=== PATIENT | male | born 1960 ===

== ENCOUNTER 2016-09-27 23:26 | Inpatient (IN) | payer MEDICAID ==
[2016-09-27 23:28] VITALS: BMI 19.4
--- NOTE | 2016-09-27 23:41 | ED PDOC ---
Arrival/HPI - General Chief Complaint: Shortness Of Breath Time Seen by Provider: 09/27/16 23:27 Historian: Patient - History of Present Illness Narrative History of Present Illness (Text): 09/27/16 23:38 Shane Manuel is a 56 year old male, with a history of COPD, presents to the emergency department via ambulance for worsening shortness of breath which began shortly prior to arrival. En route patient was given 1 albuterol, 1 duoneb and Solumedrol 125mg. Denies any chest pain. Denies fever, chills, nausea , vomiting, diarrhea, urinary symptoms, or any other complaints at this time. Time/Duration: Prior to Arrival Symptom Course: Worsening Past Medical History - Provider Review Nursing Documentation Reviewed: Yes - Pulmonary Hx Chronic Obstructive Pulmonary Disease (COPD): Yes - Neurological Other/Comment: compression fx - Psychiatric Hx Substance Use: No Family/Social History - Physician Review Nursing Documentation Reviewed: Yes Family/Social History: No Known Family HX Smoking Status: Former Smoker Hx Alcohol Use: No Hx Substance Use: No Allergies/Home Meds Allergies/Adverse Reactions: Allergies No Known Allergies Allergy (Verified 09/27/16 23:28) Home Medications: Home Meds Medication Instructions Recorded Confirmed Unobtainable 09/27/16 09/27/16 Review of Systems - Physician Review All systems were reviewed & negative as marked: Yes - Review of Systems Constitutional: Normal. absent: Fatigue, Fevers Respiratory: SOB. absent: Cough Cardiovascular: absent: Chest Pain Gastrointestinal: Normal, Nausea. absent: Abdominal Pain, Diarrhea, Vomiting Neurological: Normal. absent: Dizziness Psychiatric: Normal Physical Exam Vital Signs Reviewed: Yes Vital Signs Temp Pulse Resp BP Pulse Ox 09/27/16 23:30 24 09/27/16 23:28 99.8 F H 100 H 26 H 133/91 H 100 Temperature: Afebrile Blood Pressure: Normal Pulse: Tachycardic Respiratory Rate: Normal Appearance: Positive for: Non-Toxic Pain Distress: None Mental Status: Positive for: Alert and Oriented X 3 - Systems Exam Head: Present: Atraumatic, Normocephalic Pupils: Present: PERRL Conjunctiva: Present: Normal Mouth: Present: Moist Mucous Membranes Neck: Present: Normal Range of Motion Respiratory/Chest: Present: Wheezes. No: Respiratory Distress, Accessory Muscle Use Cardiovascular: Present: Regular Rate and Rhythm, Normal S1, S2. No: Murmurs Abdomen: Present: Normal Bowel Sounds. No: Tenderness, Distention, Peritoneal Signs Upper Extremity: Present: Normal Inspection. No: Cyanosis, Edema Lower Extremity: Present: Normal Inspection. No: Edema Neurological: Present: GCS=15, CN II-XII Intact, Speech Normal Skin: Present: Warm, Dry, Normal Color. No: Rashes Psychiatric: Present: Alert, Oriented x 3, Normal Insight, Normal Concentration Medical Decision Making ED Course and Treatment: 09/27/16 23:53 Impression: A 56 year old male who presents to the emergency department complaining of worsening shortness of breath. Plan: -- EKG -- Labs, cardiac enzymes -- Chest X-ray -- Duoneb -- Blood Culture -- Reassess and disposition Progress Notes: 09/28/16 01:23 EKG reviewed by me: NSR @ 100 bpm. Septal infarct, age undetermined. Case discussed with Dr. Sanz who is aware and agrees with plan to admit patient to telemetry for COPD. Accepts patient under hospitalist service. - Lab Interpretations Microbiology Results: Microbiology Results 09/28/16 00:10 Blood-Venous Blood Culture - Preliminary NO GROWTH AFTER 24 HOURS 09/27/16 23:30 Blood-Venous Blood Culture - Preliminary NO GROWTH AFTER 24 HOURS Lab Results: 09/27/16 23:30 09/27/16 23:30 Lab Results 09/27/16 23:30: Sodium 138, Chloride 102, Potassium 4.6, Carbon Dioxide 32, Anion Gap 9 L, BUN 32 H, Creatinine 0.6, Est GFR ( Amer) > 60, Est GFR ( Non-Af Amer) > 60, Random Glucose 102, Calcium 9.1, Total Bilirubin 0.5, AST 29 , ALT 49, Alkaline Phosphatase 70, Lactate Dehydrogenase 409, Total Creatine Kinase 27 L, Troponin I < 0.01, NT-Pro-B Natriuret Pep 193, Total Protein 6.0, Albumin 3.6, Globulin 2.4, Albumin/Globulin Ratio 1.5 09/27/16 23:30: pO2 132 H, VBG pH 7.32, VBG pCO2 65.0 H, VBG HCO3 33.5 H, VBG Total CO2 35.5 H, VBG O2 Sat (Calc) 99.8 H, VBG Base Excess 5.3 H, VBG Potassium 4.6, Sodium 139.0, Chloride 105.0, Glucose 108, Lactate 1.4, FiO2 21.0 , Venous Blood Potassium 4.6 09/27/16 23:30: WBC 23.6 H, RBC 4.32, Hgb 13.2 L, Hct 39.9 L, MCV 92.4, MCH 30.6 , MCHC 33.1, RDW 14.0, Plt Count 236, MPV 9.7, Neutrophils % (Manual) 77 H, Band Neutrophils % 2, Lymphocytes % (Manual) 12 L, Monocytes % (Manual) 9 H, Platelet Evaluation Normal I have reviewed the lab results: Yes - RAD Interpretation Radiology Orders: 09/27/16 23:30 CHEST PORTABLE [RAD] Stat 09/28/16 01:16 CHEST W/CONTRAST [CT] Stat - EKG Interpretation Interpreted by ED Physician: Yes Type: 12 lead EKG - Medication Orders Current Medication Orders: Acetaminophen (Tylenol 325mg Tab) 650 mg PO Q6H PRN PRN Reason: Fever >100.4 F Last Admin: 09/28/16 23:05 Dose: 650 mg Re-Assess: MAR Pain/Vitals Document 09/29/16 00:05 ST (Rec: 09/29/16 03:04 ST [id number]) Pain Reassessment Is This A Pain ReAssessment? Yes Sleep Is patient sleeping during reassessment? No Presence of Pain Presence of Pain Yes Albuterol/Ipratropium (Duoneb 3 Mg/0.5 Mg (3 Ml) Ud) 3 ml IH [id number] PRN PRN Reason: shortness of breath or wheezin Cyclobenzaprine HCl (Flexeril) 10 mg PO TID [facility] Last Admin: 09/29/16 17:04 Dose: 10 mg Enoxaparin Sodium (Lovenox) 30 mg SC DAILY ERIC PRN Reason: Protocol Last Admin: 09/29/16 10:08 Dose: 30 mg Famotidine (Pepcid) 20 mg PO BID [facility] Last Admin: 09/29/16 17:04 Dose: 20 mg Azithromycin (Zithromax 500mg In Ns) 500 mg in 250 mls @ 167 mls/hr IVPB DAILY [facility] PRN Reason: Protocol Last Admin: 09/29/16 10:09 Dose: 167 mls/hr Ceftriaxone Sodium (Rocephin 1 Gram Ivpb) 1 gm in 100 mls @ 100 mls/hr IVPB DAILY [facility] PRN Reason: Protocol Last Admin: 09/29/16 13:23 Dose: 100 mls/hr Ibuprofen (Motrin Tab) 600 mg PO Q6H PRN PRN Reason: Pain, Mild (1-3) Last Admin: 09/28/16 20:22 Dose: 600 mg Re-Assess: [facility] Pain/Vitals Document 09/28/16 21:22 ST (Rec: 09/28/16 21:34 ST [id number]) Pain Reassessment Is This A Pain ReAssessment? Yes Sleep Is patient sleeping during reassessment? No Presence of Pain Presence of Pain Yes Pain Scale Used Pain Scale Used Numeric Location Intensity 7 Levalbuterol HCl (Xopenex) 0.63 mg IH [id number] [facility] Last Admin: 09/29/16 19:17 Dose: 0.63 mg Levalbuterol HCl (Xopenex) 0.63 mg IH Q2H PRN PRN Reason: Shortness of Breath Methylprednisolone (Solu-Medrol) 40 mg IV BID [facility] Last Admin: 09/29/16 17:03 Dose: 40 mg Morphine Sulfate (Morphine) 2 mg IVP Q6H PRN PRN Reason: Pain, severe (8-10) Last Admin: 09/29/16 17:03 Dose: 2 mg Re-Assess: [facility] Pain Assessment Document 09/29/16 18:03 (Rec: 09/29/16 18:39 [id number]) Pain Reassessment Is this a pain reassessment? Yes Sleep Is patient sleeping during reassessment? Yes Pain Scale Used Pain Scale Used Numeric Description Intensity of Pain at present 0 Pantoprazole Sodium (Protonix Ec Tab) 40 mg PO 0630 [facility] Tiotropium [place] (Spiriva) 18 mcg IH DAILY [facility] Discontinued Medications Albuterol/Ipratropium (Duoneb 3 Mg/0.5 Mg (3 Ml) Ud) 3 ml IH Q15M [facility] Stop: 09/28/16 00:01 Last Admin: 09/28/16 00:03 Dose: 3 ml Albuterol/Ipratropium (Duoneb 3 Mg/0.5 Mg (3 Ml) Ud) 3 ml IH [id number] [facility] Last Admin: 09/28/16 23:01 Dose: 3 ml Arformoterol Tartrate (Brovana) 15 mcg IH [id number] Last Admin: 09/29/16 08:03 Dose: 15 mcg Budesonide (Pulmicort Respules) 1 mg IH [id number] [facility] Last Admin: 09/29/16 08:02 Dose: 1 mg Magnesium Sulfate 2 gm/ Sodium (Chloride) 104 mls @ 102 mls/hr IVPB ONCE ONE Stop: 09/28/16 02:05 Last Admin: 09/28/16 01:27 Dose: 102 mls/hr Sodium Chloride (Sodium Chloride 0.9%) 1,000 mls @ 100 mls/hr IV .Q10H [facility] Last Admin: 09/28/16 14:58 Dose: 100 mls/hr Iohexol (Omnipaque 350 100 Ml) Confirm Administered Dose 350 mg .ROUTE .STK-MED ONE Stop: 09/28/16 01:59 Ketorolac Tromethamine (Toradol) 30 mg IVP STAT STA Stop: 09/28/16 01:24 Ketorolac Tromethamine (Toradol) 30 mg IVP STAT STA Stop: 09/28/16 04:16 Last Admin: 09/28/16 04:34 Dose: 30 mg Re-Assess: [facility] Pain Assessment Document 09/28/16 05:34 ST (Rec: 09/28/16 05:59 ST [id number]) Pain Reassessment Is this a pain reassessment? Yes Sleep Is patient sleeping during reassessment? Yes Ketorolac Tromethamine (Toradol) 30 mg IVP STAT STA Stop: 09/28/16 10:06 Last Admin: 09/28/16 11:01 Dose: 30 mg Re-Assess: [facility] Pain Assessment Document 09/28/16 12:01 J (Rec: 09/28/16 12:55 [id number]) Pain Reassessment Is this a pain reassessment? Yes Sleep Is patient sleeping during reassessment? Yes Pain Scale Used Pain Scale Used Numeric Description Description Constant Intensity of Pain at present 3 Levalbuterol HCl (Xopenex) 0.63 mg IH Q2H PRN PRN Reason: Shortness of Breath Methylprednisolone (Solu-Medrol) 60 mg IV BID [facility] Last Admin: 09/28/16 10:02 Dose: 60 mg Morphine Sulfate (Morphine) 2 mg IVP ONCE STA Stop: 09/28/16 04:16 Last Admin: 09/28/16 05:59 Dose: Not Given Non-Admin Reason: Patient Asleep - Scribe Statement The provider has reviewed the documentation as recorded by the Scribe Montrell López Provider Attestation: Provider Scribe Attestation: All medical record entries made by the Melecioibe were at my direction and personally dictated by me. I have reviewed the chart and agree that the record accurately reflects my personal performance of the history, physical exam, medical decision making, and the department course for this patient. I have also personally directed, reviewed, and agree with the discharge instructions and disposition. Disposition/Present on Arrival - Present on Arrival Any Indicators Present on Arrival: No History of DVT/PE: No History of Uncontrolled Diabetes: No Urinary Catheter: No History of Decub. Ulcer: No History Surgical Site Infection Following: None - Disposition Have Diagnosis and Disposition been Completed?: Yes Diagnosis: Chronic obstructive lung disease Disposition: HOSPITALIZED Disposition Time: 01:30 Condition: FAIR
[2016-09-27] MEDS: Albuterol-Ipratrop 3 mg / 0.5 (3 ml) UD IH SCH (23:52)
[2016-09-28] MEDS: Albuterol-Ipratrop 3 mg / 0.5 (3 ml) UD IH SCH ×6 (00:03→23:01)
[2016-09-28 00:06] LABS: HEMATOCRIT 39.9 % (42.0-52.0); MEAN CELL VOLUME 92.4 fL (80.0-105.0); MEAN CORPUSCULAR HEMOGLOBIN 30.6 pg (25.0-35.0); MEAN CORPUSCULAR HGB CONC 33.1 g/dl (31.0-37.0); MEAN PLATELET VOLUME 9.7 fl (7.0-11.0); PLATELET COUNT 236 10^3/uL (120.0-450.0); VENOUS BLOOD GAS BASE EXCESS 5.3 mmol/L (0.0-2.0); VENOUS BLOOD PH 7.32 (7.32-7.43); WHITE BLOOD COUNT 23.6 10^3/ul (4.5-11.0)
[2016-09-28 00:11] LABS: ADD MANUAL DIFF? YES
[2016-09-28 00:17] LABS: ALB/GLOB RATIO 1.5 (1.1-1.8); ALKALINE PHOSPHATASE 70 U/L (38-133); ALT/SGPT 49 U/L (7-56); AST/SGOT 29 U/L (15-59); BILIRUBIN,TOTAL 0.5 mg/dL (0.2-1.3); BLOOD UREA NITROGEN 32 mg/dL (7-21); CALCIUM 9.1 mg/dL (8.4-10.5); CARBON DIOXIDE 32 mmol/L (21-33); CHLORIDE 102 mmol/L (98-107); GFR AFRICAN-AMERICAN > 60; GLUCOSE,RANDOM 102 mg/dL (70-110); POTASSIUM 4.6 mmol/L (3.6-5.0); SODIUM 138 mmol/L (132-148)
[2016-09-28 00:36] LABS: BAND 2 % (0-2); NEUTROPHIL 77 % (50.0-70.0)
[2016-09-28 00:37] LABS: PLATELET ESTIMATE NORMAL (NORMAL)
[2016-09-28] MEDS ORDERED: Albuterol-Ipratrop 3 mg / 0.5 (3 ml) UD IH PRN (01:01)
[2016-09-28] MEDS ORDERED: Magnesium Sulfate 2 GM in Sodium Chloride 0.9% 100 ML IVPB ONE (01:04)
--- NOTE | 2016-09-28 01:21 | CP.PCM.HP ---
Addendum entered and electronically signed by Sin Grey DO 09/28/16 04:18: patient is on azithromycin, not levaquin Original Note: <Sin Grey - Last Filed: 09/28/16 03:16> History of Present Illness - History of Present Illness History of Present Illness: This is a 56yo M, normally a patient of Dr. Polk at [facility] who is coming to the hospital for acute shortness of breath. Never been intubated. States he is on 3L NC at home, gets out of breath just walking to the bathroom. Admits to night sweats and 30lb weight loss, unintentional in the past 2 months, and lack of appetite. Extensive family history of cancer; mom with thyroid and lung cancer, dad EtOH abuse from cirrhosis, brother/sisters with lung and brain cancer as well. Denies fevers/chills, CAI, CP, abdominal pain, Nausea/V/D, dysuria/freq/ urg, or lower extremity pain swelling. Past medical history: COPD Allergies: denies Meds: Advair 500, Proventil, Prednisone unknown dosage, 3L NC Surgeries: Denies FamHx: extensive cancer history as listed above; has not had any preventative cancer screenings or regular medical follow ups Social: former smoker, former IVDA, has been "clean" for 35 years Present on Admission - Present on Admission Any Indicators Present on Admission: No History of DVT/PE: No History of Uncontrolled Diabetes: No Urinary Catheter: No Decubitus Ulcer Present: No Past Patient History - Past Social History Smoking Status: Former Smoker - PULMONARY Hx Chronic Obstructive Pulmonary Disease (COPD): Yes - NEUROLOGICAL Other/Comment: compression fx - PSYCHIATRIC Hx Substance Use: No Meds Allergies/Adverse Reactions: Allergies Allergy/AdvReac Type Severity Reaction Status Date / Time No Known Allergies Allergy Verified 09/27/16 23:28 Physical Exam - Constitutional Additional comments: patient is sitting up in bed, gasping for air, speaking in full sentences, cachetic - Head Exam Head Exam: ATRAUMATIC - Eye Exam Eye Exam: EOMI - ENT Exam ENT Exam: Mucous Membranes Dry - Neck Exam Neck exam: Positive for: Full Rom. Negative for: Lymphadenopathy - Respiratory Exam Respiratory Exam: Accessory Muscle Use, Decreased Breath Sounds, Wheezes. absent: Chest Wall Tenderness, Clear to Auscultation Bilateral, Respiratory Distress, Stridor - Cardiovascular Exam Cardiovascular Exam: REGULAR RHYTHM, +S1, +S2 - GI/Abdominal Exam GI & Abdominal Exam: Normal Bowel Sounds, Soft. absent: Tenderness - Extremities Exam Extremities exam: Positive for: full ROM, normal capillary refill, pedal edema, pedal pulses present. Negative for: calf tenderness, joint swelling, tenderness - Back Exam Back exam: NORMAL INSPECTION. absent: CVA tenderness (L), CVA tenderness (R) Additional comments: spinal tenderness in T10 - Neurological Exam Neurological exam: Alert, CN II-XII Intact, Oriented x3, Reflexes Normal Additional comments: walks with cane; short of breath after 10 steps - Psychiatric Exam Psychiatric exam: Normal Affect - Skin Skin Exam: Warm Results - Vital Signs Recent Vital Signs: Last Vital Signs Temp 99.8 F H 09/27/16 23:28 Pulse 100 H 09/27/16 23:28 Resp 24 09/27/16 23:30 BP 133/91 H 09/27/16 23:28 Pulse Ox 100 09/27/16 23:28 - Labs Result Diagrams: 09/27/16 23:30 09/27/16 23:30 Labs: Laboratory Results - last 24 hr 09/27/16 09/27/16 09/27/16 23:30 23:30 23:30 WBC 23.6 H RBC 4.32 Hgb 13.2 L Hct 39.9 L MCV 92.4 MCH 30.6 MCHC 33.1 RDW 14.0 Plt Count 236 MPV 9.7 Neutrophils % (Manual) 77 H Band Neutrophils % 2 Lymphocytes % (Manual) 12 L Monocytes % (Manual) 9 H Platelet Evaluation Normal pO2 132 H VBG pH 7.32 VBG pCO2 65.0 H VBG HCO3 33.5 H VBG Total CO2 35.5 H VBG O2 Sat (Calc) 99.8 H VBG Base Excess 5.3 H VBG Potassium 4.6 Sodium 139.0 138 Chloride 105.0 102 Glucose 108 Lactate 1.4 FiO2 21.0 Potassium 4.6 Carbon Dioxide 32 Anion Gap 9 L BUN 32 H Creatinine 0.6 Est GFR ( Amer) > 60 Est GFR (Non-Af Amer) > 60 Random Glucose 102 Calcium 9.1 Total Bilirubin 0.5 AST 29 ALT 49 Alkaline Phosphatase 70 Lactate Dehydrogenase 409 Total Creatine Kinase 27 L Total Protein 6.0 Albumin 3.6 Globulin 2.4 Albumin/Globulin Ratio 1.5 Venous Blood Potassium 4.6 Assessment & Plan - Assessment and Plan (Free Text) Assessment: 56yo M admitted for COPD Exacerbation COPD Exacerbation; acute on chronic -given 125 Solumedrol in emergency depart; will start 60BID of IV Solumedrol -IV Mag 2g given in emergency depart -Levaquin - follow up ABG, keep on 3L NC for time being -advair 500, breathing treatments ERIC Q3H, PRN Q2H -follow up chest CT w/ contrast; patient has been losing weight -pending troponin Proph: Pepcid SCD Heart Healthy Diet Case discussed with Dr. Umu Grey PGY1 Night Float Decision To Admit - Pt Status Changed To: Hospital Disposition Of: Inpatient Admission - Admit Certification Admit to Inpatient:: After my assessment, the patient will require hospitalization for at least two midnights. This is because of the severity of symptoms shown, intensity of services needed, and/or the medical risk in this patient being treated as an outpatient. - . Bed Request Type: Telemetry Admitting Physician: Farhad Sanz MD <Farhad Sanz MD - Last Filed: 09/28/16 08:20> Results - Vital Signs Recent Vital Signs: Last Vital Signs Temp 97.8 F 09/28/16 06:00 Pulse 94 H 09/28/16 06:00 Resp 24 09/28/16 06:00 BP 113/74 09/28/16 06:00 Pulse Ox 96 09/28/16 06:00 - Labs Result Diagrams: 09/28/16 05:15 09/27/16 23:30 Labs: Laboratory Results - last 24 hr 09/28/16 05:15 WBC 17.2 H D RBC 3.93 Hgb 12.1 L Hct 36.3 L MCV 92.4 MCH 30.8 MCHC 33.3 RDW 14.2 Plt Count 199 MPV 9.7 Gran % 95.8 H Lymph % (Auto) 1.2 L [place] % (Auto) 3.0 Eos % (Auto) 0.0 L Baso % (Auto) 0.0 Gran # 16.53 H Lymph # 0.2 L [place] # 0.5 Eos # 0.0 Baso # 0.00 Attending/Attestation - Attestation I have personally seen and examined this patient.: Yes I have fully participated in the care of the patient.: Yes I have reviewed all pertinent clinical information: Yes Notes (Text): 09/28/16 08:10 -I agree with the above H&P completed by the resident physician with the following additions and/or changes: The patient is a 56 year old man with a history of very severe COPD (on 3L O2 NC at home) and chronic low back pain, who presents with acute COPD exacerbation. He will be treated with nebulizer breathing treatments ATC and PRN , prophylactic Azithromycin and IV Methylprednisone. In addition, he has leukocytosis which is presumably due to chronic Prednisone use (versus acute bronchitis). Lastly, because the patient appears cachectic and also reports a significant unintentional weight loss over the past 6 months, a CT-chest has been ordered (result pending) to evaluate for possible mass. Will defer to the primary team to follow-up on the results of the CT-chest later this morning. 09/28/16 08:15
[2016-09-28] MEDS ORDERED: Iohexol 350 MG/100 ML VIAL ONE (01:58)
[2016-09-28 02:36] LABS: TROPONIN I < 0.01 ng/mL
[2016-09-28] MEDS ORDERED: Morphine 2 mg/ml ISec IVP STA (04:15)
[2016-09-28] MEDS: Sodium Chloride 0.9% 1,000 ML IV SCH ×2 (04:34→14:58)
[2016-09-28 06:08] LABS: GRAN # 16.53 (1.4-6.5); GRAN % 95.8 % (50.0-68.0); HEMATOCRIT 36.3 % (42.0-52.0); LYMPH # 0.2 (1.2-3.4); LYMPH % 1.2 % (22.0-35.0); MEAN CELL VOLUME 92.4 fL (80.0-105.0); MEAN CORPUSCULAR HEMOGLOBIN 30.8 pg (25.0-35.0); MEAN CORPUSCULAR HGB CONC 33.3 g/dl (31.0-37.0); MEAN PLATELET VOLUME 9.7 fl (7.0-11.0); MONO # 0.5 (0.1-0.6); PLATELET COUNT 199 10^3/uL (120.0-450.0); RED CELL DISTRIBUTION WIDTH 14.2 % (11.5-14.5); WHITE BLOOD COUNT 17.2 10^3/ul (4.5-11.0)
[2016-09-28 06:49] LABS: ADD MANUAL DIFF? NO
[2016-09-28] MEDS: Arformoterol 15 mcg/2 ml Inh Sol IH SCH ×2 (07:40→19:34)
[2016-09-28] MEDS: Budesonide 0.5 mg/2 ml Inhal Susp UD IH SCH ×2 (07:40→19:34)
--- NOTE | 2016-09-28 08:50 | RAD ---
HISTORY: sob COMPARISON: No prior. FINDINGS: LUNGS: No active pulmonary disease. PLEURA: No significant pleural effusion identified, no pneumothorax apparent. CARDIOVASCULAR: Normal. OSSEOUS STRUCTURES: No significant abnormalities. VISUALIZED UPPER ABDOMEN: Normal. OTHER FINDINGS: None. IMPRESSION: No active disease.
--- NOTE | 2016-09-28 09:21 | CT ---
PROCEDURE: CT Chest with contrast HISTORY: SOB weight loss COMPARISON: None. TECHNIQUE: Contiguous axial images were obtained through the chest with intravenous contrast enhancement. Sagittal and coronal reconstructions were performed. IV contrast: 100 cc of Omni 350 Radiation dose (DLP): 172 mGy-cm. This CT exam was performed using one or more of the following dose reduction techniques: Automated exposure control, adjustment of the mA and/or kV according to patient size, and/or use of iterative reconstruction technique. FINDINGS: LUNGS: Severe emphysema MEDIASTINUM: Unremarkable thoracic aorta. No aneurysm or dissection. Normal sized heart. Main pulmonary artery unremarkable. No vascular congestion. No lymphadenopathy. No evidence of pulmonary embolus PLEURA: No pleural fluid. No pneumothorax. BONES: Multiple compression fractures are seen most severe at L1 UPPER ABDOMEN: Grossly unremarkable. OTHER FINDINGS: None. IMPRESSION: Severe emphysema. No evidence of pulmonary embolus. Multiple thoracic compression fractures with severe compression fracture of L1
[2016-09-28 09:35] LABS: ALB/GLOB RATIO 1.3 (1.1-1.8); ALKALINE PHOSPHATASE 62 U/L (38-133); ALT/SGPT 45 U/L (7-56); AST/SGOT 20 U/L (15-59); BILIRUBIN,TOTAL 0.4 mg/dL (0.2-1.3); BLOOD UREA NITROGEN 27 mg/dL (7-21); CALCIUM 8.5 mg/dL (8.4-10.5); CARBON DIOXIDE 28 mmol/L (21-33); CHLORIDE 101 mmol/L (98-107); CHOLESTEROL 162 mg/dL (130-200); GFR AFRICAN-AMERICAN > 60; GLUCOSE,RANDOM 107 mg/dL (70-110); POTASSIUM 4.3 mmol/L (3.6-5.0); SODIUM 138 mmol/L (132-148); TOTAL PROTEIN 5.1 g/dL (5.8-8.3)
[2016-09-28 09:38] LABS: IRON 62 ug/dL (45-180)
[2016-09-28 09:46] LABS: TROPONIN I < 0.01 ng/mL
[2016-09-28] MEDS ORDERED: Fluticasone-Salmeterol 500-50mcg Diskus INH SCH (10:00)
[2016-09-28] MEDS: Azithromycin 500MG/NS 250ml 500 MG/250 ML BAG IVPB SCH (10:01)
[2016-09-28] MEDS: Enoxaparin 30 mg Syringe SC SCH (10:03)
[2016-09-28 10:08] LABS: THYROID STIMULATING HORMONE < 0.02 mIU/mL (0.46-4.68)
[2016-09-28] MEDS: MethylPREDNISolone 40 mg Vial IV SCH (17:29)
[2016-09-28 22:31] LABS: PH,URINE 6.5 (4.7-8.0); URINE BILIRUBIN NEGATIVE (NEGATIVE); URINE BLOOD NEGATIVE (NEGATIVE); URINE GLUCOSE (UA) NEGATIVE (NEGATIVE); URINE KETONE NEGATIVE (NEGATIVE); URINE LEUKOCYTE ESTERASE NEGATIVE Leu/uL (NEGATIVE); URINE PROTEIN NEGATIVE mg/dL (<30 mg/dL); URINE UROBILINOGEN 0.2 E.U./dL (<1 E.U./dL)
[2016-09-28 22:37] LABS: URINE APPEARANCE CLEAR (CLEAR); URINE COLOR YELLOW (YELLOW)
--- NOTE | 2016-09-28 22:38 | CARD ---
APPROVED REPORT EKG Measurement Heart [id number] <Conclusion> Normal sinus rhythm Septal infarct, age undetermined Abnormal ECG
[2016-09-28] MEDS ORDERED: Levalbuterol 0.63 MG/3 ML Inhal Soln UD IH PRN (23:35)
[2016-09-29] MEDS ORDERED: Levalbuterol 0.63 MG/3 ML Inhal Soln UD IH PRN (00:14)
[2016-09-29] MEDS: Morphine 2 mg/ml ISec IVP PRN ×3 (04:51→17:03)
[2016-09-29] MEDS: Sodium Chloride 0.9% 1,000 ML IV SCH (04:51)
[2016-09-29 05:04] VITALS: RESP 20
[2016-09-29] MEDS: Levalbuterol 0.63 MG/3 ML Inhal Soln UD IH SCH ×6 (05:09→23:14)
[2016-09-29 06:52] LABS: ADD MANUAL DIFF? NO
[2016-09-29 07:07] LABS: GRAN % 86.5 % (50.0-68.0); HEMATOCRIT 33.6 % (42.0-52.0); LYMPH % 5.9 % (22.0-35.0); MEAN CELL VOLUME 91.6 fL (80.0-105.0); MEAN CORPUSCULAR HGB CONC 32.7 g/dl (31.0-37.0); MEAN PLATELET VOLUME 9.5 fl (7.0-11.0); MONO # 1.3 (0.1-0.6); MONO % 7.6 % (1.0-6.0); PLATELET COUNT 188 10^3/uL (120.0-450.0); RED CELL DISTRIBUTION WIDTH 14.2 % (11.5-14.5); WHITE BLOOD COUNT 17.1 10^3/ul (4.5-11.0)
[2016-09-29] MEDS: Budesonide 0.5 mg/2 ml Inhal Susp UD IH SCH (08:02)
[2016-09-29] MEDS: Arformoterol 15 mcg/2 ml Inh Sol IH SCH (08:03)
[2016-09-29 08:21] LABS: ALB/GLOB RATIO 1.3 (1.1-1.8); ALKALINE PHOSPHATASE 57 U/L (38-133); ALT/SGPT 49 U/L (7-56); AST/SGOT 21 U/L (15-59); BILIRUBIN,TOTAL 0.4 mg/dL (0.2-1.3); BLOOD UREA NITROGEN 20 mg/dL (7-21); CALCIUM 8.2 mg/dL (8.4-10.5); CARBON DIOXIDE 29 mmol/L (21-33); CHLORIDE 106 mmol/L (95-110); GFR AFRICAN-AMERICAN > 60; GLUCOSE,RANDOM 80 mg/dL (70-110); POTASSIUM 4.1 mmol/L (3.6-5.0); SODIUM 138 mmol/L (132-148); TOTAL PROTEIN 4.6 g/dL (5.8-8.3)
[2016-09-29] MEDS: Enoxaparin 30 mg Syringe SC SCH (10:08)
[2016-09-29] MEDS: MethylPREDNISolone 40 mg Vial IV SCH ×2 (10:08→17:03)
[2016-09-29] MEDS: Azithromycin 500MG/NS 250ml 500 MG/250 ML BAG IVPB SCH (10:09)
--- NOTE | 2016-09-29 10:37 | CP.PCM.PN ---
<Sha Montesinos - Last Filed: 09/29/16 10:32> Subjective - Date & Time of Evaluation Date of Evaluation: 09/29/16 Time of Evaluation: 09:00 - Subjective Subjective: Internal Medicine Progress Note for Dr. Caba Patient seen and evaluated at bedside. Today is hospital day 2. Overnight, patient still experiencing some pain, requiring a dose of morphine; he also continued to experience intermittent episodes of rapid tachycardia concerning for junctional rhythm on tele monitor, but otherwise remained hemodynamically stable and without complaint, so his breathing treatments were transitioned to Xopenex to reduce any medication induced tachycardia. Today, patient reports baseline breathing (short of breath, better than when presenting to [facility]) and back pain that limits his ambulation, but denies chest pain, productive cough, weakness, near-syncope/syncope. Objective - Vital Signs/Intake and Output Vital Signs (last 24 hours): Temp Pulse Resp BP Pulse Ox 97.5 F L 87 20 119/78 98 09/29/16 05:02 09/29/16 06:00 09/29/16 05:02 09/29/16 05:02 09/29/16 05:02 Intake and Output: 09/29/16 09/29/16 06:59 18:59 Intake Total 2940 Output Total 1000 Balance 1940 - Medications Medications: Current Medications Acetaminophen (Tylenol 325mg Tab) 650 mg PO Q6H PRN PRN Reason: Fever >100.4 F Last Admin: 09/28/16 23:05 Dose: 650 mg Arformoterol Tartrate (Brovana) 15 mcg IH [id number] [facility] Last Admin: 09/29/16 08:03 Dose: 15 mcg Budesonide (Pulmicort Respules) 1 mg IH [id number] [facility] Last Admin: 09/29/16 08:02 Dose: 1 mg Cyclobenzaprine HCl (Flexeril) 10 mg PO TID [facility] Last Admin: 09/29/16 10:08 Dose: 10 mg Enoxaparin Sodium (Lovenox) 30 mg SC DAILY [facility] PRN Reason: Protocol Last Admin: 09/29/16 10:08 Dose: 30 mg Famotidine (Pepcid) 20 mg PO BID [facility] Last Admin: 09/29/16 10:08 Dose: 20 mg Azithromycin (Zithromax 500mg In Ns) 500 mg in 250 mls @ 167 mls/hr IVPB DAILY SARAH PRN Reason: Protocol Last Admin: 09/29/16 10:09 Dose: 167 mls/hr Ibuprofen (Motrin Tab) 600 mg PO Q6H PRN PRN Reason: Pain, Mild (1-3) Last Admin: 09/28/16 20:22 Dose: 600 mg Levalbuterol HCl (Xopenex) 0.63 mg IH [id number] [facility] Last Admin: 09/29/16 08:02 Dose: 0.63 mg Levalbuterol HCl (Xopenex) 0.63 mg IH Q2H PRN PRN Reason: Shortness of Breath Methylprednisolone (Solu-Medrol) 40 mg IV BID [facility] Last Admin: 09/29/16 10:08 Dose: 40 mg Morphine Sulfate (Morphine) 2 mg IVP Q6H PRN PRN Reason: Pain, severe (8-10) Last Admin: 09/29/16 10:22 Dose: 2 mg - Labs Labs: 09/29/16 06:30 09/29/16 08:08 - Constitutional Appears: Non-toxic, No Acute Distress, Chronically Ill, Other (Tachypnic with exertion, able to speak full sentences without gasping for air when at rest and wearing NC O2) - Head Exam Head Exam: ATRAUMATIC, NORMAL INSPECTION, NORMOCEPHALIC - Eye Exam Eye Exam: EOMI, Normal appearance. absent: Conjunctival injection, Scleral icterus Pupil Exam: absent: Irregular, Unequal - ENT Exam ENT Exam: Mucous Membranes Moist - Neck Exam Neck Exam: Full ROM - Respiratory Exam Respiratory Exam: Accessory Muscle Use, Decreased Breath Sounds (diffusely decreased breath sounds), Prolonged Expiratory Phase, Wheezes (difuse faint end- expiratory wheezes). absent: Chest Wall Tenderness, Rales, Rhonchi, Respiratory Distress, Stridor Additional comments: normal breathing and speaking pattern at rest tachypnic with exertion - Cardiovascular Exam Cardiovascular Exam: Tachycardia, REGULAR RHYTHM, +S1, +S2. absent: Bradycardia , Clicks, Irregular Rhythm, RRR, +S4 - GI/Abdominal Exam GI & Abdominal Exam: Soft, Normal Bowel Sounds. absent: Distended, Firm, Guarding, Rigid, Tenderness - Extremities Exam Extremities Exam: Normal Inspection. absent: Calf Tenderness, Pedal Edema, Tenderness - Back Exam Back Exam: tenderness (complains of lower back pain along spine (lumbar region) , not acutely worsened with palpation). absent: rash noted - Neurological Exam Neurological Exam: Alert, Awake, Oriented x3. absent: Normal Gait (hunched gait with short halting steps, requires a cane when ambulating) - Psychiatric Exam Psychiatric exam: Normal Affect, Normal Mood - Skin Skin Exam: Dry, Intact, Normal Color, Warm Assessment and Plan - Assessment and Plan (Free Text) Assessment: This is a 56 yo M with PMH of tobacco abuse (quit 5 months ago) and O2 /Steroid dependent COPD who presents with shortness of breath suspicious for acute exacerbation of COPD. Plan: 1) COPD Exacerbation -Likely acute exacerbation overlying chronic COPD -High dose Soludemrol and 1x IV Mag in ED; now on Solumedrol 40mg IV BID, Xopenex q4 sarah and q2 prn, Budesonide and Brovana q12, continue -IV Zithromax -Chest CT w/ contrast notable for severe emphysema, no pulmonary embolus, multiple thoracic compression fractures & severe compression fracture of L1 -trops negative x2 -Pulm (Dr. Holbrook) consulted, appreciate all recs; recs Pulm Rehab, f/u at [facility] or [facility] for further workup and management given severity of disease , may require bleb surgeries or lung transplant in future -PT consulted 2) Cachexia, Weight loss of > 30 lbs -likely COPD cachexia, but given smoking history clear risk for malignancy -CT chest negative for masses, so less likely malignancy -Tolerating heart healthy diet, continue to monitor 3) Tachycardia -likely 2/2 to severe COPD, chronic steroid use, deconditioning -Remains hemodynamically stable -Trops negative x2, no hx of cardiac disease per pt -Echo ordered, if normal, can d/c telemetry 4) Back pain -compression fractures noted on chest CT, likely exacerbated by chronic steroid use -No relief with Toradol, now on PRN Morphine -PT consulted Dispo: Telemetry, pending transfer to Med/Surg if Echo normal FEN: Heart-healthy Access: Peripheral IV Consults: Pulm, PT Ppx: Protonix for GI, Lovenox for DVT Code Status: Full Patient seen and reviewed with attending, Dr. Caba <Howard Caba - Last Filed: 09/29/16 14:48> Objective - Vital Signs/Intake and Output Vital Signs (last 24 hours): Temp Pulse Resp BP Pulse Ox 98.1 F 132 H 20 119/88 98 09/29/16 12:00 09/29/16 12:00 09/29/16 12:00 09/29/16 12:00 09/29/16 05:02 Intake and Output: 09/29/16 09/29/16 06:59 18:59 Intake Total 2940 Output Total 1000 Balance 1940 - Medications Medications: Current Medications Acetaminophen (Tylenol 325mg Tab) 650 mg PO Q6H PRN PRN Reason: Fever >100.4 F Last Admin: 09/28/16 23:05 Dose: 650 mg Albuterol/Ipratropium (Duoneb 3 Mg/0.5 Mg (3 Ml) Ud) 3 ml IH [id number] PRN PRN Reason: shortness of breath or wheezin Cyclobenzaprine HCl (Flexeril) 10 mg PO TID [facility] Last Admin: 09/29/16 13:23 Dose: 10 mg Enoxaparin Sodium (Lovenox) 30 mg SC DAILY [facility] PRN Reason: Protocol Last Admin: 09/29/16 10:08 Dose: 30 mg Famotidine (Pepcid) 20 mg PO BID [facility] Last Admin: 09/29/16 10:08 Dose: 20 mg Azithromycin (Zithromax 500mg In Ns) 500 mg in 250 mls @ 167 mls/hr IVPB DAILY [facility] PRN Reason: Protocol Last Admin: 09/29/16 10:09 Dose: 167 mls/hr Ceftriaxone Sodium (Rocephin 1 Gram Ivpb) 1 gm in 100 mls @ 100 mls/hr IVPB DAILY [facility] PRN Reason: Protocol Last Admin: 09/29/16 13:23 Dose: 100 mls/hr Ibuprofen (Motrin Tab) 600 mg PO Q6H PRN PRN Reason: Pain, Mild (1-3) Last Admin: 09/28/16 20:22 Dose: 600 mg Levalbuterol HCl (Xopenex) 0.63 mg IH [id number] [facility] Last Admin: 09/29/16 14:33 Dose: 0.63 mg Levalbuterol HCl (Xopenex) 0.63 mg IH Q2H PRN PRN Reason: Shortness of Breath Methylprednisolone (Solu-Medrol) 40 mg IV BID [facility] Last Admin: 09/29/16 10:08 Dose: 40 mg Morphine Sulfate (Morphine) 2 mg IVP Q6H PRN PRN Reason: Pain, severe (8-10) Last Admin: 09/29/16 10:22 Dose: 2 mg Pantoprazole Sodium (Protonix Ec Tab) 40 mg PO 0630 [facility] Tiotropium [place] (Spiriva) 18 mcg IH DAILY SARAH - Labs Labs: 09/29/16 06:30 09/29/16 08:08 Attending/Attestation - Attestation I have personally seen and examined this patient.: Yes I have fully participated in the care of the patient.: Yes I have reviewed all pertinent clinical information, including history, physical exam and plan: Yes Notes (Text): 09/29/16 14:42 Attending note ; Patient seen and examined with resident . This is a 56 year old male with PMH of tobacco abuse (quit 5 months ago) and O2/ Steroid dependent COPD who presents with shortness of breath and acute exacerbation of COPD. Continue oxygen. CO2 retention; started on BiPAP. Continue IV Steroids/xopenex. Patient gets shortness of breath/tachycardia with ambulation. EKG showed sinus tachycardia related to increased respiratory effort. CT consistent with severe emphysema. Patient was evaluated by pulmonary Yusef Hernandez. Referred to [facility] pulmonary rehab/cardiothoracic surgery. Multiple old compression fractures/chronic pain syndrome; currently on IV morphine. Physical therapy evaluation requested. Side effect of steroids explained in detail. Possible hypothyroidism; follow-up repeat thyroid function test. Endocrinology evaluation requested. Cachexia; secondary to advanced COPD. Patient is full code. Upon discharge the patient will follow-up with PMD of choice. Patient needs close pulmonary follow-up as outpatient.
[2016-09-29] MEDS ORDERED: Albuterol-Ipratrop 3 mg / 0.5 (3 ml) UD IH PRN (13:08)
[2016-09-29] MEDS: cefTRIAXone 1 gm 1 GM/100 ML BAG IVPB SCH (13:23)
--- NOTE | 2016-09-29 18:08 | CON ---
DATE: 09/29/2016 HISTORY OF PRESENT ILLNESS: The patient is seen and examined at bedside. He is a 56-year-old gentleman with very severe COPD and emphysema, who presented 2 days ago to [facility] with increased shortness of breath, cough and increased sputum production. The patient is an ex-smoker. She quit about 5 months ago and has been smoking for a long period of time. He admits to night sweats and about 30 pounds weight loss, unintentional, in the past 2 months. She also has lack of appetite. The patient has never been intubated; however, had very frequent admission to the hospital due to COPD exacerbation over the last year. No nausea, no vomiting. No diarrhea, no constipation. 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 PAST MEDICAL HISTORY: Very severe COPD. ALLERGIES: NKDA. MEDICATIONS: (The patient is not compliant with Advair 500/50, Proventil, prednisone and home oxygen). PAST SURGICAL HISTORY: None. FAMILY HISTORY: Noncontributory. REVIEW OF SYSTEMS: Revealed 12 organ system other than mentioned in history of present illness is negative. PHYSICAL EXAMINATION: VITAL SIGNS: Temperature 98.1. Heart rate 80; however, on minimal exertion goes up to 130. Blood pressure 119/88, respiratory rate 20, oxygen saturation 98% on 2 liters nasal cannula. HEAD AND NECK: Atraumatic. LUNGS: Severely decreased breath sounds bilaterally. HEART: Regular rate and rhythm. S1, S2 normal. ABDOMEN: Soft, nontender, nondistended. MUSCULOSKELETAL: Significant muscle wasting No C/C/E. NEUROLOGICAL: The patient moves all extremities spontaneously. SKIN: Moist. PSYCHIATRIC: The patient is alert and oriented x 3. LABORATORY DATA: WBC 17.1, down from 17.2; hemoglobin 11, platelet count 188. Sodium 138, potassium 4.1, chloride 106, carbon dioxide 29, BUN 20, creatinine 0.5, glucose 80, albumin 2.6, AST 21, ALT 49. TSH less than 0.02. MEDICATIONS: Tylenol p.r.n., Brovana, Pulmicort, cyclobenzaprine, Lovenox 30 mg subQ daily, Pepcid, Motrin, Toradol, Xopenex p.r.n. and every 4 hours, Solu- Medrol 40 mg IV b.i.d., morphine p.r.n., Protonix, azithromycin. CAT scan showed upper lobe predominance, severe emphysema, some mosaicism suggestive of air trapping, multiple thoracic compression fractures with severe compression fracture of L1. ASSESSMENT AND PLAN: This is a 56-year-old gentleman who presented with chronic obstructive pulmonary disease exacerbation in the setting of severe and advanced chronic obstructive pulmonary disease. At present time, patient is on steroid taper, bronchodilators, antibiotics and inhaled corticosteroids. He would benefit from bilevel positive airway pressure at night. At the same time , his underlying disease is very advanced. What I would recommend when he is back to baseline (once COPD flare resolved), I would obtain PFTs+DLCO, continue tabacco abstinence, LABA/LAMA inhalers, rather then high dose ICS as patient may have likely osteoporosis associated compression fractures, may need Ca and vitD supplementation as well. Would consider adding LTRA to the regimen. I would strongly recommend enrollement into pulmonary rehab program. Echocardiogram, 6-min walk test. alfa1-AT level measurement. Optimization of nutritional status would be beneficial. Caddy Packer consult is recommended. Patient is on home 02, which needs to be continued. Once above workup completed , whether or not option of LVRS is viable for the patient can be decided. Early referral to lung transplant center for eval may also be reasonable in light of severe and advanced disease appearance on CT chest. Endocrine service may help address osteoporosis issues as well as rule out hyperthyroidism (TSH <0.02). Palliative care consult may also be reasonable. Infection prophylaxis with vaccination. Reji Holbrook MD cc: [id number] TT: 09/29/2016 18:07:25 Confirmation # [id number] Dictation # [id number] ARCE
--- NOTE | 2016-09-29 18:40 | CON ---
DATE: 09/29/2016 ROOM: 260. HISTORY OF PRESENT ILLNESS: This is a 56-year-old male with known history of chronic obstructive abby g disease and is oxygen dependent with home oxygen therapy and has now been admitted with acute exace rbation of COPD and started on steroid therapy and is now being referred for endocrine evaluation bec ause of abnormal thyroid function studies. PAST MEDICAL HISTORY: As mentioned above, history of chronic obstructive lung disease from nicotine dependence and has had multiple admissions for exacerbations of the same. FAMILY HISTORY: Strongly positive for cancer with brothers and sisters having had lung and brain can cer and his mother had thyroid and lung cancer. His father had chronic alcoholism with subsequent ci rrhosis. SOCIAL HISTORY: The patient has supportive family. Admits to nicotine dependence and previous IV dr ug use. REVIEW OF SYSTEMS: Admits to generalized body weakness with easy fatigability and tiredness and subo ptimal energy level with episodic dizziness and lightheadedness, worse on the day of admission. No c hest pains or palpitations, but admits to progressive shortness of breath initially on exertion and t hen at rest with paroxysmal nocturnal dyspnea. His oral intake is variable and suboptimal with nause a, dyspepsia, and vague upper abdominal pain. PHYSICAL EXAMINATION: GENERAL: This is an average built male in no apparent distress. VITAL SIGNS: Blood pressure of 140/80, pulse of 100 beats per minute, regular, temperature 98, respi rations 20. Height is 5 feet 4, weight is 96 pounds. HEENT: Head normocephalic. Eyes anicteric with pink conjunctivae. Fundoscopy not possible at this time. Ears, nose and throat otherwise normal. NECK: Supple. Thyroid gland is normal size. No carotid bruits. No cervical adenopathy. CARDIOPULMONARY: Some adynamic precordium. S1, S2 is rapid and regular. LUNGS: Show scattered rhonchi with bibasal rales. ABDOMEN: Flat, soft with positive bowel sounds. EXTREMITIES: No peripheral edema. Pulses are +2 bilaterally. LABORATORY DATA: His chemistries showed a BUN of 20, sodium 138, potassium 4.1, chloride 106, CO2 29 , glucose 80 and creatinine 0.5. His TSH level is less than 0.02 with a free T4 of 1.3. ASSESSMENT: This is a 56-year-old male with acute exacerbation of chronic obstructive pulmonary dise ase, currently on IV steroid therapy and is now being referred for endocrine evaluation because of ab normal thyroid function studies. He remains clinically euthyroid and biochemically has evidence of T SH suppression most likely related to the intercurrent IV steroid therapy, which would cause transien t TSH suppression as expected thereof. Will have to exclude, however, the possibility of underlying subclinical hyperthyroidism, especially in the light of recent progressive weight loss and marked ano rexia. PLAN OF MANAGEMENT: As discussed with the patient and the staff, will obtain a comprehensive thyroid hormonal profile to include a thyroid peroxidase antibody, which will confirm and/or negate the pres ence of underlying thyroid autoimmunity. Will continue the serial chemistries and supplement accordi ngly as needed. We will hold off any kind of thyroid pharmacotherapy pending the availability and co mpletion of the thyroid workup accordingly. Jayde Henley MD cc: [id number] TT: 09/29/2016 18:39:09 Confirmation # [id number] Dictation # [id number]
[2016-09-30] MEDS: Levalbuterol 0.63 MG/3 ML Inhal Soln UD IH SCH ×3 (05:14→11:20)
[2016-09-30 05:38] VITALS: O2SAT 100
[2016-09-30 06:02] LABS: ADD MANUAL DIFF? NO
[2016-09-30 06:08] LABS: GRAN # 13.13 (1.4-6.5); GRAN % 84.6 % (50.0-68.0); HEMATOCRIT 40.6 % (42.0-52.0); LYMPH # 0.9 (1.2-3.4); LYMPH % 5.5 % (22.0-35.0); MEAN CELL VOLUME 93.3 fL (80.0-105.0); MEAN CORPUSCULAR HEMOGLOBIN 30.6 pg (25.0-35.0); MEAN CORPUSCULAR HGB CONC 32.8 g/dl (31.0-37.0); MEAN PLATELET VOLUME 9.9 fl (7.0-11.0); MONO # 1.5 (0.1-0.6); MONO % 9.9 % (1.0-6.0); PLATELET COUNT 223 10^3/uL (120.0-450.0); RED CELL DISTRIBUTION WIDTH 14.4 % (11.5-14.5); WHITE BLOOD COUNT 15.5 10^3/ul (4.5-11.0)
[2016-09-30] MEDS ORDERED: Pantoprazole 40 mg EC Tab PO SCH (06:30)
[2016-09-30 06:35] LABS: T4 7.5 ug/dL (5.5-11.0)
[2016-09-30 06:49] LABS: THYROID STIMULATING HORMONE 0.07 mIU/mL (0.46-4.68)
[2016-09-30] MEDS: Sodium Chloride 0.9% 1,000 ML IV SCH (07:51)
[2016-09-30 08:33] LABS: ALB/GLOB RATIO 1.3 (1.1-1.8); ALKALINE PHOSPHATASE 71 U/L (38-133); ALT/SGPT 49 U/L (7-56); AST/SGOT 66 U/L (15-59); BILIRUBIN,TOTAL 0.5 mg/dL (0.2-1.3); BLOOD UREA NITROGEN 22 mg/dL (7-21); CALCIUM 8.9 mg/dL (8.4-10.5); CARBON DIOXIDE 34 mmol/L (21-33); CHLORIDE 101 mmol/L (98-107); GFR AFRICAN-AMERICAN > 60; GLUCOSE,RANDOM 73 mg/dL (70-110); POTASSIUM 4.4 mmol/L (3.6-5.0); SODIUM 140 mmol/L (132-148); TOTAL PROTEIN 5.6 g/dL (5.8-8.3)
[2016-09-30] MEDS ORDERED: Tiotropium 18 mcg Cap For Inhalation IH SCH (10:00)
[2016-09-30] MEDS: cefTRIAXone 1 gm 1 GM/100 ML BAG IVPB SCH (10:10)
[2016-09-30] MEDS: Azithromycin 500MG/NS 250ml 500 MG/250 ML BAG IVPB SCH (10:10)
[2016-09-30] MEDS: Enoxaparin 30 mg Syringe SC SCH (10:10)
[2016-09-30] MEDS: MethylPREDNISolone 40 mg Vial IV SCH ×2 (10:11→17:27)
[2016-09-30 12:57] VITALS: BP 105/76; PULSE 100; TEMP 98.7
--- NOTE | 2016-09-30 13:32 | CARD ---
APPROVED REPORT EXAM: Two-dimensional and M-mode echocardiogram with Doppler and color Doppler. INDICATION LV Function:SystolicDiastolic COPD 2D DIMENSIONS Left Atrium (2D)3.4 (1.6-4.0cm)IVSd1.0 (0.7-1.1cm) LVDd3.5 (3.9-5.9cm)PWd1.1 (0.7-1.1cm) LVDs2.4 (2.5-4.0cm)FS (%) 31.2 % LVEF (%)60.2 (>50%) Aortic Valve AoV Peak [id number]/Robyn Peak GR.14mmHg Mitral Valve E/A ratio0.0 TDI E/Lateral E'0.0E/Medial E'0.0 Tricuspid Valve TR Peak [id number] [id number] Peak Gr.20mmHg [id number] LEFT VENTRICLE The left ventricle is normal size. There is normal left ventricular wall thickness. The left ventricular function is normal. The left ventricular ejection fraction is within the normal range. There is normal LV segmental wall motion. The left ventricular diastolic function is normal. RIGHT VENTRICLE The right ventricle is normal size. There is normal right ventricular wall thickness. The right ventricular systolic function is normal. ATRIA The left atrium size is normal. The right atrium size is normal. AORTIC VALVE The aortic valve is not well visualized. MITRAL VALVE The mitral valve is mildly thickened. TRICUSPID VALVE There is trace tricuspid regurgitation. GREAT VESSELS The aortic root is normal in size. <Conclusion> The left ventricle is normal size. There is normal left ventricular wall thickness. The left ventricular function is normal. The left ventricular ejection fraction is within the normal range. There is normal LV segmental wall motion. The left ventricular diastolic function is normal. The mitral valve is mildly thickened.
--- NOTE | 2016-09-30 16:13 | PN ---
DATE: 09/30/2016 ROOM: 260 This is a 56-year-old male with recent acute exacerbation of COPD, currently on IV steroid therapy an d is now also being followed closely for metabolic management because of recent abnormal thyroid func tion studies. He remains clinically euthyroid at this time as noted. His latest chemistry showed a BUN of 22, sodium 140, potassium 4.4, chloride 101, CO2 34, glucose 73 and creatinine 0.5. His latest thyroid study showed a T4 of 7.5 with a TSH of 0.07 and a free T4 of 1.30. These aforementioned thyroid indices are indicative of the so-called acute sick euthyroid syndrome wi th superimposed TSH suppression from the intercurrent IV steroid therapy as given. There is no indic ation at this time for any kind of thyroid pharmacotherapy and should expect improvement of his thyro id indices as his clinical condition improves. Will obtain serial chemistries and supplement accordi ngly as needed, and will also obtain serial thyroid studies and observe his metabolic response marco a orona Jayde Henley MD cc: [id number] TT: 09/30/2016 16:12:10 Confirmation # [id number] Dictation # [id number] chu
--- NOTE | 2016-09-30 17:12 | CP.PCM.DIS ---
<Sha Montesinos - Last Filed: 09/30/16 17:04> Provider - Provider Date of Admission: 09/28/16 01:29 Attending physician: Howard Caba MD Primary care physician: Kenzie Polk MD Consults: Lg: Yusef Time Spent in preparation of Discharge (in minutes): 35 Diagnosis - Discharge Diagnosis (1) Chronic obstructive lung disease Status: Chronic Priority: High (2) Back pain Status: Chronic Priority: Low Hospital Course - Lab Results Lab Results: Most Recent Lab Values WBC 15.5 10^3/ul (4.5-11.0) H 09/30/16 05:15 RBC 4.35 10^6/uL (3.5-6.1) 09/30/16 05:15 Hgb 13.3 gm/dL (14.0-18.0) L 09/30/16 05:15 Hct 40.6 % (42.0-52.0) L 09/30/16 05:15 MCV 93.3 fL (80.0-105.0) 09/30/16 05:15 MCH 30.6 pg (25.0-35.0) 09/30/16 05:15 MCHC 32.8 g/dl (31.0-37.0) 09/30/16 05:15 RDW 14.4 % (11.5-14.5) 09/30/16 05:15 Plt Count 223 10^3/uL (120.0-450.0) 09/30/16 05:15 MPV 9.9 fl (7.0-11.0) 09/30/16 05:15 Gran % 84.6 % (50.0-68.0) H 09/30/16 05:15 Lymph % (Auto) 5.5 % (22.0-35.0) L 09/30/16 05:15 [place] % (Auto) 9.9 % (1.0-6.0) H 09/30/16 05:15 Eos % (Auto) 0.0 % (1.5-5.0) L 09/30/16 05:15 Baso % (Auto) 0.0 % (0.0-3.0) 09/30/16 05:15 Gran # 13.13 (1.4-6.5) H 09/30/16 05:15 Lymph # 0.9 (1.2-3.4) L 09/30/16 05:15 [place] # 1.5 (0.1-0.6) H 09/30/16 05:15 Eos # 0.0 (0.0-0.7) 09/30/16 05:15 Baso # 0.00 K/mm3 (0.0-2.0) 09/30/16 05:15 Neutrophils % (Manual) 77 % (50.0-70.0) H 09/27/16 23:30 Band Neutrophils % 2 % (0-2) 09/27/16 23:30 Lymphocytes % (Manual) 12 % (22.0-35.0) L 09/27/16 23:30 Monocytes % (Manual) 9 % (1.0-6.0) H 09/27/16 23:30 Platelet Evaluation Normal (NORMAL) 09/27/16 23:30 pO2 132 mm/Hg (30-55) H 09/27/16 23:30 VBG pH 7.32 (7.32-7.43) 09/27/16 23:30 VBG pCO2 65.0 (40-60) H 09/27/16 23:30 VBG HCO3 33.5 mmol/l (21-28) H 09/27/16 23:30 VBG Total CO2 35.5 mmol.L (22-28) H 09/27/16 23:30 VBG O2 Sat (Calc) 99.8 % (40-65) H 09/27/16 23:30 VBG Base Excess 5.3 mmol/L (0.0-2.0) H 09/27/16 23:30 VBG Potassium 4.6 mmol/L (3.6-5.2) 09/27/16 23:30 Sodium 139.0 mmol/L (132-148) 09/27/16 23:30 Chloride 105.0 mmol/L (98-107) 09/27/16 23:30 Glucose 108 mg/dl (75-110) 09/27/16 23:30 Lactate 1.4 mmol/L (0.7-2.1) 09/27/16 23:30 FiO2 21.0 % 09/27/16 23:30 Sodium 140 mmol/L (132-148) 09/30/16 05:15 Potassium 4.4 mmol/L (3.6-5.0) 09/30/16 05:15 Chloride 101 mmol/L (98-107) 09/30/16 05:15 Carbon Dioxide 34 mmol/L (21-33) H 09/30/16 05:15 Anion Gap 9 (10-20) L 09/30/16 05:15 BUN 22 mg/dL (7-21) H 09/30/16 05:15 Creatinine 0.5 mg/dL (0.5-1.4) 09/30/16 05:15 Est GFR ( Amer) > 60 09/30/16 05:15 Est GFR (Non-Af Amer) > 60 09/30/16 05:15 Random Glucose 73 mg/dL (70-110) 09/30/16 05:15 Calcium 8.9 mg/dL (8.4-10.5) 09/30/16 05:15 Iron 62 ug/dL (45-180) 09/28/16 09:00 TIBC 254 ug/dL (261-462) L 09/28/16 09:00 % Saturation 24 % (20-55) 09/28/16 09:00 Ferritin 181.0 ng/mL 09/28/16 07:00 Total Bilirubin 0.5 mg/dL (0.2-1.3) 09/30/16 05:15 AST 66 U/L (15-59) H 09/30/16 05:15 ALT 49 U/L (7-56) 09/30/16 05:15 Alkaline Phosphatase 71 U/L (38-133) 09/30/16 05:15 Lactate Dehydrogenase 409 U/L (333-699) 09/27/16 23:30 Total Creatine Kinase 27 U/L (35-230) L 09/27/16 23:30 Troponin I < 0.01 ng/mL 09/28/16 07:00 NT-Pro-B Natriuret Pep 193 pg/mL (0-450) 09/27/16 23:30 Total Protein 5.6 g/dL (5.8-8.3) L 09/30/16 05:15 Albumin 3.2 g/dL (3.0-4.8) 09/30/16 05:15 Globulin 2.4 gm/dL 09/30/16 05:15 Albumin/Globulin Ratio 1.3 (1.1-1.8) 09/30/16 05:15 Qfqbi-2-Tlcehsjxpwl 107 mg/dL (83-199) 09/29/16 06:30 Triglycerides 37 mg/dL (35-160) 09/28/16 07:00 Cholesterol 162 mg/dL (130-200) 09/28/16 07:00 LDL Cholesterol Direct 112 mg/dL (0-129) 09/28/16 07:00 HDL Cholesterol 53 mg/dL (29-60) 09/28/16 07:00 Free T4 1.30 ng/dL (0.78-2.19) 09/28/16 09:00 Thyroxine (T4) 7.5 ug/dL (5.5-11.0) 09/30/16 05:15 TSH 3rd Generation 0.07 mIU/mL (0.46-4.68) L 09/30/16 05:15 Venous Blood Potassium 4.6 mmol/L (3.6-5.2) 09/27/16 23:30 Urine Color Yellow (YELLOW) 09/28/16 21:30 Urine Appearance Clear (CLEAR) 09/28/16 21:30 Urine pH 6.5 (4.7-8.0) 09/28/16 21:30 Ur Specific [place] <= 1.005 (1.005-1.035) 09/28/16 21:30 Urine Protein Negative mg/dL (<30 mg/dL) 09/28/16 21:30 Urine Glucose (UA) Negative mg/dL (NEGATIVE) 09/28/16 21:30 Urine Ketones Negative mg/dL (NEGATIVE) 09/28/16 21:30 Urine Blood Negative (NEGATIVE) 09/28/16 21:30 Urine Nitrate Negative (NEGATIVE) 09/28/16 21:30 Urine Bilirubin Negative (NEGATIVE) 09/28/16 21:30 Urine Urobilinogen 0.2 E.U./dL (<1 E.U./dL) 09/28/16 21:30 Ur Leukocyte Esterase Negative Diya/uL (NEGATIVE) 09/28/16 21:30 Stool Occult Blood Positive (NEGATIVE) H 09/29/16 01:10 Urine Opiates Screen Negative (NEGATIVE) 09/28/16 20:40 Urine Methadone Screen Negative (NEGATIVE) 09/28/16 20:40 Ur Barbiturates Screen Negative (NEGATIVE) 09/28/16 20:40 Ur Phencyclidine Scrn Negative (NEGATIVE) 09/28/16 20:40 Ur Amphetamines Screen Negative (NEGATIVE) 09/28/16 20:40 U Benzodiazepines Scrn Negative (NEGATIVE) 09/28/16 20:40 U Oth Cocaine Metabols Negative (NEGATIVE) 09/28/16 20:40 U Cannabinoids Screen Negative (NEGATIVE) 09/28/16 20:40 RPR Nonreactive (NONREACTIVE) 09/28/16 05:00 Hepatitis A IgM Ab Negative (NEGATIVE) 09/28/16 09:00 Hep Bs Antigen Negative (NEGATIVE) 09/28/16 09:00 Hep B Core IgM Ab Negative (NEGATIVE) 09/28/16 09:00 Hepatitis C Antibody Negative (NEGATIVE) 09/28/16 09:00 HIV 1&2 Ag/Ab, 4th Gen Nonreactive (Nonreactive) 09/28/16 09:00 - Hospital Course Hospital Course: This is a 56 yo M with PMH of tobacco abuse (quit 5 months ago) and COPD who [place] [facility] [place] acute shortness of breath suspicious for acute exacerbation of his COPD. Patient is steroid and O2 dependent. While here, patient was seen by Pulm. As per their recommendations, he was started on LABA/ LAMA and Leukotriene-receptor antagonist, and will wean down from Steroids due to his multiple compression fractures and back pain. He was also started on Calcium and Vit D as per their recommendations. He was instructed to follow up with a icu specialist at either [facility] or [facility] to see about possible Pulmonary Rehab, Lung Volume Reduction Surgery, and possible consultation for Lung Transplant, given the severity of his disease. He was also seen by PT, who recommended continuing O2 at all times and starting patient on a walker. He was given a script to obtain a walker, his medication scripts were electronically transmitted to the in-house pharmacy to be ready at time of discharge, and he was instructed to take as prescribed. He was also instructed to establish himself with a new PMD and follow up within 72 hours of discharge. Patient expressed understanding and agreement with these instructions. All questions were answered to his satisfaction, and he was discharged to home. Patient seen, reviewed, and discussed with attending, Dr. Caba. Discharge Exam - Additional Findings Additional findings: - Constitutional Appears: Non-toxic, No Acute Distress, Chronically Ill, Cachetic, Other ( Tachypnic with exertion, able to speak full sentences without gasping for air when at rest and wearing NC O2) - Head Exam Head Exam: ATRAUMATIC, NORMAL INSPECTION, NORMOCEPHALIC - Eye Exam Eye Exam: EOMI, Normal appearance. absent: Conjunctival injection, Scleral icterus Pupil Exam: absent: Irregular, Unequal - ENT Exam ENT Exam: Mucous Membranes Moist - Neck Exam Neck Exam: Full ROM - Respiratory Exam Respiratory Exam: Accessory Muscle Use, Decreased Breath Sounds (diffusely decreased breath sounds), Prolonged Expiratory Phase, Wheezes (difuse faint end- expiratory wheezes), normal breathing and speaking pattern at rest but tachypnic with exertion. absent: Chest Wall Tenderness, Rales, Rhonchi, Respiratory Distress, Stridor - Cardiovascular Exam Cardiovascular Exam: Tachycardia, REGULAR RHYTHM, +S1, +S2. absent: Bradycardia , Clicks, Irregular Rhythm, RRR, +S4 - GI/Abdominal Exam GI & Abdominal Exam: Soft, Normal Bowel Sounds. absent: Distended, Firm, Guarding, Rigid, Tenderness - Extremities Exam Extremities Exam: Normal Inspection. absent: Calf Tenderness, Pedal Edema, Tenderness - Back Exam Back Exam: Tenderness (complains of pain in lumbosacral region, not acutely worsened with palpation). absent: rash noted - Neurological Exam Neurological Exam: Alert, Awake, Oriented x3. absent: Normal Gait (hunched gait with short halting steps, requires a cane when ambulating) - Psychiatric Exam Psychiatric exam: Normal Affect, Normal Mood - Skin Skin Exam: Dry, Intact, Normal Color, Warm Discharge Plan - Discharge Medications Prescriptions: Albuterol 0.083% [Albuterol 0.083% Inhal Imelda (2.5 mg/3 ml) UD] 2.5 mg IH Q6 #40 neb Calcium Carbonate [Calcium] 500 mg PO BID #20 tablet Cholecalciferol (Vitamin D3) [Vitamin D3] 2,000 unit PO DAILY #10 tablet Fluticasone/Salmeterol [Advair 250-50 Diskus] 1 each IH Q12 #1 blst.w.dev Montelukast Sodium [Singulair] 10 mg PO DAILY #10 tablet predniSONE [Prednisone] 40 mg PO DAILY #10 tab Walker [Rolling Walker] 1 dev XX PRN PRN #1 dev PRN Reason: Gait instability - Follow Up Plan Condition: FAIR Disposition: HOME/ ROUTINE Instructions: COPD (Chronic Obstructive Pulmonary Disease) (DC), Pulmonary Rehabilitation (DC) Additional Instructions: -Please find and establish yourself with a Help Desk Support Specialist at either [facility] ([email or web address], select specialty "Pulmonary Medicine") or at [facility] ([facility], Main Number ) as soon as possible. -Please speak with whatever education administrative assistant you establish yourself with regarding pulmonary rehab, Lung Volume Reduction Surgery, and/or Lung Transplant -Please establish yourself with and follow up with a Primary Medical Doctor within 72 hours after discharge. Please take all paperwork from this hospitalization with you, please also bring all medicines with you to the doctors office. -Please take all medications as prescribed. Referrals: Kenzie Polk MD [Primary Care Provider] - <Howard Caba - Last Filed: 10/01/16 13:37> Provider - Provider Date of Admission: 09/28/16 01:29 Attending physician: Howard Caba MD Primary care physician: Kenzie Polk MD Hospital Course - Lab Results Lab Results: Most Recent Lab Values WBC 15.5 10^3/ul (4.5-11.0) H 09/30/16 05:15 RBC 4.35 10^6/uL (3.5-6.1) 09/30/16 05:15 Hgb 13.3 gm/dL (14.0-18.0) L 09/30/16 05:15 Hct 40.6 % (42.0-52.0) L 09/30/16 05:15 MCV 93.3 fL (80.0-105.0) 09/30/16 05:15 MCH 30.6 pg (25.0-35.0) 09/30/16 05:15 MCHC 32.8 g/dl (31.0-37.0) 09/30/16 05:15 RDW 14.4 % (11.5-14.5) 09/30/16 05:15 Plt Count 223 10^3/uL (120.0-450.0) 09/30/16 05:15 MPV 9.9 fl (7.0-11.0) 09/30/16 05:15 Gran % 84.6 % (50.0-68.0) H 09/30/16 05:15 Lymph % (Auto) 5.5 % (22.0-35.0) L 09/30/16 05:15 [place] % (Auto) 9.9 % (1.0-6.0) H 09/30/16 05:15 Eos % (Auto) 0.0 % (1.5-5.0) L 09/30/16 05:15 Baso % (Auto) 0.0 % (0.0-3.0) 09/30/16 05:15 Gran # 13.13 (1.4-6.5) H 09/30/16 05:15 Lymph # 0.9 (1.2-3.4) L 09/30/16 05:15 [place] # 1.5 (0.1-0.6) H 09/30/16 05:15 Eos # 0.0 (0.0-0.7) 09/30/16 05:15 Baso # 0.00 K/mm3 (0.0-2.0) 09/30/16 05:15 Neutrophils % (Manual) 77 % (50.0-70.0) H 09/27/16 23:30 Band Neutrophils % 2 % (0-2) 09/27/16 23:30 Lymphocytes % (Manual) 12 % (22.0-35.0) L 09/27/16 23:30 Monocytes % (Manual) 9 % (1.0-6.0) H 09/27/16 23:30 Platelet Evaluation Normal (NORMAL) 09/27/16 23:30 pO2 132 mm/Hg (30-55) H 09/27/16 23:30 VBG pH 7.32 (7.32-7.43) 09/27/16 23:30 VBG pCO2 65.0 (40-60) H 09/27/16 23:30 VBG HCO3 33.5 mmol/l (21-28) H 09/27/16 23:30 VBG Total CO2 35.5 mmol.L (22-28) H 09/27/16 23:30 VBG O2 Sat (Calc) 99.8 % (40-65) H 09/27/16 23:30 VBG Base Excess 5.3 mmol/L (0.0-2.0) H 09/27/16 23:30 VBG Potassium 4.6 mmol/L (3.6-5.2) 09/27/16 23:30 Sodium 139.0 mmol/L (132-148) 09/27/16 23:30 Chloride 105.0 mmol/L (98-107) 09/27/16 23:30 Glucose 108 mg/dl (75-110) 09/27/16 23:30 Lactate 1.4 mmol/L (0.7-2.1) 09/27/16 23:30 FiO2 21.0 % 09/27/16 23:30 Sodium 140 mmol/L (132-148) 09/30/16 05:15 Potassium 4.4 mmol/L (3.6-5.0) 09/30/16 05:15 Chloride 101 mmol/L (98-107) 09/30/16 05:15 Carbon Dioxide 34 mmol/L (21-33) H 09/30/16 05:15 Anion Gap 9 (10-20) L 09/30/16 05:15 BUN 22 mg/dL (7-21) H 09/30/16 05:15 Creatinine 0.5 mg/dL (0.5-1.4) 09/30/16 05:15 Est GFR ( Amer) > 60 09/30/16 05:15 Est GFR (Non-Af Amer) > 60 09/30/16 05:15 Random Glucose 73 mg/dL (70-110) 09/30/16 05:15 Calcium 8.9 mg/dL (8.4-10.5) 09/30/16 05:15 Iron 62 ug/dL (45-180) 09/28/16 09:00 TIBC 254 ug/dL (261-462) L 09/28/16 09:00 % Saturation 24 % (20-55) 09/28/16 09:00 Ferritin 181.0 ng/mL 09/28/16 07:00 Total Bilirubin 0.5 mg/dL (0.2-1.3) 09/30/16 05:15 AST 66 U/L (15-59) H 09/30/16 05:15 ALT 49 U/L (7-56) 09/30/16 05:15 Alkaline Phosphatase 71 U/L (38-133) 09/30/16 05:15 Lactate Dehydrogenase 409 U/L (333-699) 09/27/16 23:30 Total Creatine Kinase 27 U/L (35-230) L 09/27/16 23:30 Troponin I < 0.01 ng/mL 09/28/16 07:00 NT-Pro-B Natriuret Pep 193 pg/mL (0-450) 09/27/16 23:30 Total Protein 5.6 g/dL (5.8-8.3) L 09/30/16 05:15 Albumin 3.2 g/dL (3.0-4.8) 09/30/16 05:15 Globulin 2.4 gm/dL 09/30/16 05:15 Albumin/Globulin Ratio 1.3 (1.1-1.8) 09/30/16 05:15 [id number]-3-[id number] 107 mg/dL (83-199) 09/29/16 06:30 Triglycerides 37 mg/dL (35-160) 09/28/16 07:00 Cholesterol 162 mg/dL (130-200) 09/28/16 07:00 LDL Cholesterol Direct 112 mg/dL (0-129) 09/28/16 07:00 HDL Cholesterol 53 mg/dL (29-60) 09/28/16 07:00 Free T4 1.30 ng/dL (0.78-2.19) 09/28/16 09:00 Thyroxine (T4) 7.5 ug/dL (5.5-11.0) 09/30/16 05:15 TSH 3rd Generation 0.07 mIU/mL (0.46-4.68) L 09/30/16 05:15 Venous Blood Potassium 4.6 mmol/L (3.6-5.2) 09/27/16 23:30 Urine Color Yellow (YELLOW) 09/28/16 21:30 Urine Appearance Clear (CLEAR) 09/28/16 21:30 Urine pH 6.5 (4.7-8.0) 09/28/16 21:30 Ur Specific [place] <= 1.005 (1.005-1.035) 09/28/16 21:30 Urine Protein Negative mg/dL (<30 mg/dL) 09/28/16 21:30 Urine Glucose (UA) Negative mg/dL (NEGATIVE) 09/28/16 21:30 Urine Ketones Negative mg/dL (NEGATIVE) 09/28/16 21:30 Urine Blood Negative (NEGATIVE) 09/28/16 21:30 Urine Nitrate Negative (NEGATIVE) 09/28/16 21:30 Urine Bilirubin Negative (NEGATIVE) 09/28/16 21:30 Urine Urobilinogen 0.2 E.U./dL (<1 E.U./dL) 09/28/16 21:30 Ur Leukocyte Esterase Negative Diya/uL (NEGATIVE) 09/28/16 21:30 Stool Occult Blood Positive (NEGATIVE) H 09/29/16 01:10 Urine Opiates Screen Negative (NEGATIVE) 09/28/16 20:40 Urine Methadone Screen Negative (NEGATIVE) 09/28/16 20:40 Ur Barbiturates Screen Negative (NEGATIVE) 09/28/16 20:40 Ur Phencyclidine Scrn Negative (NEGATIVE) 09/28/16 20:40 Ur Amphetamines Screen Negative (NEGATIVE) 09/28/16 20:40 U Benzodiazepines Scrn Negative (NEGATIVE) 09/28/16 20:40 U Oth Cocaine Metabols Negative (NEGATIVE) 09/28/16 20:40 U Cannabinoids Screen Negative (NEGATIVE) 09/28/16 20:40 RPR Nonreactive (NONREACTIVE) 09/28/16 05:00 Hepatitis A IgM Ab Negative (NEGATIVE) 09/28/16 09:00 Hep Bs Antigen Negative (NEGATIVE) 09/28/16 09:00 Hep B Core IgM Ab Negative (NEGATIVE) 09/28/16 09:00 Hepatitis C Antibody Negative (NEGATIVE) 09/28/16 09:00 HIV 1&2 Ag/Ab, 4th Gen Nonreactive (Nonreactive) 09/28/16 09:00 Attending/Attestation - Attestation I have personally seen and examined this patient.: Yes I have fully participated in the care of the patient.: Yes I have reviewed all pertinent clinical information, including history, physical exam and plan: Yes Notes (Text): 10/01/16 13:35 Attending note ; Patient seen and examined with resident . This is a 56 year old male with PMH of tobacco abuse (quit 5 months ago) and O2/ Steroid dependent COPD who presents with shortness of breath and acute exacerbation of COPD. Continue oxygen. patient has home oxygen. CO2 retention; started on BiPAP. Treated with IV Steroids/xopenex. Patient gets shortness of breath/tachycardia with ambulation. EKG showed sinus tachycardia related to increased respiratory effort. CT consistent with severe emphysema. Patient was evaluated by pulmonary DruYsef. Referred to [facility] pulmonary rehab/cardiothoracic surgery. Multiple old compression fractures/chronic pain syndrome; Physical therapy evaluation appreciated. Side effect of steroids explained in detail. 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 no need for treatment. Cachexia; secondary to advanced COPD. Patient is full code. Upon discharge the patient will follow-up with PMD of choice. Patient needs close pulmonary follow-up as outpatient. diagnosis: advanced copd oxygen dependent steroid dependent cachexia 10/01/16 13:36
== END 2016-09-30 18:59 | disposition home or self-care (01) | DRG 88 ==
LOC: ED 23:26 → ERH 09-28 01:29 → 2RNO 09-28 04:00 → 5RSO 09-30 15:52
PROVIDERS: ADMIT Internal Medicine; ATTEND Internal Medicine
PROC: 5A09357 Assistance with Respiratory Ventilation, Less than 24 Consecutive Hours, Continuous Positive Airway Pressure (ICD-10-PCS; principal; 2016-09-28)
DX: J44.1 Chronic obstructive pulmonary disease with (acute) exacerbation (principal); R64 Cachexia; M80.88XA Other osteoporosis with current pathological fracture, vertebra(e), initial encounter for fracture; M54.5 Low back pain; G89.4 Chronic pain syndrome; E07.81 Sick-euthyroid syndrome; Z68.1 Body mass index [BMI] 19.9 or less, adult; Z79.51 Long term (current) use of inhaled steroids; Z99.81 Dependence on supplemental oxygen; Z87.891 Personal history of nicotine dependence

== ENCOUNTER 2016-11-10 11:34 | Inpatient (IN) | payer MEDICAID ==
[2016-11-10] MEDS: Albuterol-Ipratrop 3 mg / 0.5 (3 ml) UD IH SCH ×4 (12:30→19:37)
[2016-11-10 12:33] LABS: GRAN # 8.11 (1.4-6.5); GRAN % 81.5 % (50.0-68.0); HEMOGLOBIN 11.7 gm/dL (14.0-18.0); LYMPH % 9.9 % (22.0-35.0); MEAN CELL VOLUME 91.9 fL (80.0-105.0); MEAN CORPUSCULAR HEMOGLOBIN 30.5 pg (25.0-35.0); MEAN CORPUSCULAR HGB CONC 33.1 g/dl (31.0-37.0); MEAN PLATELET VOLUME 9.1 fl (7.0-11.0); MONO # 0.9 (0.1-0.6); MONO % 8.6 % (1.0-6.0); PLATELET COUNT 317 10^3/uL (120.0-450.0); RBC 3.84 10^6/uL (3.5-6.1); RED CELL DISTRIBUTION WIDTH 14.4 % (11.5-14.5)
[2016-11-10 12:37] LABS: VENOUS BLOOD GAS BASE EXCESS 2.8 mmol/L (0.0-2.0); VENOUS BLOOD GAS PO2 44 mm/Hg (30-55); VENOUS BLOOD PH 7.31 (7.32-7.43)
[2016-11-10 12:41] LABS: ALB/GLOB RATIO 1.3 (1.1-1.8); ALBUMIN 3.2 g/dL (3.0-4.8); ALT/SGPT 39 U/L (7-56); AST/SGOT 23 U/L (15-59); BLOOD UREA NITROGEN 16 mg/dL (7-21); CALCIUM 8.4 mg/dL (8.4-10.5); GFR AFRICAN-AMERICAN > 60; GFR NON-AFRICAN AMERICAN > 60
[2016-11-10 12:43] LABS: INR 1.06 (0.93-1.08); PARTIAL THROMBOPLASTIN TIME 23.6 Seconds (23.7-30.8); PROTHROMBIN TIME 11.5 Seconds (9.9-11.8)
[2016-11-10 12:45] LABS: D DIMER 3.26 mg/L FEU (0-0.50)
[2016-11-10 12:53] LABS: B-TYPE NATRIURETIC PEPTIDE 131 pg/mL (0-450)
[2016-11-10 12:54] LABS: TROPONIN I < 0.01 ng/mL
[2016-11-10] MEDS ORDERED: Iodixanol 320 MG/ML 100 ML BOTTLE IV ONE (13:05)
--- NOTE | 2016-11-10 13:09 | ED PDOC ---
Arrival/HPI - General Chief Complaint: Respiratory Distress Time Seen by Provider: 11/10/16 11:54 Historian: Patient - History of Present Illness Narrative History of Present Illness (Text): 11/10/16 12:05 Shane Manuel is a 56 year old male, with a history of COPD and lower compressive spine fracture, presents to the emergency department via ambulance for worsening shortness of breath and chest tightness. Patient reports he uses 3 liters of oxygen machine at home and his pump does not improve his symptoms. Patient also states that he has a hard time swallowing food and coughs up phlegm. Patient fever, chills, nausea, vomiting, diarrhea, urinary symptoms, or any other complaints at this time. PMD: None Time/Duration: Prior to Arrival Symptom Onset: Sudden Symptom Course: Unchanged Quality: Tightness (chest), Other (gasping for air) Modifying Factors (Text): None Context: Home Associated Symptoms (Text): shortness of breath Past Medical History - Provider Review Nursing Documentation Reviewed: Yes - Infectious Disease Hx of Infectious Diseases: None - Cardiac Hx Cardiac Disorders: No - Pulmonary Hx Chronic Obstructive Pulmonary Disease (COPD): Yes - Neurological Other/Comment: compression fx - HEENT Hx HEENT Disorder: No (glasses) - Renal Hx Renal Disorder: No - Endocrine/Metabolic Hx Endocrine Disorders: No - Hematological/Oncological Hx Blood Disorders: No - Integumentary Hx Dermatological Disorder: No - Musculoskeletal/Rheumatological Hx Musculoskeletal Disorders: Yes Hx Back Pain: Yes Hx Falls: No - Gastrointestinal Hx Gastrointestinal Disorders: No - Genitourinary/Gynecological Hx Genitourinary Disorders: No - Psychiatric Hx 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) Hx Substance Use: No - Surgical History Hx Tonsillectomy: Yes Family/Social History - Physician Review Nursing Documentation Reviewed: Yes Family/Social History: Unknown Family HX Smoking Status: Former Smoker Hx Alcohol Use: No Hx Substance Use: No Allergies/Home Meds Allergies/Adverse Reactions: Allergies No Known Allergies Allergy (Verified 11/10/16 12:40) Review of Systems - Physician Review All systems were reviewed & negative as marked: Yes - Review of Systems Constitutional: absent: Fevers Respiratory: SOB, Cough Cardiovascular: Chest Pain (tightness) Gastrointestinal: absent: Diarrhea Neurological: absent: Headache Physical Exam Vital Signs Temp Pulse Resp BP Pulse Ox 11/10/16 16:05 96 H 18 123/75 98 11/10/16 15:31 89 18 115/65 100 11/10/16 13:00 18 98 11/10/16 11:53 98.6 F 91 H 20 117/60 100 Temperature: Afebrile Blood Pressure: Normal Pulse: Tachycardic Respiratory Rate: Normal Appearance: Positive for: Well-Appearing, Non-Toxic, Comfortable Pain Distress: None Mental Status: Positive for: Alert and Oriented X 3 - Systems Exam Head: Present: Atraumatic, Normocephalic Pupils: Present: PERRL Extroacular Muscles: Present: EOMI Conjunctiva: Present: Normal Mouth: Present: Moist Mucous Membranes Neck: Present: Normal Range of Motion Respiratory/Chest: Present: Wheezes. No: Accessory Muscle Use, Tachypneic Cardiovascular: Present: Regular Rate and Rhythm, Normal S1, S2. No: Murmurs Abdomen: Present: Normal Bowel Sounds. No: Tenderness, Distention, Peritoneal Signs Back: Present: Normal Inspection Upper Extremity: Present: Normal Inspection. No: Cyanosis, Edema Lower Extremity: Present: Normal Inspection. No: Edema Neurological: Present: GCS=15, CN II-XII Intact, Speech Normal Skin: Present: Warm, Dry, Normal Color. No: Rashes Psychiatric: Present: Alert, Oriented x 3, Normal Insight, Normal Concentration Medical Decision Making ED Course and Treatment: 11/10/16 12:05 Impression: 56 year old male with shortness of breath and chest tightness. Differential Diagnosis included but are not limited to: COPD exacerbation vs PNA vs PE Plan: -- EKG -- Chest X-ray -- CT Chest -- Labs -- Duoneb and Solumedrol -- Reassess and disposition Progress Notes: EKG: Ordered, reviewed, and independently interpreted the EKG. Rate : 92 BPM Rhythm : NSR Interpretation : No ST-segment elevations or depressions, no T-wave inversions, normal intervals. Comparison : No previous EKG for comparison. 11/10/16 13:15 Chest X-ray: Creator : Mark Aguero MD COMPARISON: 09/27/2016 FINDINGS: LUNGS: No active pulmonary disease. PLEURA: No significant pleural effusion identified, no pneumothorax apparent. CARDIOVASCULAR: Normal. OSSEOUS STRUCTURES: Old rib fractures on the left side. VISUALIZED UPPER ABDOMEN: Normal. OTHER FINDINGS: None. IMPRESSION: No active disease. 11/10/16 14:30 CT Chest: Creator : Mark Aguero MD FINDINGS: PULMONARY ARTERIES:A small pulmonary embolus is seen on the right side image 116 -120 of series 3. AORTA:No acute findings. No thoracic aortic aneurysm. LUNGS:There is severe emphysema with multiple large bulla in both lung apices. PLEURAL SPACES:Unremarkable. No effusion or pneuomothorax. HEART:Unremarkable. No cardiomegaly. No significant pericardial effusion. LYMPH NODES:No lymphadenopathy. BONES, CHEST WALL:Unremarkable. No fracture or destructive lesion OTHER FINDINGS:Unremarkable. IMPRESSION:Small pulmonary embolus seen on the right side in the lower lobe. Severe emphysema 11/10/16 15:44 Patient noted to have PE on CT. Actual weights were obtained. Heparin IV bolus and drip started. Discussed case with Dr. Carvajal who will place on his service. - Lab Interpretations Lab Results: 11/10/16 12:15 11/10/16 12:15 Lab Results 11/10/16 12:15: Sodium 137, Chloride 102, Potassium 4.0, Carbon Dioxide 29, Anion Gap 10, BUN 16, Creatinine 0.5, Est GFR ( Amer) > 60, Est GFR (Non- Af Amer) > 60, Random Glucose 89, Calcium 8.4, Total Bilirubin 0.4, AST 23, ALT 39, Alkaline Phosphatase 86, Lactate Dehydrogenase 323 L, Total Creatine Kinase < 20 L, Troponin I < 0.01, NT-Pro-B Natriuret Pep 131, Total Protein 5.6 L, Albumin 3.2, Globulin 2.4, Albumin/Globulin Ratio 1.3 11/10/16 12:15: pO2 44, VBG pH 7.31 L, VBG pCO2 61.0 H, VBG HCO3 30.7 H, VBG Total CO2 32.6 H, VBG O2 Sat (Calc) 83.1 H, VBG Base Excess 2.8 H, VBG Potassium 4.0, Sodium 136.0, Chloride 103.0, Glucose 94, Lactate 1.7, FiO2 21.0 , Venous Blood Potassium 4.0 11/10/16 12:15: PT 11.5, INR 1.06, APTT 23.6 L, D-Dimer, Quantitative 3.26 H 11/10/16 12:15: WBC 10.0 D, RBC 3.84, Hgb 11.7 L, Hct 35.3 L, MCV 91.9, MCH 30.5, MCHC 33.1, RDW 14.4, Plt Count 317, MPV 9.1, Gran % 81.5 H, Lymph % (Auto ) 9.9 L, [place] % (Auto) 8.6 H, Eos % (Auto) 0.0 L, Baso % (Auto) 0.0, Gran # 8.11 H, Lymph # 1.0 L, [place] # 0.9 H, Eos # 0.0, Baso # 0.00 I have reviewed the lab results: Yes - RAD Interpretation Radiology Orders: 11/10/16 12:09 CHEST PORTABLE [RAD] Stat 11/10/16 12:59 ANGIO CHEST PE PROTOCOL [CT] Stat - EKG Interpretation Interpreted by ED Physician: Yes Type: 12 lead EKG - Medication Orders Current Medication Orders: Albuterol/Ipratropium (Duoneb 3 Mg/0.5 Mg (3 Ml) Ud) 3 ml IH [id number] ERIC Heparin Sodium/Dextrose (Heparin 25,000 Units/250ml In D5w) 25,000 units in 250 mls @ 7.675 mls/hr IV .Q24H PRN; Protocol; 18 UNITS/KG/HR PRN Reason: ADJUST RATE PER PROTOCOL Last Admin: 11/10/16 15:57 Dose: 7.675 mls/hr Pantoprazole Sodium (Protonix Inj) 40 mg IVP DAILY ERCI Prednisone (Prednisone Tab) 40 mg PO DAILY ERIC Discontinued Medications Albuterol/Ipratropium (Duoneb 3 Mg/0.5 Mg (3 Ml) Ud) 3 ml IH Q15M ERIC Stop: 11/10/16 12:46 Last Admin: 11/10/16 12:40 Dose: 3 ml Heparin Sodium (Porcine) (Heparin) 3,400 units 80 units/kg (3400 units) IV ONCE ONE PRN Reason: Protocol Stop: 11/10/16 15:13 Last Admin: 11/10/16 15:54 Dose: 3,400 units Iodixanol (Visipaque 320 Mg/Ml 100 Ml) Confirm Administered Dose 100 ml IV .STK- MED ONE Stop: 11/10/16 13:06 Methylprednisolone (Solu-Medrol) 125 mg IVP STAT STA Stop: 11/10/16 12:10 Last Admin: 11/10/16 12:30 Dose: 125 mg Disposition/Present on Arrival - Present on Arrival Any Indicators Present on Arrival: No History of DVT/PE: No History of Uncontrolled Diabetes: No Urinary Catheter: No History of Decub. Ulcer: No History Surgical Site Infection Following: None - Disposition Have Diagnosis and Disposition been Completed?: Yes Diagnosis: Pulmonary embolism Disposition: HOSPITALIZED Disposition Time: 15:44 Patient Plan: Admission Condition: FAIR
--- NOTE | 2016-11-10 13:13 | RAD ---
HISTORY: sob r/o pna COMPARISON: 09/27/2016 FINDINGS: LUNGS: No active pulmonary disease. PLEURA: No significant pleural effusion identified, no pneumothorax apparent. CARDIOVASCULAR: Normal. OSSEOUS STRUCTURES: Old rib fractures on the left side. VISUALIZED UPPER ABDOMEN: Normal. OTHER FINDINGS: None. IMPRESSION: No active disease.
--- NOTE | 2016-11-10 14:22 | CT ---
PROCEDURE: CT Chest with contrast (Pulmonary Angiogram) HISTORY: sob r/o PE COMPARISON: None available. TECHNIQUE: Axial computed tomography images were obtained of the chest in the pulmonary arterial phase of enhancement. Coronal and sagittal reformatted images were created and reviewed. Intravenous contrast dose: 100 cc of Visipaque Radiation dose: Total exam DLP = 188 mGy-cm. This CT exam was performed using one or more of the following dose reduction techniques: Automated exposure control, adjustment of the mA and/or kV according to patient size, and/or use of iterative reconstruction technique. FINDINGS: PULMONARY ARTERIES: A small pulmonary embolus is seen on the right side image 116-120 of series 3. AORTA: No acute findings. No thoracic aortic aneurysm. LUNGS: There is severe emphysema with multiple large bulla in both lung apices. PLEURAL SPACES: Unremarkable. No effusion or pneuomothorax. HEART: Unremarkable. No cardiomegaly. No significant pericardial effusion. LYMPH NODES: No lymphadenopathy. BONES, CHEST WALL: Unremarkable. No fracture or destructive lesion OTHER FINDINGS: Unremarkable. IMPRESSION: Small pulmonary embolus seen on the right side in the lower lobe. Severe emphysema
[2016-11-10 15:05] VITALS: BMI 15.6
[2016-11-10] MEDS ORDERED: Heparin 25,000units in D5W 25,000 UNITS/250 ML BAG IV PRN (15:12)
[2016-11-10] MEDS ORDERED: Albuterol-Ipratrop 3 mg / 0.5 (3 ml) UD IH PRN (15:53)
[2016-11-10 16:11] VITALS: O2SAT 98
--- NOTE | 2016-11-10 17:25 | CARD ---
APPROVED REPORT EKG Measurement Heart [id number] <Conclusion> Normal sinus rhythm Normal ECG
--- NOTE | 2016-11-10 17:57 | US ---
HISTORY: Leg pain and swelling. Evaluate for DVT PHYSICIAN(S): Karlo Morales MD. TECHNIQUE: Duplex sonography and color-flow Doppler with graded compression were used to evaluate the deep venous systems of both lower extremities. FINDINGS: The visualized deep venous systems of both lower extremities are sonographically normal and compressible. Normal wave forms and augmentation are seen. There is no sonographic evidence for deep venous thrombosis in the visualized segments of both lower extremities. IMPRESSION: No sonographic evidence for deep venous thrombosis in the visualized segments of both lower extremities.
--- NOTE | 2016-11-10 22:36 | CP.PCM.HP ---
<ERNIE RAYA - Last Filed: 11/10/16 22:39> History of Present Illness - History of Present Illness History of Present Illness: Mr. Manuel is a 56 year old male, with a history of COPD and lower compressive spine fracture, who presented with worsening shortness of breath and chest tightness that have waxed and waned over the course of the past 6 days. Patient reports he uses 3 liters of oxygen machine at home and neither his pump nor his home medications improve his symptoms. Patient also states that he has a hard time swallowing food, specifically rice, and coughs up phlegm. He reports that his phlegm has not changed in frequency or color. He also reports that he has lost 27 pounds unintentionally over an unknown period of time since his last weight measurement. Patient fever, chills, hemoptysis, chest pain, abdominal pain, nausea, vomiting, diarrhea, urinary symptoms, numbness/tingling/weakness of any extremities or any other complaints at this time. Past medical history: COPD, lower compressive spinal fracture Past surgical history: Denies Family history: extensive cancer history; has not had any preventative cancer screenings or regular medical follow ups Social history: former smoker, former IVDA (35 years ago), no alcohol Allergies: denies Meds: Singulair, Advair, Proventil, Prednisone, 3L NC Present on Admission - Present on Admission Any Indicators Present on Admission: No History of DVT/PE: No Review of Systems - Review of Systems Review of Systems: refer to hpi Past Patient History - Infectious Disease Hx of Infectious Diseases: None - Past Social History Smoking Status: Former Smoker - CARDIAC Hx Cardiac Disorders: No - PULMONARY Hx Chronic Obstructive Pulmonary Disease (COPD): Yes - NEUROLOGICAL Other/Comment: compression fx - HEENT Hx HEENT Problems: No (glasses) - RENAL Hx Chronic Kidney Disease: No - ENDOCRINE/METABOLIC Hx Endocrine Disorders: No - HEMATOLOGICAL/ONCOLOGICAL Hx Blood Disorders: No - INTEGUMENTARY Hx Dermatological Problems: No - MUSCULOSKELETAL/RHEUMATOLOGICAL Hx Musculoskeletal Disorders: Yes Hx Back Pain: Yes Hx Falls: No - GASTROINTESTINAL Hx Gastrointestinal Disorders: No - GENITOURINARY/GYNECOLOGICAL Hx Genitourinary Disorders: No - PSYCHIATRIC Hx 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 Negative for: Lymphadenopathy - Respiratory Exam Respiratory Exam: Decreased Breath Sounds. absent: Chest Wall Tenderness, Rales , Rhonchi, Wheezes, Respiratory Distress - Cardiovascular Exam Cardiovascular Exam: REGULAR RHYTHM, RRR, +S1, +S2 - GI/Abdominal Exam GI & Abdominal Exam: Normal Bowel Sounds. absent: Distended, Firm, Tenderness - Extremities Exam Extremities exam: Positive for: normal capillary refill, normal inspection, pedal pulses present. Negative for: calf tenderness, pedal edema - Neurological Exam Neurological exam: Alert, Oriented x3 - Psychiatric Exam Psychiatric exam: Normal Affect, Normal Mood - Skin Skin Exam: Dry, Intact, Normal Color, Warm Results - Vital Signs Recent Vital Signs: Last Vital Signs Temp 98.6 F 11/10/16 11:53 Pulse 103 H 11/10/16 18:32 Resp 18 11/10/16 18:32 BP 115/74 11/10/16 18:32 Pulse Ox 98 11/10/16 18:32 - Labs Result Diagrams: 11/10/16 12:15 11/10/16 12:15 Assessment & Plan - Assessment and Plan (Free Text) Assessment: Mr. Manuel is a 56 year old male, with a history of COPD and lower compressive spine fracture, who presented with worsening shortness of breath and chest tightness. Plan: 1. Pulmonary Embolism in Right Lower Lobe -CT Chest showed small pulmonary embolism in RLL -LE Doppler showed no DVT -EKG normal -started on heparin -plans to discharge patient on eloquis 2. COPD -CT chest showed severe emphysema -CXR showed no active disease -duonebs Q4 scheduled -predisone 40mg; will start daily taper -3L O2 via NC; will maintain oxygen saturation above 90% -cont home singulair 3. GI/DVT Prophylaxis -Protonix/scd's Patient seen and case discussed in detail with attending, Dr. Carvajal. - Date & Time Date: 11/10/16 Time: 10:38 Decision To Admit - Pt Status Changed To: Hospital Disposition Of: Inpatient Admission - Admit Certification Admit to Inpatient:: After my assessment, the patient will require hospitalization for at least two midnights. This is because of the severity of symptoms shown, intensity of services needed, and/or the medical risk in this patient being treated as an outpatient. - . Bed Request Type: Telemetry <Winston Carvajal MD - Last Filed: 11/11/16 14:57> Results - Vital Signs Recent Vital Signs: Last Vital Signs Temp 97.9 F 11/11/16 12:00 Pulse 99 H 11/11/16 12:00 Resp 20 11/11/16 12:00 BP 102/71 11/11/16 12:00 Pulse Ox 98 11/11/16 06:00 - Labs Result Diagrams: 11/11/16 03:40 11/11/16 03:40 Labs: Laboratory Results - last 24 hr 11/10/16 11/11/16 11/11/16 22:05 03:40 03:40 WBC 7.5 D RBC 3.83 Hgb 12.0 L Hct 34.6 L MCV 90.3 MCH 31.3 MCHC 34.7 RDW 14.3 Plt Count 334 MPV 9.3 Gran % 81.1 H Lymph % (Auto) 11.6 L [place] % (Auto) 7.3 H Eos % (Auto) 0.0 L Baso % (Auto) 0.0 Gran # 6.08 Lymph # 0.9 L [place] # 0.6 Eos # 0.0 Baso # 0.00 APTT 30.2 Sodium 137 Potassium 4.5 Chloride 102 Carbon Dioxide 28 Anion Gap 12 BUN 16 Creatinine 0.4 L Est GFR ( Amer) > 60 Est GFR (Non-Af Amer) > 60 Random Glucose 126 H Calcium 8.9 Total Bilirubin 0.5 AST 22 ALT 36 Alkaline Phosphatase 86 Total Protein 5.6 L Albumin 3.3 Globulin 2.3 Albumin/Globulin Ratio 1.4 11/11/16 11/11/16 03:40 09:40 WBC RBC Hgb Hct MCV MCH MCHC RDW Plt Count MPV Gran % Lymph % (Auto) [place] % (Auto) Eos % (Auto) Baso % (Auto) Gran # Lymph # Carbon # Eos # Baso # APTT 57.3 H 40.5 H Sodium Potassium Chloride Carbon Dioxide Anion Gap BUN Creatinine Est GFR ( Amer) Est GFR (Non-Af Amer) Random Glucose Calcium Total Bilirubin AST ALT Alkaline Phosphatase Total Protein Albumin Globulin Albumin/Globulin Ratio Attending/Attestation - Attestation I have personally seen and examined this patient.: Yes I have fully participated in the care of the patient.: Yes I have reviewed all pertinent clinical information: Yes Notes (Text): 11/11/16 14:54 Patient was seen and examined with certified medical technician. Agreed with resident assessment and plan. 56 yrs old male with PMH of end stage COPD, Back pain, non compliance with medication is admitted with worsening dyspnea found to have right lower small Pulmonary embolism and COPD exacerbation. Agreed with Anticoagulation for Pulmonary Embolism , risk and benefit of anticoagulation was discussed in detail. Agreed with NEB, Shourse course of prednisone 40 mg po daily for COPD exacerbation. Management plan was discussed in detail with patient Education was provided.
[2016-11-11] MEDS: Albuterol-Ipratrop 3 mg / 0.5 (3 ml) UD IH SCH ×6 (00:39→19:54)
[2016-11-11 01:02] VITALS: RESP 20
[2016-11-11 04:10] LABS: ALB/GLOB RATIO 1.4 (1.1-1.8); ALBUMIN 3.3 g/dL (3.0-4.8); ALT/SGPT 36 U/L (7-56); AST/SGOT 22 U/L (15-59); BLOOD UREA NITROGEN 16 mg/dL (7-21); CALCIUM 8.9 mg/dL (8.4-10.5); GFR AFRICAN-AMERICAN > 60; GFR NON-AFRICAN AMERICAN > 60
[2016-11-11 04:34] LABS: GRAN # 6.08 (1.4-6.5); GRAN % 81.1 % (50.0-68.0); LYMPH # 0.9 (1.2-3.4); LYMPH % 11.6 % (22.0-35.0); MEAN CELL VOLUME 90.3 fL (80.0-105.0); MEAN CORPUSCULAR HEMOGLOBIN 31.3 pg (25.0-35.0); MEAN CORPUSCULAR HGB CONC 34.7 g/dl (31.0-37.0); MEAN PLATELET VOLUME 9.3 fl (7.0-11.0); MONO # 0.6 (0.1-0.6); MONO % 7.3 % (1.0-6.0); PLATELET COUNT 334 10^3/uL (120.0-450.0); RBC 3.83 10^6/uL (3.5-6.1); RED CELL DISTRIBUTION WIDTH 14.3 % (11.5-14.5); WHITE BLOOD COUNT 7.5 10^3/ul (4.5-11.0)
[2016-11-11 13:47] VITALS: BP 102/71; PULSE 99; TEMP 97.9
== END 2016-11-11 19:52 | disposition home or self-care (01) | DRG 78 ==
LOC: ED 11:34 → ERH 15:20 → 2RNO 19:05
PROVIDERS: ADMIT Internal Medicine; ATTEND Internal Medicine
PROC: 3E0F7GC Introduction of Other Therapeutic Substance into Respiratory Tract, Via Natural or Artificial Opening (ICD-10-PCS; principal; 2016-11-10)
PROC: 3E033GC Introduction of Other Therapeutic Substance into Peripheral Vein, Percutaneous Approach (ICD-10-PCS; 2016-11-10)
DX: I26.99 Other pulmonary embolism without acute cor pulmonale (principal); J44.1 Chronic obstructive pulmonary disease with (acute) exacerbation; Z91.14 Patient's other noncompliance with medication regimen; Z87.891 Personal history of nicotine dependence

== ENCOUNTER 2016-11-15 11:49 | Inpatient (IN) | payer MEDICAID ==
[2016-11-15 12:09] VITALS: BMI 15.5
[2016-11-15] MEDS ORDERED: Iodixanol 320 MG/ML 100 ML BOTTLE IV ONE (12:11)
[2016-11-15] MEDS ORDERED: Lidocaine 5% Patch TD STA (12:13)
--- NOTE | 2016-11-15 12:56 | ED PDOC ---
Arrival/HPI - General Chief Complaint: Back Pain Time Seen by Provider: 11/15/16 12:07 Historian: Patient - History of Present Illness Narrative History of Present Illness (Text): 11/15/16 12:09 Shane Manuel is a 56 year old male, with a history of COPD and lower compressive spine fracture, presents to the emergency department via ambulance for chronic low back pain due to his spine fracture, that began yesterday. Patient reports this has caused him to have shortness of breath and he has taken Tylenol, but it does not improve his symptoms and the pain is worse with movement. Patient denies fever, chills, nausea, vomiting, diarrhea, numbness, urinary symptoms, or any other complaints at this time. PMD: None Time/Duration: 24 hours Symptom Onset: Sudden Symptom Course: Unchanged Modifying Factors (Text): pain is worse with movement Associated Symptoms (Text): shortness of breath Past Medical History - Provider Review Nursing Documentation Reviewed: Yes - Infectious Disease Hx of Infectious Diseases: None - Cardiac Hx Cardiac Disorders: No - Pulmonary Hx Chronic Obstructive Pulmonary Disease (COPD): Yes Hx Emphysema: Yes - Neurological Other/Comment: compression fx - HEENT Hx HEENT Disorder: No (glasses) - Renal Hx Renal Disorder: No - Endocrine/Metabolic Hx Endocrine Disorders: No - Hematological/Oncological Hx Blood Disorders: No - Integumentary Hx Dermatological Disorder: No - Musculoskeletal/Rheumatological Hx Musculoskeletal Disorders: Yes Hx Back Pain: Yes Hx Falls: No - Gastrointestinal Hx Gastrointestinal Disorders: No - Genitourinary/Gynecological Hx Genitourinary Disorders: No - Psychiatric Hx 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) Hx Substance Use: No - Surgical History Hx Tonsillectomy: Yes - Anesthesia Hx Anesthesia: No Hx Anesthesia Reactions: No Hx Malignant Hyperthermia: No Family/Social History - Physician Review Nursing Documentation Reviewed: Yes Family/Social History: Unknown Family HX Smoking Status: Former Smoker Hx Alcohol Use: No Hx Substance Use: No Allergies/Home Meds Allergies/Adverse Reactions: Allergies No Known Allergies Allergy (Verified 11/10/16 12:40) Review of Systems - Physician Review All systems were reviewed & negative as marked: Yes - Review of Systems Constitutional: absent: Fevers Respiratory: SOB Cardiovascular: absent: Chest Pain Musculoskeletal: Back Pain (low back pain) Neurological: absent: Headache, Dizziness Physical Exam Vital Signs Reviewed: Yes Vital Signs Temp Pulse Resp BP Pulse Ox 11/15/16 13:00 89 18 128/79 99 11/15/16 11:57 98.1 F 96 H 18 130/89 99 Temperature: Afebrile Blood Pressure: Normal Pulse: Tachycardic Respiratory Rate: Normal Appearance: Positive for: Well-Appearing, Non-Toxic, Comfortable Pain Distress: None Mental Status: Positive for: Alert and Oriented X 3 - Systems Exam Head: Present: Atraumatic, Normocephalic Pupils: Present: PERRL Extroacular Muscles: Present: EOMI Conjunctiva: Present: Normal Mouth: Present: Moist Mucous Membranes Neck: Present: Normal Range of Motion Respiratory/Chest: Present: Clear to Auscultation, Good Air Exchange. No: Respiratory Distress, Accessory Muscle Use Cardiovascular: Present: Regular Rate and Rhythm, Normal S1, S2. No: Murmurs Abdomen: Present: Normal Bowel Sounds. No: Tenderness, Distention, Peritoneal Signs Back: Present: Midline Tenderness (T9-L3), Other (T9 - L1 tenderness ) Upper Extremity: Present: Normal Inspection. No: Cyanosis, Edema Lower Extremity: Present: Normal Inspection. No: Edema Neurological: Present: GCS=15, CN II-XII Intact, Speech Normal Skin: Present: Warm, Dry, Normal Color. No: Rashes Psychiatric: Present: Alert, Oriented x 3, Normal Insight, Normal Concentration Medical Decision Making ED Course and Treatment: 11/15/16 12:09 Impression: 56 year old male with low back pain and shortness of breath. Differential Diagnosis included but are not limited to: Intractable Back r/o Compression Fracture Plan: -- CT Lumbar Spine -- CT Thorasic Spine -- Labs -- Flexeril, Lidoderm, and Tylenol -- Reassess and disposition Prior Visits: Notes and results from previous visits were reviewed. Patient was last seen in the emergency department on 11/11/2016. Progress Notes: 11/15/16 14:21 CT reviewed with noted fractures. Patient continues to have pain and difficulty walking. Discussed case with Dr. Jara who will place patient on observation. Accession No. : [id number] Patient Name / ID : REYES HOPKINS / [id number] Creator : Mark Aguero MD PROCEDURE: CT Thoracic Spine without contrast IMPRESSION: Moderate compression fractures are seen at T8 and T10, age uncertain Accession No. : [id number] Patient Name / ID : REYES HOPKINS / [id number] Exam Date : 11/15/2016 12:40:59 ( Approved ) Study Comment : Sex / Age : M / 56Y Creator : Mark Aguero MD PROCEDURE: CT Lumbar Spine without contrast IMPRESSION: Severe compression fracture of L2 with mild spinal stenosis. Mild compression deformity of L3 and moderate compression deformity of L4. The age of these fractures is uncertain. Accession No. : [id number] Patient Name / ID : REYES HOPKINS / [id number] Exam Date : 11/15/2016 13:27:39 ( Approved ) Study Comment : Sex / Age : M Creator : Jazmine Jara MD IMPRESSION: 1. Acute nondisplaced fracture in the right posterior 8th rib. 2. Old fracture deformities in the left posterior 6th and 7th ribs. 3. COPD. No active pulmonary disease. No pneumothorax. - Lab Interpretations Lab Results: 11/15/16 12:20 11/15/16 12:20 Lab Results 11/15/16 12:20: Sodium 138, Potassium 4.0, Chloride 102, Carbon Dioxide 28, Anion Gap 12, BUN 23 H, Creatinine 0.6, Est GFR ( Amer) > 60, Est GFR ( Non-Af Amer) > 60, Random Glucose 83, Calcium 9.0 11/15/16 12:20: PT 10.8, INR 1.00, APTT 22.7 L 11/15/16 12:20: WBC 18.6 H D, RBC 3.95, Hgb 12.3 L, Hct 36.9 L, MCV 93.4, MCH 31.1, MCHC 33.3, RDW 15.1 H, Plt Count 328, MPV 9.3, Gran % 91.2 H, Lymph % ( Auto) 3.3 L, [place] % (Auto) 5.4, Eos % (Auto) 0.0 L, Baso % (Auto) 0.1, Gran # 16.93 H, Lymph # 0.6 L, [place] # 1.0 H, Eos # 0.0, Baso # 0.01 I have reviewed the lab results: Yes - RAD Interpretation Radiology Orders: 11/15/16 12:12 LUMBAR SPINE W/O CONTRAST [CT] Stat THORACIC SPINE W/O CONT [CT] Stat 11/15/16 13:17 CXR [CHEST PORTABLE] [RAD] Stat - Medication Orders Current Medication Orders: Discontinued Medications Acetaminophen (Tylenol 325mg Tab) 975 mg PO STAT STA Stop: 11/15/16 12:15 Last Admin: 11/15/16 12:36 Dose: 975 mg Cyclobenzaprine HCl (Flexeril) 5 mg PO STAT STA Stop: 11/15/16 12:14 Last Admin: 11/15/16 12:36 Dose: 5 mg Iodixanol (Visipaque 320 Mg/Ml 100 Ml) Confirm Administered Dose 100 ml IV .STK- MED ONE Stop: 11/15/16 12:12 Lidocaine (Lidoderm) 1 ea TD STAT STA Stop: 11/15/16 12:14 Last Admin: 11/15/16 12:36 Dose: 1 ea Morphine Sulfate (Morphine) 4 mg IVP STAT STA Stop: 11/15/16 13:57 - Scribe Statement The provider has reviewed the documentation as recorded by the Scribe 11/15/2016 Niharika Eli Provider Scribe Attestation: All medical record entries made by the Scribe were at my direction and personally dictated by me. I have reviewed the chart and agree that the record accurately reflects my personal performance of the history, physical exam, medical decision making, and the department course for this patient. I have also personally directed, reviewed, and agree with the discharge instructions and disposition. Disposition/Present on Arrival - Present on Arrival Any Indicators Present on Arrival: No History of DVT/PE: No History of Uncontrolled Diabetes: No Urinary Catheter: No History of Decub. Ulcer: No History Surgical Site Infection Following: None - Disposition Have Diagnosis and Disposition been Completed?: Yes Diagnosis: Compression fracture, Rib fracture, Leukocytosis Disposition: HOSPITALIZED Disposition Time: 14:25 Patient Plan: Observation Condition: FAIR Referrals: Carolyn Ling, [Primary Care Provider] - Follow up with primary Forms: [employer] (Pashto)
[2016-11-15 13:01] LABS: BASO # 0.01 K/mm3 (0.0-2.0); BASO % 0.1 % (0.0-3.0); GRAN # 16.93 (1.4-6.5); GRAN % 91.2 % (50.0-68.0); HEMOGLOBIN 12.3 gm/dL (14.0-18.0); LYMPH # 0.6 (1.2-3.4); LYMPH % 3.3 % (22.0-35.0); MEAN CELL VOLUME 93.4 fL (80.0-105.0); MEAN CORPUSCULAR HEMOGLOBIN 31.1 pg (25.0-35.0); MEAN CORPUSCULAR HGB CONC 33.3 g/dl (31.0-37.0); MEAN PLATELET VOLUME 9.3 fl (7.0-11.0); MONO % 5.4 % (1.0-6.0); PLATELET COUNT 328 10^3/uL (120.0-450.0); RBC 3.95 10^6/uL (3.5-6.1); RED CELL DISTRIBUTION WIDTH 15.1 % (11.5-14.5); WHITE BLOOD COUNT 18.6 10^3/ul (4.5-11.0)
[2016-11-15 13:12] LABS: PARTIAL THROMBOPLASTIN TIME 22.7 Seconds (23.7-30.8); PROTHROMBIN TIME 10.8 Seconds (9.9-11.8)
--- NOTE | 2016-11-15 13:17 | CT ---
PROCEDURE: CT Lumbar Spine without contrast HISTORY: back pain r/o fx COMPARISON: None. TECHNIQUE: Axial computed tomography images were obtained of the lumbar spine without the use of intravenous contrast. Coronal and sagittal reformatted images were created and reviewed. Radiation dose: Total exam DLP = 228 mGy-cm. This CT exam was performed using one or more of the following dose reduction techniques: Automated exposure control, adjustment of the mA and/or kV according to patient size, and/or use of iterative reconstruction technique. FINDINGS: VERTEBRAE: There is a severe compression fracture of L2. There is a mild amount of encroachment of the spinal canal with a mild degree of stenosis seen best on image 19 series 4. The age of this fracture is uncertain. There are no previous studies of this region. There is a mild compression deformity of L3 and a moderate compression deformity of L4. L5 is unremarkable. DISCS/SPINAL CANAL/NEURAL FORAMINA: L1-2: Unremarkable. L2-3: Unremarkable. L3-4: Unremarkable. L4-5: Unremarkable. L5-S1: Unremarkable. PARASPINAL SOFT TISSUES: Unremarkable. OTHER FINDINGS: None. IMPRESSION: Severe compression fracture of L2 with mild spinal stenosis. Mild compression deformity of L3 and moderate compression deformity of L4. The age of these fractures is uncertain.
--- NOTE | 2016-11-15 13:20 | CT ---
PROCEDURE: CT Thoracic Spine without contrast HISTORY: back pain r/o fx COMPARISON: None. TECHNIQUE: Axial computed tomography images were obtained of the thoracic spine without intravenous contrast. Coronal and sagittal reformatted images were created and reviewed. Radiation dose: Total exam DLP = 190 mGy-cm. This CT exam was performed using one or more of the following dose reduction techniques: Automated exposure control, adjustment of the mA and/or kV according to patient size, and/or use of iterative reconstruction technique. FINDINGS: VERTEBRAE: Moderate compression fractures are seen at T8 and T10, age uncertain. DISCS/SPINAL CANAL/NEURAL FORAMINA: Within the limits of the CT technique, no disc herniation seen. No central canal or neural foraminal stenosis.. PARASPINAL SOFT TISSUES: Unremarkable. OTHER FINDINGS: Unremarkable. IMPRESSION: Moderate compression fractures are seen at T8 and T10, age uncertain
[2016-11-15 13:23] LABS: BLOOD UREA NITROGEN 23 mg/dL (7-21); GFR AFRICAN-AMERICAN > 60; GFR NON-AFRICAN AMERICAN > 60
--- NOTE | 2016-11-15 13:54 | RAD ---
HISTORY: sob r/o pna COMPARISON: CT thorax from 11/10/2016 FINDINGS: LUNGS: The lungs are hyperinflated and there is peribronchial thickening with chronic changes in both lungs. No focal consolidation. PLEURA: No significant pleural effusion identified, no pneumothorax apparent. CARDIOVASCULAR: Normal. OSSEOUS STRUCTURES: There is an acute nondisplaced fracture in the right posterior 8th rib. There are old fracture deformities in the left posterior 6th and 7th ribs. VISUALIZED UPPER ABDOMEN: Normal. OTHER FINDINGS: None. IMPRESSION: 1. Acute nondisplaced fracture in the right posterior 8th rib. 2. Old fracture deformities in the left posterior 6th and 7th ribs. 3. COPD. No active pulmonary disease. No pneumothorax. Important findings were discussed with Dr. Jarrett in the ER on 11/15/2016 at 1:50 p.m.
[2016-11-15] MEDS ORDERED: Morphine 4 mg/ml ISec IVP STA (13:56)
--- NOTE | 2016-11-15 17:34 | CP.PCM.HP ---
<Rosanna Martinez - Last Filed: 11/15/16 20:53> History of Present Illness - History of Present Illness History of Present Illness: 56 year old male with pmhx of COPD/emphysema, recently diagnosed PE presents to the ED for evaluation of back pain. Patient reports having chronic low back pain for the past year. He was outside yesterday, squatting when he started to have back pain. He reports that as he walked home, the back pain was worsening. Pain is located on the right lower back, constant in nature. Pain radiates to the front "like a belt". Back pain is worse with movement, coughing, sneezing. Currently rates the pain 8/10. Patient reports taking tylenol with no relief. Patient states that he [place] [facility] [place] has provided no relief. No other complaints at this time. Patient denies any recent falls, trauma, headache, dizziness, changes in vision, SOB, CP, palpitations, abdominal pain, urinary symptoms, changes in bowel habits. Allergies: NKDA Medications: Eliquis, Albuterol, Singulair, Advair, Prednisone Medical Hx: COPD/Emphysema, PE Surgical Hx: Tonsillectomy as a child Social Hx: Smoked 3ppd for 47 years, quit smoking 7 months ago, denies alcohol and drug use; ambulates with a cane and walker, uses 2L NC at home Family Hx: Mother - heart disease, HTN, Thyroid disease, at age 75 Present on Admission - Present on Admission Any Indicators Present on Admission: Yes History of DVT/PE: Yes History of Uncontrolled Diabetes: No Urinary Catheter: No Decubitus Ulcer Present: No Review of Systems - Review of Systems All systems: reviewed and no additional remarkable complaints except - Constitutional Constitutional: absent: Headache, Lethargy - EENT Eyes: absent: Blurred Vision, Change in Vision Ears: absent: Dizziness - Cardiovascular Cardiovascular: absent: Chest Pain, Dyspnea, Edema, Palpitations - Respiratory Respiratory: absent: Cough, Dyspnea, Wheezing - Gastrointestinal Gastrointestinal: absent: Abdominal Pain, Constipation, Diarrhea, Nausea, Vomiting - Genitourinary Genitourinary: absent: Dysuria, Urinary Frequency, Urinary Hesitance - Musculoskeletal Musculoskeletal: Back Pain, Limited Range of Motion. absent: Joint Swelling, Muscle Weakness, Neck Pain - Neurological Neurological: absent: Confusion, Dizziness, Headaches, Loss of Vision, Weakness - Psychiatric Psychiatric: absent: Anxiety, Confusion, Depression Past Patient History - Infectious Disease Hx of Infectious Diseases: None - Tetanus Immunizations Tetanus Immunization: Unknown - Past Social History Smoking Status: Former Smoker Alcohol: None Drugs: Denies - CARDIAC Hx Cardiac Disorders: No - PULMONARY Hx Chronic Obstructive Pulmonary Disease (COPD): Yes Hx Emphysema: Yes - NEUROLOGICAL Other/Comment: compression fx - HEENT Hx HEENT Problems: No (glasses) - RENAL Hx Chronic Kidney Disease: No - ENDOCRINE/METABOLIC Hx Endocrine Disorders: No - HEMATOLOGICAL/ONCOLOGICAL Hx Blood Disorders: No - INTEGUMENTARY Hx Dermatological Problems: No - MUSCULOSKELETAL/RHEUMATOLOGICAL Hx Musculoskeletal Disorders: Yes Hx Back Pain: Yes Hx Falls: No - GASTROINTESTINAL Hx Gastrointestinal Disorders: No - GENITOURINARY/GYNECOLOGICAL Hx Genitourinary Disorders: No - PSYCHIATRIC Hx 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) Hx Substance Use: No - SURGICAL HISTORY Hx Tonsillectomy: Yes - ANESTHESIA Hx Anesthesia: No Hx Anesthesia Reactions: No Hx Malignant Hyperthermia: No Meds Allergies/Adverse Reactions: Allergies Allergy/AdvReac Type Severity Reaction Status Date / Time No Known Allergies Allergy Verified 11/10/16 12:40 Physical Exam - Constitutional Appears: No Acute Distress, Unkempt, Older Than Stated Age, Cachectic - Head Exam Head Exam: ATRAUMATIC, NORMAL INSPECTION - Eye Exam Eye Exam: EOMI, Normal appearance - ENT Exam ENT Exam: Mucous Membranes Moist - Respiratory Exam Respiratory Exam: Decreased Breath Sounds, Clear to Auscultation Bilateral, NORMAL BREATHING PATTERN. absent: Rales, Wheezes, Respiratory Distress - Cardiovascular Exam Cardiovascular Exam: REGULAR RHYTHM, +S1, +S2 - GI/Abdominal Exam GI & Abdominal Exam: Normal Bowel Sounds, Soft. absent: Guarding, Rebound, Rigid, Tenderness - Extremities Exam Extremities exam: Positive for: pedal pulses present. Negative for: calf tenderness, tenderness - Back Exam Back exam: tenderness (R lower back tenderness to palpation ). absent: paraspinal tenderness, rash noted - Neurological Exam Neurological exam: Alert, Oriented x3 - Psychiatric Exam Psychiatric exam: Normal Affect, Normal Mood - Skin Skin Exam: Dry, Normal Color, Warm Results - Vital Signs Recent Vital Signs: Last Vital Signs Temp 98.1 F 11/15/16 11:57 Pulse 72 11/15/16 16:57 Resp 18 11/15/16 16:57 BP 115/78 11/15/16 16:57 Pulse Ox 98 11/15/16 16:57 - Labs Result Diagrams: 11/15/16 12:20 11/15/16 12:20 Assessment & Plan (1) Rib fracture Assessment and Plan: 1. Stable, afebrile 2. Pain control - percocet prn 3. Continue Muscle relaxant Flexeril 5mg TID 4. CXR shows acute non-displaced fracture of R edger automatic 8th rib; Old fracture deformaties in L posterior 6+7th ribs 5. PT ordered, f/u recommendations Status: Acute (2) Compression fracture Assessment and Plan: 1. Hx of vertebral compression fractures 2. Neurosurgery consulted, f/u recommendations 3. Pain control - percocet prn 4. PT ordered, f/u recommendations 5. Thoracic CT spine: moderate compression fracture at T8 and T10; Lumbar CT spine: severe compression fracture of L2 with mild stenosis, Mild compression deformity at L3 and moderate compression deformity L4 Status: Chronic (3) Pulmonary embolism Assessment and Plan: 1. Recently discharged on 11/11 with dx of PE 2. Instructed to take Eliquis 10mg BID for 1 week, then Eliquis 5mg BID 3. Will continue Eliquis 10mg BID for anticoagulation Status: Acute (4) Chronic obstructive lung disease Assessment and Plan: 1. Stable 2. On NC 3L at home 3. Duonebs Q4H prn SOB 4. Will hold prednisone at this time, as steroids has halfway risk of osteoporosis 5. Continue to monitor Status: Chronic Priority: High (5) Leukocytosis Assessment and Plan: 1. WBC on admission 18.3, No overt signs of infection 2. Likely reactive vs elevated 2/2 steroid use 3. F/U am CBC 4. Continue to monitor Status: Acute (6) DVT prophylaxis Assessment and Plan: 1. GI/DVT ppx: Protonix 40mg PO, Eliquis 10mg BID Status: Acute <Lewis Vázquez - Last Filed: 11/16/16 09:06> Results - Vital Signs Recent Vital Signs: Last Vital Signs Temp 97.4 F L 11/16/16 08:19 Pulse 79 11/16/16 08:19 Resp 20 11/16/16 08:19 BP 103/69 11/16/16 08:19 Pulse Ox 100 11/16/16 08:19 - Labs Result Diagrams: 11/16/16 07:10 11/16/16 07:10 Labs: Laboratory Results - last 24 hr 11/16/16 11/16/16 11/16/16 05:21 07:10 07:10 WBC 11.7 H D RBC 3.80 Hgb 11.4 L Hct 35.8 L MCV 94.2 MCH 30.0 MCHC 31.8 RDW 15.2 H Plt Count 270 MPV 9.0 Gran % 56.7 Lymph % (Auto) 29.1 [place] % (Auto) 13.7 H Eos % (Auto) 0.5 L Baso % (Auto) 0.0 Gran # 6.63 H Lymph # 3.4 [place] # 1.6 H Eos # 0.1 Baso # 0.00 Sodium 138 Potassium 4.6 Chloride 101 Carbon Dioxide 32 Anion Gap 10 BUN 26 H Creatinine 0.6 Est GFR ( Amer) > 60 Est GFR (Non-Af Amer) > 60 Random Glucose 80 Calcium 8.5 Phosphorus 3.1 Magnesium 2.1 Urine Color Yellow Urine Appearance Clear Urine pH 6.0 Ur Specific [place] 1.020 Urine Protein Negative Urine Glucose (UA) Negative Urine Ketones Negative Urine Blood Negative Urine Nitrate Negative Urine Bilirubin Negative Urine Urobilinogen 0.2 Ur Leukocyte Esterase Negative Attending/Attestation - Attestation I have personally seen and examined this patient.: Yes I have fully participated in the care of the patient.: Yes I have reviewed all pertinent clinical information: Yes Notes (Text): 11/15/16 56 year old male with past medical history of COPD, chronic back pain and history of recently diagnosed PE on eliquis who presents with intractable back pain. Xray and CT spines reviewed as above showing acute non-displaced fracture of right edger automatic 8th rib, old fracture deformaties in left posterior 6- 7th ribs; moderate compression fracture at T8 and T10, severe compression fracture of L2 with mild stenosis, mild compression deformity at L3 and moderate compression deformity L4. Patient denies any recent falls or trauma but admits to have been on halfway steroids for history of COPD. Will start on percocet prn and flexeril. PT and neurosurgery evaluation are requested. Continue with duonebs for history of COPD. Continue with supplemental oxygen. Leukocytosis noted; likely secondary to recent steroids. Will monitor. Continue with eliquis for hisotry of recently diagnosed PE. Lewis Vázquez MD Hospitalist.
[2016-11-15] MEDS: Oxycodone/Acetaminophen 5/325 mg Tab PO PRN (20:24)
[2016-11-15] MEDS ORDERED: Bismuth Subsalicylate 262 mg/15 ml Sus (240 ml) PO ONE (21:49)
[2016-11-16 05:43] LABS: URINE BILIRUBIN NEGATIVE (NEGATIVE); URINE BLOOD NEGATIVE (NEGATIVE); URINE GLUCOSE (UA) NEGATIVE (NEGATIVE); URINE LEUKOCYTE ESTERASE NEGATIVE Leu/uL (NEGATIVE); URINE NITRATE NEGATIVE (NEGATIVE); URINE PROTEIN NEGATIVE mg/dL (<30 mg/dL); URINE UROBILINOGEN 0.2 E.U./dL (<1 E.U./dL)
[2016-11-16 05:47] LABS: URINE APPEARANCE CLEAR (CLEAR); URINE COLOR YELLOW (YELLOW)
[2016-11-16 07:26] LABS: EOS # 0.1 (0.0-0.7); EOS % 0.5 % (1.5-5.0); GRAN # 6.63 (1.4-6.5); GRAN % 56.7 % (50.0-68.0); HEMOGLOBIN 11.4 gm/dL (14.0-18.0); LYMPH # 3.4 (1.2-3.4); LYMPH % 29.1 % (22.0-35.0); MEAN CELL VOLUME 94.2 fL (80.0-105.0); MEAN CORPUSCULAR HGB CONC 31.8 g/dl (31.0-37.0); MONO # 1.6 (0.1-0.6); MONO % 13.7 % (1.0-6.0); PLATELET COUNT 270 10^3/uL (120.0-450.0); RED CELL DISTRIBUTION WIDTH 15.2 % (11.5-14.5); WHITE BLOOD COUNT 11.7 10^3/ul (4.5-11.0)
[2016-11-16 08:07] LABS: BLOOD UREA NITROGEN 26 mg/dL (7-21); CALCIUM 8.5 mg/dL (8.4-10.5); GFR AFRICAN-AMERICAN > 60; GFR NON-AFRICAN AMERICAN > 60; MAGNESIUM 2.1 mg/dL (1.7-2.2)
[2016-11-16 08:20] VITALS: RESP 20
[2016-11-16] MEDS: Oxycodone/Acetaminophen 5/325 mg Tab PO PRN ×3 (09:23→21:37)
--- NOTE | 2016-11-16 11:43 | CP.PCM.CON ---
History of Present Illness - History of Present Illness History of Present Illness: SPINE Pt seen and examined. Consult dictated. Compression fx's prob old w hx of fall off scaffold 3-4 yrs ago. Location of pain c/w acute rib fx seen on cxr.. Can get MRI of T spine to check on age of T8/10 fxs but wouldn't really change treatment plan. Consider pain management for rib pain. Tx. Past Patient History - Infectious Disease Hx of Infectious Diseases: None - Tetanus Immunizations Tetanus Immunization: Unknown - Past Social History Smoking Status: Former Smoker Alcohol: None Drugs: Denies - CARDIAC Hx Cardiac Disorders: No - PULMONARY Hx Chronic Obstructive Pulmonary Disease (COPD): Yes Hx Emphysema: Yes - NEUROLOGICAL Other/Comment: compression fx - HEENT Hx HEENT Problems: No (glasses) - RENAL Hx Chronic Kidney Disease: No - ENDOCRINE/METABOLIC Hx Endocrine Disorders: No - HEMATOLOGICAL/ONCOLOGICAL Hx Blood Disorders: No - INTEGUMENTARY Hx Dermatological Problems: No - MUSCULOSKELETAL/RHEUMATOLOGICAL Hx Musculoskeletal Disorders: Yes Hx Back Pain: Yes Hx Falls: No - GASTROINTESTINAL Hx Gastrointestinal Disorders: No - GENITOURINARY/GYNECOLOGICAL Hx Genitourinary Disorders: No - PSYCHIATRIC Hx 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) Hx Substance Use: No - SURGICAL HISTORY Hx Tonsillectomy: Yes - ANESTHESIA Hx Anesthesia: No Hx Anesthesia Reactions: No Hx Malignant Hyperthermia: No Meds Allergies/Adverse Reactions: Allergies Allergy/AdvReac Type Severity Reaction Status Date / Time No Known Allergies Allergy Verified 11/10/16 12:40 - Medications Medications: Current Medications Albuterol/Ipratropium (Duoneb 3 Mg/0.5 Mg (3 Ml) Ud) 3 ml IH Q4H PRN PRN Reason: Shortness of Breath Apixaban (Eliquis) 10 mg PO BID [facility] PRN Reason: Protocol Last Admin: 11/16/16 09:24 Dose: 10 mg Cyclobenzaprine HCl (Flexeril) 5 mg PO TID [facility] Last Admin: 11/16/16 09:24 Dose: 5 mg Oxycodone/Acetaminophen (Percocet 5/325 Mg Tab) 1 tab PO Q6H PRN PRN Reason: Pain, moderate (4-7) Stop: 11/18/16 16:46 Last Admin: 11/16/16 09:23 Dose: 1 tab Results - Vital Signs Recent Vital Signs: Last Vital Signs Temp 97.4 F L 11/16/16 08:19 Pulse 79 11/16/16 08:19 Resp 20 11/16/16 08:19 BP 103/69 11/16/16 08:19 Pulse Ox 100 11/16/16 08:19 - Labs Result Diagrams: 11/16/16 07:10 11/16/16 07:10 Labs: Laboratory Results - last 24 hr 11/16/16 11/16/16 11/16/16 05:21 07:10 07:10 WBC 11.7 H D RBC 3.80 Hgb 11.4 L Hct 35.8 L MCV 94.2 MCH 30.0 MCHC 31.8 RDW 15.2 H Plt Count 270 MPV 9.0 Gran % 56.7 Lymph % (Auto) 29.1 [place] % (Auto) 13.7 H Eos % (Auto) 0.5 L Baso % (Auto) 0.0 Gran # 6.63 H Lymph # 3.4 [place] # 1.6 H Eos # 0.1 Baso # 0.00 Sodium 138 Potassium 4.6 Chloride 101 Carbon Dioxide 32 Anion Gap 10 BUN 26 H Creatinine 0.6 Est GFR ( Amer) > 60 Est GFR (Non-Af Amer) > 60 Random Glucose 80 Calcium 8.5 Phosphorus 3.1 Magnesium 2.1 Urine Color Yellow Urine Appearance Clear Urine pH 6.0 Ur Specific [place] 1.020 Urine Protein Negative Urine Glucose (UA) Negative Urine Ketones Negative Urine Blood Negative Urine Nitrate Negative Urine Bilirubin Negative Urine Urobilinogen 0.2 Ur Leukocyte Esterase Negative
[2016-11-16] MEDS: Albuterol-Ipratrop 3 mg / 0.5 (3 ml) UD IH PRN (20:48)
[2016-11-16] MEDS ORDERED: Cholecalciferol 400 Intl Units Tab PO SCH (21:08)
--- NOTE | 2016-11-16 23:23 | CP.PCM.PN ---
<Mani Al - Last Filed: 11/16/16 23:33> Subjective - Date & Time of Evaluation Date of Evaluation: 11/16/16 Time of Evaluation: 09:15 - Subjective Subjective: Patient states his left rib pain is frustrating, wants the pain to stop. Objective - Vital Signs/Intake and Output Vital Signs (last 24 hours): Temp Pulse Resp BP Pulse Ox 97.5 F L 91 H 20 111/74 97 11/16/16 16:00 11/16/16 16:00 11/16/16 16:00 11/16/16 16:00 11/16/16 16:00 Intake and Output: 11/16/16 11/17/16 18:59 06:59 Intake Total 1020 300 Output Total 700 Balance 1020 -400 - Medications Medications: Current Medications Albuterol/Ipratropium (Duoneb 3 Mg/0.5 Mg (3 Ml) Ud) 3 ml IH Q4H PRN PRN Reason: Shortness of Breath Last Admin: 11/16/16 20:48 Dose: 3 ml Apixaban (Eliquis) 10 mg PO BID [facility] PRN Reason: Protocol Last Admin: 11/16/16 17:54 Dose: 10 mg Cyclobenzaprine HCl (Flexeril) 5 mg PO TID [facility] Last Admin: 11/16/16 17:54 Dose: 5 mg Oxycodone/Acetaminophen (Percocet 5/325 Mg Tab) 1 tab PO Q6H PRN PRN Reason: Pain, moderate (4-7) Stop: 11/18/16 16:46 Last Admin: 11/16/16 14:52 Dose: 1 tab Vitamin D (Vitamin D 400 Intl Units Tab) 4,000 intlu PO DAILY [facility] Last Admin: 11/16/16 22:20 Dose: 4,000 intlu - Labs Labs: 11/16/16 07:10 11/16/16 07:10 PT 10.8 Seconds (9.9-11.8) 11/15/16 12:20 INR 1.00 (0.93-1.08) 11/15/16 12:20 APTT 22.7 Seconds (23.7-30.8) L 11/15/16 12:20 - Constitutional Appears: Well, No Acute Distress, Older Than Stated Age - Head Exam Head Exam: ATRAUMATIC, NORMOCEPHALIC - Eye Exam Eye Exam: EOMI, Normal appearance - ENT Exam ENT Exam: Mucous Membranes Moist - Neck Exam Neck Exam: Normal Inspection - Respiratory Exam Respiratory Exam: Prolonged Expiratory Phase, Rhonchi, Wheezes Additional comments: Pain to palpation along ribs 7 and 8. - Cardiovascular Exam Cardiovascular Exam: RRR, +S1, +S2 - GI/Abdominal Exam GI & Abdominal Exam: Soft, Normal Bowel Sounds - Extremities Exam Extremities Exam: Normal Inspection. absent: Pedal Edema - Neurological Exam Neurological Exam: Alert, CN II-XII Intact, Normal Gait Neuro motor strength exam: Left Upper Extremity: 5, Right Upper Extremity: 5, Left Lower Extremity: 5, Right Lower Extremity: 5 - Psychiatric Exam Psychiatric exam: Normal Affect, Normal Mood Assessment and Plan - Assessment and Plan (Free Text) Assessment: Assessment & Plan (1) Rib fracture Assessment and Plan: 1. Stable, afebrile 2. Pain control - percocet prn 3. Continue Muscle relaxant Flexeril 5mg TID 4. 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 PT ordered, f/u recommendations Status: Acute (2) Compression fracture Assessment and Plan: 1. Hx of vertebral compression fractures 2. Neurosurgery consulted, recommend subcostal block/ablation to affected rib. 3. Pain control - percocet prn 4. PT ordered, f/u recommendations 5. Thoracic CT spine: moderate compression fracture at T8 and T10; Lumbar CT spine: severe compression fracture of L2 with mild stenosis, Mild compression deformity at L3 and moderate compression deformity L4 Status: Chronic (3) Pulmonary embolism Assessment and Plan: 1. Recently discharged on 11/11 with dx of PE 2. Instructed to take Eliquis 10mg BID for 1 week, then Eliquis 5mg BID 3. Will continue Eliquis 10mg BID for anticoagulation Status: Acute (4) Chronic obstructive lung disease Assessment and Plan: 1. Stable 2. On NC 3L at home 3. Duonebs Q4H prn SOB 4. 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 Continue to monitor Status: Chronic Priority: High (5) Leukocytosis Assessment and Plan: Reactive leukocytosis with neutrophil predominance due (to margination of neutrophils) from steroid use. Continue to monitor Status: Acute (6) DVT prophylaxis Assessment and Plan: 1. GI/DVT ppx: Protonix 40mg PO, Eliquis 10mg BID <Lewis Vázquez - Last Filed: 11/17/16 09:27> Objective - Vital Signs/Intake and Output Vital Signs (last 24 hours): Temp Pulse Resp BP Pulse Ox 98.1 F 81 20 104/79 99 11/17/16 08:40 11/17/16 08:40 11/17/16 08:40 11/17/16 08:40 11/17/16 08:40 Intake and Output: 11/17/16 11/17/16 06:59 18:59 Intake Total 540 Output Total 1000 Balance -460 - Medications Medications: Current Medications Albuterol/Ipratropium (Duoneb 3 Mg/0.5 Mg (3 Ml) Ud) 3 ml IH Q4H PRN PRN Reason: Shortness of Breath Last Admin: 11/16/16 20:48 Dose: 3 ml Apixaban (Eliquis) 10 mg PO BID [facility] PRN Reason: Protocol Last Admin: 11/17/16 09:17 Dose: 10 mg Cholecalciferol (Vitamin D) 4,000 iu PO DAILY [facility] Last Admin: 11/17/16 09:18 Dose: 4,000 iu Cyclobenzaprine HCl (Flexeril) 5 mg PO TID [facility] Last Admin: 11/17/16 09:17 Dose: 5 mg Oxycodone/Acetaminophen (Percocet 5/325 Mg Tab) 1 tab PO Q6H PRN PRN Reason: Pain, moderate (4-7) Stop: 11/18/16 16:46 Last Admin: 11/16/16 14:52 Dose: 1 tab - Labs Labs: 11/17/16 07:46 11/17/16 06:45 PT 10.8 Seconds (9.9-11.8) 11/15/16 12:20 INR 1.00 (0.93-1.08) 11/15/16 12:20 APTT 22.7 Seconds (23.7-30.8) L 11/15/16 12:20 Attending/Attestation - Attestation I have personally seen and examined this patient.: Yes I have fully participated in the care of the patient.: Yes I have reviewed all pertinent clinical information, including history, physical exam and plan: Yes Notes (Text): 11/16/16 56 year old male with past medical history of COPD, chronic back pain and history of recently diagnosed PE on eliquis who presented with intractable back pain. 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 He is currently on percocet prn and flexeril. Neurosurgery evaluation was appreciated who ordered for MRI spine and suggestive for pain management evaluation for possible nerve block for acute rib fracture pain. PT evaluation is pending. Continue with duonebs for history of COPD. Continue with supplemental oxygen. Leukocytosis has improved and is likely secondary to recent steroids. Will continue to monitor. Continue with eliquis for history of recently diagnosed PE. Lewis Vázquez MD Hospitalist.
[2016-11-17 07:31] LABS: BLOOD UREA NITROGEN 24 mg/dL (7-21); CALCIUM 8.7 mg/dL (8.4-10.5); GFR AFRICAN-AMERICAN > 60; GFR NON-AFRICAN AMERICAN > 60
[2016-11-17 08:10] LABS: EOS # 0.3 (0.0-0.7); EOS % 2.4 % (1.5-5.0); GRAN % 55.1 % (50.0-68.0); LYMPH # 3.8 (1.2-3.4); LYMPH % 29.7 % (22.0-35.0); MEAN CELL VOLUME 94.8 fL (80.0-105.0); MEAN CORPUSCULAR HEMOGLOBIN 31.1 pg (25.0-35.0); MEAN CORPUSCULAR HGB CONC 32.8 g/dl (31.0-37.0); MEAN PLATELET VOLUME 9.2 fl (7.0-11.0); MONO # 1.6 (0.1-0.6); MONO % 12.8 % (1.0-6.0); PLATELET COUNT 282 10^3/uL (120.0-450.0); RBC 3.86 10^6/uL (3.5-6.1); RED CELL DISTRIBUTION WIDTH 14.8 % (11.5-14.5); WHITE BLOOD COUNT 12.7 10^3/ul (4.5-11.0)
--- NOTE | 2016-11-17 12:57 | MRI ---
PROCEDURE: MR LUMBAR SPINE WITHOUT CONTRAST HISTORY: back pain COMPARISON: None available. TECHNIQUE: Multiecho multiplanar sequences were performed through the lumbar spine without the use of intravenous contrast. FINDINGS: Normal lumbar lordosis. There is a severe compression fracture of L2 with vertebral plana. There is mild encroachment of the spinal canal. This is probably chronic. There is minimal marrow edema anteriorly. There is a mild compression deformity of T12. There is a fracture line that parallels the superior endplate. There is some marrow edema suggesting that this is acute. Conus medullaris unremarkable at the level of L1 Paraspinal soft tissues are unremarkable. OTHER FINDINGS: None. IMPRESSION: Severe compression fracture of L2. Mild compression deformity of T12 that is probably acute
--- NOTE | 2016-11-17 13:15 | MRI ---
PROCEDURE: MR THORACIC SPINE WITHOUT CONTRAST HISTORY: back pain COMPARISON: MRI of the lumbar spine same day TECHNIQUE: Multiecho multiplanar sequences were performed through the thoracic spine without the use of intravenous contrast. FINDINGS: ALIGNMENT: Normal thoracic spinal alignment. Normal thoracic kyphosis. VERTEBRA: Multiple compression fractures are seen in the lower thoracic spine which appear to be acute or subacute with a moderate amount of marrow edema. There is some marrow edema in the inferior aspect of T9. There is a moderate compression fracture with marrow edema at T10 and along the superior endplate of T11. As noted on the lumbar MRI there is an acute appearing compression fracture parallel to the superior endplate of T12. Compression deformities are also seen in the mid thoracic spine which do not appear to be acute MARROW: As above PARASPINAL SOFT TISSUES: Unremarkable. CORD: Unremarkable thoracic cord. No volume loss, signal abnormality or syrinx. DISCS: No disc herniation, spinal canal stenosis, or neuroforaminal narrowing. OTHER FINDINGS: None. IMPRESSION: Multiple acute or subacute compression fractures in the lower thoracic spine. See comments
--- NOTE | 2016-11-17 15:36 | CP.PCM.PN ---
<Mani Al - Last Filed: 11/17/16 19:50> Subjective - Date & Time of Evaluation Date of Evaluation: 11/17/16 Time of Evaluation: 15:30 - Subjective Subjective: Mani Al DO, PGY-1, Hospitalist Team 2 Patient seen and examined at bedside. Patient c/o pain that has not improved with current regiment, states his breathing is worsening, and he couldn't sleep last night due to the aforementioned reasons. Objective - Vital Signs/Intake and Output Vital Signs (last 24 hours): Temp Pulse Resp BP Pulse Ox 98.1 F 81 20 104/79 99 11/17/16 08:40 11/17/16 08:40 11/17/16 08:40 11/17/16 08:40 11/17/16 08:40 Intake and Output: 11/17/16 11/17/16 06:59 18:59 Intake Total 540 Output Total 1000 Balance -460 - Medications Medications: Current Medications Albuterol/Ipratropium (Duoneb 3 Mg/0.5 Mg (3 Ml) Ud) 3 ml IH Q4H PRN PRN Reason: Shortness of Breath Last Admin: 11/16/16 20:48 Dose: 3 ml Apixaban (Eliquis) 10 mg PO BID [facility] PRN Reason: Protocol Last Admin: 11/17/16 09:17 Dose: 10 mg Cholecalciferol (Vitamin D) 4,000 iu PO DAILY [facility] Last Admin: 11/17/16 09:18 Dose: 4,000 iu Cyclobenzaprine HCl (Flexeril) 5 mg PO TID [facility] Last Admin: 11/17/16 13:47 Dose: 5 mg Oxycodone/Acetaminophen (Percocet 5/325 Mg Tab) 1 tab PO Q6H PRN PRN Reason: Pain, moderate (4-7) Stop: 11/18/16 16:46 Last Admin: 11/16/16 14:52 Dose: 1 tab - Labs Labs: 11/17/16 07:46 11/17/16 06:45 PT 10.8 Seconds (9.9-11.8) 11/15/16 12:20 INR 1.00 (0.93-1.08) 11/15/16 12:20 APTT 22.7 Seconds (23.7-30.8) L 11/15/16 12:20 - Constitutional Appears: Well, No Acute Distress - Head Exam Head Exam: ATRAUMATIC, NORMOCEPHALIC - Eye Exam Eye Exam: EOMI, Normal appearance - ENT Exam ENT Exam: Mucous Membranes Moist, Normal Oropharynx - Respiratory Exam Respiratory Exam: Wheezes, Respiratory Distress (nasal flaring, pink puffing) - Cardiovascular Exam Cardiovascular Exam: +S1, +S2 - GI/Abdominal Exam GI & Abdominal Exam: Soft. absent: Guarding, Rigid - Rectal Exam Rectal Exam: Deferred - Neurological Exam Neurological Exam: Alert, CN II-XII Intact, Oriented x3 Neuro motor strength exam: Left Upper Extremity: 5, Right Upper Extremity: 5, Left Lower Extremity: 5, Right Lower Extremity: 5 - Psychiatric Exam Psychiatric exam: Normal Affect, Normal Mood - Skin Skin Exam: Dry, Intact, Warm Assessment and Plan - Assessment and Plan (Free Text) Assessment: Thoracic compression fractures and right subcostal pain: MRI of the thoracic/ lumbar spine shows possibly acute compression fracture of T12, and L2 chronic appearing compresion fracture. Plan: 1) Pain control with toradol q6h PRN, percocet 5 mg q6h, and flexeril. 2) Dyspnea: duonebs q4h 3) Compression fracture T12 and subcostal pain will admit as in patient and hopefully perform subcostal nerve block/ablation <Lewis Vázquez - Last Filed: 11/18/16 07:26> Objective - Vital Signs/Intake and Output Vital Signs (last 24 hours): Temp Pulse Resp BP Pulse Ox 98.6 F 90 20 115/83 99 11/17/16 16:00 11/17/16 16:00 11/17/16 16:00 11/17/16 16:00 11/17/16 16:00 Intake and Output: 11/18/16 11/18/16 06:59 18:59 Intake Total 780 Output Total 1250 Balance -470 - Medications Medications: Current Medications Albuterol/Ipratropium (Duoneb 3 Mg/0.5 Mg (3 Ml) Ud) 3 ml IH Q4H PRN PRN Reason: Shortness of Breath Last Admin: 11/16/16 20:48 Dose: 3 ml Apixaban (Eliquis) 10 mg PO BID [facility] PRN Reason: Protocol Last Admin: 11/17/16 18:08 Dose: 10 mg Cholecalciferol (Vitamin D) 4,000 iu PO DAILY [facility] Last Admin: 11/17/16 09:18 Dose: 4,000 iu Cyclobenzaprine HCl (Flexeril) 5 mg PO TID [facility] Last Admin: 11/17/16 18:08 Dose: 5 mg Ketorolac Tromethamine (Toradol) 15 mg IVP Q6H PRN PRN Reason: Pain, severe (8-10) Stop: 11/22/16 16:46 Last Admin: 11/18/16 05:08 Dose: 15 mg Oxycodone/Acetaminophen (Percocet 5/325 Mg Tab) 1 tab PO Q6H PRN PRN Reason: Pain, moderate (4-7) Stop: 11/18/16 16:46 Last Admin: 11/18/16 03:16 Dose: 1 tab - Labs Labs: 11/17/16 07:46 11/17/16 06:45 PT 10.8 Seconds (9.9-11.8) 11/15/16 12:20 INR 1.00 (0.93-1.08) 11/15/16 12:20 APTT 22.7 Seconds (23.7-30.8) L 11/15/16 12:20 Attending/Attestation - Attestation I have personally seen and examined this patient.: Yes I have fully participated in the care of the patient.: Yes I have reviewed all pertinent clinical information, including history, physical exam and plan: Yes Notes (Text): 11/17/16 56 year old male with past medical history of COPD, chronic back pain and history of recently diagnosed PE on eliquis who presented with intractable back pain. 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 Patient denies any recent falls or trauma but admits to have been on [facility] steroids for history of COPD. He is currently on percocet prn and flexeril. Neurosurgery evaluation was appreciated who ordered for MRI spine which was done today. Today patient is still complaining of severe pain. IV Toradol is added and pain management consult is pending for possible nerve block for acute rib fracture. Continue with duonebs for history of COPD. Continue with supplemental oxygen. Leukocytosis had improved and is likely secondary to recent steroids. Will continue to monitor. Continue with eliquis for history of recently diagnosed PE. Lewis Vázquez MD Hospitalist.
[2016-11-17] MEDS: Oxycodone/Acetaminophen 5/325 mg Tab PO PRN (16:16)
--- NOTE | 2016-11-17 19:44 | CON ---
DATE: 11/16/2016 REASON FOR CONSULTATION: Back pain. HISTORY OF PRESENT ILLNESS: The patient is a 56-year-old young gentleman who states he squatted to do something at his home on Tuesday and as he arlyn, he had acute onset of pain on the right side of his back. He denies lifting anything or bending over to pick something up. He denies having problems like this prior to this episode. He did have a fall off scaffold several years ago in which he suffered spinal fractures, but states that was pretty much quite down and he had had nothing like this until this happened. The pain became more severe and he came to the emergency room on Tuesday and was admitted. He denies any bowel or bladder incontinence. He states if he just lays in a spot, it is not too bad but as soon as he starts to move around, it becomes more severe. He points to the area around middle of his right rib cage posteriorly and states the pain seems to wrap around towards the front. PAST MEDICAL HISTORY: Significant for COPD, emphysema and the recently diagnosed pulmonary emboli. MEDICATIONS: Are as listed on the chart, he was just started on Eliquis because of the finding of the PE. He is on 2 L nasal canula at home, having been a 3-pack a day smoker for 47 years. He states he just stopped smoking 5 to 7 months ago. PAST SURGICAL HISTORY: Significant for tonsillectomy as a child. ALLERGIES: HE HAS NO KNOWN MEDICAL ALLERGIES. PHYSICAL EXAMINATION: He is exquisitely tender to palpation on the posterior right rib cage. No real spinal tenderness. He moves all his extremities actively. His motor and sensory exam are grossly intact throughout. He had CAT scans done of his thoracic and lumbar spine which show compression fractures at T8 and T10 along with fractures of L2, L3 and L4. The fracture at L2 was almost a vertebra plana. There is some posterior retropulsion and osteophyte formation, but again the fracture appears to be old as the bone is very dense and sporadic. His chest x-ray shows what appears to be an acute fracture of the right 8th rib with some old fracture ribs in the area as well. IMPRESSION: His pain seems to becoming from the fractured rib. Certainly, with his tachypnea even on the nasal canula secondary to significant lung disease that does not help matters in terms of the broken rib moving. Consult pain management could be obtained to see if there is anything else that could be done to try and control his pain until the rib starts to couple of weeks or so and things start to quiet down. Again the one could get an MRI of the thoracic spine to see if the T8 and/or T10 fractures are acute or not, but he gives no history of any kind of trauma to indicate that that would be new. He is on prednisone, and I enquired if that has been long-term to think he might have significant osteoporosis, but he states he was only put on the prednisone very recently, so one would not think that would be the etiology. I have seen a 56-year-old with these fractures, a bone metabolic workup probably would not be a bad idea to see if there is something treatable or correctable. Otherwise, it is going to be matter of getting his pain under control and mobilizing him as he feels comfortable and let the rib fracture heal on its own. Thank you for allowing me to participate in the care of your patient. Monty Pryor MD
[2016-11-18] MEDS: Oxycodone/Acetaminophen 5/325 mg Tab PO PRN ×3 (03:16→20:19)
[2016-11-18 07:25] LABS: BLOOD UREA NITROGEN 28 mg/dL (7-21); CALCIUM 8.6 mg/dL (8.4-10.5); GFR AFRICAN-AMERICAN > 60; GFR NON-AFRICAN AMERICAN > 60
[2016-11-18] MEDS: Albuterol-Ipratrop 3 mg / 0.5 (3 ml) UD IH PRN (08:20)
--- NOTE | 2016-11-18 13:30 | CP.PCM.PN ---
<Mani Al - Last Filed: 11/18/16 20:52> Subjective - Date & Time of Evaluation Date of Evaluation: 11/18/16 Time of Evaluation: 07:30 - Subjective Subjective: Patient seen and examined at bedside. Patient states he slept much better last night. He states the pain is much improved. Objective - Vital Signs/Intake and Output Vital Signs (last 24 hours): Temp Pulse Resp BP Pulse Ox 97.6 F 86 20 125/81 95 11/18/16 07:53 11/18/16 07:53 11/18/16 07:53 11/18/16 07:53 11/18/16 07:53 Intake and Output: 11/18/16 11/18/16 06:59 18:59 Intake Total 780 Output Total 1250 Balance -470 - Medications Medications: Current Medications Albuterol/Ipratropium (Duoneb 3 Mg/0.5 Mg (3 Ml) Ud) 3 ml IH Q4H PRN PRN Reason: Shortness of Breath Last Admin: 11/18/16 08:20 Dose: 3 ml Apixaban (Eliquis) 10 mg PO BID [facility] PRN Reason: Protocol Last Admin: 11/18/16 10:10 Dose: 10 mg Cholecalciferol (Vitamin D) 4,000 iu PO DAILY [facility] Last Admin: 11/18/16 10:10 Dose: 4,000 iu Cyclobenzaprine HCl (Flexeril) 5 mg PO TID [facility] Last Admin: 11/18/16 10:10 Dose: 5 mg Ketorolac Tromethamine (Toradol) 15 mg IVP Q6H PRN PRN Reason: Pain, severe (8-10) Stop: 11/22/16 16:46 Last Admin: 11/18/16 05:08 Dose: 15 mg Oxycodone/Acetaminophen (Percocet 5/325 Mg Tab) 1 tab PO Q6H PRN PRN Reason: Pain, moderate (4-7) Stop: 11/18/16 16:46 Last Admin: 11/18/16 12:37 Dose: 1 tab - Labs Labs: 11/17/16 07:46 11/18/16 06:50 PT 10.8 Seconds (9.9-11.8) 11/15/16 12:20 INR 1.00 (0.93-1.08) 11/15/16 12:20 APTT 22.7 Seconds (23.7-30.8) L 11/15/16 12:20 - Constitutional Appears: Well, No Acute Distress - Head Exam Head Exam: ATRAUMATIC, NORMOCEPHALIC - Eye Exam Eye Exam: EOMI, Normal appearance, PERRL - ENT Exam ENT Exam: Mucous Membranes Moist, Normal Oropharynx - Neck Exam Neck Exam: Normal Inspection - Respiratory Exam Respiratory Exam: Accessory Muscle Use Additional comments: RR 18 - Cardiovascular Exam Cardiovascular Exam: REGULAR RHYTHM, +S1, +S2 - GI/Abdominal Exam GI & Abdominal Exam: Soft, Normal Bowel Sounds. absent: Tenderness - Extremities Exam Extremities Exam: Full ROM, Normal Inspection. absent: Pedal Edema - Back Exam Back Exam: NORMAL INSPECTION Additional comments: Pain along the right rib 7-8 region - Neurological Exam Neurological Exam: Alert, Awake, CN II-XII Intact, Oriented x3 Neuro motor strength exam: Left Upper Extremity: 3, Right Upper Extremity: 3, Left Lower Extremity: 3, Right Lower Extremity: 3 - Psychiatric Exam Psychiatric exam: Normal Affect, Normal Mood - Skin Skin Exam: Normal Color Assessment and Plan - Assessment and Plan (Free Text) Assessment: 56 year old male with past medical history of COPD, chronic back pain and history of recently diagnosed PE on eliquis who presented with intractable back pain. Xray and CT spines showed acute non-displaced fracture of right ice cream dipper 8th rib, old fracture deformaties in left posterior 6-7th ribs; moderate compression fracture at T8 and T10, severe compression fracture of L2 with mild stenosis, mild compression deformity at L3 and moderate compression deformity L4. 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 Plan: 1) Intractable back pain: Currently on Percocet prn and Flexeril. Neurosurgery evaluation was appreciated. MRI of the spine showed multiple compression fractures are seen in the lower thoracic spine which appear to be acute or subacute with a moderate amount of marrow edema. There is some marrow edema in the inferior aspect of T9. There is a moderate compression fracture with marrow edema at T10 and along the superior endplate of T11. As noted on the lumbar MRI there is an acute appearing compression fracture parallel to the superior endplate of T12. Today patient is in less pain. IV Toradol is added and pain management consult is pending for possible nerve block for acute rib fracture. Continue with duonebs for history of COPD. Continue with supplemental oxygen. Leukocytosis had improved and is likely secondary to recent steroids. Will continue to monitor. 2) Recent PE - Eliquis for history of recently diagnosed PE. <Lewis Vázquez Shira - Last Filed: 11/19/16 09:23> Objective - Vital Signs/Intake and Output Vital Signs (last 24 hours): Temp Pulse Resp BP Pulse Ox 97.8 F 95 H 20 109/80 99 11/18/16 16:04 11/18/16 16:04 11/18/16 16:04 11/18/16 16:04 11/18/16 16:04 Intake and Output: 11/19/16 11/19/16 06:59 18:59 Intake Total 660 Output Total 550 Balance 110 - Medications Medications: Current Medications Albuterol/Ipratropium (Duoneb 3 Mg/0.5 Mg (3 Ml) Ud) 3 ml IH Q4H PRN PRN Reason: Shortness of Breath Last Admin: 11/19/16 08:20 Dose: 3 ml Apixaban (Eliquis) 5 mg PO BID [facility] PRN Reason: Protocol Cholecalciferol (Vitamin D) 4,000 iu PO DAILY [facility] Last Admin: 11/18/16 10:10 Dose: 4,000 iu Cyclobenzaprine HCl (Flexeril) 5 mg PO TID [facility] Last Admin: 11/18/16 17:30 Dose: 5 mg Oxycodone/Acetaminophen (Percocet 5/325 Mg Tab) 2 tab PO Q6H PRN PRN Reason: Pain, severe (8-10) Stop: 11/21/16 16:01 Last Admin: 11/18/16 20:19 Dose: 2 tab - Labs Labs: 11/19/16 07:00 11/19/16 07:00 PT 10.8 Seconds (9.9-11.8) 11/15/16 12:20 INR 1.00 (0.93-1.08) 11/15/16 12:20 APTT 22.7 Seconds (23.7-30.8) L 11/15/16 12:20 Attending/Attestation - Attestation I have personally seen and examined this patient.: Yes I have fully participated in the care of the patient.: Yes I have reviewed all pertinent clinical information, including history, physical exam and plan: Yes Notes (Text): 11/18/16 56 year old male with past medical history of COPD, chronic back pain and history of recently diagnosed PE on eliquis who presented with intractable back pain. Xray and CT spines showed acute non-displaced fracture of right ice cream dipper 8th rib, old fracture deformaties in left posterior 6-7th ribs; moderate compression fracture at T8 and T10, severe compression fracture of L2 with mild stenosis, mild compression deformity at L3 and moderate compression deformity L4. Patient denied any recent falls or trauma but admits to have been on residential steroids for history of COPD. He is currently on iv toradol, percocet prn and flexeril. He was seen by neurosurgery who suggested for pain management evaluation for possible nerve block for pain relief for acute rib fracture. This morning patient still reports severe pain, sitting up in bed with difficulty sleeping at night time. States he is unable to go home today due to pain and his percocet is not providing adequate relief. Percocet dose was increased. Mild hypokalemia with potassium 5.2. Will repeat and monitor. Continue with duonebs for history of COPD. Continue with supplemental oxygen. Leukocytosis had improved and is likely secondary to recent steroids. Will continue to monitor. Continue with eliquis for history of recently diagnosed PE. Lewis Vázquez MD Hospitalist.
[2016-11-19 07:36] LABS: HEMOGLOBIN 11.6 gm/dL (14.0-18.0); MEAN CORPUSCULAR HEMOGLOBIN 30.8 pg (25.0-35.0); MEAN CORPUSCULAR HGB CONC 32.4 g/dl (31.0-37.0); MEAN PLATELET VOLUME 9.1 fl (7.0-11.0); RBC 3.77 10^6/uL (3.5-6.1); RED CELL DISTRIBUTION WIDTH 14.4 % (11.5-14.5)
[2016-11-19 08:03] LABS: BLOOD UREA NITROGEN 27 mg/dL (7-21); GFR AFRICAN-AMERICAN > 60; GFR NON-AFRICAN AMERICAN > 60
[2016-11-19] MEDS: Albuterol-Ipratrop 3 mg / 0.5 (3 ml) UD IH PRN (08:20)
[2016-11-19] MEDS: Oxycodone/Acetaminophen 5/325 mg Tab PO PRN ×2 (09:52→17:59)
[2016-11-19] MEDS ORDERED: Sod Polystyrene Sulf 15 gm/60 ml Oral Susp PO ONE (12:06)
--- NOTE | 2016-11-19 16:10 | CP.PCM.DIS ---
<Mani Al - Last Filed: 11/19/16 20:09> Provider - Provider Date of Admission: 11/15/16 14:24 Attending physician: Lewis Vázquez MD Time Spent in preparation of Discharge (in minutes): 45 Hospital Course - Lab Results Lab Results: Most Recent Lab Values WBC 13.0 10^3/ul (4.5-11.0) H 11/19/16 07:00 RBC 3.77 10^6/uL (3.5-6.1) 11/19/16 07:00 Hgb 11.6 gm/dL (14.0-18.0) L 11/19/16 07:00 Hct 35.8 % (42.0-52.0) L 11/19/16 07:00 MCV 95.0 fL (80.0-105.0) 11/19/16 07:00 MCH 30.8 pg (25.0-35.0) 11/19/16 07:00 MCHC 32.4 g/dl (31.0-37.0) 11/19/16 07:00 RDW 14.4 % (11.5-14.5) 11/19/16 07:00 Plt Count 251 10^3/uL (120.0-450.0) 11/19/16 07:00 MPV 9.1 fl (7.0-11.0) 11/19/16 07:00 Gran % 55.1 % (50.0-68.0) 11/17/16 07:46 Lymph % (Auto) 29.7 % (22.0-35.0) 11/17/16 07:46 [place] % (Auto) 12.8 % (1.0-6.0) H 11/17/16 07:46 Eos % (Auto) 2.4 % (1.5-5.0) 11/17/16 07:46 Baso % (Auto) 0.0 % (0.0-3.0) 11/17/16 07:46 Gran # 7.00 (1.4-6.5) H 11/17/16 07:46 Lymph # 3.8 (1.2-3.4) H 11/17/16 07:46 [place] # 1.6 (0.1-0.6) H 11/17/16 07:46 Eos # 0.3 (0.0-0.7) 11/17/16 07:46 Baso # 0.00 K/mm3 (0.0-2.0) 11/17/16 07:46 PT 10.8 Seconds (9.9-11.8) 11/15/16 12:20 INR 1.00 (0.93-1.08) 11/15/16 12:20 APTT 22.7 Seconds (23.7-30.8) L 11/15/16 12:20 Sodium 136 mmol/L (132-148) 11/19/16 07:00 Potassium 5.4 mmol/L (3.6-5.0) H 11/19/16 07:00 Chloride 94 mmol/L (98-107) L 11/19/16 07:00 Carbon Dioxide 38 mmol/L (21-33) H 11/19/16 07:00 Anion Gap 9 (10-20) L 11/19/16 07:00 BUN 27 mg/dL (7-21) H 11/19/16 07:00 Creatinine 0.5 mg/dL (0.5-1.4) 11/19/16 07:00 Est GFR ( Amer) > 60 11/19/16 07:00 Est GFR (Non-Af Amer) > 60 11/19/16 07:00 Random Glucose 83 mg/dL (70-110) 11/19/16 07:00 Calcium 9.0 mg/dL (8.4-10.5) 11/19/16 07:00 Phosphorus 3.8 mg/dL (2.5-4.5) 11/18/16 20:15 Magnesium 2.0 mg/dL (1.7-2.2) 11/18/16 20:15 25-OH Vitamin D Total 13.4 NG/ML (30.0-100.0) L 11/16/16 Unknown Urine Color Yellow (YELLOW) 11/16/16 05:21 Urine Appearance Clear (CLEAR) 11/16/16 05:21 Urine pH 6.0 (4.7-8.0) 11/16/16 05:21 Ur Specific [place] 1.020 (1.005-1.035) 11/16/16 05:21 Urine Protein Negative mg/dL (<30 mg/dL) 11/16/16 05:21 Urine Glucose (UA) Negative mg/dL (NEGATIVE) 11/16/16 05:21 Urine Ketones Negative mg/dL (NEGATIVE) 11/16/16 05:21 Urine Blood Negative (NEGATIVE) 11/16/16 05:21 Urine Nitrate Negative (NEGATIVE) 11/16/16 05:21 Urine Bilirubin Negative (NEGATIVE) 11/16/16 05:21 Urine Urobilinogen 0.2 E.U./dL (<1 E.U./dL) 11/16/16 05:21 Ur Leukocyte Esterase Negative Diya/uL (NEGATIVE) 11/16/16 05:21 - Hospital Course Hospital Course: Mr. Manuel is a 56 year old with a past medical history of advanced COPD ( requiring 3L of oxygen at home), recent reports of unintentional weight loss, and a recently diagnosed PE for which he was just started on Eliquis. He reports having chronic low back pain for the past year. He states that he was outside yesterday, squatting when he started to have back pain. He reports that as he walked home, the back pain worsened. The pain is located on the right lower back, constant in nature, radiates to the front "like a belt," worsened with movement, coughing, sneezing, that does no improve with Tylenol. Patient states that he was given a back brace from [facility]; however, the brace has provided no relief. During the course of his stay, CT/MRI revealed multiple compression fractures in the lower thoracic spine, acute and subacute in appearance, along with acute appearing rib fracture at the posterior aspect of the right rib 8. Medically, the patient's pain was controlled, neurosurgery was consulted and provided recommendations, and the patient was discharged with home services, referral for pain management with Dr. Watts, and advised to follow up/ establish care with a PMD and a helper driver for that matter He was also recommended to take 4,000 units of Vitamin D per day and to get a DEXA scan and a PSA. - Date & Time of H&P Date of H&P: 11/19/16 Time of H&P: 14:00 Discharge Exam - Head Exam Head Exam: ATRAUMATIC, NORMOCEPHALIC - Eye Exam Eye Exam: EOMI, Normal appearance, PERRL Pupil Exam: NORMAL ACCOMODATION - ENT Exam ENT Exam: Mucous Membranes Moist, Normal Oropharynx - Neck Exam Neck exam: Normal Inspection - Respiratory Exam Respiratory Exam: Clear to PA & Lateral, Prolonged Expiratory Phase - Cardiovascular Exam Cardiovascular Exam: RRR - GI/Abdominal Exam GI & Abdominal Exam: Normal Bowel Sounds. absent: Distended, Rebound - Rectal Exam Rectal Exam: Deferred - Extremities Exam Extremities exam: normal inspection - Neurological Exam Neurological exam: Alert, CN II-XII Intact, Oriented x3 - Psychiatric Exam Psychiatric exam: Normal Affect, Normal Mood - Skin Skin Exam: Dry, Normal Color Discharge Plan - Discharge Medications Prescriptions: Apixaban [Eliquis] 5 mg PO BID #60 tab oxyCODONE/Acetaminophen [Percocet 5/325 mg Tab] 2 tab PO BID PRN #10 tab PRN Reason: Pain, Severe (8-10) - Follow Up Plan Condition: FAIR Disposition: HOME/ ROUTINE Instructions: Pulmonary Embolism (DC), Heart Healthy Diet (DC), Chronic Pain ( DC), Leukocytosis (DC), Leukocytosis (GEN) Additional Instructions: 1. Follow up with Dr. Watts from pain management at [address] [place] [address]. 2. Take pain medication only as needed 3. Continue eliquis at new dose of 5mg twice per day. 4. Maintain hydration. 5. Follow up with primary doctor within 1 week. 6. Vitamin D 4,000 units PO <Lewis Vázquez - Last Filed: 11/19/16 22:59> Provider - Provider Date of Admission: 11/15/16 14:24 Attending physician: Lewis Vázquez MD Hospital Course - Lab Results Lab Results: Most Recent Lab Values WBC 13.0 10^3/ul (4.5-11.0) H 11/19/16 07:00 RBC 3.77 10^6/uL (3.5-6.1) 11/19/16 07:00 Hgb 11.6 gm/dL (14.0-18.0) L 11/19/16 07:00 Hct 35.8 % (42.0-52.0) L 11/19/16 07:00 MCV 95.0 fL (80.0-105.0) 11/19/16 07:00 MCH 30.8 pg (25.0-35.0) 11/19/16 07:00 MCHC 32.4 g/dl (31.0-37.0) 11/19/16 07:00 RDW 14.4 % (11.5-14.5) 11/19/16 07:00 Plt Count 251 10^3/uL (120.0-450.0) 11/19/16 07:00 MPV 9.1 fl (7.0-11.0) 11/19/16 07:00 Gran % 55.1 % (50.0-68.0) 11/17/16 07:46 Lymph % (Auto) 29.7 % (22.0-35.0) 11/17/16 07:46 [place] % (Auto) 12.8 % (1.0-6.0) H 11/17/16 07:46 Eos % (Auto) 2.4 % (1.5-5.0) 11/17/16 07:46 Baso % (Auto) 0.0 % (0.0-3.0) 11/17/16 07:46 Gran # 7.00 (1.4-6.5) H 11/17/16 07:46 Lymph # 3.8 (1.2-3.4) H 11/17/16 07:46 [place] # 1.6 (0.1-0.6) H 11/17/16 07:46 Eos # 0.3 (0.0-0.7) 11/17/16 07:46 Baso # 0.00 K/mm3 (0.0-2.0) 11/17/16 07:46 PT 10.8 Seconds (9.9-11.8) 11/15/16 12:20 INR 1.00 (0.93-1.08) 11/15/16 12:20 APTT 22.7 Seconds (23.7-30.8) L 11/15/16 12:20 Sodium 136 mmol/L (132-148) 11/19/16 07:00 Potassium 5.4 mmol/L (3.6-5.0) H 11/19/16 07:00 Chloride 94 mmol/L (98-107) L 11/19/16 07:00 Carbon Dioxide 38 mmol/L (21-33) H 11/19/16 07:00 Anion Gap 9 (10-20) L 11/19/16 07:00 BUN 27 mg/dL (7-21) H 11/19/16 07:00 Creatinine 0.5 mg/dL (0.5-1.4) 11/19/16 07:00 Est GFR ( Amer) > 60 11/19/16 07:00 Est GFR (Non-Af Amer) > 60 11/19/16 07:00 Random Glucose 83 mg/dL (70-110) 11/19/16 07:00 Calcium 9.0 mg/dL (8.4-10.5) 11/19/16 07:00 Phosphorus 3.8 mg/dL (2.5-4.5) 11/18/16 20:15 Magnesium 2.0 mg/dL (1.7-2.2) 11/18/16 20:15 25-OH Vitamin D Total 13.4 NG/ML (30.0-100.0) L 11/16/16 Unknown Urine Color Yellow (YELLOW) 11/16/16 05:21 Urine Appearance Clear (CLEAR) 11/16/16 05:21 Urine pH 6.0 (4.7-8.0) 11/16/16 05:21 Ur Specific [place] 1.020 (1.005-1.035) 11/16/16 05:21 Urine Protein Negative mg/dL (<30 mg/dL) 11/16/16 05:21 Urine Glucose (UA) Negative mg/dL (NEGATIVE) 11/16/16 05:21 Urine Ketones Negative mg/dL (NEGATIVE) 11/16/16 05:21 Urine Blood Negative (NEGATIVE) 11/16/16 05:21 Urine Nitrate Negative (NEGATIVE) 11/16/16 05:21 Urine Bilirubin Negative (NEGATIVE) 11/16/16 05:21 Urine Urobilinogen 0.2 E.U./dL (<1 E.U./dL) 11/16/16 05:21 Ur Leukocyte Esterase Negative Diya/uL (NEGATIVE) 11/16/16 05:21 Attending/Attestation - Attestation I have personally seen and examined this patient.: Yes I have fully participated in the care of the patient.: Yes I have reviewed all pertinent clinical information, including history, physical exam and plan: Yes Notes (Text): 11/19/16 22:56 56 year old male with past medical history of COPD, chronic back pain and history of recently diagnosed PE on eliquis who presented with intractable back pain. 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 Patient denied any recent falls or trauma but admits to have been on mcfp steroids for history of COPD. He was started on percocet, flexeril and toradol. Today patient reports his pain has improved. He will be discharged home with outpatient pain management follow up. He was given kayexalate for hyperkalemia. Recommended Vitamin D supplementation and outpatient DEXA scan. Lewis Vázquez MD Hospitalist.
[2016-11-19 17:43] VITALS: BP 112/74; PULSE 89; TEMP 98.2; O2SAT 99
== END 2016-11-19 22:09 | disposition home or self-care (01) | DRG 239 ==
LOC: ED 11:49 → OBSVTOIN 14:24 → ERH 14:24 → 5RSO 17:40
PROVIDERS: ADMIT Internal Medicine; ATTEND Internal Medicine
PROC: 3E0F7GC Introduction of Other Therapeutic Substance into Respiratory Tract, Via Natural or Artificial Opening (ICD-10-PCS; principal; 2016-11-16)
DX: M84.48XA Pathological fracture, other site, initial encounter for fracture (principal); Z99.81 Dependence on supplemental oxygen; M48.56XA Collapsed vertebra, not elsewhere classified, lumbar region, initial encounter for fracture; M48.54XA Collapsed vertebra, not elsewhere classified, thoracic region, initial encounter for fracture; J44.9 Chronic obstructive pulmonary disease, unspecified; E87.5 Hyperkalemia; G89.29 Other chronic pain; D72.828 Other elevated white blood cell count; T38.0X5A Adverse effect of glucocorticoids and synthetic analogues, initial encounter; M48.06 Spinal stenosis, lumbar region; Z79.52 Long term (current) use of systemic steroids; Z86.711 Personal history of pulmonary embolism; Z79.01 Long term (current) use of anticoagulants; Z87.891 Personal history of nicotine dependence

== ENCOUNTER 2016-11-23 16:13 | Inpatient (IN) | payer MEDICAID ==
[2016-11-23] MEDS ORDERED: Azithromycin 500MG/NS 250ml 500 MG/250 ML BAG IV STA (16:38)
[2016-11-23] MEDS ORDERED: cefTRIAXone 1 gm 1 GM/100 ML BAG IV STA (16:38)
[2016-11-23] MEDS: Albuterol-Ipratrop 3 mg / 0.5 (3 ml) UD IH SCH ×3 (16:45→17:17)
--- NOTE | 2016-11-23 17:18 | ED PDOC ---
Arrival/HPI - General Chief Complaint: Shortness Of Breath Time Seen by Provider: 11/23/16 16:26 Historian: Patient, EMS - History of Present Illness Narrative History of Present Illness (Text): 11/23/16 17:19 A 56 year old male, whose past medical history includes COPD, smoking, was brought into the emergency department by EMS complaining of worsening shortness of breath over the past 2 days. Patient notes associated chest tightness. He reports his symptoms feel similar to previous COPD exacerbation. As per EMS, patient received 2 nebulizer treatments on route to emergency room, with mild relief. Patient denies any fever, chills, nausea, vomiting, abdominal pain or any other complaints. Patient is on 4L of O2 at home. PMD: None Time/Duration: Other (2 days) Symptom Course: Worsening Quality: Other Context: Home Past Medical History - Provider Review Nursing Documentation Reviewed: Yes - Infectious Disease Hx of Infectious Diseases: None - Tetanus Immunization Tetanus Immunization: Unknown - Cardiac Hx Cardiac Disorders: No - Pulmonary Hx Respiratory Disorders: Yes Hx Chronic Obstructive Pulmonary Disease (COPD): Yes Hx Pulmonary Embolism: Yes (hx of) - Neurological Hx Neurological Disorder: Yes Other/Comment: compression fx - HEENT Hx HEENT Disorder: No (glasses) - Renal Hx Renal Disorder: No - Endocrine/Metabolic Hx Endocrine Disorders: No - Hematological/Oncological Hx Blood Disorders: No - Integumentary Hx Dermatological Disorder: No - Musculoskeletal/Rheumatological Hx Musculoskeletal Disorders: Yes Hx Back Pain: Yes Hx Falls: No - Gastrointestinal Hx Gastrointestinal Disorders: No - Genitourinary/Gynecological Hx Genitourinary Disorders: No - Psychiatric Hx 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 absent: Fatigue, Weight Change, Fevers Eyes: Normal ENT: Normal Respiratory: (+) SOB absent: Cough, Sputum Cardiovascular: (+) Chest tightness Normal absent: Palpitations, Syncope Gastrointestinal: Normal absent: Abdominal pain, Diarrhea, Nausea, Vomiting Genitourinary: Normal. absent: Dysuria, Frequency, Hematuria Musculoskeletal: Normal. absent: Arthralgias, Back Pain, Neck Pain Skin: Normal Neurological: Normal absent: Focal Weakness Endocrine: Normal Hemo/Lymphatic: Normal Psychiatric: Normal - Physical exam Patient appears age appropriate, speaking full sentences without difficulty. - Systems Exam Head: Present: Atraumatic, Normocephalic Pupils: Present: PERRL Extraocular Muscles: Present: EOMI Conjunctiva: Present: Normal Mouth: Present: Moist Mucous Membranes Neck: Present: Normal Range of Motion. No: MIDLINE TENDERNESS, Paraspinal Tenderness Respiratory/Chest: Present: Expiratory wheezing bilaterally, Mild respiratory distress. No: Accessory Muscle Use, Tachypnic Cardiovascular: Present: Regular Rate and Rhythm, Normal S1, S2, Peripheral Pulses Present. No: Murmurs Abdomen: Present: Normal Bowel Sounds, No: Tenderness, Peritoneal Signs, Rebound, Guarding, Distention Back: Present: Normal Inspection. No: Midline Tenderness, Paraspinal Tenderness Upper Extremity: Present: Normal Inspection. No: Cyanosis, Edema Lower Extremity: Present: Normal Inspection. No: Edema Neurological: Present: GCS=15, Speech Normal, cranial nerves II through XII fully intact with no cerebellar abnormality, neuro-sensory fully intact. No focal neurological deficits. Skin: Present: Warm, Dry, Normal Color. No: Rashes Lymphatic: Present: OX3, NI, NC Psychiatric: Present: Alert, Oriented x 3, Normal Insight, Normal Concentration Vital Signs Reviewed: Yes Vital Signs Temp Pulse Resp BP Pulse Ox 11/23/16 16:56 98.3 F 11/23/16 16:43 24 11/23/16 16:24 93.3 F L 118 H 22 123/88 100 Temperature: Afebrile Blood Pressure: Normal Pulse: Tachycardic Respiratory Rate: Normal Appearance: Positive for: Well-Appearing, Non-Toxic, Comfortable Pain Distress: None Mental Status: Positive for: Alert and Oriented X 3 Medical Decision Making ED Course and Treatment: 11/23/16 17:26 Impression: A 56 year old male with worsening shortness of breath and chest tightness, similar to previous COPD symptoms. On exam, expiratory wheezing and mild respiratory distress. Differential Diagnosis included but are not limited to: COPD exacerbation Plan: -- Chest xray -- EKG -- Labs -- Aspirin, Duoneb, Solumderol, Rocephin and Zithromax -- Reassess and disposition Prior Visits: Notes and results from previous visits were reviewed. Patient was seen in the ED on 11/10/16 and hospitalized for pulmonary embolism. Progress Notes: Chest X-ray read and interpreted by me, which shows no cardiomegaly, flattened diaphragm and hyperinflation with no infiltrates. 11/23/16 18:02 EKG shows sinus tachycardia, 120 bpm, no acute ST segment elevations. P-wave inverted in inferior leads. ST-segments do not appear above the isoelectric line. Interpreted by me. abe Caba, accepted admission to her service pt aware of and agrees with plan 11/23/16 18:13 abe Jcaobson, states not a stemi. agrees with asa and lovenox - Critical Care Critical Care Minutes: 30 minutes - Lab Interpretations Lab Results: 11/23/16 17:20 11/23/16 17:20 Lab Results 11/23/16 17:20: Sodium 138, Potassium 4.2, Chloride 97 L, Carbon Dioxide 31, Anion Gap 14, BUN 17, Creatinine 0.5, Est GFR ( Amer) > 60, Est GFR (Non- Af Amer) > 60, Random Glucose 106, Calcium 9.2, Total Bilirubin 0.6, AST 29, ALT 39, Alkaline Phosphatase 111, Lactate Dehydrogenase 425, Total Creatine Kinase < 20 L, Troponin I < 0.01, NT-Pro-B Natriuret Pep 70.4, Total Protein 6.5 , Albumin 3.9, Globulin 2.6, Albumin/Globulin Ratio 1.5 11/23/16 17:20: PT 11.5, INR 1.06, APTT 27.6 11/23/16 17:20: WBC 14.0 H, RBC 4.14, Hgb 13.0 L, Hct 39.4 L, MCV 95.2, MCH 31.4 , MCHC 33.0, RDW 14.2, Plt Count 327, MPV 9.2, Gran % 74.0 H, Lymph % (Auto) 17.6 L, Ransom % (Auto) 8.2 H, Eos % (Auto) 0.1 L, Baso % (Auto) 0.1, Gran # 10.33 H, Lymph # 2.5, Ransom # 1.2 H, Eos # 0.0, Baso # 0.01 I have reviewed the lab results: Yes - RAD Interpretation Radiology Orders: 11/23/16 16:40 CHEST PORTABLE [RAD] Stat - Medication Orders Current Medication Orders: Azithromycin (Zithromax 500mg In Ns) 500 mg in 250 mls @ 166.667 mls/hr IV STAT STA PRN Reason: Protocol Stop: 11/23/16 18:07 Last Admin: 11/23/16 17:42 Dose: 166.667 mls/hr Discontinued Medications Albuterol/Ipratropium (Duoneb 3 Mg/0.5 Mg (3 Ml) Ud) 3 ml IH Q15M ERIC Stop: 11/23/16 17:16 Last Admin: 11/23/16 17:17 Dose: 3 ml Aspirin (Aspirin Chewable) 324 mg PO STAT STA Stop: 11/23/16 16:39 Last Admin: 11/23/16 16:54 Dose: 324 mg Ceftriaxone Sodium (Rocephin 1 Gram Ivpb) 1 gm in 100 mls @ 200 mls/hr IV STAT STA PRN Reason: Protocol Stop: 11/23/16 17:07 Last Admin: 11/23/16 16:55 Dose: 200 mls/hr Methylprednisolone (Solu-Medrol) 125 mg IVP STAT STA Stop: 11/23/16 16:39 Last Admin: 11/23/16 16:55 Dose: 125 mg - Scribe Statement The provider has reviewed the documentation as recorded by the Rafiq Bray Provider Scribe Attestation: All medical record entries made by the Rafiq were at my direction and personally dictated by me. I have reviewed the chart and agree that the record accurately reflects my personal performance of the history, physical exam, medical decision making, and the department course for this patient. I have also personally directed, reviewed, and agree with the discharge instructions and disposition. Disposition/Present on Arrival - Present on Arrival Any Indicators Present on Arrival: No History of DVT/PE: Yes History of Uncontrolled Diabetes: No Urinary Catheter: No History of Decub. Ulcer: No History Surgical Site Infection Following: None - Disposition Have Diagnosis and Disposition been Completed?: Yes Diagnosis: Chronic obstructive lung disease Disposition: HOSPITALIZED Disposition Time: 18:10 Patient Plan: Observation Patient Problems: Current Active Problems Problem Status Onset Chronic obstructive lung disease Chronic Condition: FAIR Referrals: PCP,NO [Primary Care Provider] - Follow up with primary Forms: [employer] (Polish)
[2016-11-23 17:27] LABS: ADD MANUAL DIFF? NO
[2016-11-23 17:45] LABS: BASO # 0.01 K/mm3 (0.0-2.0); BASO % 0.1 % (0.0-3.0); EOS % 0.1 % (1.5-5.0); GRAN # 10.33 (1.4-6.5); HEMATOCRIT 39.4 % (42.0-52.0); LYMPH # 2.5 (1.2-3.4); LYMPH % 17.6 % (22.0-35.0); MEAN CELL VOLUME 95.2 fl (80.0-105.0); MEAN CORPUSCULAR HEMOGLOBIN 31.4 pg (25.0-35.0); MEAN PLATELET VOLUME 9.2 fl (7.0-11.0); MONO # 1.2 (0.1-0.6); MONO % 8.2 % (1.0-6.0); PLATELET COUNT 327 10^3/uL (120.0-450.0); RED CELL DISTRIBUTION WIDTH 14.2 % (11.5-14.5)
[2016-11-23 17:48] LABS: ALB/GLOB RATIO 1.5 (1.1-1.8); ALKALINE PHOSPHATASE 111 U/L (38-133); ALT/SGPT 39 U/L (7-56); AST/SGOT 29 U/L (15-59); BILIRUBIN,TOTAL 0.6 mg/dL (0.2-1.3); BLOOD UREA NITROGEN 17 mg/dL (7-21); CALCIUM 9.2 mg/dL (8.4-10.5); CARBON DIOXIDE 31 mmol/L (21-33); CHLORIDE 97 mmol/L (98-107); GFR AFRICAN-AMERICAN > 60; GLUCOSE,RANDOM 106 mg/dL (70-110); POTASSIUM 4.2 mmol/L (3.6-5.0); SODIUM 138 mmol/L (132-148); TOTAL PROTEIN 6.5 g/dL (5.8-8.3)
[2016-11-23 17:56] LABS: INR 1.06 (0.93-1.08); PARTIAL THROMBOPLASTIN TIME 27.6 Seconds (23.7-30.8)
[2016-11-23 18:00] LABS: TROPONIN I < 0.01 ng/mL
[2016-11-23] MEDS ORDERED: Enoxaparin 40 mg Syringe SC STA (18:09)
[2016-11-23] MEDS ORDERED: Albuterol-Ipratrop 3 mg / 0.5 (3 ml) UD IH PRN (18:46)
--- NOTE | 2016-11-23 19:25 | CP.PCM.HP ---
<Mani Al - Last Filed: 11/23/16 20:56> History of Present Illness - History of Present Illness History of Present Illness: 56 year old male with a past medical history of advanced COPD ( requiring 3L of oxygen at home), s/p PE started on Eliquis, and discharged 3 days ago for an admission for intractable back pain secondary to rib fracture/ lower thoracic compression fractures. He presents with extreme chest tightness of 1.5 days duration, that woke him up four times last night, with dyspnea, but mostly chest tightness that bothered him enough to call 911 and come to [facility] [place] and treatment. His symptoms were refractory to his usual breathing treatments and the on-hand steroids he was prescribed upon discharge. He was discharged from [facility] with a Medrol dose Dipesh, Percocet, and specific instructions to follow up with Dr. Elmo Watts, pain specialist on Tuesday11/22/2016 . When questioned in regards to seeing the pain specialist, he states, "that he did not have a working phone on him because he could not pay the 63.00 USD bill." Present on Admission - Present on Admission Any Indicators Present on Admission: Yes History of DVT/PE: Yes History of Uncontrolled Diabetes: No Urinary Catheter: No Review of Systems - Constitutional Constitutional: Night Sweats, Weight Loss - EENT Eyes: absent: Blind Spots, Blurred Vision, Change in Vision Ears: absent: Decreased Hearing, Ear Discharge, Disequilibrium Nose/Mouth/Throat: absent: Sore Throat, Neck Pain, Neck Mass - Cardiovascular Cardiovascular: absent: Chest Pain with Activity, Claudication, Diaphoresis - Respiratory Respiratory: Dyspnea. absent: Cough, Excessive Mucous Production, Change in Mucous Color - Gastrointestinal Gastrointestinal: absent: Belching, Cramping, Diarrhea, Hematemesis, Vomiting - Genitourinary Genitourinary: absent: Difficulty Urinating, Dysuria, Urinary Incontinence - Musculoskeletal Musculoskeletal: Back Pain, Myalgias. absent: Arthralgias - Integumentary Integumentary: absent: Bleeding Lesions, Change in Pigmentation, Photosensitivity - Neurological Neurological: absent: Abnormal Hearing, Focal Weakness, Headaches - Psychiatric Psychiatric: absent: Auditory Hallucinations, Change in Appetite, Depression - Endocrine Endocrine: absent: Change in Body Appearance, Change in Libido, Excessive Sweating - Hematologic/Lymphatic Hematologic: absent: Easy Bleeding, Easy Bruising Past Patient History - Infectious Disease Hx of Infectious Diseases: None - Tetanus Immunizations Tetanus Immunization: Unknown - Past Social History Smoking Status: Former Smoker - CARDIAC Hx Cardiac Disorders: No - PULMONARY Hx Respiratory Disorders: Yes Hx Chronic Obstructive Pulmonary Disease (COPD): Yes Hx Pulmonary Embolism: Yes (hx of) - NEUROLOGICAL Hx Neurological Disorder: Yes Other/Comment: compression fx - HEENT Hx HEENT Problems: No (glasses) - RENAL Hx Chronic Kidney Disease: No - ENDOCRINE/METABOLIC Hx Endocrine Disorders: No - HEMATOLOGICAL/ONCOLOGICAL Hx Blood Disorders: No - INTEGUMENTARY Hx Dermatological Problems: No - MUSCULOSKELETAL/RHEUMATOLOGICAL Hx Musculoskeletal Disorders: Yes Hx Back Pain: Yes Hx Falls: No - GASTROINTESTINAL Hx Gastrointestinal Disorders: No - GENITOURINARY/GYNECOLOGICAL Hx Genitourinary Disorders: No - PSYCHIATRIC Hx 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) Hx Substance Use: No (former) - SURGICAL HISTORY Hx Tonsillectomy: Yes - ANESTHESIA Hx Anesthesia: Yes Hx Anesthesia Reactions: No Hx Malignant Hyperthermia: No Meds Allergies/Adverse Reactions: Allergies Allergy/AdvReac Type Severity Reaction Status Date / Time No Known Allergies Allergy Verified 11/23/16 16:21 Physical Exam - Constitutional Appears: Non-toxic, No Acute Distress - Head Exam Head Exam: ATRAUMATIC, NORMOCEPHALIC - Eye Exam Eye Exam: EOMI, Normal appearance, PERRL Pupil Exam: NORMAL ACCOMODATION, PERRL - ENT Exam ENT Exam: Mucous Membranes Moist, Normal Oropharynx - Respiratory Exam Respiratory Exam: Clear to Auscultation Bilateral. absent: Wheezes Additional comments: RR 32, nasal flaring, lips not pursed - Cardiovascular Exam Cardiovascular Exam: Tachycardia, +S1, +S2 - GI/Abdominal Exam GI & Abdominal Exam: Normal Bowel Sounds, Soft. absent: Distended, Rebound, Rigid - Rectal Exam Rectal Exam: Deferred - Extremities Exam Extremities exam: Positive for: normal capillary refill, normal inspection - Neurological Exam Neurological exam: Alert, CN II-XII Intact, Oriented x3 - Psychiatric Exam Psychiatric exam: Normal Affect, Normal Mood - Skin Skin Exam: Dry, Intact, Normal Color, Warm Results - Vital Signs Recent Vital Signs: Last Vital Signs Temp 98.3 F 11/23/16 16:56 Pulse 118 H 11/23/16 16:24 Resp 24 11/23/16 16:43 BP 123/88 11/23/16 16:24 Pulse Ox 100 11/23/16 16:24 - Labs Result Diagrams: 11/23/16 17:20 11/23/16 17:20 Assessment & Plan - Assessment and Plan (Free Text) Assessment: 56 yo male with a past medical history significant for advanced COPD, thoracolumbar compression fractures, and recent PE admitted for chest tightness of 1.5 days duration. Plan: 1) COPD exacerbation: Xopenox q4h ERIC with duonebs q6h PRN, CXR read pending, but hyperinflated lungs. ABG pending 2) Tachycardia likely secondary to being administered 7 nebulized treatments of albuterol/ipratropium breathing treatments today. EKG shows tachycardia without STEMI, troponin negative x1. 3) Status post PE: Eliquis 5 mg BID 4) DVT/GI prophylaxis: Lovenox 40 mg/protonix - Date & Time Date: 11/23/16 Time: 21:08 <Morgan Lipscomb - Last Filed: 11/27/16 02:52> Results - Vital Signs Recent Vital Signs: Last Vital Signs Temp 98.0 F 11/27/16 00:01 Pulse 108 H 11/27/16 01:55 Resp 18 11/27/16 00:01 BP 121/78 11/27/16 00:01 Pulse Ox 97 11/26/16 06:00 - Labs Result Diagrams: 11/25/16 05:30 11/25/16 05:30
--- NOTE | 2016-11-23 19:47 | CARD ---
APPROVED REPORT EKG Measurement Heart [id number] 120P [id number] <Conclusion> Ectopic atrial tachycardia Anteroseptal infarct, age undetermined Abnormal ECG
--- NOTE | 2016-11-23 19:48 | CARD ---
APPROVED REPORT EKG Measurement Heart [id number] 122P [id number] <Conclusion> Ectopic atrial tachycardia Anteroseptal infarct, age undetermined Abnormal ECG
[2016-11-23 20:00] LABS: MAGNESIUM 1.9 mg/dL (1.7-2.2); PHOSPHOROUS 4.5 mg/dL (2.5-4.5)
[2016-11-23] MEDS ORDERED: Albuterol-Ipratrop 3 mg / 0.5 (3 ml) UD IH SCH (20:00)
[2016-11-23] MEDS ORDERED: Levalbuterol 0.63 MG/3 ML Inhal Soln UD IH PRN (20:48)
[2016-11-23] MEDS: Oxycodone/Acetaminophen 5/325 mg Tab PO PRN (22:02)
[2016-11-24 04:24] VITALS: BMI 16.5
[2016-11-24 05:19] LABS: ADD MANUAL DIFF? NO
[2016-11-24 05:23] LABS: GRAN # 6.69 (1.4-6.5); GRAN % 87.8 % (50.0-68.0); HEMATOCRIT 34.4 % (42.0-52.0); LYMPH # 0.8 (1.2-3.4); MEAN CELL VOLUME 93.5 fl (80.0-105.0); MEAN CORPUSCULAR HGB CONC 33.1 g/dl (31.0-37.0); MEAN PLATELET VOLUME 9.1 fl (7.0-11.0); MONO # 0.2 (0.1-0.6); MONO % 2.2 % (1.0-6.0); PLATELET COUNT 302 10^3/uL (120.0-450.0); WHITE BLOOD COUNT 7.6 10^3/ul (4.5-11.0)
[2016-11-24 05:46] LABS: ALB/GLOB RATIO 1.4 (1.1-1.8); ALKALINE PHOSPHATASE 90 U/L (38-133); ALT/SGPT 30 U/L (7-56); AST/SGOT 21 U/L (15-59); BILIRUBIN,TOTAL 0.5 mg/dL (0.2-1.3); BLOOD UREA NITROGEN 20 mg/dL (7-21); CARBON DIOXIDE 31 mmol/L (21-33); CHLORIDE 97 mmol/L (95-110); GFR AFRICAN-AMERICAN > 60; GLUCOSE,RANDOM 126 mg/dL (70-110); POTASSIUM 4.5 mmol/L (3.6-5.0); SODIUM 135 mmol/L (132-148); TOTAL PROTEIN 5.4 g/dL (5.8-8.3)
--- NOTE | 2016-11-24 09:10 | RAD ---
HISTORY: cough COMPARISON: 11/15/2016 FINDINGS: LUNGS: No active pulmonary disease. PLEURA: No significant pleural effusion identified, no pneumothorax apparent. CARDIOVASCULAR: Normal. OSSEOUS STRUCTURES: Chronic rib fractures on the left VISUALIZED UPPER ABDOMEN: Normal. OTHER FINDINGS: None. IMPRESSION: No active disease.
[2016-11-24] MEDS: levoFLOXacin 500 mg in D5W 500 MG/100 ML BAG IVPB SCH (09:13)
[2016-11-24] MEDS: Oxycodone/Acetaminophen 5/325 mg Tab PO PRN ×2 (09:13→17:22)
--- NOTE | 2016-11-24 09:16 | RAD ---
HISTORY: fu COMPARISON: 11/23/2016 FINDINGS: LUNGS: No active pulmonary disease. PLEURA: No significant pleural effusion identified, no pneumothorax apparent. CARDIOVASCULAR: Normal. OSSEOUS STRUCTURES: No significant abnormalities. VISUALIZED UPPER ABDOMEN: Normal. OTHER FINDINGS: None. IMPRESSION: No active disease.
--- NOTE | 2016-11-24 14:19 | CP.PCM.PN ---
<Mani Al - Last Filed: 11/24/16 14:37> Subjective - Date & Time of Evaluation Date of Evaluation: 11/24/16 Time of Evaluation: 07:25 - Subjective Subjective: Mani Al DO, PGY-1, Hospitalist Service Dr. Carvajal Patient seen and examined at bedside. States his breathing is better and his pain is better controlled. He denies dyspnea, N/V/D, or chest pain. Objective - Vital Signs/Intake and Output Vital Signs (last 24 hours): Temp Pulse Resp BP Pulse Ox 97.9 F 113 H 20 105/72 99 11/24/16 12:00 11/24/16 12:00 11/24/16 12:00 11/24/16 12:00 11/24/16 06:00 Intake and Output: 11/24/16 11/24/16 06:59 18:59 Intake Total 420 Output Total 840 Balance -420 - Medications Medications: Current Medications Apixaban (Eliquis) 5 mg PO BID [facility] PRN Reason: Protocol Last Admin: 11/24/16 09:13 Dose: 5 mg Levofloxacin/Dextrose (Levaquin 500mg) 500 mg in 100 mls @ 100 mls/hr IVPB DAILY [facility] Last Admin: 11/24/16 09:13 Dose: 100 mls/hr Levalbuterol HCl (Xopenex) 0.63 mg IH [id number] PRN PRN Reason: Shortness of Breath Oxycodone/Acetaminophen (Percocet 5/325 Mg Tab) 2 tab PO BID PRN PRN Reason: Pain, severe (8-10) Stop: 11/26/16 18:51 Last Admin: 11/24/16 09:13 Dose: 2 tab Prednisone (Prednisone Tab) 40 mg PO DAILY [facility] - Labs Labs: 11/24/16 04:46 11/24/16 04:46 PT 11.5 Seconds (9.9-11.8) 11/23/16 17:20 INR 1.06 (0.93-1.08) 11/23/16 17:20 APTT 27.6 Seconds (23.7-30.8) 11/23/16 17:20 - Constitutional Appears: No Acute Distress, Older Than Stated Age, Cachectic - Head Exam Head Exam: ATRAUMATIC, NORMOCEPHALIC - Eye Exam Eye Exam: EOMI, PERRL Pupil Exam: NORMAL ACCOMODATION, PERRL - ENT Exam ENT Exam: Mucous Membranes Moist, Normal Oropharynx - Neck Exam Neck Exam: Normal Inspection - Respiratory Exam Respiratory Exam: Clear to Ausculation Bilateral, Wheezes (scattered) - Cardiovascular Exam Cardiovascular Exam: RRR, +S1, +S2 - GI/Abdominal Exam GI & Abdominal Exam: Soft, Normal Bowel Sounds. absent: Tenderness, Rebound - Rectal Exam Rectal Exam: Deferred - Extremities Exam Extremities Exam: Normal Capillary Refill, Normal Inspection - Back Exam Back Exam: absent: muscle spasm, rash noted - Neurological Exam Neurological Exam: Alert, Awake, CN II-XII Intact, Oriented x3 Neuro motor strength exam: Left Upper Extremity: 5, Right Upper Extremity: 5, Left Lower Extremity: 5, Right Lower Extremity: 5 - Psychiatric Exam Psychiatric exam: Normal Affect, Normal Mood - Skin Skin Exam: Dry, Normal Color, Warm Assessment and Plan - Assessment and Plan (Free Text) Assessment: 56 yo male with a past medical history significant for advanced COPD, thoracolumbar compression fractures, recent rib fracture, and recent PE who is admitted for chest tightness of 1.5 days duration, no cough or sputum production , with dyspnea while on 3L oxygen [place]. Plan: 1) COPD exacerbation CXR from yesterday and today shows flattened diaphragm and hyperinflated lungs, with no active disease Xopenox q4h ERIC with duonebs q6h PRN. Prednisone 40 mg PO daily 2) Chest pain, r/o ACS EKG showed no signs of ischemia, troponin (-) x3, Dr. Carrasco ( manager policy) also consulted 3) Status post PE: Eliquis 5 mg BID 4) Leukocytosis, WBC count fell from 14 to 7, the elevation was likely secondary to steroids. 5) Rib and back pain causing chest wall pain Percocet 5 mg BID 6) DVT/GI prophylaxis: Lovenox 40 mg/40 Protonix <Wei GUERRERO,Winston - Last Filed: 11/27/16 10:44> Objective - Vital Signs/Intake and Output Vital Signs (last 24 hours): Temp Pulse Resp BP Pulse Ox 98.5 F 114 H 18 109/74 100 11/27/16 06:00 11/27/16 06:00 11/27/16 06:00 11/27/16 06:00 11/27/16 10:14 Intake and Output: 11/27/16 11/27/16 06:59 18:59 Intake Total 240 Output Total 1250 Balance -1010 - Medications Medications: Current Medications Apixaban (Eliquis) 5 mg PO BID [facility] PRN Reason: Protocol Last Admin: 11/25/16 17:51 Dose: 5 mg Aspirin (Aspirin Chewable) 81 mg PO DAILY [facility] Last Admin: 11/27/16 09:33 Dose: 81 mg Atorvastatin Calcium (Lipitor) 10 mg PO DIN [facility] Last Admin: 11/26/16 17:07 Dose: 10 mg Docusate Sodium (Colace) 100 mg PO BID [facility] Last Admin: 11/27/16 09:33 Dose: 100 mg Enoxaparin Sodium (Lovenox) 40 mg SC Q12 [facility] PRN Reason: Protocol Last Admin: 11/27/16 09:33 Dose: 40 mg Levofloxacin/Dextrose (Levaquin 500mg) 500 mg in 100 mls @ 100 mls/hr IVPB DAILY [facility] Last Admin: 11/26/16 13:44 Dose: 100 mls/hr Ipratropium [place] (Atrovent) 0.5 mg IH [id number] [facility] Last Admin: 11/27/16 08:06 Dose: 0.5 mg Ipratropium [place] (Atrovent) 0.5 mg IH [id number] PRN PRN Reason: Shortness of Breath Levalbuterol HCl (Xopenex) 0.63 mg IH [id number] PRN PRN Reason: Shortness of Breath Levalbuterol HCl (Xopenex) 0.63 mg IH [id number] [facility] Last Admin: 11/27/16 08:07 Dose: 0.63 mg Morphine Sulfate (Morphine) 2 mg IVP Q4H PRN PRN Reason: Pain, severe (8-10) Last Admin: 11/27/16 09:38 Dose: 2 mg Pantoprazole Sodium (Protonix Ec Tab) 40 mg PO 0600 [facility] Last Admin: 11/27/16 05:06 Dose: 40 mg Prednisone (Prednisone Tab) 30 mg PO DAILY [facility] Last Admin: 11/27/16 09:34 Dose: 30 mg - Labs Labs: PT 11.5 Seconds (9.9-11.8) 11/23/16 17:20 INR 1.06 (0.93-1.08) 11/23/16 17:20 APTT 27.6 Seconds (23.7-30.8) 11/23/16 17:20 Attending/Attestation - Attestation I have personally seen and examined this patient.: Yes I have fully participated in the care of the patient.: Yes I have reviewed all pertinent clinical information, including history, physical exam and plan: Yes Notes (Text): 11/27/16 10:42 Patient was seen and examined with medical educator. Agreed with resident assessment and plan. 56 yo male with a past medical history significant for advanced COPD, thoracolumbar compression fractures, recent rib fracture, and recent PE who is admitted for chest tightness of 1.5 days duration, no cough or sputum production , hypoxia is at base line.Troponins are normal.Patient was evaluated by cardiology and is scheduled for stress test to rule out ischemia. Management plan was discussed in detail with patient Education was provided.
--- NOTE | 2016-11-25 00:09 | CON ---
DATE OF CONSULTATION: 11/24/2016 REQUESTING PHYSICIAN: Lilibeth Geronimo MD. REASON FOR CONSULTATION: Chest pain. HISTORY OF PRESENT ILLNESS: This is a 56-year-old male with a history of longstanding tobacco abuse, who presents to the emergency room complaining of chest discomfort and dyspnea. He describes this as a heaviness sitting on his chest. His electrocardiogram was abnormal and further evaluation was requested. He has a history of severe COPD and an apparent pulmonary embolus in the recent past. He has had multiple admissions for intractable back pain. His initial cardiac enzymes have been negative. He denies any prior cardiac history. He cannot recall having had a prior stress test. He was a smoker of several packs per day for many years having quit four or five months ago. He is not hypertensive or diabetic. He believes his cholesterol was normal. There is no family history of premature heart disease. PAST MEDICAL HISTORY: His past history is notable for the problems mentioned above. He has had traumatic falls in the past and he has had rib fractures and thoracic compression fractures as well. MEDICATIONS AT HOME: Current medications include Eliquis 5 mg b.i.d., Levaquin, Percocet, prednisone 40 mg daily and Xopenex. ALLERGIES: NONE. 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 FAMILY HISTORY: Both parents are from age-related illness. REVIEW OF SYSTEMS: A 10-point review of systems is otherwise remarkable. PHYSICAL EXAMINATION GENERAL: A middle aged male who appears comfortable at the present time. VITAL SIGNS: His blood pressure is 102/60 with a pulse of 110 and sinus, respirations are 14. He is currently afebrile. HEENT: Normocephalic, atraumatic. NECK: Supple. No JVD noted. CHEST: Diminished breath sounds are noted bilaterally. Scattered rhonchi are heard. HEART: PMI nonpalpable. Heart sounds are distant. PULMONARY: Increased AP diameter. ABDOMEN: Soft and nontender with normoactive bowel sounds. EXTREMITIES: No clubbing, cyanosis or edema. SKIN: Warm and dry. PSYCHIATRIC: Mild anxiety, but otherwise normal mood and affect. NEUROLOGIC: Alert and oriented x3. No gross motor sensory deficit appreciable. DIAGNOSTIC DATA: White count of 7.6, hemoglobin and hematocrit 11 .4 and 34.4 with a platelet count of 302,000. PT and PTT are normal. Potassium 4.5, BUN and creatinine is 20 and 0.8. Three sets of cardiac enzymes are negative. Chest x-ray reveals chronic rib fractures noted on the left with cardiac silhouette that is normal and lungs pope appear clear. Electrocardiogram reveals an ectopic atrial tachycardia, prior anteroseptal wall myocardial infarction pattern cannot be excluded. IMPRESSION: 1. Chest pain most likely secondary to advanced emphysema and chronic obstructive pulmonary disease with exacerbation. 2. He does have significant cardiac risk refractors given longstanding tobacco abuse and current age. 3. Rest of the problems as noted to include a history of recent pulmonary embolus, currently on Eliquis therapy. RECOMMENDATIONS: A screening stress test should be performed, if he has not had one performed recently. Current treatment should continue at the present time. Further plans and recommendations will be based upon the results of his stress test. Obviously continued smoking abstinence is advisable. Thank you for this consultation, we are happy to follow him through the hospital course as needed. Shadi Jacobson MD
[2016-11-25] MEDS: Oxycodone/Acetaminophen 5/325 mg Tab PO PRN ×2 (03:36→09:57)
[2016-11-25 06:39] LABS: ADD MANUAL DIFF? NO
[2016-11-25 06:56] LABS: GRAN # 13.08 (1.4-6.5); GRAN % 79.3 % (50.0-68.0); MEAN CELL VOLUME 93.8 fl (80.0-105.0); MEAN CORPUSCULAR HEMOGLOBIN 31.5 pg (25.0-35.0); MEAN CORPUSCULAR HGB CONC 33.6 g/dl (31.0-37.0); MONO # 1.4 (0.1-0.6); MONO % 8.7 % (1.0-6.0); PLATELET COUNT 303 10^3/uL (120.0-450.0); RED CELL DISTRIBUTION WIDTH 14.1 % (11.5-14.5); WHITE BLOOD COUNT 16.5 10^3/ul (4.5-11.0)
[2016-11-25 07:11] LABS: ALB/GLOB RATIO 1.5 (1.1-1.8); ALKALINE PHOSPHATASE 79 U/L (38-133); ALT/SGPT 35 U/L (7-56); AST/SGOT 24 U/L (15-59); BILIRUBIN,TOTAL 0.4 mg/dL (0.2-1.3); BLOOD UREA NITROGEN 25 mg/dL (7-21); CALCIUM 8.7 mg/dL (8.4-10.5); CARBON DIOXIDE 29 mmol/L (21-33); CHLORIDE 100 mmol/L (98-107); GFR AFRICAN-AMERICAN > 60; GLUCOSE,RANDOM 83 mg/dL (70-110); POTASSIUM 5.1 mmol/L (3.6-5.0); SODIUM 137 mmol/L (132-148); TOTAL PROTEIN 5.4 g/dL (5.8-8.3)
--- NOTE | 2016-11-25 07:54 | CP.PCM.PN ---
Subjective - Date & Time of Evaluation Date of Evaluation: 11/25/16 Time of Evaluation: 07:00 - Subjective Subjective: Stable on 2R. No CP or SOB. + back pain V/S noted PE: Lungs: clear Cor.: S1S2 Abd.: soft Ext. no edema Neuro.: alert Labs noted. WBC=16,500, K+= 5.1 ECG's noted. Ectopic atrial tachycardia Objective - Vital Signs/Intake and Output Vital Signs (last 24 hours): Temp Pulse Resp BP Pulse Ox 97.6 F 84 18 111/76 100 11/25/16 06:00 11/25/16 06:00 11/25/16 06:00 11/25/16 06:00 11/25/16 06:00 Intake and Output: 11/25/16 11/25/16 06:59 18:59 Intake Total 120 Output Total 1000 Balance -880 - Medications Medications: Current Medications Apixaban (Eliquis) 5 mg PO BID [facility] PRN Reason: Protocol Last Admin: 11/24/16 17:22 Dose: 5 mg Levofloxacin/Dextrose (Levaquin 500mg) 500 mg in 100 mls @ 100 mls/hr IVPB DAILY [facility] Last Admin: 11/24/16 09:13 Dose: 100 mls/hr Ibuprofen (Motrin Tab) 800 mg PO TID PRN PRN Reason: Pain, Mild (1-3) Levalbuterol HCl (Xopenex) 0.63 mg IH [id number] PRN PRN Reason: Shortness of Breath Last Admin: 11/24/16 19:47 Dose: 0.63 mg Oxycodone/Acetaminophen (Percocet 5/325 Mg Tab) 2 tab PO BID PRN PRN Reason: Pain, severe (8-10) Stop: 11/26/16 18:51 Last Admin: 11/25/16 03:36 Dose: 2 tab Prednisone (Prednisone Tab) 40 mg PO DAILY [facility] Last Admin: 11/24/16 14:22 Dose: 40 mg - Labs Labs: 11/25/16 05:30 11/25/16 05:30 PT 11.5 Seconds (9.9-11.8) 11/23/16 17:20 INR 1.06 (0.93-1.08) 11/23/16 17:20 APTT 27.6 Seconds (23.7-30.8) 11/23/16 17:20 Assessment and Plan - Assessment and Plan (Free Text) Assessment: CP/SOB COPD/Former Heavy Smoker PE Chronic back pain Fall/Old Rib Fractures/Compression Fractures H/O Substance Abuse Plan: Nuclear stress test today.
[2016-11-25] MEDS ORDERED: Aminophylline 25 mg/ml Inj ONE (09:00)
[2016-11-25] MEDS: levoFLOXacin 500 mg in D5W 500 MG/100 ML BAG IVPB SCH (09:16)
[2016-11-25] MEDS ORDERED: levoFLOXacin 250 mg in D5W 250 MG/50 ML BAG IVPB SCH (10:00)
[2016-11-25] MEDS ORDERED: Albuterol-Ipratrop 3 mg / 0.5 (3 ml) UD IH STA (13:24)
--- NOTE | 2016-11-25 16:17 | CP.PCM.PN ---
<Mani Al - Last Filed: 11/25/16 16:29> Subjective - Date & Time of Evaluation Date of Evaluation: 11/25/16 Time of Evaluation: 07:40 - Subjective Subjective: Mani Al DO, PGY-1, Hospitalist Service Dr. Carvajal Patient seen and examined at bedside. Patient states his chest tightness has diminished and his breathing has improved.. Patient admits to some back pain. He denies any SOB, productive cough, nausea, vomiting, or chills/fevers. Objective - Vital Signs/Intake and Output Vital Signs (last 24 hours): Temp Pulse Resp BP Pulse Ox 97.5 F L 89 18 122/89 100 11/25/16 11:40 11/25/16 11:40 11/25/16 11:40 11/25/16 11:40 11/25/16 06:00 Intake and Output: 11/25/16 11/25/16 06:59 18:59 Intake Total 480 Output Total 600 Balance -120 - Medications Medications: Current Medications Apixaban (Eliquis) 5 mg PO BID [facility] PRN Reason: Protocol Last Admin: 11/25/16 09:16 Dose: Not Given Levofloxacin/Dextrose (Levaquin 500mg) 500 mg in 100 mls @ 100 mls/hr IVPB DAILY [facility] Last Admin: 11/25/16 09:16 Dose: Not Given Ibuprofen (Motrin Tab) 800 mg PO TID PRN PRN Reason: Pain, Mild (1-3) Levalbuterol HCl (Xopenex) 0.63 mg IH [id number] PRN PRN Reason: Shortness of Breath Last Admin: 11/24/16 19:47 Dose: 0.63 mg Oxycodone/Acetaminophen (Percocet 5/325 Mg Tab) 2 tab PO BID PRN PRN Reason: Pain, severe (8-10) Stop: 11/26/16 18:51 Last Admin: 11/25/16 09:57 Dose: 2 tab Prednisone (Prednisone Tab) 40 mg PO DAILY [facility] Last Admin: 11/25/16 09:16 Dose: Not Given - Labs Labs: PT 11.5 Seconds (9.9-11.8) 11/23/16 17:20 INR 1.06 (0.93-1.08) 11/23/16 17:20 APTT 27.6 Seconds (23.7-30.8) 11/23/16 17:20 - Constitutional Appears: Well, No Acute Distress, Older Than Stated Age - Head Exam Head Exam: ATRAUMATIC, NORMOCEPHALIC - Eye Exam Eye Exam: EOMI, Normal appearance, PERRL - ENT Exam ENT Exam: Mucous Membranes Moist, Normal Oropharynx - Neck Exam Neck Exam: Normal Inspection - Respiratory Exam Respiratory Exam: Clear to Ausculation Bilateral, Prolonged Expiratory Phase, NORMAL BREATHING PATTERN. absent: Wheezes - Cardiovascular Exam Cardiovascular Exam: RRR, +S1, +S2 - GI/Abdominal Exam GI & Abdominal Exam: Soft, Normal Bowel Sounds. absent: Guarding, Rebound - Rectal Exam Rectal Exam: Deferred - Extremities Exam Extremities Exam: Normal Capillary Refill, Normal Inspection. absent: Pedal Edema, Tenderness - Back Exam Back Exam: NORMAL INSPECTION. absent: CVA tenderness (L), CVA tenderness (R), muscle spasm, paraspinal tenderness - Neurological Exam Neurological Exam: Alert, Awake, CN II-XII Intact, Oriented x3 Neuro motor strength exam: Left Upper Extremity: 5, Right Upper Extremity: 5, Left Lower Extremity: 5, Right Lower Extremity: 5 - Psychiatric Exam Psychiatric exam: Normal Affect, Normal Mood - Skin Skin Exam: Dry, Intact, Normal Color, Warm Assessment and Plan - Assessment and Plan (Free Text) Assessment: 56 yo male with a past medical history significant for advanced COPD, thoracolumbar compression fractures, recent rib fracture, and recent PE who is admitted for chest tightness of 1.5 days duration, no cough or sputum production , with some associated dyspnea while on 3L oxygen Nasal Cannula. Plan: 1) COPD exacerbation CXR from yesterday and today shows flattened diaphragm and hyperinflated lungs, with no active disease Xopenox q6h ERIC Prednisone 40 mg PO daily 2) Chest pain, r/o ACS EKG showed no signs of ischemia, troponin (-) x3, Dr. Carrasco ( alteration workroom supervisor) Nuclear stress test performed, results pending Patient was NPO prior to theNuclear stress test performed today, results are pending. 3) Status post PE: Eliquis 5 mg BID (Held today) 4) Leukocytosis, WBC count fell from 14 to 7, the elevation was likely secondary to steroids. 5) Rib and back pain causing chest wall pain Percocet PRN for pain 6) DVT/GI prophylaxis: Lovenox 40 mg/40 Protonix (held today given nuclear stress test). Please note most, if not all medications were held today given patient had to undergo nuclear stress test. <Winston Carvajal MD - Last Filed: 11/27/16 10:46> Objective - Vital Signs/Intake and Output Vital Signs (last 24 hours): Temp Pulse Resp BP Pulse Ox 98.5 F 114 H 18 109/74 100 11/27/16 06:00 11/27/16 06:00 11/27/16 06:00 11/27/16 06:00 11/27/16 10:14 Intake and Output: 11/27/16 11/27/16 06:59 18:59 Intake Total 240 Output Total 1250 Balance -1010 - Medications Medications: Current Medications Apixaban (Eliquis) 5 mg PO BID [facility] PRN Reason: Protocol Last Admin: 11/25/16 17:51 Dose: 5 mg Aspirin (Aspirin Chewable) 81 mg PO DAILY [facility] Last Admin: 11/27/16 09:33 Dose: 81 mg Atorvastatin Calcium (Lipitor) 10 mg PO DIN [facility] Last Admin: 11/26/16 17:07 Dose: 10 mg Docusate Sodium (Colace) 100 mg PO BID [facility] Last Admin: 11/27/16 09:33 Dose: 100 mg Enoxaparin Sodium (Lovenox) 40 mg SC Q12 [facility]IC PRN Reason: Protocol Last Admin: 11/27/16 09:33 Dose: 40 mg Levofloxacin/Dextrose (Levaquin 500mg) 500 mg in 100 mls @ 100 mls/hr IVPB DAILY [facility] Last Admin: 11/26/16 13:44 Dose: 100 mls/hr Ipratropium [place] (Atrovent) 0.5 mg IH [id number] ERIC Last Admin: 11/27/16 08:06 Dose: 0.5 mg Ipratropium [place] (Atrovent) 0.5 mg IH [id number] PRN PRN Reason: Shortness of Breath Levalbuterol HCl (Xopenex) 0.63 mg IH [id number] PRN PRN Reason: Shortness of Breath Levalbuterol HCl (Xopenex) 0.63 mg IH [id number] [facility] Last Admin: 11/27/16 08:07 Dose: 0.63 mg Morphine Sulfate (Morphine) 2 mg IVP Q4H PRN PRN Reason: Pain, severe (8-10) Last Admin: 11/27/16 09:38 Dose: 2 mg Pantoprazole Sodium (Protonix Ec Tab) 40 mg PO 0600 [facility] Last Admin: 11/27/16 05:06 Dose: 40 mg Prednisone (Prednisone Tab) 30 mg PO DAILY [facility] Last Admin: 11/27/16 09:34 Dose: 30 mg - Labs Labs: PT 11.5 Seconds (9.9-11.8) 11/23/16 17:20 INR 1.06 (0.93-1.08) 11/23/16 17:20 APTT 27.6 Seconds (23.7-30.8) 11/23/16 17:20 Attending/Attestation - Attestation I have personally seen and examined this patient.: Yes I have fully participated in the care of the patient.: Yes I have reviewed all pertinent clinical information, including history, physical exam and plan: Yes Notes (Text): 11/27/16 10:45 Patient was seen and examined with registered medical transcriptionist. Agreed with resident assessment and plan. 56 yo male with a past medical history significant for advanced COPD, thoracolumbar compression fractures, recent rib fracture, and recent PE who is admitted for chest tightness of 1.5 days duration, no cough or sputum production , hypoxia is at base line.Troponins are normal.Patient was evaluated by cardiology , stress test was recommended.He has undergone nuclear stress test today, we will follow up result. Patient COPD is improving, will do slow tapering of steroid. Management plan was discussed in detail with patient Education was provided.
--- NOTE | 2016-11-25 21:22 | CARD ---
APPROVED REPORT Protocol: LEXISCAN Test Type: Lexiscan Sestamibi Stress Test Attending Physician: Dr. Dustin Aragon Referring Physician: Dr. Howard Caba Test Indications: Chest Pain Height:5 ft 4 in Weight:99lbs Medications: Eliquis, Motrin, Xopenex, Levaquin, Percocet, Prednisone Medical History: 56 y/o M former smoker with chest pain and COPD. Target HR: 165 bpm Resting ECG: RSR Resting Heart Rate: 73 bpm Resting Blood Pressure: 100/70mmHg Submaximum (85%): 140 bpm PROCEDURE Pharmacologic stress testing was performed using 0.4mg per 5ml of regadenoson given intravenously over 7-10 seconds. POST EXERCISE Reason for Termination: Protocol completed Target HR: No Max HR: 83 bpm 60% of Maximum Predicted HR: 165 bpm Exercise duration: 05:12 min:sec, 0 Stage Exercise capacity: 1.0METs Max Blood Pressure: 110/70mmHg Blood Pressure response to exercise: Normal Heart Rate response to exercise: Normal Chest Pain: No, None Angina index: 0 Arrhythmia: No, None ST Change: No, None Deviation: 0 mm TEST SUMMARY [id number]. INFUSIONDOSE 101:000.00.01.091/.0.00:26 Kassie inj over 10 sec,, Tomi inj at 25 sec INFUSIONDOSE 201:[id number]/70.0. INFUSIONDOSE 301:[id number]/70.0. INFUSIONDOSE 401:000.00.01.094/.1. INFUSIONDOSE 501:000.00.01.084/.0. INFUSIONDOSE 600:110.00.01.083/.0. INTERPRETATION Stress EKG Conclusion: Lexiscan nuclear stress test which was negative for chest pain, ischemia and arrhythmia. Nuclear scans pending. Signed by Dustin Aragon Electronically Approved: 11/25/2016 12:27:22 EXAM: Myocardial Perfusion REST/STRESS Stress Test Type: Pharmacologic Imaging Protocol Rest Spect myocardial perfusion imaging was performed in supine position 45 minutes following the injection of 10.5 mCi of Tc-99 Myoview. At peak stress, the patient was injected intravenously with 30.3mCi of Tc-99 tetrofosmin after an infusion time of 0 minutes and 10 seconds. Gated Stress Spect was performed 60 minutes after intravenous Tc-99 Myoview injection. The images were gated to evaluate regional wall motion and calculate ventricular ejection fraction.Images were reconstructed using backfilter projection method in short horizontal and verticle long axis. Spect slices were generated. LV Perfusion The quality of the study is good. The left ventricle is normal in size. The right ventricle is unremarkable. The lung uptake is normal. The distribution of tracer reveals a moderate sized area of mildly to moderately decreased perfusion involving mid to distal anterior, apical and difstal inferior wall on the stress study. The remainder of the LV myocardium is unremarkable. The rest myocardial perfusion study shows improvement of defects. Wall Motion Wall motion study shows normal contraactility of the left ventricle. LVEF = 73%. Conclusion 1. Abnormal SPECT myocardial perfusion study. 2. Partially reverislble, anterior, apical and inferior defects are suspicious of ischemia. 3. Normal gated wall motion of the left ventricle.
--- NOTE | 2016-11-26 08:07 | CP.PCM.PN ---
Subjective - Date & Time of Evaluation Date of Evaluation: 11/26/16 Time of Evaluation: 07:00 - Subjective Subjective: Stable on 2R. No CP or SOB. + back pain V/S noted PE: Lungs: clear Cor.: S1S2 Abd.: soft Ext. no edema Neuro.: alert Labs noted. WBC=16,500, K+= 5.1 ECG's noted. Ectopic atrial tachycardia Nuclear stress test noted. + ant., apical and inf. ischemia. EF 73% Objective - Vital Signs/Intake and Output Vital Signs (last 24 hours): Temp Pulse Resp BP Pulse Ox 97.8 F 84 19 96/67 L 97 11/26/16 06:00 11/26/16 06:00 11/26/16 06:00 11/26/16 06:00 11/26/16 06:00 Intake and Output: 11/26/16 11/26/16 06:59 18:59 Intake Total 0 Output Total 100 Balance -100 - Medications Medications: Current Medications Apixaban (Eliquis) 5 mg PO BID [facility] PRN Reason: Protocol Last Admin: 11/25/16 17:51 Dose: 5 mg Aspirin (Aspirin Chewable) 81 mg PO DAILY [facility] Docusate Sodium (Colace) 100 mg PO BID [facility] Levofloxacin/Dextrose (Levaquin 500mg) 500 mg in 100 mls @ 100 mls/hr IVPB DAILY [facility] Last Admin: 11/25/16 09:16 Dose: Not Given Ibuprofen (Motrin Tab) 800 mg PO TID PRN PRN Reason: Pain, Mild (1-3) Levalbuterol HCl (Xopenex) 0.63 mg IH [id number] PRN PRN Reason: Shortness of Breath Last Admin: 11/24/16 19:47 Dose: 0.63 mg Oxycodone/Acetaminophen (Percocet 5/325 Mg Tab) 2 tab PO BID PRN PRN Reason: Pain, severe (8-10) Stop: 11/26/16 18:51 Last Admin: 11/25/16 09:57 Dose: 2 tab Prednisone (Prednisone Tab) 40 mg PO DAILY [facility] Last Admin: 11/25/16 09:16 Dose: Not Given - Labs Labs: PT 11.5 Seconds (9.9-11.8) 11/23/16 17:20 INR 1.06 (0.93-1.08) 08/08/17 17:20 APTT 27.6 Seconds (23.7-30.8) 11/23/16 17:20 Assessment and Plan - Assessment and Plan (Free Text) Assessment: CP/SOB COPD/Former Heavy Smoker PE Chronic back pain Fall/Old Rib Fractures/Compression Fractures H/O Substance Abuse Plan: Advise cardiac cath possible PCI. He agrees. Has been on Eliquis so will hold Eliquis and schedule for Tuesday. Cover with Lovenox starting tomorrow. Add ASA 81/day. Tx for COPD and chronic pain. Check ECG.
[2016-11-26] MEDS ORDERED: Levalbuterol 0.63 MG/3 ML Inhal Soln UD IH PRN (10:05)
[2016-11-26] MEDS ORDERED: Ipratropium 0.02% Inhal Soln (0.5 mg/2.5 ml) UD IH PRN (10:05)
[2016-11-26] MEDS: Enoxaparin 40 mg Syringe SC SCH ×2 (10:22→21:13)
[2016-11-26] MEDS: Morphine 2 mg/ml ISec IVP PRN ×3 (10:25→21:13)
[2016-11-26] MEDS: levoFLOXacin 500 mg in D5W 500 MG/100 ML BAG IVPB SCH (13:44)
[2016-11-26] MEDS: Levalbuterol 0.63 MG/3 ML Inhal Soln UD IH SCH ×2 (13:59→19:27)
[2016-11-26] MEDS: Ipratropium 0.02% Inhal Soln (0.5 mg/2.5 ml) UD IH SCH ×2 (14:00→19:27)
--- NOTE | 2016-11-26 15:20 | CP.PCM.PN ---
<Mani Al - Last Filed: 11/26/16 17:11> Subjective - Date & Time of Evaluation Date of Evaluation: 11/26/16 Time of Evaluation: 08:00 - Subjective Subjective: Mani Al DO, PGY-1, Hospitalist Service Dr. Carvajal Patient seen and examined at bedside. Patient reports back pain and dyspnea with exertion. Objective - Vital Signs/Intake and Output Vital Signs (last 24 hours): Temp Pulse Resp BP Pulse Ox 98.5 F 104 H 20 148/84 97 11/26/16 12:00 11/26/16 14:00 11/26/16 12:00 11/26/16 12:00 11/26/16 06:00 Intake and Output: 11/26/16 11/26/16 06:59 18:59 Intake Total 0 Output Total 100 Balance -100 - Medications Medications: Current Medications Apixaban (Eliquis) 5 mg PO BID [facility] PRN Reason: Protocol Last Admin: 11/25/16 17:51 Dose: 5 mg Aspirin (Aspirin Chewable) 81 mg PO DAILY [facility] Last Admin: 11/26/16 09:05 Dose: 81 mg Atorvastatin Calcium (Lipitor) 10 mg PO DIN [facility] Docusate Sodium (Colace) 100 mg PO BID [facility] Last Admin: 11/26/16 09:05 Dose: 100 mg Enoxaparin Sodium (Lovenox) 40 mg SC Q12 [facility] PRN Reason: Protocol Last Admin: 11/26/16 10:22 Dose: 40 mg Levofloxacin/Dextrose (Levaquin 500mg) 500 mg in 100 mls @ 100 mls/hr IVPB DAILY [facility] Last Admin: 11/26/16 13:44 Dose: 100 mls/hr Ibuprofen (Motrin Tab) 800 mg PO TID PRN PRN Reason: Pain, Mild (1-3) Ipratropium [place] (Atrovent) 0.5 mg IH [id number] [facility] Last Admin: 11/26/16 14:00 Dose: 0.5 mg Ipratropium [place] (Atrovent) 0.5 mg IH [id number] PRN PRN Reason: Shortness of Breath Levalbuterol HCl (Xopenex) 0.63 mg IH [id number] PRN PRN Reason: Shortness of Breath Levalbuterol HCl (Xopenex) 0.63 mg IH [id number] [facility] Last Admin: 11/26/16 13:59 Dose: 0.63 mg Morphine Sulfate (Morphine) 2 mg IVP Q4H PRN PRN Reason: Pain, severe (8-10) Last Admin: 11/26/16 10:25 Dose: 2 mg Oxycodone/Acetaminophen (Percocet 5/325 Mg Tab) 2 tab PO BID PRN PRN Reason: Pain, severe (8-10) Stop: 11/26/16 18:51 Last Admin: 11/25/16 09:57 Dose: 2 tab Prednisone (Prednisone Tab) 40 mg PO DAILY [facility] Last Admin: 11/26/16 09:05 Dose: 40 mg - Labs Labs: PT 11.5 Seconds (9.9-11.8) 11/23/16 17:20 INR 1.06 (0.93-1.08) 11/23/16 17:20 APTT 27.6 Seconds (23.7-30.8) 11/23/16 17:20 - Constitutional Appears: Older Than Stated Age, Cachectic - Head Exam Head Exam: ATRAUMATIC, NORMOCEPHALIC - Eye Exam Eye Exam: EOMI, Normal appearance, PERRL - ENT Exam ENT Exam: Mucous Membranes Moist, Normal Oropharynx - Neck Exam Neck Exam: Normal Inspection - Respiratory Exam Respiratory Exam: Accessory Muscle Use, Chest Wall Tenderness, Wheezes - Cardiovascular Exam Cardiovascular Exam: RRR, +S1, +S2 - GI/Abdominal Exam GI & Abdominal Exam: Soft, Normal Bowel Sounds. absent: Guarding, Rebound - Rectal Exam Rectal Exam: Deferred - Extremities Exam Extremities Exam: Full ROM, Normal Capillary Refill, Normal Inspection - Back Exam Back Exam: NORMAL INSPECTION. absent: CVA tenderness (L), CVA tenderness (R) - Neurological Exam Neurological Exam: Alert, CN II-XII Intact, Oriented x3 - Psychiatric Exam Psychiatric exam: Normal Affect, Normal Mood - Skin Skin Exam: Dry, Intact, Normal Color, Warm Assessment and Plan - Assessment and Plan (Free Text) Assessment: 56 yo male with a past medical history significant for advanced COPD, thoracolumbar compression fractures, recent rib fracture, and recent PE who is admitted for chest tightness of 1.5 days duration, no cough or sputum production , with some associated dyspnea while on 3L oxygen Nasal Cannula. Plan: 1) COPD exacerbation: Wheezes more noticeable today Xopenex 0.63 q6h sarah and Atrovent 0.5 q6h sarah as well as PRN versions of these medications for acute shortness of breath Prednisone 40 mg 2) Chest pain Nuclear stress test shows partially reversible ischemia, anterior, apical and inferior defects. Weight-based enoxaparin for ischemic heart disease and Eliquis has been stopped for now Morphine 2mg IVP q4h PRN for dyspnea and chest pain/tightness Motrin discontinued due to increased risk of cardiac events and already sufficient analgesia with morphine 3) Constipation, likely narcotic induced. Colace 100 mg BID 4) Suspected CAD Nuclear stress test shows partially reversible ischemia, anterior, apical and inferior defects Cardiology recommends coronary catherization with possible PCI: tentatively scheduled for Tuesday Aspirin 81 mg daily Atorvastatin 10 mg PO daily. Last lipid panel showed a LDL of 112, HDL of 53, Cholesterol of 162, and triglyceride of 37. 5) Vitamin D deficiency 6,000 IU/day <Wei GUERRERO,[place] - Last Filed: 11/27/16 10:51> Objective - Vital Signs/Intake and Output Vital Signs (last 24 hours): Temp Pulse Resp BP Pulse Ox 98.5 F 114 H 18 109/74 100 11/27/16 06:00 11/27/16 06:00 11/27/16 06:00 11/27/16 06:00 11/27/16 10:14 Intake and Output: 11/27/16 11/27/16 06:59 18:59 Intake Total 240 Output Total 1250 Balance -1010 - Medications Medications: Current Medications Apixaban (Eliquis) 5 mg PO BID [facility] PRN Reason: Protocol Last Admin: 11/25/16 17:51 Dose: 5 mg Aspirin (Aspirin Chewable) 81 mg PO DAILY [facility] Last Admin: 11/27/16 09:33 Dose: 81 mg Atorvastatin Calcium (Lipitor) 10 mg PO DIN [facility] Last Admin: 11/26/16 17:07 Dose: 10 mg Docusate Sodium (Colace) 100 mg PO BID [facility] Last Admin: 11/27/16 09:33 Dose: 100 mg Enoxaparin Sodium (Lovenox) 40 mg SC Q12 [facility] PRN Reason: Protocol Last Admin: 11/27/16 09:33 Dose: 40 mg Levofloxacin/Dextrose (Levaquin 500mg) 500 mg in 100 mls @ 100 mls/hr IVPB DAILY [facility] Last Admin: 11/26/16 13:44 Dose: 100 mls/hr Ipratropium [place] (Atrovent) 0.5 mg IH [id number] [facility] Last Admin: 11/27/16 08:06 Dose: 0.5 mg Ipratropium [place] (Atrovent) 0.5 mg IH [id number] PRN PRN Reason: Shortness of Breath Levalbuterol HCl (Xopenex) 0.63 mg IH [id number] PRN PRN Reason: Shortness of Breath Levalbuterol HCl (Xopenex) 0.63 mg IH [id number] [facility] Last Admin: 11/27/16 08:07 Dose: 0.63 mg Morphine Sulfate (Morphine) 2 mg IVP Q4H PRN PRN Reason: Pain, severe (8-10) Last Admin: 11/27/16 09:38 Dose: 2 mg Pantoprazole Sodium (Protonix Ec Tab) 40 mg PO 0600 [facility] Last Admin: 11/27/16 05:06 Dose: 40 mg Prednisone (Prednisone Tab) 30 mg PO DAILY [facility] Last Admin: 11/27/16 09:34 Dose: 30 mg - Labs Labs: PT 11.5 Seconds (9.9-11.8) 11/23/16 17:20 INR 1.06 (0.93-1.08) 11/23/16 17:20 APTT 27.6 Seconds (23.7-30.8) 11/23/16 17:20 Attending/Attestation - Attestation I have personally seen and examined this patient.: Yes I have fully participated in the care of the patient.: Yes I have reviewed all pertinent clinical information, including history, physical exam and plan: Yes Notes (Text): 11/27/16 10:47 Patient was seen and examined with biomedical field service engineer. Agreed with resident assessment and plan. Patient Nuclear stress test showed partially reversible ischemia, anterior, apical and inferior defects.Patient is for cardiac catherization on Tuesday.Patient has history of recent Pulmonary embolism , Apixiban is on hold, will start on therapeautic dose of lovenox, will hold it prior to cardiac catherization. For CAD, will continue ASA/Lipitor, once COPD improve, will start low dose of beta tahira. Management plan was discussed in detail with patient Education was provided. 11/27/16 10:50
--- NOTE | 2016-11-26 23:36 | CARD ---
APPROVED REPORT EKG Measurement Heart [id number] <Conclusion> Normal sinus rhythm Normal ECG
[2016-11-27] MEDS: Morphine 2 mg/ml ISec IVP PRN ×6 (00:57→21:55)
[2016-11-27] MEDS: Levalbuterol 0.63 MG/3 ML Inhal Soln UD IH SCH ×4 (02:10→19:38)
[2016-11-27] MEDS: Ipratropium 0.02% Inhal Soln (0.5 mg/2.5 ml) UD IH SCH ×4 (02:10→19:39)
[2016-11-27] MEDS: Pantoprazole 40 mg EC Tab PO SCH (05:06)
[2016-11-27] MEDS: Enoxaparin 40 mg Syringe SC SCH ×2 (09:33→21:55)
[2016-11-27] MEDS: levoFLOXacin 500 mg in D5W 500 MG/100 ML BAG IVPB SCH (11:09)
--- NOTE | 2016-11-27 13:06 | PN ---
DATE: 11/27/2016 SUBJECTIVE: The patient is seen sitting in bed, on telemetry. He is currently comfortable. His dyspnea has improved. He denies any chest pain. CURRENT MEDICATIONS: Include aspirin 81 mg daily, Atrovent inhaler, Eliquis 5 mg b.i.d., Levaquin, Lipitor 10 mg daily, Lovenox 40 mg q. 12 hours, prednisone 40 mg daily, Protonix, and Xopenex. OBJECTIVE: GENERAL: He is a middle-age man, appears comfortable at rest. VITAL SIGNS: His blood pressure is 110/74 with a pulse of 100 and sinus, respirations are 16. He is afebrile. HEENT: No JVD. CHEST: Diminished breath sounds bilaterally. HEART: Distant sounds noted with no pathologic murmurs or gallops. ABDOMEN: Soft, nontender with normoactive bowel sounds. EXTREMITIES: No edema. DIAGNOSTIC DATA: Morning blood work is pending. IMPRESSION: 1. Abnormal stress test with anterior apical and inferior ischemia. 2. Severe chronic obstructive pulmonary disease. 3. History of pulmonary emboli. RECOMMENDATIONS: The patient is scheduled for a cardiac catheterization, Tuesday afternoon. His Eliquis has been placed on hold. Lovenox will be continued for now. Further recommendations will be made based on the results of his cardiac catheterization. If not recently performed baseline pulmonary function test should be complete in the event that he has complex coronary artery disease and requires evaluation for cardiac surgery. We will continue to follow and make further recommendations as appropriate. Shadi Jacobson MD
--- NOTE | 2016-11-27 16:25 | CP.PCM.PN ---
<Mani Al - Last Filed: 11/27/16 16:31> Subjective - Date & Time of Evaluation Date of Evaluation: 11/27/16 Time of Evaluation: 08:22 - Subjective Subjective: Mani Al DO, PGY-1, Hospitalist Services Patient seen and examined at bedside. Patient report improvement in dyspnea and chest tightness. Objective - Vital Signs/Intake and Output Vital Signs (last 24 hours): Temp Pulse Resp BP Pulse Ox 97.3 F L 104 H 18 107/68 100 11/27/16 12:00 11/27/16 12:00 11/27/16 12:00 11/27/16 12:00 11/27/16 10:14 Intake and Output: 11/27/16 11/27/16 06:59 18:59 Intake Total 240 Output Total 1250 Balance -1010 - Medications Medications: Current Medications Apixaban (Eliquis) 5 mg PO BID [facility] PRN Reason: Protocol Last Admin: 11/25/16 17:51 Dose: 5 mg Aspirin (Aspirin Chewable) 81 mg PO DAILY [facility] Last Admin: 11/27/16 09:33 Dose: 81 mg Atorvastatin Calcium (Lipitor) 10 mg PO DIN [facility] Last Admin: 11/26/16 17:07 Dose: 10 mg Docusate Sodium (Colace) 100 mg PO BID [facility] Last Admin: 11/27/16 09:33 Dose: 100 mg Enoxaparin Sodium (Lovenox) 40 mg SC Q12 [facility] PRN Reason: Protocol Last Admin: 11/27/16 09:33 Dose: 40 mg Levofloxacin/Dextrose (Levaquin 500mg) 500 mg in 100 mls @ 100 mls/hr IVPB DAILY [facility] Last Admin: 11/27/16 11:09 Dose: 100 mls/hr Ipratropium [place] (Atrovent) 0.5 mg IH [id number] [facility] Last Admin: 11/27/16 14:18 Dose: 0.5 mg Ipratropium [place] (Atrovent) 0.5 mg IH [id number] PRN PRN Reason: Shortness of Breath Levalbuterol HCl (Xopenex) 0.63 mg IH [id number] PRN PRN Reason: Shortness of Breath Levalbuterol HCl (Xopenex) 0.63 mg IH [id number] [facility] Last Admin: 11/27/16 14:18 Dose: 0.63 mg Morphine Sulfate (Morphine) 2 mg IVP Q4H PRN PRN Reason: Pain, severe (8-10) Last Admin: 11/27/16 13:56 Dose: 2 mg Pantoprazole Sodium (Protonix Ec Tab) 40 mg PO 0600 [facility] Last Admin: 11/27/16 05:06 Dose: 40 mg Prednisone (Prednisone Tab) 30 mg PO DAILY [facility] Last Admin: 11/27/16 09:34 Dose: 30 mg - Labs Labs: PT 11.5 Seconds (9.9-11.8) 11/23/16 17:20 INR 1.06 (0.93-1.08) 11/23/16 17:20 APTT 27.6 Seconds (23.7-30.8) 11/23/16 17:20 - Constitutional Appears: No Acute Distress, Older Than Stated Age - Head Exam Head Exam: ATRAUMATIC, NORMOCEPHALIC - Eye Exam Eye Exam: EOMI, Normal appearance, PERRL - ENT Exam ENT Exam: Mucous Membranes Moist, Normal Oropharynx - Neck Exam Neck Exam: Normal Inspection - Respiratory Exam Respiratory Exam: Prolonged Expiratory Phase, Wheezes - Cardiovascular Exam Cardiovascular Exam: RRR, +S1, +S2 - GI/Abdominal Exam GI & Abdominal Exam: Soft, Normal Bowel Sounds. absent: Guarding, Rebound - Rectal Exam Rectal Exam: Deferred - Extremities Exam Extremities Exam: Normal Capillary Refill, Normal Inspection - Neurological Exam Neurological Exam: Alert, Awake, CN II-XII Intact - Psychiatric Exam Psychiatric exam: Normal Affect, Normal Mood - Skin Skin Exam: Dry, Intact, Normal Color Assessment and Plan - Assessment and Plan (Free Text) Assessment: 56 yo male with a past medical history significant for advanced COPD, thoracolumbar compression fractures, recent rib fracture, and recent PE who is admitted for chest tightness of 1.5 days duration, no cough or sputum production , with some associated dyspnea while on 3L oxygen Nasal Cannula. Plan: 1) COPD exacerbation: Xopenex 0.63 q6h sarah and Atrovent 0.5 q6h sarah as well as PRN versions of these medications for acute shortness of breath Prednisone taper 30 mg 2) Chest pain Nuclear stress test shows partially reversible ischemia, anterior, apical and inferior defects. Weight-based enoxaparin for ischemic heart disease and Eliquis is on hold for now Morphine 2mg IVP q4h PRN for dyspnea and chest pain/tightness Motrin discontinued due to increased risk of cardiac events and already sufficient analgesia achieved with morphine 3) Constipation, likely narcotic induced. Colace 100 mg BID 4) Suspected CAD Nuclear stress test shows partially reversible ischemia, anterior, apical and inferior defects Cardiology recommends coronary catherization with possible PCI: tentatively scheduled for Tuesday Aspirin 81 mg daily Atorvastatin 10 mg PO daily. Last lipid panel showed a LDL of 112, HDL of 53, Cholesterol of 162, and triglyceride of 37. 5) Vitamin D deficiency 6,000 IU/day <Wei GUERRERO,[place] - Last Filed: 11/27/16 17:29> Objective - Vital Signs/Intake and Output Vital Signs (last 24 hours): Temp Pulse Resp BP Pulse Ox 97.3 F L 104 H 18 107/68 100 11/27/16 12:00 11/27/16 12:00 11/27/16 12:00 11/27/16 12:00 11/27/16 10:14 Intake and Output: 11/27/16 11/27/16 06:59 18:59 Intake Total 240 Output Total 1250 Balance -1010 - Medications Medications: Current Medications Apixaban (Eliquis) 5 mg PO BID [facility] PRN Reason: Protocol Last Admin: 11/25/16 17:51 Dose: 5 mg Aspirin (Aspirin Chewable) 81 mg PO DAILY [facility] Last Admin: 11/27/16 09:33 Dose: 81 mg Atorvastatin Calcium (Lipitor) 10 mg PO DIN [facility] Last Admin: 11/26/16 17:07 Dose: 10 mg Docusate Sodium (Colace) 100 mg PO BID [facility] Last Admin: 11/27/16 09:33 Dose: 100 mg Enoxaparin Sodium (Lovenox) 40 mg SC Q12 [facility] PRN Reason: Protocol Last Admin: 11/27/16 09:33 Dose: 40 mg Levofloxacin/Dextrose (Levaquin 500mg) 500 mg in 100 mls @ 100 mls/hr IVPB DAILY [facility] Last Admin: 11/27/16 11:09 Dose: 100 mls/hr Ipratropium [place] (Atrovent) 0.5 mg IH [id number] [facility] Last Admin: 11/27/16 14:18 Dose: 0.5 mg Ipratropium [place] (Atrovent) 0.5 mg IH [id number] PRN PRN Reason: Shortness of Breath Levalbuterol HCl (Xopenex) 0.63 mg IH [id number] PRN PRN Reason: Shortness of Breath Levalbuterol HCl (Xopenex) 0.63 mg IH [id number] [facility] Last Admin: 11/27/16 14:18 Dose: 0.63 mg Morphine Sulfate (Morphine) 2 mg IVP Q4H PRN PRN Reason: Pain, severe (8-10) Last Admin: 11/27/16 13:56 Dose: 2 mg Pantoprazole Sodium (Protonix Ec Tab) 40 mg PO 0600 [facility] Last Admin: 11/27/16 05:06 Dose: 40 mg Prednisone (Prednisone Tab) 30 mg PO DAILY [facility] Last Admin: 11/27/16 09:34 Dose: 30 mg - Labs Labs: PT 11.5 Seconds (9.9-11.8) 11/23/16 17:20 INR 1.06 (0.93-1.08) 11/23/16 17:20 APTT 27.6 Seconds (23.7-30.8) 11/23/16 17:20 Attending/Attestation - Attestation I have personally seen and examined this patient.: Yes I have fully participated in the care of the patient.: Yes I have reviewed all pertinent clinical information, including history, physical exam and plan: Yes Notes (Text): 11/27/16 17:28 Patient was seen and examined with chief medical technologist. Agreed with resident assessment and plan. Patient Nuclear stress test showed partially reversible ischemia, anterior, apical and inferior defects.Patient is for cardiac catherization on Tuesday.Patient has history of recent Pulmonary embolism , Apixiban is on hold, will start on therapeautic dose of lovenox, will hold it prior to cardiac catherization. For CAD, will continue ASA/Lipitor, once COPD improve, COPD is improving, we will decrease the dose of Prednisone to 30 mg po daily Management plan was discussed in detail with patient Education was provided
[2016-11-28] MEDS: Levalbuterol 0.63 MG/3 ML Inhal Soln UD IH SCH ×4 (01:06→19:55)
[2016-11-28] MEDS: Ipratropium 0.02% Inhal Soln (0.5 mg/2.5 ml) UD IH SCH ×4 (01:06→19:55)
[2016-11-28] MEDS: Morphine 2 mg/ml ISec IVP PRN ×5 (04:30→20:46)
[2016-11-28] MEDS: Pantoprazole 40 mg EC Tab PO SCH (05:46)
[2016-11-28 08:02] LABS: ALB/GLOB RATIO 1.4 (1.1-1.8); ALKALINE PHOSPHATASE 63 U/L (38-133); ALT/SGPT 29 U/L (7-56); AST/SGOT 15 U/L (15-59); BILIRUBIN,TOTAL 0.2 mg/dL (0.2-1.3); BLOOD UREA NITROGEN 24 mg/dL (7-21); CALCIUM 7.9 mg/dL (8.4-10.5); CARBON DIOXIDE 31 mmol/L (21-33); CHLORIDE 101 mmol/L (98-107); GFR AFRICAN-AMERICAN > 60; GLUCOSE,RANDOM 81 mg/dL (70-110); POTASSIUM 3.6 mmol/L (3.6-5.0); SODIUM 136 mmol/L (132-148)
[2016-11-28 09:08] LABS: MEAN CELL VOLUME 96.3 fl (80.0-105.0); MEAN CORPUSCULAR HEMOGLOBIN 32.2 pg (25.0-35.0); MEAN CORPUSCULAR HGB CONC 33.5 g/dl (31.0-37.0); PLATELET COUNT 279 10^3/uL (120.0-450.0); RED CELL DISTRIBUTION WIDTH 13.5 % (11.5-14.5); WHITE BLOOD COUNT 14.9 10^3/ul (4.5-11.0)
[2016-11-28 09:09] LABS: MEAN PLATELET VOLUME 9.2 fl (7.0-11.0)
[2016-11-28 09:10] LABS: HEMATOCRIT 23.6 % (42.0-52.0)
[2016-11-28] MEDS: Enoxaparin 40 mg Syringe SC SCH (09:29)
[2016-11-28] MEDS: levoFLOXacin 500 mg in D5W 500 MG/100 ML BAG IVPB SCH (09:42)
--- NOTE | 2016-11-28 09:43 | CP.PCM.PN ---
<Rosanna Martinez - Last Filed: 11/28/16 10:08> Subjective - Date & Time of Evaluation Date of Evaluation: 11/28/16 Time of Evaluation: 08:10 - Subjective Subjective: Rosanna Martinez DO, PGY-1, Internal Medicine, Hospitalist Service Patient seen and examined at bedside. Per nursing no acute events overnight. Pain is controlled. Patient is for cardiac cath tomorrow. Hgb noted to be 7.9. Denies headache, dizziness, fevers, chills, N/V, CP, sob, abdominal pain, urinary symptoms, melena. Will transfuse 1 unit PRBCs. Objective - Vital Signs/Intake and Output Vital Signs (last 24 hours): Temp Pulse Resp BP Pulse Ox 98 F 112 H 20 99/68 L 100 11/28/16 06:00 11/28/16 06:00 11/28/16 06:00 11/28/16 06:00 11/28/16 06:00 Intake and Output: 11/28/16 11/28/16 06:59 18:59 Intake Total 140 Output Total 0 Balance 140 - Medications Medications: Current Medications Apixaban (Eliquis) 5 mg PO BID [facility] PRN Reason: Protocol Last Admin: 11/25/16 17:51 Dose: 5 mg Aspirin (Aspirin Chewable) 81 mg PO DAILY [facility] Last Admin: 11/27/16 09:33 Dose: 81 mg Atorvastatin Calcium (Lipitor) 10 mg PO DIN [facility] Last Admin: 11/27/16 18:02 Dose: 10 mg Docusate Sodium (Colace) 100 mg PO BID [facility] Last Admin: 11/27/16 18:02 Dose: 100 mg Enoxaparin Sodium (Lovenox) 40 mg SC Q12 [facility] PRN Reason: Protocol Last Admin: 11/27/16 21:55 Dose: 40 mg Levofloxacin/Dextrose (Levaquin 500mg) 500 mg in 100 mls @ 100 mls/hr IVPB DAILY [facility] Last Admin: 11/27/16 11:09 Dose: 100 mls/hr Ipratropium [place] (Atrovent) 0.5 mg IH [id number] [facility] Last Admin: 11/28/16 07:50 Dose: Not Given Ipratropium [place] (Atrovent) 0.5 mg IH [id number] PRN PRN Reason: Shortness of Breath Levalbuterol HCl (Xopenex) 0.63 mg IH [id number] PRN PRN Reason: Shortness of Breath Levalbuterol HCl (Xopenex) 0.63 mg IH [id number] [facility] Last Admin: 11/28/16 07:50 Dose: Not Given Morphine Sulfate (Morphine) 2 mg IVP Q4H PRN PRN Reason: Pain, severe (8-10) Last Admin: 11/28/16 08:25 Dose: 2 mg Pantoprazole Sodium (Protonix Ec Tab) 40 mg PO 0600 [facility] Last Admin: 11/28/16 05:46 Dose: 40 mg Prednisone (Prednisone Tab) 30 mg PO DAILY [facility] Last Admin: 11/27/16 09:34 Dose: 30 mg - Labs Labs: 11/28/16 08:57 11/28/16 07:42 PT 11.5 Seconds (9.9-11.8) 11/23/16 17:20 INR 1.06 (0.93-1.08) 11/23/16 17:20 APTT 27.6 Seconds (23.7-30.8) 11/23/16 17:20 - Constitutional Appears: Well, No Acute Distress, Older Than Stated Age, Cachectic - Head Exam Head Exam: ATRAUMATIC, NORMAL INSPECTION - Eye Exam Eye Exam: EOMI, Normal appearance Pupil Exam: NORMAL ACCOMODATION - ENT Exam ENT Exam: Mucous Membranes Moist - Neck Exam Neck Exam: Full ROM - Respiratory Exam Respiratory Exam: Decreased Breath Sounds, NORMAL BREATHING PATTERN. absent: Rales, Rhonchi, Wheezes - Cardiovascular Exam Cardiovascular Exam: REGULAR RHYTHM, +S1, +S2 - GI/Abdominal Exam GI & Abdominal Exam: Soft, Normal Bowel Sounds. absent: Distended, Guarding, Rigid, Tenderness - Extremities Exam Extremities Exam: Full ROM, Normal Inspection - Back Exam Back Exam: NORMAL INSPECTION, tenderness - Neurological Exam Neurological Exam: Alert, Awake, Oriented x3 - Psychiatric Exam Psychiatric exam: Normal Affect, Normal Mood - Skin Skin Exam: Normal Color, Warm Assessment and Plan - Assessment and Plan (Free Text) Assessment: 56 yo male with a past medical history significant for advanced COPD, thoracolumbar compression fractures, recent rib fracture, and recent PE who is admitted for chest tightness of 1.5 days duration, no cough or sputum production , with some associated dyspnea while on 3L oxygen Nasal Cannula Plan: 1) Chest pain, R/O ACS - Nuclear stress test shows partially reversible ischemia, anterior, apical and inferior defects, EF 73% - Patient for cardiac cath tomorrow with possible PCI - Eliquis held, patient was started on Lovenox - Will hold Lovenox as hgb is 7.9 this morning - Cardiology on consult, f/u recommendations - Continue ASA 81 mg daily - Continue Atorvastatin 10 mg daily 2) Anemia, normocytic -Hgb 11.1 -> 7.9, asymptomatic -No active signs of bleeding -Will transfuse one unit PRBCs -F/U anemia workup, stool occult blood, peripheral blood smear -F/U post tranfusion CBC -Will hold Lovenox at this time 3) Chronic Back pain, Hx of Rib Fracture, Hx of multiple compression fractures -Pain control - Morphine 2mg IVP q4h PRN -F/U PT recommendations 4) Hx of COPD/ emphysema - Levofloxacin (day 5), will discontinue - Xopenex 0.63 q6h sarah and Atrovent 0.5 q6h sarah - Continue Prednisone taper, decreased to Prednisone 20mg - Continue O2 supplementation 5) Hx of PE -Recently diagnosed PE 10/2016 -Patient on Eliquis 5mg BID -Eliquis held for cardiac cath procedure tomorrow 6) Constipation, likely narcotic induced. - Continue Colace 100 mg BID 7) Hyperkalemia - Continue to monitor 8) GI/DVT ppx -Protonix 40mg daily -Lovenox on hold <Wei GUERRERO,[place] - Last Filed: 12/24/16 11:27> Objective - Vital Signs/Intake and Output Vital Signs (last 24 hours): Temp Pulse Resp BP Pulse Ox 97.8 F 102 H 24 130/90 98 12/05/16 07:57 12/05/16 07:57 12/05/16 07:57 12/05/16 07:57 12/05/16 07:57 - Labs Labs: 12/04/16 07:30 12/04/16 07:30 PT 21.1 Seconds (9.9-11.8) H 12/05/16 01:55 INR 1.95 (0.93-1.08) H 12/05/16 01:55 APTT 59.6 Seconds (23.7-30.8) H 12/05/16 08:16 Attending/Attestation - Attestation I have personally seen and examined this patient.: Yes I have fully participated in the care of the patient.: Yes I have reviewed all pertinent clinical information, including history, physical exam and plan: Yes Notes (Text): 12/24/16 11:27 Patient was seen and examined with electromedical equipment technician. Agreed with resident assessment and plan. Management plan was discussed in detail with patient Education was provided.
--- NOTE | 2016-11-28 09:46 | PN ---
DATE: 11/28/2016 SUBJECTIVE: The patient is seen lying in bed, on telemetry. He is comfortable at the present time. He said no chest pain. His dyspnea has improved. CURRENT MEDICATIONS: Include aspirin, Atrovent, Eliquis which is on hold, Levaquin, Lipitor 10 mg daily, Lovenox, prednisone 30 mg daily, Protonix 40 mg, and Xopenex. OBJECTIVE: He is a middle-age man, appears chronically ill. PHYSICAL EXAMINATION: VITAL SIGNS: Blood pressure is 120/60 with a pulse of 120 and what appears to be junctional rhythm, respirations are 16. He is afebrile. HEENT: No JVD. CHEST: Diminished breath sounds bilaterally. HEART: Distant sounds noted. ABDOMEN: Soft, nontender with bowel sounds. EXTREMITIES: No edema. DIAGNOSTIC DATA: Morning blood work is pending. IMPRESSION: 1. Severe chronic obstructive pulmonary disease. 2. Probable coronary disease given abnormal stress test showing evidence of anterior apical and inferior ischemia. 3. History of pulmonary emboli. RECOMMENDATIONS: The patient will have to get a cardiac catheterization tomorrow afternoon. Further recommendations will be made based on the results. Risks and benefits of the procedure have been discussed with him. Eliquis is on hold. Lovenox will be continue for now. Based on pulmonary function testing, he is advised any event he would need any surgical intervention in order to better risk stratify him. Shadi Jacobson MD
[2016-11-28 10:03] LABS: INR 1.01 (0.93-1.08); PARTIAL THROMBOPLASTIN TIME 24.4 Seconds (23.7-30.8)
[2016-11-28 10:09] LABS: IRON 61 ug/dL (45-180)
[2016-11-28 10:47] LABS: RETIC% 2.32 % (0.5-1.5)
[2016-11-28 10:49] LABS: ANISOCYTOSIS 1+; HYPOCHROMIA 2+; NEUTROPHIL 66 % (50.0-70.0); PLATELET ESTIMATE NORMAL (NORMAL)
[2016-11-28 10:50] LABS: TARGET CELLS 2+; TOXIC GRANULATION 1+
[2016-11-28 19:55] LABS: HEMATOCRIT 25.9 % (42.0-52.0); MEAN CELL VOLUME 92.5 fl (80.0-105.0); MEAN CORPUSCULAR HEMOGLOBIN 31.1 pg (25.0-35.0); MEAN CORPUSCULAR HGB CONC 33.6 g/dl (31.0-37.0); MEAN PLATELET VOLUME 8.9 fl (7.0-11.0); WHITE BLOOD COUNT 12.1 10^3/ul (4.5-11.0)
[2016-11-29] MEDS: Morphine 2 mg/ml ISec IVP PRN ×4 (01:06→14:02)
[2016-11-29] MEDS: Ipratropium 0.02% Inhal Soln (0.5 mg/2.5 ml) UD IH SCH ×4 (02:01→19:54)
[2016-11-29] MEDS: Levalbuterol 0.63 MG/3 ML Inhal Soln UD IH SCH ×4 (02:02→19:54)
[2016-11-29] MEDS: Pantoprazole 40 mg EC Tab PO SCH (05:00)
[2016-11-29 07:22] LABS: ADD MANUAL DIFF? NO
[2016-11-29 07:26] LABS: BASO # 0.01 K/mm3 (0.0-2.0); BASO % 0.1 % (0.0-3.0); EOS # 0.1 (0.0-0.7); EOS % 0.6 % (1.5-5.0); GRAN # 8.89 (1.4-6.5); GRAN % 61.3 % (50.0-68.0); HEMATOCRIT 27.6 % (42.0-52.0); LYMPH # 4.1 (1.2-3.4); LYMPH % 28.5 % (22.0-35.0); MEAN CELL VOLUME 93.6 fl (80.0-105.0); MEAN CORPUSCULAR HEMOGLOBIN 31.9 pg (25.0-35.0); MEAN CORPUSCULAR HGB CONC 34.1 g/dl (31.0-37.0); MEAN PLATELET VOLUME 8.9 fl (7.0-11.0); MONO # 1.4 (0.1-0.6); MONO % 9.5 % (1.0-6.0); PLATELET COUNT 254 10^3/uL (120.0-450.0); RED CELL DISTRIBUTION WIDTH 14.4 % (11.5-14.5); WHITE BLOOD COUNT 14.5 10^3/ul (4.5-11.0)
[2016-11-29 07:40] LABS: ALB/GLOB RATIO 1.6 (1.1-1.8); ALKALINE PHOSPHATASE 75 U/L (38-133); ALT/SGPT 35 U/L (7-56); AST/SGOT 24 U/L (15-59); BILIRUBIN,TOTAL 0.3 mg/dL (0.2-1.3); BLOOD UREA NITROGEN 19 mg/dL (7-21); CALCIUM 8.6 mg/dL (8.4-10.5); CARBON DIOXIDE 34 mmol/L (21-33); CHLORIDE 99 mmol/L (98-107); GFR AFRICAN-AMERICAN > 60; GLUCOSE,RANDOM 82 mg/dL (70-110); POTASSIUM 4.8 mmol/L (3.6-5.0); SODIUM 137 mmol/L (132-148); TOTAL PROTEIN 4.6 g/dL (5.8-8.3)
--- NOTE | 2016-11-29 08:25 | CP.PCM.PN ---
Subjective - Date & Time of Evaluation Date of Evaluation: 11/29/16 Time of Evaluation: 07:00 - Subjective Subjective: Stable on 2R. No CP or SOB. Events of w/e noted. H/H fell to 7.9/23.6 and 1 unit RBC's given. No source of bleeding noted by pt. V/S noted PE: Lungs: clear Cor.: S1S2 Abd.: soft Ext. no edema Neuro.: alert Labs today noted: H/H 9.4/27.6, WBC 14,500 ECG's noted. Ectopic atrial tachycardia > 11/27/16 ECG RSR with nl P wave morphology. Nuclear stress test noted. + ant., apical and inf. ischemia. EF 73% Objective - Vital Signs/Intake and Output Vital Signs (last 24 hours): Temp Pulse Resp BP Pulse Ox 98.1 F 78 20 111/69 100 11/29/16 06:00 11/29/16 06:00 11/29/16 06:00 11/29/16 06:00 11/29/16 06:00 Intake and Output: 11/29/16 11/29/16 06:59 18:59 Intake Total 100 Output Total 1200 Balance -1100 - Medications Medications: Current Medications Apixaban (Eliquis) 5 mg PO BID [facility] PRN Reason: Protocol Last Admin: 11/25/16 17:51 Dose: 5 mg Aspirin (Aspirin Chewable) 81 mg PO DAILY [facility] Last Admin: 11/28/16 09:29 Dose: Not Given Atorvastatin Calcium (Lipitor) 10 mg PO DIN [facility] Last Admin: 11/28/16 17:56 Dose: 10 mg Enoxaparin Sodium (Lovenox) 40 mg SC Q12 ERIC PRN Reason: Protocol Last Admin: 11/28/16 09:29 Dose: Not Given Ipratropium [place] (Atrovent) 0.5 mg IH [id number] [facility] Last Admin: 11/29/16 07:47 Dose: 0.5 mg Ipratropium [place] (Atrovent) 0.5 mg IH [id number] PRN PRN Reason: Shortness of Breath Levalbuterol HCl (Xopenex) 0.63 mg IH [id number] PRN PRN Reason: Shortness of Breath Levalbuterol HCl (Xopenex) 0.63 mg IH [id number] [facility] Last Admin: 11/29/16 07:47 Dose: 0.63 mg Morphine Sulfate (Morphine) 2 mg IVP Q4H PRN PRN Reason: Pain, severe (8-10) Last Admin: 11/29/16 05:00 Dose: 2 mg Pantoprazole Sodium (Protonix Ec Tab) 40 mg PO 0600 [facility] Last Admin: 11/29/16 05:00 Dose: 40 mg Prednisone (Prednisone Tab) 20 mg PO DAILY [facility] Last Admin: 11/28/16 10:00 Dose: Not Given - Labs Labs: 11/29/16 06:50 11/29/16 06:50 PT 10.9 Seconds (9.9-11.8) 11/28/16 09:47 INR 1.01 (0.93-1.08) 11/28/16 09:47 APTT 24.4 Seconds (23.7-30.8) 11/28/16 09:47 Assessment and Plan - Assessment and Plan (Free Text) Assessment: CP/SOB Markedly abnormal nuclear scans: ant., apical and inferior ischemia COPD/Former Heavy Smoker PE Chronic back pain Fall/Old Rib Fractures/Compression Fractures H/O Substance Abuse Anemia Plan: Cardiac cath later today. Additional recs to follow. Anemia w/u: check stools for OB, etc Tx for COPD and chronic pain. PFT's
--- NOTE | 2016-11-29 12:07 | CT ---
PROCEDURE: CT Abdomen and Pelvis without intravenous contrast HISTORY: r/o retroperitoneal bleed COMPARISON: 11/15/2016. CT thoracic Spine TECHNIQUE: Unenhanced study. Neither oral nor intravenous contrast administered. Radiation dose: Total exam DLP = 168.39 mGy-cm. This CT exam was performed using one or more of the following dose reduction techniques: Automated exposure control, adjustment of the mA and/or kV according to patient size, and/or use of iterative reconstruction technique. FINDINGS: LOWER THORAX: Unremarkable. LIVER: Unremarkable. No gross lesion or ductal dilatation. GALLBLADDER AND BILE DUCTS: Unremarkable. PANCREAS: Unremarkable. No gross lesion or ductal dilatation. SPLEEN: Unremarkable. ADRENALS: Unremarkable. No mass. KIDNEYS AND URETERS: Unremarkable. No hydronephrosis. No solid mass. VASCULATURE: Unremarkable. No aortic aneurysm. BOWEL: Constipation without fecal impaction or obstruction. APPENDIX: Unremarkable. Normal appendix. PERITONEUM: Unremarkable. No free fluid. No free air. LYMPH NODES: Unremarkable. No enlarged lymph nodes. BLADDER: Unremarkable. REPRODUCTIVE: Unremarkable. BONES: Loss of height of thoracolumbar vertebral bodies T12, at L2, L4. Profound osteopenia noted. OTHER FINDINGS: None. IMPRESSION: Multiple age indeterminate thoracolumbar vertebral body compression fractures. No evidence of retroperitoneal hemorrhage, peritoneal hemorrhage or fluid collection. Incidental finding(s): study was performed without oral or intravenous contrast less lowering sensitivity for intra-abdominal, retroperitoneal or pelvic pathology.
[2016-11-29] MEDS ORDERED: Iohexol 350mgl/ml 50 ML ONE (14:48)
[2016-11-29] MEDS ORDERED: Iodixanol 320 MG/ML 100 ML BOTTLE IV ONE (14:48)
[2016-11-29] MEDS ORDERED: Iodixanol 320 MG/ML 200 ML BOTTLE IV ONE (14:48)
[2016-11-29] MEDS ORDERED: Nitroglycerin 50mg in D5W 0 MG/0 ML BOTTLE IV ONE (14:48)
[2016-11-29] MEDS ORDERED: Midazolam 2 MG/2 ML VIAL ONE ×2 (14:48→16:02)
[2016-11-29] MEDS ORDERED: Lidocaine 2% Inj (20ml) ONE (14:53)
[2016-11-29] MEDS ORDERED: Phenylephrine 10 mg/ml Inj ONE (14:53)
--- NOTE | 2016-11-29 15:08 | CP.PCM.PN ---
<ERNIE RAYA - Last Filed: 11/29/16 16:08> Subjective - Date & Time of Evaluation Date of Evaluation: 11/29/16 Time of Evaluation: 07:00 - Subjective Subjective: MEDICINE PROGRESS NOTE: Pt seen and examined at bedside. Pt had no new complaints overnight and endorsed that his chronic back pain has been well controlled. Pt reported that he is aware of his scheduled cardiac cath procedure today. Pt denies any headache, dizziness, fever, chills, shortness of breath, chest pain, abdominal pain, N/V, diarrhea or any urinary symptoms. Objective - Vital Signs/Intake and Output Vital Signs (last 24 hours): Temp Pulse Resp BP Pulse Ox 97 F L 96 H 18 92/68 L 100 11/29/16 12:00 11/29/16 12:00 11/29/16 12:00 11/29/16 12:00 11/29/16 06:00 Intake and Output: 11/29/16 11/29/16 06:59 18:59 Intake Total 100 Output Total 1200 Balance -1100 - Medications Medications: Current Medications Apixaban (Eliquis) 5 mg PO BID [facility] PRN Reason: Protocol Last Admin: 11/25/16 17:51 Dose: 5 mg Aspirin (Aspirin Chewable) 81 mg PO DAILY [facility] Last Admin: 11/28/16 09:29 Dose: Not Given Atorvastatin Calcium (Lipitor) 10 mg PO DIN [facility] Last Admin: 11/28/16 17:56 Dose: 10 mg Ipratropium [place] (Atrovent) 0.5 mg IH [id number] [facility] Last Admin: 11/29/16 14:14 Dose: 0.5 mg Ipratropium [place] (Atrovent) 0.5 mg IH [id number] PRN PRN Reason: Shortness of Breath Levalbuterol HCl (Xopenex) 0.63 mg IH [id number] PRN PRN Reason: Shortness of Breath Levalbuterol HCl (Xopenex) 0.63 mg IH [id number] [facility] Last Admin: 11/29/16 14:14 Dose: 0.63 mg Morphine Sulfate (Morphine) 2 mg IVP Q4H PRN PRN Reason: Pain, severe (8-10) Last Admin: 11/29/16 14:02 Dose: 2 mg Pantoprazole Sodium (Protonix Ec Tab) 40 mg PO 0600 [facility] Last Admin: 11/29/16 05:00 Dose: 40 mg Prednisone (Prednisone Tab) 20 mg PO DAILY [facility] Last Admin: 11/29/16 10:27 Dose: 20 mg - Labs Labs: 11/29/16 06:50 11/29/16 06:50 PT 10.9 Seconds (9.9-11.8) 11/28/16 09:47 INR 1.01 (0.93-1.08) 11/28/16 09:47 APTT 24.4 Seconds (23.7-30.8) 11/28/16 09:47 - Constitutional Appears: No Acute Distress - Head Exam Head Exam: NORMAL INSPECTION, NORMOCEPHALIC - Eye Exam Eye Exam: EOMI, Normal appearance, PERRL - ENT Exam ENT Exam: Mucous Membranes Moist, Normal Exam - Neck Exam Neck Exam: Full ROM, Normal Inspection. absent: Lymphadenopathy - Respiratory Exam Respiratory Exam: Clear to Ausculation Bilateral, NORMAL BREATHING PATTERN. absent: Rales, Rhonchi, Wheezes, Respiratory Distress - Cardiovascular Exam Cardiovascular Exam: REGULAR RHYTHM, RRR, +S1, +S2. absent: Tachycardia, Murmur - GI/Abdominal Exam GI & Abdominal Exam: Soft, Normal Bowel Sounds. absent: Distended, Firm, Guarding, Tenderness - Exam Exam: absent: Bladder Distension - Extremities Exam Extremities Exam: Normal Capillary Refill, Normal Inspection. absent: Calf Tenderness, Pedal Edema - Neurological Exam Neurological Exam: Alert, Awake, Oriented x3 - Psychiatric Exam Psychiatric exam: Normal Affect, Normal Mood - Skin Skin Exam: Dry, Intact, Normal Color, Warm Assessment and Plan - Assessment and Plan (Free Text) Assessment: 56 yo male with a past medical history significant for advanced COPD, thoracolumbar compression fractures, recent rib fracture, and recent PE who was admitted for chest pain Plan: 1. Angina Pectoris -Cardiac cath today with possible PCI, will follow-up results -Eliqujacobo and ASA held for cardiac cath -Serial troponins x3 negative -Cardiology on consult, f/u recommendations 2. Anemia, normocytic -transfused one unit of pRBC's -Hg increased from 7.9 to 9.4 in 24 hours post transfusion -CT abd/pelvis showed no abdominal or retroperitoneal hemorrhages -Iron studies all WNL -will continue to monitor with daily CBC's 3. Chronic Back pain, Hx of Rib Fracture, Hx of multiple compression fractures -cont morphine 2mg IVP q4h PRN for pain control -cont PT/OT who recommend home upon discharge 4. History of COPD -cont Xopenex 0.63 q6h sarah and Atrovent 0.5 q6h sarah -cont prednisone taper, decreased to prednisone 20mg -cont O2 supplementation, on 3L NC -PFT's pending 5. History of PE -Recently diagnosed PE 10/2016 -cont eliquis 5mg BID after cardiac cath scheduled for 11/29 6. Constipation, likely narcotic induced. -cont colace 100 mg BID 7. GI Prophylaxis -Protonix Patient seen and case discussed in detail with attending, Dr. Carvajal. <Wei GUERRERO,[place] - Last Filed: 11/29/16 16:47> Objective - Vital Signs/Intake and Output Vital Signs (last 24 hours): Temp Pulse Resp BP Pulse Ox 97 F L 81 18 92/68 L 100 11/29/16 12:00 11/29/16 14:00 11/29/16 12:00 11/29/16 12:00 11/29/16 06:00 Intake and Output: 11/29/16 11/29/16 06:59 18:59 Intake Total 100 Output Total 1200 Balance -1100 - Medications Medications: Current Medications Apixaban (Eliquis) 5 mg PO BID [facility] PRN Reason: Protocol Last Admin: 11/25/16 17:51 Dose: 5 mg Aspirin (Aspirin Chewable) 81 mg PO DAILY [facility] Last Admin: 11/28/16 09:29 Dose: Not Given Atorvastatin Calcium (Lipitor) 10 mg PO DIN [facility] Last Admin: 11/28/16 17:56 Dose: 10 mg Sodium Chloride (Sodium Chloride 0.9%) 1,000 mls @ 100 mls/hr IV .Q10H SARAH Ipratropium [place] (Atrovent) 0.5 mg IH [id number] [facility] Last Admin: 11/29/16 14:14 Dose: 0.5 mg Ipratropium [place] (Atrovent) 0.5 mg IH [id number] PRN PRN Reason: Shortness of Breath Levalbuterol HCl (Xopenex) 0.63 mg IH [id number] PRN PRN Reason: Shortness of Breath Levalbuterol HCl (Xopenex) 0.63 mg IH [id number] [facility] Last Admin: 11/29/16 14:14 Dose: 0.63 mg Morphine Sulfate (Morphine) 2 mg IVP Q4H PRN PRN Reason: Pain, severe (8-10) Last Admin: 11/29/16 14:02 Dose: 2 mg Pantoprazole Sodium (Protonix Ec Tab) 40 mg PO 0600 [facility] Last Admin: 11/29/16 05:00 Dose: 40 mg Prednisone (Prednisone Tab) 20 mg PO DAILY [facility] Last Admin: 11/29/16 10:27 Dose: 20 mg - Labs Labs: 11/29/16 06:50 11/29/16 06:50 PT 10.9 Seconds (9.9-11.8) 11/28/16 09:47 INR 1.01 (0.93-1.08) 11/28/16 09:47 APTT 24.4 Seconds (23.7-30.8) 11/28/16 09:47 Attending/Attestation - Attestation I have personally seen and examined this patient.: Yes I have fully participated in the care of the patient.: Yes I have reviewed all pertinent clinical information, including history, physical exam and plan: Yes Notes (Text): 11/29/16 16:44 Patient was seen and examined with emergency medical technician. Agreed with resident assessment and plan. 56 M with end stage COPD , compression fracture of lower thoracic spine, and rib fracture at the posterior aspect of the right rib 8 was admitted with chest pain, copd exacerbation.Patient Nuclear stress test showed partially reversible ischemia, anterior, apical and inferior defects.Patient is for cardiac catherization today. Patient has history of recent Pulmonary embolism , Apixiban is on hold. Hemoglobin dropped yesterday to 7.9, no active bleeding, CT abdomen and Pelvis is negative for retro peritoneal bleeding , Patient is stable hypodermically.He had appropriate response after one unit PRBC transfusion yesterday, .We will monitor Hemoglobin. Management plan was discussed in detail with patient Education was provided.
[2016-11-29] MEDS: Sodium Chloride 0.9% 1,000 ML IV SCH (22:14)
[2016-11-29] MEDS ORDERED: Morphine 15 mg Immediate Release Tab PO STA (22:21)
[2016-11-30] MEDS: Ipratropium 0.02% Inhal Soln (0.5 mg/2.5 ml) UD IH SCH ×4 (02:00→20:25)
[2016-11-30] MEDS: Morphine 2 mg/ml ISec IVP PRN ×5 (03:57→20:36)
[2016-11-30] MEDS: Pantoprazole 40 mg EC Tab PO SCH (05:36)
--- NOTE | 2016-11-30 07:33 | CARDCATH ---
PROCEDURE DATE: 11/29/2016 PROCEDURES: 1. Left and right coronary angiography. 2. Left ventriculography. 3. Right femoral arteriography. HISTORY OF PRESENT ILLNESS: This is a 56-year-old male with severe COPD and longstanding tobacco abuse, who underwent a recent stress showing evidence of multivessel ischemia. Cardiac catheterization was recommended. INDICATION: As above. FINDINGS: HEMODYNAMICS: The aortic pressure was 110/70 with left ventricular pressure of 110/28. CORONARY ANATOMY: 1. The left main stem had a mild 20% ostial tapering, the rest of the vessel appeared normal. 2. Left anterior ascending artery and its branches were normal. 3. The left circumflex artery and its branches were normal. 4. The right coronary artery was dominant and normal. LEFT VENTRICULOGRAPHY: Left hand injection was performed in the left ventricle revealing normal wall motion and ejection fraction of 60%. There was no aortic valve gradient noted on catheter pullback. Mitral regurgitation was not assessed. RIGHT FEMORAL ARTERIOGRAPHY: A right femoral arteriogram was performed revealing evidence of mild diffuse atherosclerotic disease. The level of arterial puncture was appropriate. Attempts were then made to close the puncture site with deployment of a Mynx device; however, given the very superficial presence of the vessel, the vascular plug did not remain subcutaneous and extruded through the puncture site. The puncture was then held with manual pressure until adequate hemostasis was achieved. CONCLUSIONS: 1. Mild ostial left main disease, otherwise normal coronary arteries. 2. Normal LV systolic function. RECOMMENDATIONS: At this time, continue risk factor control as advised. Smoking abstinence was encouraged. Shadi Jacobson MD
[2016-11-30 07:48] LABS: ADD MANUAL DIFF? NO
--- NOTE | 2016-11-30 07:48 | CP.PCM.PN ---
Subjective - Date & Time of Evaluation Date of Evaluation: 11/30/16 Time of Evaluation: 07:00 - Subjective Subjective: Stable on 2R. No CP or SOB. S/P cardiac cath yesterday. Mild ostial LM lesion but no other significant CAD and NL LV fx. Medical therapy advised. V/S noted PE: Lungs: clear Cor.: S1S2 Abd.: soft Ext. no edema Neuro.: alert Labs pending. ECG's noted. Ectopic atrial tachycardia > 11/27/16 ECG RSR with nl P wave morphology. Nuclear stress test noted. + ant., apical and inf. ischemia. EF 73% Cardiac cath reviewed. CT Abd/pelvis noted. Objective - Vital Signs/Intake and Output Vital Signs (last 24 hours): Temp Pulse Resp BP Pulse Ox 98.1 F 85 18 106/66 98 11/30/16 05:55 11/30/16 05:55 11/30/16 05:55 11/30/16 05:55 11/30/16 05:55 Intake and Output: 11/30/16 11/30/16 06:59 18:59 Intake Total 1320 Output Total 200 Balance 1120 - Medications Medications: Current Medications Apixaban (Eliquis) 5 mg PO BID [facility] PRN Reason: Protocol Last Admin: 11/25/16 17:51 Dose: 5 mg Aspirin (Aspirin Chewable) 81 mg PO DAILY [facility] Last Admin: 11/28/16 09:29 Dose: Not Given Atorvastatin Calcium (Lipitor) 10 mg PO DIN [facility] Last Admin: 11/28/16 17:56 Dose: 10 mg Sodium Chloride (Sodium Chloride 0.9%) 1,000 mls @ 100 mls/hr IV .Q10H [facility] Last Admin: 11/29/16 22:14 Dose: 100 mls/hr Ipratropium [place] (Atrovent) 0.5 mg IH [id number] [facility] Last Admin: 11/30/16 02:00 Dose: Not Given Ipratropium [place] (Atrovent) 0.5 mg IH [id number] PRN PRN Reason: Shortness of Breath Lactulose (Enulose) 30 gm PO HS [facility] Last Admin: 11/29/16 23:05 Dose: 30 gm Levalbuterol HCl (Xopenex) 0.63 mg IH [id number] PRN PRN Reason: Shortness of Breath Levalbuterol HCl (Xopenex) 0.63 mg IH [id number] [facility] Last Admin: 11/29/16 19:54 Dose: Not Given Morphine Sulfate (Morphine) 2 mg IVP Q4H PRN PRN Reason: Pain, severe (8-10) Last Admin: 11/30/16 03:57 Dose: 2 mg Pantoprazole Sodium (Protonix Ec Tab) 40 mg PO 0600 [facility] Last Admin: 11/30/16 05:36 Dose: 40 mg Prednisone (Prednisone Tab) 20 mg PO DAILY [facility] Last Admin: 11/29/16 10:27 Dose: 20 mg - Labs Labs: 11/29/16 06:50 11/29/16 06:50 PT 10.9 Seconds (9.9-11.8) 11/28/16 09:47 INR 1.01 (0.93-1.08) 11/28/16 09:47 APTT 24.4 Seconds (23.7-30.8) 11/28/16 09:47 Assessment and Plan - Assessment and Plan (Free Text) Assessment: CP/SOB Markedly abnormal nuclear scans: ant., apical and inferior ischemia but only limited CAD (mild ostial LM) and NL LV on cath 11/29/16 COPD/Former Heavy Smoker Recent acute PE Chronic back pain Fall/Old Rib Fractures/Compression Fractures H/O Substance Abuse Anemia Plan: Anemia w/u: check stools for OB, etc Tx for COPD and chronic back pain. PFT's Resume A/C for recent PE. Consider heparin>warfarin given lack of reversal agent for Eliquis (or Pradaxa). Monitor for bleeding. Daily H/H. GI evaluation. Will sign off. Reconsult if needed.
[2016-11-30 07:51] LABS: BASO # 0.01 K/mm3 (0.0-2.0); BASO % 0.1 % (0.0-3.0); EOS # 0.1 (0.0-0.7); EOS % 0.5 % (1.5-5.0); GRAN # 8.93 (1.4-6.5); GRAN % 63.4 % (50.0-68.0); HEMATOCRIT 25.7 % (42.0-52.0); LYMPH # 3.7 (1.2-3.4); LYMPH % 25.9 % (22.0-35.0); MEAN CELL VOLUME 94.1 fl (80.0-105.0); MEAN CORPUSCULAR HEMOGLOBIN 31.5 pg (25.0-35.0); MEAN CORPUSCULAR HGB CONC 33.5 g/dl (31.0-37.0); MEAN PLATELET VOLUME 8.4 fl (7.0-11.0); MONO # 1.4 (0.1-0.6); MONO % 10.1 % (1.0-6.0); PLATELET COUNT 256 10^3/uL (120.0-450.0); RED CELL DISTRIBUTION WIDTH 14.6 % (11.5-14.5); WHITE BLOOD COUNT 14.1 10^3/ul (4.5-11.0)
[2016-11-30] MEDS: Levalbuterol 0.63 MG/3 ML Inhal Soln UD IH SCH ×3 (07:57→20:25)
[2016-11-30 08:11] LABS: ALB/GLOB RATIO 1.5 (1.1-1.8); ALKALINE PHOSPHATASE 79 U/L (38-133); ALT/SGPT 45 U/L (7-56); AST/SGOT 37 U/L (15-59); BILIRUBIN,TOTAL 0.2 mg/dL (0.2-1.3); BLOOD UREA NITROGEN 13 mg/dL (7-21); CALCIUM 7.9 mg/dL (8.4-10.5); CARBON DIOXIDE 33 mmol/L (21-33); CHLORIDE 101 mmol/L (98-107); GFR AFRICAN-AMERICAN > 60; GLUCOSE,RANDOM 80 mg/dL (70-110); POTASSIUM 3.5 mmol/L (3.6-5.0); SODIUM 137 mmol/L (132-148); TOTAL PROTEIN 4.2 g/dL (5.8-8.3)
[2016-11-30] MEDS: Sodium Chloride 0.9% 1,000 ML IV SCH ×4 (09:15→23:56)
[2016-11-30] MEDS ORDERED: Potassium Chloride 20 mEq ER Tab PO STA (11:16)
[2016-11-30 16:18] LABS: INR 0.95 (0.93-1.08)
[2016-11-30] MEDS: Heparin 25,000units in D5W 25,000 UNITS/250 ML BAG IV PRN (16:32)
--- NOTE | 2016-11-30 19:01 | CP.PCM.PN ---
<ERNIE RAYA - Last Filed: 11/30/16 18:58> Subjective - Date & Time of Evaluation Date of Evaluation: 11/30/16 Time of Evaluation: 09:00 - Subjective Subjective: MEDICINE PROGRESS NOTE: Pt seen and examined at bedside. Pt had no new complaints overnight. Reports pain is adequately controlled. Pt denies any complications or pain from his cardiac catheter insertion site. Pt denies any headache, dizziness, fever, chills, shortness of breath, chest pain, abdominal pain, N/V, diarrhea or any urinary symptoms. Objective - Vital Signs/Intake and Output Vital Signs (last 24 hours): Temp Pulse Resp BP Pulse Ox 98.4 F 93 H 20 109/69 98 11/30/16 17:29 11/30/16 18:00 11/30/16 17:29 11/30/16 17:29 11/30/16 05:55 Intake and Output: 11/30/16 11/30/16 06:59 18:59 Intake Total 1320 960 Output Total 200 700 Balance 1120 260 - Medications Medications: Current Medications Aspirin (Aspirin Chewable) 81 mg PO DAILY [facility] Last Admin: 11/28/16 09:29 Dose: Not Given Atorvastatin Calcium (Lipitor) 10 mg PO DIN [facility] Last Admin: 11/28/16 17:56 Dose: 10 mg Sodium Chloride (Sodium Chloride 0.9%) 1,000 mls @ 100 mls/hr IV .Q10H [facility] Last Admin: 11/30/16 09:15 Dose: 100 mls/hr Heparin Sodium/Dextrose (Heparin 25,000 Units/250ml In D5w) 25,000 units in 250 mls @ 7.854 mls/hr IV .Q24H PRN; Protocol; 18 UNITS/KG/HR PRN Reason: ADJUST RATE PER PROTOCOL Last Admin: 11/30/16 16:32 Dose: 18 units/kg/hr, 7.854 mls/hr Ipratropium [place] (Atrovent) 0.5 mg IH [id number] [facility] Last Admin: 11/30/16 15:03 Dose: 0.5 mg Ipratropium [place] (Atrovent) 0.5 mg IH [id number] PRN PRN Reason: Shortness of Breath Lactulose (Enulose) 30 gm PO HS [facility] Last Admin: 08/14/17 23:05 Dose: 30 gm Levalbuterol HCl (Xopenex) 0.63 mg IH [id number] PRN PRN Reason: Shortness of Breath Levalbuterol HCl (Xopenex) 0.63 mg IH [id number] [facility] Last Admin: 11/30/16 15:03 Dose: 0.63 mg Morphine Sulfate (Morphine) 2 mg IVP Q4H PRN PRN Reason: Pain, severe (8-10) Last Admin: 11/30/16 16:32 Dose: 2 mg Pantoprazole Sodium (Protonix Ec Tab) 40 mg PO 0600 [facility] Last Admin: 11/30/16 05:36 Dose: 40 mg Prednisone (Prednisone Tab) 20 mg PO DAILY [facility] Last Admin: 11/30/16 09:15 Dose: 20 mg Warfarin Sodium (Coumadin) 5 mg PO 2000 [facility] PRN Reason: Protocol - Labs Labs: 11/30/16 07:30 11/30/16 07:30 PT 10.3 Seconds (9.9-11.8) 11/30/16 15:55 INR 0.95 (0.93-1.08) 11/30/16 15:55 APTT 22.0 Seconds (23.7-30.8) L 11/30/16 15:55 - Constitutional Appears: No Acute Distress - Head Exam Head Exam: ATRAUMATIC, NORMOCEPHALIC - Eye Exam Eye Exam: EOMI, Normal appearance, PERRL - ENT Exam ENT Exam: Mucous Membranes Moist, Normal Exam - Neck Exam Neck Exam: Full ROM. absent: Lymphadenopathy - Respiratory Exam Respiratory Exam: Clear to Ausculation Bilateral, NORMAL BREATHING PATTERN. absent: Rales, Rhonchi, Wheezes, Respiratory Distress - Cardiovascular Exam Cardiovascular Exam: REGULAR RHYTHM, RRR, +S1, +S2. absent: Tachycardia, Murmur - GI/Abdominal Exam GI & Abdominal Exam: Soft, Normal Bowel Sounds. absent: Firm, Guarding, Tenderness - Exam Exam: absent: Bladder Distension - Neurological Exam Neurological Exam: Alert, Awake, Oriented x3 - Psychiatric Exam Psychiatric exam: Normal Affect, Normal Mood - Skin Skin Exam: Dry, Intact, Normal Color, Warm Assessment and Plan - Assessment and Plan (Free Text) Assessment: 56 yo male with a past medical history significant for advanced COPD, thoracolumbar compression fractures, recent rib fracture, and recent PE who was admitted for chest pain Plan: 1. Angina Pectoris -cardiac cath revealed mild ostial LM lesion but no other significant CAD and normal LV function -EKG showed NSR and nuclear stress test showed anterior, apical and inferior ischemia with an EF of 73% -Serial troponins x3 negative -Cardiology signed off of patient, appreciate all recommendations 2. History of PE -Recently diagnosed PE 10/2016 -started on heparin drip and coumadin 5mg PO; will continue heparin drip until patient has therapeutic INR -discontinue eliquis as there is no reversal agent, per cardiology -will continue to monitor with daily INR's 3. Anemia, normocytic -transfused one unit of pRBC's -Hb at 8.6 today; Hb increased from 7.9 to 9.4 in 24 hours post transfusion -CT abd/pelvis showed no abdominal or retroperitoneal hemorrhages -Iron studies all WNL -will continue to monitor with daily CBC's -FOBT pending 4. Chronic Back pain, Hx of Rib Fracture, Hx of multiple compression fractures -cont morphine 2mg IVP q4h PRN for pain control -cont PT/OT who recommend home upon discharge 5. History of COPD -cont Xopenex 0.63 q6h sarah and Atrovent 0.5 q6h sarah -cont prednisone taper, decreased to prednisone 20mg -cont O2 supplementation, on 3L NC -PFT's pending 6. Constipation -likely narcotic induced -cont colace 100 mg BID 7. GI Prophylaxis -Protonix Patient seen and case discussed in detail with attending, Dr. Clare Lipscomb. <Clare Lipscomb - Last Filed: 11/30/16 21:07> Objective - Vital Signs/Intake and Output Vital Signs (last 24 hours): Temp Pulse Resp BP Pulse Ox 98.4 F 93 H 20 109/69 98 11/30/16 17:29 11/30/16 18:00 11/30/16 17:29 11/30/16 17:29 11/30/16 05:55 Intake and Output: 11/30/16 12/01/16 18:59 06:59 Intake Total 960 360 Output Total 700 1250 Balance 260 -890 - Medications Medications: Current Medications Aspirin (Aspirin Chewable) 81 mg PO DAILY [facility] Last Admin: 11/28/16 09:29 Dose: Not Given Atorvastatin Calcium (Lipitor) 10 mg PO DIN [facility] Last Admin: 11/28/16 17:56 Dose: 10 mg Sodium Chloride (Sodium Chloride 0.9%) 1,000 mls @ 100 mls/hr IV .Q10H [facility] Last Admin: 11/30/16 19:40 Dose: Not Given Heparin Sodium/Dextrose (Heparin 25,000 Units/250ml In D5w) 25,000 units in 250 mls @ 7.854 mls/hr IV .Q24H PRN; Protocol; 18 UNITS/KG/HR PRN Reason: ADJUST RATE PER PROTOCOL Last Admin: 11/30/16 16:32 Dose: 18 units/kg/hr, 7.854 mls/hr Ipratropium [place] (Atrovent) 0.5 mg IH [id number] [facility] Last Admin: 11/30/16 15:03 Dose: 0.5 mg Ipratropium [place] (Atrovent) 0.5 mg IH [id number] PRN PRN Reason: Shortness of Breath Lactulose (Enulose) 30 gm PO HS [facility] Last Admin: 11/29/16 23:05 Dose: 30 gm Levalbuterol HCl (Xopenex) 0.63 mg IH [id number] PRN PRN Reason: Shortness of Breath Levalbuterol HCl (Xopenex) 0.63 mg IH [id number] [facility] Last Admin: 11/30/16 15:03 Dose: 0.63 mg Morphine Sulfate (Morphine) 2 mg IVP Q4H PRN PRN Reason: Pain, severe (8-10) Last Admin: 11/30/16 16:32 Dose: 2 mg Pantoprazole Sodium (Protonix Ec Tab) 40 mg PO 0600 [facility] Last Admin: 11/30/16 05:36 Dose: 40 mg Prednisone (Prednisone Tab) 20 mg PO DAILY [facility] Last Admin: 11/30/16 09:15 Dose: 20 mg Warfarin Sodium (Coumadin) 5 mg PO 2000 [facility] PRN Reason: Protocol - Labs Labs: 11/30/16 07:30 11/30/16 07:30 PT 10.3 Seconds (9.9-11.8) 11/30/16 15:55 INR 0.95 (0.93-1.08) 11/30/16 15:55 APTT 22.0 Seconds (23.7-30.8) L 11/30/16 15:55 Attending/Attestation - Attestation I have personally seen and examined this patient.: Yes I have fully participated in the care of the patient.: Yes I have reviewed all pertinent clinical information, including history, physical exam and plan: Yes Notes (Text): I have seen and examined patient with the resident. Agree with the note above with the following additions/ exceptions: Briefly this is 56 year old male with history of recent PE, COPD, compression fracture of lower thoracic spine, and rib fracture at the posterior aspect of the right 8th rib was admitted with chest pain and found to have copd exacerbation. Nuclear stress test showed partially reversible ischemia, anterior, apical and inferior defects and underwent cardiac cath which revealed mild ostial lesion and normal LVF. During hospitalization, his Hb dropped and he required 1 unit of prbc. There was no active bleeding noted. CT abdomen and Pelvis is negative for retro peritoneal bleeding. Patient was started on heparin and coumadin. Eliquis was stopped as there is no reversal agent for eliquis. Management plan was discussed in detail with patient. Upon discharge patient will follow up with PMD of [facility]mas and Dr Watts. Dr Clare Lipscomb
[2016-11-30 22:27] LABS: INR 0.97 (0.93-1.08); PARTIAL THROMBOPLASTIN TIME 30.1 Seconds (23.7-30.8)
[2016-12-01] MEDS: Levalbuterol 0.63 MG/3 ML Inhal Soln UD IH SCH ×4 (02:00→22:00)
[2016-12-01] MEDS: Ipratropium 0.02% Inhal Soln (0.5 mg/2.5 ml) UD IH SCH ×4 (02:00→22:00)
[2016-12-01] MEDS: Morphine 2 mg/ml ISec IVP PRN ×5 (04:52→21:38)
[2016-12-01] MEDS: Pantoprazole 40 mg EC Tab PO SCH (04:59)
--- NOTE | 2016-12-01 06:35 | CP.PCM.PN ---
<ERNIE RAYA - Last Filed: 12/01/16 14:48> Subjective - Date & Time of Evaluation Date of Evaluation: 12/01/16 Time of Evaluation: 10:00 - Subjective Subjective: MEDICINE PROGRESS NOTE: Pt seen and examined at bedside. Pt had no new complaints overnight but he does endorse that his chronic rib pain has not been controlled over the past 24 hours. He states that its painful to take a deep breath. Pt denies any headache , dizziness, fever, chills, shortness of breath, chest pain, abdominal pain, N/V , diarrhea or any urinary symptoms. Objective - Vital Signs/Intake and Output Vital Signs (last 24 hours): Temp Pulse Resp BP Pulse Ox 97.8 F 76 20 106/62 100 12/01/16 05:39 12/01/16 05:39 12/01/16 05:39 12/01/16 05:39 12/01/16 05:39 Intake and Output: 11/30/16 12/01/16 18:59 06:59 Intake Total 960 2000 Output Total 700 3250 Balance 260 -1250 - Medications Medications: Current Medications Aspirin (Aspirin Chewable) 81 mg PO DAILY [facility] Last Admin: 11/28/16 09:29 Dose: Not Given Atorvastatin Calcium (Lipitor) 10 mg PO DIN [facility] Last Admin: 11/30/16 21:37 Dose: 10 mg Sodium Chloride (Sodium Chloride 0.9%) 1,000 mls @ 100 mls/hr IV .Q10H [facility] Last Admin: 11/30/16 23:56 Dose: Not Given Heparin Sodium/Dextrose (Heparin 25,000 Units/250ml In D5w) 25,000 units in 250 mls @ 7.854 mls/hr IV .Q24H PRN; Protocol; 18 UNITS/KG/HR PRN Reason: ADJUST RATE PER PROTOCOL Last Titration: 11/30/16 22:57 Dose: 22 units/kg/hr, 9.6 mls/hr Ipratropium [place] (Atrovent) 0.5 mg IH [id number] [facility] Last Admin: 11/30/16 20:25 Dose: 0.5 mg Ipratropium [place] (Atrovent) 0.5 mg IH [id number] PRN PRN Reason: Shortness of Breath Lactulose (Enulose) 30 gm PO HS [facility] Last Admin: 11/30/16 21:38 Dose: Not Given Levalbuterol HCl (Xopenex) 0.63 mg IH [id number] PRN PRN Reason: Shortness of Breath Levalbuterol HCl (Xopenex) 0.63 mg IH [id number] [facility] Last Admin: 11/30/16 20:25 Dose: 0.63 mg Morphine Sulfate (Morphine) 2 mg IVP Q4H PRN PRN Reason: Pain, severe (8-10) Last Admin: 12/01/16 04:52 Dose: 2 mg Pantoprazole Sodium (Protonix Ec Tab) 40 mg PO 0600 [facility] Last Admin: 12/01/16 04:59 Dose: 40 mg Prednisone (Prednisone Tab) 20 mg PO DAILY [facility] Last Admin: 11/30/16 09:15 Dose: 20 mg Warfarin Sodium (Coumadin) 5 mg PO 2000 [facility] PRN Reason: Protocol Last Admin: 11/30/16 20:36 Dose: 5 mg - Labs Labs: 11/30/16 07:30 11/30/16 07:30 PT 10.5 Seconds (9.9-11.8) 11/30/16 22:05 INR 0.97 (0.93-1.08) 11/30/16 22:05 APTT 30.1 Seconds (23.7-30.8) 11/30/16 22:05 - Constitutional Appears: Non-toxic, No Acute Distress - Head Exam Head Exam: ATRAUMATIC, NORMOCEPHALIC - Eye Exam Eye Exam: EOMI, Normal appearance, PERRL Pupil Exam: NORMAL ACCOMODATION - ENT Exam ENT Exam: Mucous Membranes Moist, Normal Exam - Neck Exam Neck Exam: Full ROM, Normal Inspection. absent: Lymphadenopathy - Respiratory Exam Respiratory Exam: Chest Wall Tenderness, Decreased Breath Sounds, NORMAL BREATHING PATTERN. absent: Rales, Rhonchi, Wheezes, Respiratory Distress - Cardiovascular Exam Cardiovascular Exam: REGULAR RHYTHM, RRR, +S1, +S2. absent: Tachycardia, Murmur - GI/Abdominal Exam GI & Abdominal Exam: Soft, Normal Bowel Sounds. absent: Distended, Firm, Guarding, Tenderness - Exam Exam: absent: Bladder Distension - Extremities Exam Extremities Exam: Normal Capillary Refill, Normal Inspection. absent: Calf Tenderness, Pedal Edema - Back Exam Back Exam: absent: CVA tenderness (L), CVA tenderness (R) - Neurological Exam Neurological Exam: Alert, Awake, Oriented x3 - Psychiatric Exam Psychiatric exam: Normal Affect, Normal Mood - Skin Skin Exam: Dry, Intact, Normal Color, Warm Assessment and Plan - Assessment and Plan (Free Text) Assessment: 56 yo male with a past medical history significant for advanced COPD, thoracolumbar compression fractures, recent rib fracture, and recent PE who was admitted for chest pain. Plan: 1. Angina Pectoris -cardiac cath revealed mild ostial LM lesion but no other significant CAD and normal LV function -EKG showed NSR and nuclear stress test showed anterior, apical and inferior ischemia with an EF of 73% -Serial troponins x3 negative -Cardiology signed off of patient 2. History of PE -Recently diagnosed PE 10/2016 -INR of 1.10 today -continue heparin drip and increase coumadin to 10mg PO; will continue heparin drip until patient has therapeutic INR -discontinue eliquis as there is no reversal agent, per cardiology -will continue to monitor with daily INR's 3. Normocytic Anemia -transfused one unit of pRBC's on 11/28 -CT abd/pelvis showed no abdominal or retroperitoneal hemorrhages -Hb at 9.1 today -Iron studies all WNL -will continue to monitor with daily CBC's 4. Chronic Back pain, Hx of Rib Fracture, Hx of multiple compression fractures -cont morphine 2mg IVP q4h PRN for pain control -cont PT/OT who recommend home upon discharge -attempting to find physician to perform therapeutic subcostal nerve block 5. History of COPD -cont Xopenex 0.63 q6h sarah and Atrovent 0.5 q6h sarah -cont prednisone taper, decreased to prednisone 10mg -cont O2 supplementation, on 3L NC -PFT's pending 6. Constipation -likely narcotic induced -cont colace 100 mg BID 7. GI Prophylaxis -Protonix Patient seen and case discussed in detail with attending, Dr. Clare Lipscomb. <Clare Lipscomb - Last Filed: 12/01/16 16:17> Objective - Vital Signs/Intake and Output Vital Signs (last 24 hours): Temp Pulse Resp BP Pulse Ox 98.3 F 88 20 110/88 100 12/01/16 12:00 12/01/16 12:00 12/01/16 12:00 12/01/16 12:00 12/01/16 05:39 Intake and Output: 12/01/16 12/01/16 06:59 18:59 Intake Total 2900 0 Output Total 4350 Balance -1450 0 - Medications Medications: Current Medications Aspirin (Aspirin Chewable) 81 mg PO DAILY [facility] Last Admin: 11/28/16 09:29 Dose: Not Given Atorvastatin Calcium (Lipitor) 10 mg PO DIN [facility] Last Admin: 11/30/16 21:37 Dose: 10 mg Cholecalciferol (Vitamin D) 6,000 iu PO DAILY [facility] Last Admin: 12/01/16 11:38 Dose: 6,000 iu Sodium Chloride (Sodium Chloride 0.9%) 1,000 mls @ 100 mls/hr IV .Q10H [facility] Last Admin: 12/01/16 08:00 Dose: 100 mls/hr Heparin Sodium/Dextrose (Heparin 25,000 Units/250ml In D5w) 25,000 units in 250 mls @ 7.854 mls/hr IV .Q24H PRN; Protocol; 18 UNITS/KG/HR PRN Reason: ADJUST RATE PER PROTOCOL Last Titration: 12/01/16 09:51 Dose: 19 units/kg/hr, 8.291 mls/hr Ipratropium [place] (Atrovent) 0.5 mg IH [id number] [facility] Last Admin: 12/01/16 14:02 Dose: 0.5 mg Ipratropium [place] (Atrovent) 0.5 mg IH [id number] PRN PRN Reason: Shortness of Breath Lactulose (Enulose) 30 gm PO HS [facility] Last Admin: 11/30/16 21:38 Dose: Not Given Levalbuterol HCl (Xopenex) 0.63 mg IH [id number] PRN PRN Reason: Shortness of Breath Levalbuterol HCl (Xopenex) 0.63 mg IH [id number] [facility] Last Admin: 12/01/16 14:02 Dose: 0.63 mg Morphine Sulfate (Morphine) 2 mg IVP Q4H PRN PRN Reason: Pain, severe (8-10) Last Admin: 12/01/16 13:28 Dose: 2 mg Pantoprazole Sodium (Protonix Ec Tab) 40 mg PO 0600 [facility] Last Admin: 12/01/16 04:59 Dose: 40 mg Prednisone (Prednisone Tab) 10 mg PO DAILY [facility] Tramadol HCl (Ultram) 50 mg PO TID [facility] Last Admin: 12/01/16 14:52 Dose: 50 mg Warfarin Sodium (Coumadin) 10 mg PO 1800 [facility] PRN Reason: Protocol - Labs Labs: 12/01/16 07:30 12/01/16 07:30 PT 12.0 Seconds (9.9-11.8) H 12/01/16 10:26 INR 1.11 (0.93-1.08) H 12/01/16 10:26 APTT 98.4 Seconds (23.7-30.8) H* 12/01/16 07:30 Attending/Attestation - Attestation I have personally seen and examined this patient.: Yes I have fully participated in the care of the patient.: Yes I have reviewed all pertinent clinical information, including history, physical exam and plan: Yes Notes (Text): I have seen and examined patient with the resident. Agree with the note above with the following additions/ exceptions: Briefly this is 56 year old male with history of recent PE, COPD, compression fracture of lower thoracic spine, and rib fracture at the posterior aspect of the right 8th rib was admitted with chest pain and found to have copd exacerbation. Nuclear stress test showed partially reversible ischemia, anterior, apical and inferior defects and underwent cardiac cath which revealed mild ostial lesion and normal LVF. During hospitalization, his Hb dropped and he required 1 unit of prbc. There was no active bleeding noted. CT abdomen and Pelvis is negative for retro peritoneal bleeding. Patient was started on heparin and coumadin. INR is subtherapeutic. Increase INR to 10 mg daily. Eliquis was stopped as there is no reversal agent for eliquis. Patient still complains of pain in right 8th rib. Awaiting call back from Dr Watts. Management plan was discussed in detail with patient. Upon discharge patient will follow up with PMD of choice and Dr Watts. Dr Clare Lipscomb
[2016-12-01] MEDS: Sodium Chloride 0.9% 1,000 ML IV SCH ×2 (08:00→17:45)
[2016-12-01 08:12] LABS: ADD MANUAL DIFF? NO
[2016-12-01 08:15] LABS: BASO # 0.01 K/mm3 (0.0-2.0); BASO % 0.1 % (0.0-3.0); EOS # 0.2 (0.0-0.7); EOS % 1.3 % (1.5-5.0); GRAN # 6.91 (1.4-6.5); GRAN % 55.5 % (50.0-68.0); HEMATOCRIT 27.8 % (42.0-52.0); LYMPH # 3.8 (1.2-3.4); LYMPH % 30.3 % (22.0-35.0); MEAN CELL VOLUME 95.5 fl (80.0-105.0); MEAN CORPUSCULAR HEMOGLOBIN 31.3 pg (25.0-35.0); MEAN CORPUSCULAR HGB CONC 32.7 g/dl (31.0-37.0); MEAN PLATELET VOLUME 8.7 fl (7.0-11.0); MONO # 1.6 (0.1-0.6); MONO % 12.8 % (1.0-6.0); PLATELET COUNT 305 10^3/uL (120.0-450.0); RED CELL DISTRIBUTION WIDTH 14.6 % (11.5-14.5); WHITE BLOOD COUNT 12.4 10^3/ul (4.5-11.0)
[2016-12-01 08:26] LABS: ALB/GLOB RATIO 1.5 (1.1-1.8); ALKALINE PHOSPHATASE 94 U/L (38-133); ALT/SGPT 46 U/L (7-56); AST/SGOT 31 U/L (15-59); BILIRUBIN,TOTAL 0.3 mg/dL (0.2-1.3); BLOOD UREA NITROGEN 6 mg/dL (7-21); CALCIUM 8.1 mg/dL (8.4-10.5); CARBON DIOXIDE 33 mmol/L (21-33); CHLORIDE 102 mmol/L (95-110); GFR AFRICAN-AMERICAN > 60; GLUCOSE,RANDOM 84 mg/dL (70-110); SODIUM 139 mmol/L (132-148); TOTAL PROTEIN 4.6 g/dL (5.8-8.3)
[2016-12-01 10:50] LABS: INR 1.11 (0.93-1.08)
[2016-12-01] MEDS: Heparin 25,000units in D5W 25,000 UNITS/250 ML BAG IV PRN (18:06)
[2016-12-02] MEDS: Morphine 2 mg/ml ISec IVP PRN ×4 (01:45→21:03)
[2016-12-02] MEDS: Ipratropium 0.02% Inhal Soln (0.5 mg/2.5 ml) UD IH SCH ×4 (03:00→20:34)
[2016-12-02] MEDS: Pantoprazole 40 mg EC Tab PO SCH (05:38)
[2016-12-02 06:57] LABS: ADD MANUAL DIFF? NO
[2016-12-02 07:10] LABS: BASO # 0.02 K/mm3 (0.0-2.0); BASO % 0.2 % (0.0-3.0); EOS # 0.1 (0.0-0.7); EOS % 1.1 % (1.5-5.0); GRAN # 6.94 (1.4-6.5); GRAN % 57.1 % (50.0-68.0); HEMATOCRIT 26.7 % (42.0-52.0); LYMPH # 3.8 (1.2-3.4); LYMPH % 31.1 % (22.0-35.0); MEAN CORPUSCULAR HGB CONC 32.6 g/dl (31.0-37.0); MEAN PLATELET VOLUME 8.8 fl (7.0-11.0); MONO # 1.3 (0.1-0.6); MONO % 10.5 % (1.0-6.0); PLATELET COUNT 339 10^3/uL (120.0-450.0); RED CELL DISTRIBUTION WIDTH 14.6 % (11.5-14.5); WHITE BLOOD COUNT 12.1 10^3/ul (4.5-11.0)
[2016-12-02 07:12] LABS: ALB/GLOB RATIO 1.5 (1.1-1.8); ALKALINE PHOSPHATASE 92 U/L (38-133); ALT/SGPT 44 U/L (7-56); AST/SGOT 26 U/L (15-59); BILIRUBIN,TOTAL 0.2 mg/dL (0.2-1.3); BLOOD UREA NITROGEN 9 mg/dL (7-21); CALCIUM 8.3 mg/dL (8.4-10.5); CARBON DIOXIDE 34 mmol/L (21-33); CHLORIDE 99 mmol/L (98-107); GFR AFRICAN-AMERICAN > 60; GLUCOSE,RANDOM 78 mg/dL (70-110); SODIUM 137 mmol/L (132-148); TOTAL PROTEIN 4.5 g/dL (5.8-8.3)
[2016-12-02] MEDS: Levalbuterol 0.63 MG/3 ML Inhal Soln UD IH SCH ×3 (08:44→20:34)
[2016-12-02] MEDS ORDERED: Morphine 2 mg/ml ISec IVP PRN (15:11)
--- NOTE | 2016-12-02 16:04 | CP.PCM.PN ---
Addendum entered and electronically signed by ERNIE RAYA DO 12/02/16 16:15 : Will continue patient on 10mg coumadin daily and upon discharge adjust this dosage to 5mg coumadin daily Original Note: <ERNIE RAYA - Last Filed: 12/02/16 16:00> Subjective - Date & Time of Evaluation Date of Evaluation: 12/02/16 Time of Evaluation: 16:03 - Subjective Subjective: MEDICINE PROGRESS NOTE: Pt seen and examined at bedside. Pt had no new complaints overnight but he does continue to report that his chronic rib pain has not been controlled and that its still painful to take a deep breath. Pt denies any headache, dizziness, fever, chills, shortness of breath, chest pain, abdominal pain, N/V, diarrhea or any urinary symptoms. Objective - Vital Signs/Intake and Output Vital Signs (last 24 hours): Temp Pulse Resp BP Pulse Ox 97.6 F 88 20 129/76 96 12/02/16 08:00 12/02/16 08:00 12/02/16 08:00 12/02/16 08:00 12/02/16 08:00 Intake and Output: 12/02/16 12/02/16 06:59 18:59 Intake Total 2661 Output Total 1150 Balance 1511 - Medications Medications: Current Medications Aspirin (Aspirin Chewable) 81 mg PO DAILY [facility] Last Admin: 11/28/16 09:29 Dose: Not Given Atorvastatin Calcium (Lipitor) 10 mg PO DIN [facility] Last Admin: 12/01/16 18:15 Dose: 10 mg Cholecalciferol (Vitamin D) 6,000 iu PO DAILY [facility] Last Admin: 12/02/16 09:27 Dose: 6,000 iu Sodium Chloride (Sodium Chloride 0.9%) 1,000 mls @ 100 mls/hr IV .Q10H [facility] Last Admin: 12/01/16 17:45 Dose: 100 mls/hr Heparin Sodium/Dextrose (Heparin 25,000 Units/250ml In D5w) 25,000 units in 250 mls @ 7.854 mls/hr IV .Q24H PRN; Protocol; 18 UNITS/KG/HR PRN Reason: ADJUST RATE PER PROTOCOL Last Admin: 12/01/16 18:06 Dose: 21 units/kg/hr, 9.164 mls/hr Ipratropium [place] (Atrovent) 0.5 mg IH [id number] [facility] Last Admin: 12/02/16 13:20 Dose: 0.5 mg Ipratropium [place] (Atrovent) 0.5 mg IH [id number] PRN PRN Reason: Shortness of Breath Lactulose (Enulose) 30 gm PO HS [facility] Last Admin: 12/01/16 21:37 Dose: Not Given Levalbuterol HCl (Xopenex) 0.63 mg IH [id number] PRN PRN Reason: Shortness of Breath Levalbuterol HCl (Xopenex) 0.63 mg IH [id number] [facility] Last Admin: 12/02/16 13:21 Dose: 0.63 mg Morphine Sulfate (Morphine) 2 mg IVP Q4H PRN PRN Reason: Pain, moderate (4-7) Pantoprazole Sodium (Protonix Ec Tab) 40 mg PO 0600 [facility] Last Admin: 12/02/16 05:38 Dose: 40 mg Prednisone (Prednisone Tab) 10 mg PO DAILY [facility] Last Admin: 12/02/16 09:27 Dose: 10 mg Tramadol HCl (Ultram) 50 mg PO TID [facility] Last Admin: 12/02/16 14:34 Dose: 50 mg Warfarin Sodium (Coumadin) 10 mg PO 1800 [facility] PRN Reason: Protocol Last Admin: 12/01/16 18:15 Dose: 10 mg - Labs Labs: 12/02/16 06:30 12/02/16 06:30 PT 21.6 Seconds (9.9-11.8) H 12/02/16 06:30 INR 2.00 (0.93-1.08) H 12/02/16 06:30 APTT 72.0 Seconds (23.7-30.8) H* 12/02/16 06:30 - Constitutional Appears: Non-toxic, No Acute Distress - Head Exam Head Exam: ATRAUMATIC, NORMOCEPHALIC - Eye Exam Eye Exam: EOMI, Normal appearance, PERRL Pupil Exam: NORMAL ACCOMODATION - ENT Exam ENT Exam: Mucous Membranes Moist, Normal Exam - Neck Exam Neck Exam: Full ROM, Normal Inspection. absent: Lymphadenopathy - Respiratory Exam Respiratory Exam: Clear to Ausculation Bilateral, NORMAL BREATHING PATTERN. absent: Rales, Rhonchi, Wheezes, Respiratory Distress, Stridor - Cardiovascular Exam Cardiovascular Exam: REGULAR RHYTHM, RRR. absent: Tachycardia, +S1, +S2, Murmur - GI/Abdominal Exam GI & Abdominal Exam: Soft, Normal Bowel Sounds. absent: Distended, Firm, Guarding, Tenderness - Exam Exam: absent: Bladder Distension - Extremities Exam Extremities Exam: Normal Capillary Refill, Normal Inspection. absent: Calf Tenderness, Pedal Edema - Back Exam Back Exam: absent: CVA tenderness (L), CVA tenderness (R) - Neurological Exam Neurological Exam: Alert, Awake, Oriented x3 - Psychiatric Exam Psychiatric exam: Normal Affect, Normal Mood - Skin Skin Exam: Dry, Intact, Normal Color, Warm Assessment and Plan - Assessment and Plan (Free Text) Assessment: 56 yo male with a past medical history significant for advanced COPD, thoracolumbar compression fractures, recent rib fracture, and recent PE who was admitted for chest pain. Plan: 1. Angina Pectoris -cardiac cath revealed mild ostial LM lesion but no other significant CAD and normal LV function -EKG showed NSR and nuclear stress test showed anterior, apical and inferior ischemia with an EF of 73% -Serial troponins x3 negative -Cardiology signed off of patient 2. History of PE -Recently diagnosed PE 10/2016 -INR of 2.00 today -discontinued heparin drip and started patient on 5mg coumadin -will continue to monitor with daily INR's 3. Chronic Back pain, Hx of Rib Fracture, Hx of multiple compression fractures -cont morphine 2mg IVP q4h PRN for pain control -cont PT/OT who recommend [facility] or [facility] upon discharge -[facility] surrently working on setting up [facility], as patient was denied acceptance to [facility] -will recommend pain management follow up upon discharge 4. Normocytic Anemia -transfused one unit of pRBC's on 11/28 -CT abd/pelvis showed no abdominal or retroperitoneal hemorrhages -Hb at 8.7 today -Iron studies all WNL -will continue to monitor with daily CBC's 5. History of COPD -cont Xopenex 0.63 q6h sarah and Atrovent 0.5 q6h sarah -cont prednisone taper, decreased to prednisone 10mg -cont O2 supplementation, on 3L NC -PFT's pending 6. Constipation -likely narcotic induced -cont colace 100 mg BID 7. GI Prophylaxis -Protonix Patient seen and case discussed in detail with attending, Dr. Clare Lipscomb. <Clare Lipscomb B - Last Filed: 12/02/16 16:52> Objective - Vital Signs/Intake and Output Vital Signs (last 24 hours): Temp Pulse Resp BP Pulse Ox 97.8 F 97 H 20 118/73 99 12/02/16 16:00 12/02/16 16:00 12/02/16 16:00 12/02/16 16:00 12/02/16 16:00 Intake and Output: 12/02/16 12/02/16 06:59 18:59 Intake Total 2661 Output Total 1150 Balance 1511 - Medications Medications: Current Medications Aspirin (Aspirin Chewable) 81 mg PO DAILY [facility] Last Admin: 11/28/16 09:29 Dose: Not Given Atorvastatin Calcium (Lipitor) 10 mg PO DIN [facility] Last Admin: 12/01/16 18:15 Dose: 10 mg Cholecalciferol (Vitamin D) 6,000 iu PO DAILY [facility] Last Admin: 12/02/16 09:27 Dose: 6,000 iu Sodium Chloride (Sodium Chloride 0.9%) 1,000 mls @ 100 mls/hr IV .Q10H [facility] Last Admin: 12/01/16 17:45 Dose: 100 mls/hr Ipratropium [place] (Atrovent) 0.5 mg IH [id number] [facility] Last Admin: 12/02/16 13:20 Dose: 0.5 mg Ipratropium [place] (Atrovent) 0.5 mg IH [id number] PRN PRN Reason: Shortness of Breath Lactulose (Enulose) 30 gm PO HS [facility] Last Admin: 12/01/16 21:37 Dose: Not Given Levalbuterol HCl (Xopenex) 0.63 mg IH [id number] PRN PRN Reason: Shortness of Breath Levalbuterol HCl (Xopenex) 0.63 mg IH [id number] [facility] Last Admin: 12/02/16 13:21 Dose: 0.63 mg Morphine Sulfate (Morphine) 2 mg IVP Q4H PRN PRN Reason: Pain, moderate (4-7) Last Admin: 12/02/16 16:27 Dose: 2 mg Pantoprazole Sodium (Protonix Ec Tab) 40 mg PO 0600 [facility] Last Admin: 12/02/16 05:38 Dose: 40 mg Prednisone (Prednisone Tab) 10 mg PO DAILY [facility] Last Admin: 12/02/16 09:27 Dose: 10 mg Tramadol HCl (Ultram) 50 mg PO TID [facility] Last Admin: 12/02/16 14:34 Dose: 50 mg Warfarin Sodium (Coumadin) 10 mg PO 1800 [facility] PRN Reason: Protocol Last Admin: 12/01/16 18:15 Dose: 10 mg - Labs Labs: 12/02/16 06:30 12/02/16 06:30 PT 21.6 Seconds (9.9-11.8) H 12/02/16 06:30 INR 2.00 (0.93-1.08) H 12/02/16 06:30 APTT 72.0 Seconds (23.7-30.8) H* 12/02/16 06:30 Attending/Attestation - Attestation I have personally seen and examined this patient.: Yes I have fully participated in the care of the patient.: Yes I have reviewed all pertinent clinical information, including history, physical exam and plan: Yes Notes (Text): I have seen and examined patient with the resident. Agree with the note above with the following additions/ exceptions: Briefly this is 56 year old male with history of recent PE, COPD, compression fracture of lower thoracic spine, and rib fracture at the posterior aspect of the right 8th rib was admitted with chest pain and found to have mild copd exacerbation which has resolved now. Nuclear stress test showed partially reversible ischemia, anterior, apical and inferior defects and underwent cardiac cath which revealed mild ostial lesion and normal LVF. During hospitalization, his Hb dropped and he required 1 unit of prbc. There was no active bleeding noted. CT abdomen and Pelvis is negative for retro peritoneal bleeding. Patient was started on heparin and coumadin. INR is therapeutic today. Will stop heparin today. PT recommeded [facility]. CM are working on that. Upon discharge patient will follow up with PMD of [facility]mas and Dr Watts. Dr Clare Lipscomb
[2016-12-02] MEDS ORDERED: Heparin 25,000units in D5W 25,000 UNITS/250 ML BAG IV PRN ×2 (17:02→19:36)
[2016-12-03] MEDS: Morphine 2 mg/ml ISec IVP PRN ×6 (00:30→20:36)
[2016-12-03] MEDS: Ipratropium 0.02% Inhal Soln (0.5 mg/2.5 ml) UD IH SCH ×4 (01:27→19:22)
[2016-12-03] MEDS: Pantoprazole 40 mg EC Tab PO SCH (05:22)
[2016-12-03] MEDS: Levalbuterol 0.63 MG/3 ML Inhal Soln UD IH SCH ×3 (08:36→19:22)
[2016-12-03 11:21] LABS: PARTIAL THROMBOPLASTIN TIME 64.6 Seconds (23.7-30.8)
[2016-12-03 11:22] LABS: INR 5.11 (0.93-1.08)
[2016-12-03] MEDS: Sodium Chloride 0.9% 1,000 ML IV SCH (12:36)
--- NOTE | 2016-12-03 22:48 | CP.PCM.PN ---
<ERNIE RAYA - Last Filed: 12/03/16 22:42> Subjective - Date & Time of Evaluation Date of Evaluation: 12/03/16 Time of Evaluation: 22:42 - Subjective Subjective: MEDICINE PROGRESS NOTE: Pt seen and examined at bedside. Pt had no new complaints and reports no acute events overnight. Pt denies any headache, dizziness, fever, chills, shortness of breath, chest pain, abdominal pain, N/V, diarrhea or any urinary symptoms. Objective - Vital Signs/Intake and Output Vital Signs (last 24 hours): Temp Pulse Resp BP Pulse Ox 97.8 F 95 H 20 106/72 95 12/03/16 16:28 12/03/16 16:28 12/03/16 16:28 12/03/16 16:28 12/03/16 16:28 Intake and Output: 12/03/16 12/04/16 18:59 06:59 Intake Total 540 780 Output Total 1300 1800 Balance -760 -1020 - Medications Medications: Current Medications Aspirin (Aspirin Chewable) 81 mg PO DAILY [facility] Last Admin: 11/28/16 09:29 Dose: Not Given Atorvastatin Calcium (Lipitor) 10 mg PO DIN [facility] Last Admin: 12/03/16 17:56 Dose: 10 mg Cholecalciferol (Vitamin D) 6,000 iu PO DAILY [facility] Last Admin: 12/03/16 09:54 Dose: 6,000 iu Sodium Chloride (Sodium Chloride 0.9%) 1,000 mls @ 100 mls/hr IV .Q10H [facility] Last Admin: 12/03/16 12:36 Dose: 100 mls/hr Ipratropium [place] (Atrovent) 0.5 mg IH [id number] [facility] Last Admin: 12/03/16 19:22 Dose: 0.5 mg Ipratropium [place] (Atrovent) 0.5 mg IH [id number] PRN PRN Reason: Shortness of Breath Lactulose (Enulose) 30 gm PO HS [facility] Last Admin: 12/03/16 21:03 Dose: 30 gm Levalbuterol HCl (Xopenex) 0.63 mg IH [id number] PRN PRN Reason: Shortness of Breath Levalbuterol HCl (Xopenex) 0.63 mg IH [id number] [facility] Last Admin: 12/03/16 19:22 Dose: 0.63 mg Morphine Sulfate (Morphine) 1 mg IVP Q4H PRN PRN Reason: Pain, moderate (4-7) Last Admin: 12/03/16 20:36 Dose: 1 mg Pantoprazole Sodium (Protonix Ec Tab) 40 mg PO 0600 [facility] Last Admin: 12/03/16 05:22 Dose: 40 mg Prednisone (Prednisone Tab) 10 mg PO DAILY [facility] Last Admin: 12/03/16 09:55 Dose: 10 mg Tramadol HCl (Ultram) 50 mg PO TID [facility] Last Admin: 12/03/16 17:56 Dose: 50 mg Warfarin Sodium (Coumadin) 10 mg PO 1800 [facility] PRN Reason: Protocol Last Admin: 12/02/16 18:33 Dose: 10 mg - Labs Labs: 12/02/16 06:30 12/02/16 06:30 PT 55.2 Seconds (9.9-11.8) H* 12/03/16 11:02 INR 5.11 (0.93-1.08) H* 12/03/16 11:02 APTT 64.6 Seconds (23.7-30.8) H 12/03/16 11:02 - Constitutional Appears: Non-toxic, No Acute Distress - Head Exam Head Exam: ATRAUMATIC, NORMOCEPHALIC - Eye Exam Eye Exam: EOMI, Normal appearance, PERRL - ENT Exam ENT Exam: Mucous Membranes Moist, Normal Exam - Neck Exam Neck Exam: Full ROM, Normal Inspection. absent: Lymphadenopathy - Respiratory Exam Respiratory Exam: Chest Wall Tenderness, Clear to Ausculation Bilateral, NORMAL BREATHING PATTERN. absent: Rales, Rhonchi, Wheezes - Cardiovascular Exam Cardiovascular Exam: REGULAR RHYTHM, RRR, +S1, +S2. absent: Murmur - GI/Abdominal Exam GI & Abdominal Exam: Soft, Normal Bowel Sounds. absent: Distended, Firm, Guarding, Tenderness - Exam Exam: absent: Bladder Distension - Extremities Exam Extremities Exam: absent: Calf Tenderness, Pedal Edema - Back Exam Back Exam: paraspinal tenderness, vertebral tenderness - Neurological Exam Neurological Exam: Alert, Awake, Oriented x3 - Psychiatric Exam Psychiatric exam: Normal Affect, Normal Mood - Skin Skin Exam: Dry, Intact, Normal Color, Warm Assessment and Plan - Assessment and Plan (Free Text) Assessment: 56 yo male with a past medical history significant for advanced COPD, thoracolumbar compression fractures, recent rib fracture, and recent PE who was admitted for chest pain. Plan: 1. Angina Pectoris -cardiac cath revealed mild ostial LM lesion but no other significant CAD and normal LV function -EKG showed NSR and nuclear stress test showed anterior, apical and inferior ischemia with an EF of 73% -Serial troponins x3 negative -Cardiology signed off of patient 2. History of PE -Recently diagnosed PE 10/2016 -INR of 5.11 today; previously at 2.00 on 12/02 -discontinued coumadin 10mg and given 5mg Vitamin K -discontinued heparin drip -will continue to monitor with daily INR's -plan to discharge patient home on 5mg coumadin daily when INR reaches therapeutic level 3. Chronic Back pain, Hx of Rib Fracture, Hx of multiple compression fractures -cont morphine 2mg IVP q4h PRN for pain control -cont PT/OT who recommend [facility] or [facility] upon discharge -[facility] surrently working on setting up [facility], as patient was denied acceptance to [facility] -will recommend pain management follow up upon discharge 4. Normocytic Anemia -transfused one unit of pRBC's on 11/28 -CT abd/pelvis showed no abdominal or retroperitoneal hemorrhages -patient refused labs on 12/03 -Iron studies all WNL -will continue to monitor with daily CBC's 5. History of COPD -cont Xopenex 0.63 q6h sarah and Atrovent 0.5 q6h sarah -cont prednisone 10mg, will taper to 5mg prednisone daily on 12/04 -cont O2 supplementation, on 3L NC -PFT's pending 6. Constipation -likely narcotic induced -cont colace 100 mg BID 7. GI Prophylaxis -Protonix Patient seen and case discussed in detail with attending, Dr. Clare Lipscomb. <Clare Lipscomb - Last Filed: 12/04/16 15:16> Objective - Vital Signs/Intake and Output Vital Signs (last 24 hours): Temp Pulse Resp BP Pulse Ox 98.0 F 84 20 114/81 100 12/04/16 08:09 12/04/16 08:09 12/04/16 08:09 12/04/16 08:09 12/04/16 08:09 Intake and Output: 12/04/16 12/04/16 06:59 18:59 Intake Total 1980 360 Output Total 1800 1260 Balance 180 -900 - Medications Medications: Current Medications Aspirin (Aspirin Chewable) 81 mg PO DAILY [facility] Last Admin: 11/28/16 09:29 Dose: Not Given Atorvastatin Calcium (Lipitor) 10 mg PO DIN [facility] Last Admin: 12/03/16 17:56 Dose: 10 mg Cholecalciferol (Vitamin D) 6,000 iu PO DAILY [facility] Last Admin: 12/04/16 11:08 Dose: 6,000 iu Sodium Chloride (Sodium Chloride 0.9%) 1,000 mls @ 100 mls/hr IV .Q10H [facility] Last Admin: 12/03/16 12:36 Dose: 100 mls/hr Heparin Sodium/Dextrose (Heparin 25,000 Units/250ml In D5w) 25,000 units in 250 mls @ 8.018 mls/hr IV .Q24H PRN; Protocol; 18 UNITS/KG/HR PRN Reason: ADJUST RATE PER PROTOCOL Ipratropium [place] (Atrovent) 0.5 mg IH [id number] [facility] Last Admin: 12/04/16 13:45 Dose: 0.5 mg Ipratropium [place] (Atrovent) 0.5 mg IH [id number] PRN PRN Reason: Shortness of Breath Lactulose (Enulose) 30 gm PO HS [facility] Last Admin: 12/03/16 21:03 Dose: 30 gm Levalbuterol HCl (Xopenex) 0.63 mg IH [id number] PRN PRN Reason: Shortness of Breath Levalbuterol HCl (Xopenex) 0.63 mg IH [id number] [facility] Last Admin: 12/04/16 13:47 Dose: 0.63 mg Morphine Sulfate (Morphine) 1 mg IVP Q4H PRN PRN Reason: Pain, moderate (4-7) Last Admin: 12/04/16 13:55 Dose: 1 mg Pantoprazole Sodium (Protonix Ec Tab) 40 mg PO 0600 [facility] Last Admin: 12/04/16 05:20 Dose: 40 mg Prednisone (Prednisone Tab) 5 mg PO DAILY [facility] Tramadol HCl (Ultram) 50 mg PO TID [facility] Last Admin: 12/04/16 09:09 Dose: 50 mg Warfarin Sodium (Coumadin) 5 mg PO 1800 [facility] PRN Reason: Protocol - Labs Labs: 12/04/16 07:30 08/19/17 07:30 PT 14.0 Seconds (9.9-11.8) H 12/04/16 07:30 INR 1.30 (0.93-1.08) H 12/04/16 07:30 APTT 64.6 Seconds (23.7-30.8) H 12/03/16 11:02 Attending/Attestation - Attestation I have personally seen and examined this patient.: Yes I have fully participated in the care of the patient.: Yes I have reviewed all pertinent clinical information, including history, physical exam and plan: Yes Notes (Text): I have seen and examined patient with the resident. Agree with the note above with the following additions/ exceptions: Briefly this is 56 year old male with history of recent PE, COPD, compression fracture of lower thoracic spine, and rib fracture at the posterior aspect of the right 8th rib was admitted with chest pain and found to have mild copd exacerbation which has resolved now. Nuclear stress test showed partially reversible ischemia, anterior, apical and inferior defects and underwent cardiac cath which revealed mild ostial lesion and normal LVF. During hospitalization, his Hb dropped and he required 1 unit of prbc. There was no active bleeding noted. CT abdomen and Pelvis is negative for retro peritoneal bleeding. Patient's INR is supratehrapeutic today. Will stop coumadin. PT recommeded [facility] vs [facility]. CM are trying to arrange for [facility] placement.. Upon discharge patient will follow up with PMD of choice and Dr Watts. Dr Clare Lipscomb
[2016-12-04] MEDS: Ipratropium 0.02% Inhal Soln (0.5 mg/2.5 ml) UD IH SCH ×4 (01:00→20:50)
[2016-12-04] MEDS: Levalbuterol 0.63 MG/3 ML Inhal Soln UD IH SCH ×4 (01:00→20:50)
[2016-12-04] MEDS: Morphine 2 mg/ml ISec IVP PRN ×6 (01:18→22:31)
[2016-12-04] MEDS: Pantoprazole 40 mg EC Tab PO SCH (05:20)
[2016-12-04 08:37] LABS: BASO # 0.01 K/mm3 (0.0-2.0); BASO % 0.1 % (0.0-3.0); EOS # 0.2 (0.0-0.7); EOS % 1.7 % (1.5-5.0); GRAN # 7.38 (1.4-6.5); GRAN % 58.7 % (50.0-68.0); HEMATOCRIT 33.2 % (42.0-52.0); LYMPH # 3.7 (1.2-3.4); LYMPH % 29.1 % (22.0-35.0); MEAN CELL VOLUME 97.6 fl (80.0-105.0); MEAN CORPUSCULAR HEMOGLOBIN 31.5 pg (25.0-35.0); MEAN CORPUSCULAR HGB CONC 32.2 g/dl (31.0-37.0); MEAN PLATELET VOLUME 8.5 fl (7.0-11.0); MONO # 1.3 (0.1-0.6); MONO % 10.4 % (1.0-6.0); RED CELL DISTRIBUTION WIDTH 14.7 % (11.5-14.5); WHITE BLOOD COUNT 12.6 10^3/ul (4.5-11.0)
[2016-12-04 08:42] LABS: INR 1.3 (0.93-1.08)
[2016-12-04 08:49] LABS: ALB/GLOB RATIO 1.6 (1.1-1.8); ALKALINE PHOSPHATASE 110 U/L (38-133); ALT/SGPT 50 U/L (7-56); AST/SGOT 31 U/L (15-59); BILIRUBIN,TOTAL 0.2 mg/dL (0.2-1.3); BLOOD UREA NITROGEN 8 mg/dL (7-21); CALCIUM 8.9 mg/dL (8.4-10.5); CARBON DIOXIDE 32 mmol/L (21-33); CHLORIDE 99 mmol/L (98-107); GFR AFRICAN-AMERICAN > 60; GLUCOSE,RANDOM 108 mg/dL (70-110); POTASSIUM 3.9 mmol/L (3.6-5.0); SODIUM 139 mmol/L (132-148); TOTAL PROTEIN 5.8 g/dL (5.8-8.3)
[2016-12-04] MEDS ORDERED: Heparin 25,000units in D5W 25,000 UNITS/250 ML BAG IV PRN (11:17)
--- NOTE | 2016-12-04 11:26 | CP.PCM.PN ---
<ERNIE RAYA - Last Filed: 12/04/16 11:23> Subjective - Date & Time of Evaluation Date of Evaluation: 12/04/16 Time of Evaluation: 11:23 - Subjective Subjective: MEDICINE PROGRESS NOTE: Pt seen and examined at bedside. Pt had no new complaints and reports only one episode of his chronic back pain overnight requiring pain medication. Pt reports that he is using his IS. Pt denies any headache, dizziness, fever, chills, shortness of breath, chest pain, abdominal pain, N/V, diarrhea or any urinary symptoms. Objective - Vital Signs/Intake and Output Vital Signs (last 24 hours): Temp Pulse Resp BP Pulse Ox 98.0 F 84 20 114/81 100 12/04/16 08:09 12/04/16 08:09 12/04/16 08:09 12/04/16 08:09 12/04/16 08:09 Intake and Output: 12/04/16 12/04/16 06:59 18:59 Intake Total 1980 Output Total 1800 Balance 180 - Medications Medications: Current Medications Aspirin (Aspirin Chewable) 81 mg PO DAILY [facility] Last Admin: 11/28/16 09:29 Dose: Not Given Atorvastatin Calcium (Lipitor) 10 mg PO DIN [facility] Last Admin: 12/03/16 17:56 Dose: 10 mg Cholecalciferol (Vitamin D) 6,000 iu PO DAILY [facility] Last Admin: 12/04/16 11:08 Dose: 6,000 iu Sodium Chloride (Sodium Chloride 0.9%) 1,000 mls @ 100 mls/hr IV .Q10H [facility] Last Admin: 12/03/16 12:36 Dose: 100 mls/hr Heparin Sodium/Dextrose (Heparin 25,000 Units/250ml In D5w) 25,000 units in 250 mls @ 8.018 mls/hr IV .Q24H PRN; Protocol; 18 UNITS/KG/HR PRN Reason: ADJUST RATE PER PROTOCOL Ipratropium Uledi (Atrovent) 0.5 mg IH [id number] [facility] Last Admin: 12/04/16 07:34 Dose: 0.5 mg Ipratropium Uledi (Atrovent) 0.5 mg IH [id number] PRN PRN Reason: Shortness of Breath Lactulose (Enulose) 30 gm PO [facility] Last Admin: 12/03/16 21:03 Dose: 30 gm Levalbuterol HCl (Xopenex) 0.63 mg IH [id number] PRN PRN Reason: Shortness of Breath Levalbuterol HCl (Xopenex) 0.63 mg IH [id number] [facility] Last Admin: 12/04/16 07:33 Dose: 0.63 mg Morphine Sulfate (Morphine) 1 mg IVP Q4H PRN PRN Reason: Pain, moderate (4-7) Last Admin: 12/04/16 09:14 Dose: 1 mg Pantoprazole Sodium (Protonix Ec Tab) 40 mg PO 0600 [facility] Last Admin: 12/04/16 05:20 Dose: 40 mg Prednisone (Prednisone Tab) 10 mg PO DAILY [facility] Last Admin: 12/04/16 09:09 Dose: 10 mg Tramadol HCl (Ultram) 50 mg PO TID [facility] Last Admin: 12/04/16 09:09 Dose: 50 mg Warfarin Sodium (Coumadin) 5 mg PO 1800 [facility] PRN Reason: Protocol - Labs Labs: 12/04/16 07:30 12/04/16 07:30 PT 14.0 Seconds (9.9-11.8) H 12/04/16 07:30 INR 1.30 (0.93-1.08) H 12/04/16 07:30 APTT 64.6 Seconds (23.7-30.8) H 12/03/16 11:02 - Constitutional Appears: No Acute Distress, Older Than Stated Age - Head Exam Head Exam: ATRAUMATIC, NORMOCEPHALIC - Eye Exam Eye Exam: EOMI, Normal appearance - ENT Exam ENT Exam: Mucous Membranes Moist, Normal Exam - Neck Exam Neck Exam: Full ROM. absent: Lymphadenopathy - Respiratory Exam Respiratory Exam: Chest Wall Tenderness, Clear to Ausculation Bilateral, NORMAL BREATHING PATTERN. absent: Rales, Rhonchi, Wheezes, Respiratory Distress Additional comments: TTP to right lower anterior ribs over location of previous fracture - Cardiovascular Exam Cardiovascular Exam: REGULAR RHYTHM, RRR, +S1, +S2. absent: Tachycardia - GI/Abdominal Exam GI & Abdominal Exam: Soft, Normal Bowel Sounds. absent: Distended, Firm, Guarding, Rigid, Tenderness - Exam Exam: absent: Bladder Distension - Extremities Exam Extremities Exam: Normal Capillary Refill. absent: Calf Tenderness, Pedal Edema - Back Exam Back Exam: paraspinal tenderness, tenderness. absent: CVA tenderness (L), CVA tenderness (R) Additional comments: TTP over thoracolumbar junction and upper lumbar paraspinal and vertebral bodies - Neurological Exam Neurological Exam: Alert, Awake, Oriented x3 - Psychiatric Exam Psychiatric exam: Normal Affect, Normal Mood - Skin Skin Exam: Dry, Intact, Normal Color, Warm Assessment and Plan - Assessment and Plan (Free Text) Assessment: 56 yo male with a past medical history significant for advanced COPD, thoracolumbar compression fractures, recent rib fracture, and recent PE who was admitted for chest pain. Plan: 1. Angina Pectoris -cardiac cath revealed mild ostial LM lesion but no other significant CAD and normal LV function -EKG showed NSR and nuclear stress test showed anterior, apical and inferior ischemia with an EF of 73% -Serial troponins x3 negative -Cardiology signed off of patient 2. History of PE -Recently diagnosed PE 10/2016 -INR of 1.30 today; previously at 5.11 on 12/03 -restarted heparin drip on DVT/VTE protocols, will discontinue when INR becomes therapeutic -started coumadin 5mg PO QD -will continue to monitor with daily INR's -plan to discharge patient home on 5mg coumadin daily when INR reaches therapeutic level 3. Chronic Back pain, Hx of Rib Fracture, Hx of multiple compression fractures -cont morphine 2mg IVP q4h PRN for pain control -cont PT/OT who recommend HWS or [facility]/TCU upon discharge -RY/LIYAH surrently working on setting up HWS, as patient was denied acceptance to [facility] by his insurance company -will recommend pain management follow up upon discharge 4. Normocytic Anemia -transfused one unit of pRBC's on 11/28 -CT abd/pelvis showed no abdominal or retroperitoneal hemorrhages -H/H at 10.7/33.2 on 12/04 -Iron studies all WNL -will continue to monitor with daily CBC's 5. History of COPD -cont Xopenex 0.63 q6h sarah and Atrovent 0.5 q6h sarah -tapered prednisone from 10mg to 5mg PO QD, will continue to taper as clinically appropriate -cont O2 supplementation, on 3L NC -PFT's pending 6. Constipation -likely narcotic induced -cont colace 100 mg BID 7. GI Prophylaxis -Protonix Patient seen and case discussed in detail with attending, Dr. Clare Lipscomb. <Clare Lipscomb B - Last Filed: 12/04/16 15:29> Objective - Vital Signs/Intake and Output Vital Signs (last 24 hours): Temp Pulse Resp BP Pulse Ox 98.0 F 84 20 114/81 100 12/04/16 08:09 12/04/16 08:09 12/04/16 08:09 12/04/16 08:09 12/04/16 08:09 Intake and Output: 12/04/16 12/04/16 06:59 18:59 Intake Total 1980 360 Output Total 1800 1260 Balance 180 -900 - Medications Medications: Current Medications Aspirin (Aspirin Chewable) 81 mg PO DAILY [facility] Last Admin: 11/28/16 09:29 Dose: Not Given Atorvastatin Calcium (Lipitor) 10 mg PO DIN [facility] Last Admin: 12/03/16 17:56 Dose: 10 mg Cholecalciferol (Vitamin D) 6,000 iu PO DAILY [facility] Last Admin: 12/04/16 11:08 Dose: 6,000 iu Sodium Chloride (Sodium Chloride 0.9%) 1,000 mls @ 100 mls/hr IV .Q10H [facility] Last Admin: 12/03/16 12:36 Dose: 100 mls/hr Heparin Sodium/Dextrose (Heparin 25,000 Units/250ml In D5w) 25,000 units in 250 mls @ 8.018 mls/hr IV .Q24H PRN; Protocol; 18 UNITS/KG/HR PRN Reason: ADJUST RATE PER PROTOCOL Ipratropium Uledi (Atrovent) 0.5 mg IH [id number] [facility] Last Admin: 12/04/16 13:45 Dose: 0.5 mg Ipratropium Uledi (Atrovent) 0.5 mg IH [id number] PRN PRN Reason: Shortness of Breath Lactulose (Enulose) 30 gm PO HS [facility] Last Admin: 12/03/16 21:03 Dose: 30 gm Levalbuterol HCl (Xopenex) 0.63 mg IH [id number] PRN PRN Reason: Shortness of Breath Levalbuterol HCl (Xopenex) 0.63 mg IH [id number] [facility] Last Admin: 12/04/16 13:47 Dose: 0.63 mg Morphine Sulfate (Morphine) 1 mg IVP Q4H PRN PRN Reason: Pain, moderate (4-7) Last Admin: 12/04/16 13:55 Dose: 1 mg Pantoprazole Sodium (Protonix Ec Tab) 40 mg PO 0600 [facility] Last Admin: 12/04/16 05:20 Dose: 40 mg Prednisone (Prednisone Tab) 5 mg PO DAILY [facility] Tramadol HCl (Ultram) 50 mg PO TID [facility] Last Admin: 12/04/16 09:09 Dose: 50 mg Warfarin Sodium (Coumadin) 5 mg PO 1800 [facility] PRN Reason: Protocol - Labs Labs: 12/04/16 07:30 12/04/16 07:30 PT 14.0 Seconds (9.9-11.8) H 12/04/16 07:30 INR 1.30 (0.93-1.08) H 12/04/16 07:30 APTT 64.6 Seconds (23.7-30.8) H 12/03/16 11:02 Attending/Attestation - Attestation I have personally seen and examined this patient.: Yes I have fully participated in the care of the patient.: Yes I have reviewed all pertinent clinical information, including history, physical exam and plan: Yes Notes (Text): I have seen and examined patient with the resident. Agree with the note above with the following additions/ exceptions: Briefly this is 56 year old male with history of recent PE, COPD, compression fracture of lower thoracic spine, and rib fracture at the posterior aspect of the right 8th rib was admitted with chest pain and found to have mild copd exacerbation which has resolved now. Nuclear stress test showed partially reversible ischemia, anterior, apical and inferior defects and underwent cardiac cath which revealed mild ostial lesion and normal LVF. During hospitalization, his Hb dropped and he required 1 unit of prbc. There was no active bleeding noted. CT abdomen and Pelvis is negative for retro peritoneal bleeding. Patient's INR is subtherapeutic today. Will restart heparin and coumadin. It appears that patient is very sensitive to coumadin. He was explained that he will need frequent INR checks even after discharge from the hospital. PT recommeded [facility] vs HWS. CM are trying to arrange for [facility] placement.. Upon discharge patient will follow up with PMD of choice and Dr Watts. Dr Clare Lipscomb
[2016-12-05] MEDS: Ipratropium 0.02% Inhal Soln (0.5 mg/2.5 ml) UD IH SCH ×3 (02:25→14:14)
[2016-12-05 02:39] LABS: INR 1.95 (0.93-1.08); PARTIAL THROMBOPLASTIN TIME 50.3 Seconds (23.7-30.8)
[2016-12-05] MEDS: Pantoprazole 40 mg EC Tab PO SCH (05:23)
[2016-12-05] MEDS: Morphine 2 mg/ml ISec IVP PRN ×3 (05:23→12:56)
[2016-12-05] MEDS: Levalbuterol 0.63 MG/3 ML Inhal Soln UD IH SCH ×2 (07:25→14:14)
[2016-12-05 07:59] VITALS: BP 130/90; PULSE 102; RESP 24; TEMP 97.8; O2SAT 98
--- NOTE | 2016-12-05 15:29 | CP.PCM.DIS ---
<ERNIE RAYA - Last Filed: 12/05/16 15:26> Provider - Provider Date of Admission: 11/25/16 11:43 Attending physician: Clare Lipscomb MD Primary care physician: NO PRIMARY CARE PROVIDER Consults: Cardio-Flip Time Spent in preparation of Discharge (in minutes): 69 Hospital Course - Lab Results Lab Results: Most Recent Lab Values WBC 12.6 10^3/ul (4.5-11.0) H 12/04/16 07:30 RBC 3.40 10^6/uL (3.5-6.1) L 12/04/16 07:30 Hgb 10.7 g/dL (14.0-18.0) L D 12/04/16 07:30 Hct 33.2 % (42.0-52.0) L 12/04/16 07:30 MCV 97.6 fl (80.0-105.0) 12/04/16 07:30 MCH 31.5 pg (25.0-35.0) 12/04/16 07:30 MCHC 32.2 g/dl (31.0-37.0) 12/04/16 07:30 RDW 14.7 % (11.5-14.5) H 12/04/16 07:30 Plt Count 392 10^3/uL (120.0-450.0) 12/04/16 07:30 MPV 8.5 fl (7.0-11.0) 12/04/16 07:30 Gran % 58.7 % (50.0-68.0) 12/04/16 07:30 Lymph % (Auto) 29.1 % (22.0-35.0) 12/04/16 07:30 Estill % (Auto) 10.4 % (1.0-6.0) H 12/04/16 07:30 Eos % (Auto) 1.7 % (1.5-5.0) 12/04/16 07:30 Baso % (Auto) 0.1 % (0.0-3.0) 12/04/16 07:30 Gran # 7.38 (1.4-6.5) H 12/04/16 07:30 Lymph # 3.7 (1.2-3.4) H 12/04/16 07:30 Estill # 1.3 (0.1-0.6) H 12/04/16 07:30 Eos # 0.2 (0.0-0.7) 12/04/16 07:30 Baso # 0.01 K/mm3 (0.0-2.0) 12/04/16 07:30 Neutrophils % (Manual) 66 % (50.0-70.0) 11/28/16 08:57 Lymphocytes % (Manual) 26 % (22.0-35.0) 11/28/16 08:57 Monocytes % (Manual) 8 % (1.0-6.0) H 11/28/16 08:57 Toxic Granulation 1+ 11/28/16 08:57 Platelet Evaluation Normal (NORMAL) 11/28/16 08:57 Hypochromasia 2+ 11/28/16 08:57 Anisocytosis (manual) 1+ 11/28/16 08:57 Target Cells 2+ 11/28/16 08:57 Rouleaux 1+ 11/28/16 08:57 Retic Count 2.32 % (0.5-1.5) H 11/28/16 10:30 PT 21.1 Seconds (9.9-11.8) H 12/05/16 01:55 INR 1.95 (0.93-1.08) H 12/05/16 01:55 APTT 59.6 Seconds (23.7-30.8) H 12/05/16 08:16 Sodium 139 mmol/L (132-148) 12/04/16 07:30 Potassium 3.9 mmol/L (3.6-5.0) 12/04/16 07:30 Chloride 99 mmol/L (98-107) 12/04/16 07:30 Carbon Dioxide 32 mmol/L (21-33) 12/04/16 07:30 Anion Gap 12 (10-20) 12/04/16 07:30 BUN 8 mg/dL (7-21) 12/04/16 07:30 Creatinine 0.5 mg/dL (0.5-1.4) 12/04/16 07:30 Est GFR ( Amer) > 60 12/04/16 07:30 Est GFR (Non-Af Amer) > 60 12/04/16 07:30 Random Glucose 108 mg/dL (70-110) 12/04/16 07:30 Calcium 8.9 mg/dL (8.4-10.5) 12/04/16 07:30 Phosphorus 4.5 mg/dL (2.5-4.5) 11/23/16 17:20 Magnesium 1.9 mg/dL (1.7-2.2) 11/23/16 17:20 Iron 61 ug/dL (45-180) 11/28/16 09:47 TIBC 265 ug/dL (261-462) 11/28/16 09:47 % Saturation 23 % (20-55) 11/28/16 09:47 Ferritin 128.0 ng/mL 11/28/16 09:47 Total Bilirubin 0.2 mg/dL (0.2-1.3) 12/04/16 07:30 AST 31 U/L (15-59) 12/04/16 07:30 ALT 50 U/L (7-56) 12/04/16 07:30 Alkaline Phosphatase 110 U/L (38-133) 12/04/16 07:30 Lactate Dehydrogenase 425 U/L (333-699) 11/23/16 17:20 Total Creatine Kinase < 20 U/L (35-230) L 11/23/16 17:20 Troponin I < 0.01 ng/mL 11/24/16 04:46 NT-Pro-B Natriuret Pep 70.4 pg/mL (0-450) 11/23/16 17:20 Total Protein 5.8 g/dL (5.8-8.3) 12/04/16 07:30 Albumin 3.6 g/dL (3.0-4.8) 12/04/16 07:30 Globulin 2.2 gm/dL 12/04/16 07:30 Albumin/Globulin Ratio 1.6 (1.1-1.8) 12/04/16 07:30 Prostate Specific Ag 1.4 ng/mL (0.00-2.5) 11/23/16 17:20 Vitamin B12 854 pg/mL (239-931) 12/02/16 09:00 Folate 15.0 ng/mL 12/02/16 09:00 Blood Type A POSITIVE 11/28/16 10:30 Blood Type Confirm A POSITIVE 11/28/16 11:37 Antibody Screen Negative 11/28/16 10:30 Crossmatch See Detail 11/28/16 10:30 BBK History Checked No verified bt 11/28/16 10:30 - Hospital Course Hospital Course: 56 year old male with a past medical history of advanced COPD ( requiring 3L of oxygen at home), s/p PE started on Eliquis, and discharged 3 days ago for an admission for intractable back pain secondary to rib fracture/ lower thoracic compression fractures presented to the [facility] ED with chest tightness and associated dyspnea. An EKG showed no signs of ischemia and NSR, three serial troponins were negative, a chest x-ray showed a flattened diaphragm , hyperinflated lungs, chronic rib fractures and with no active disease. 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 Patient was started on xopenox, atrovent, prednisone 40 mg, which was eventually tapered down to 5mg prior to discharge, and PRN Duonebs for his dyspnea and history of COPD. On 11/27, patient had a drop in his hemoglobin from 11.1 to 7.9 with no obvious source of bleeding in his GI tract or any other system otherwise. He was transfused one unit of pRBC's and eventually returned to his baseline red blood cell measures and all anemia workup was found to be negative. Patient was initially started on his home dose of eliquis for PE treatment but cardiology recommended that he be switched to coumadin due to eliquis not having a reversal agent. Patient was started on a heparin drip with protocols for DVT/VTE treatment and coumadin 10mg in order to get his INR in therapeutic range. PT/OT evaluated patient and recommend he be discharged on HWS or to a [facility]. Patient requested [facility] placement but his insurance denied him acceptance and upon discharge patient was given strict instructions to follow up with his PMD for PT/OT services. Patient was noted to have chronic pain with obvious causes being chronic rib fractures and compression fractures to his vertebrae. His pain was managed with several different medications, including toradol, morphine and percocet of various dosages, and none of which provided patient with complete relief. After patient was medically stable and his INR therapeutic, he was discharged home on 12/05 with strict instructions to follow up with a PMD of his choice, three near his home were recommended with contact information provided, or to make an appointment at the [facility] at [facility] no later than 12/07 for an INR check. He was given prescriptions for 5 days worth of coumadin and flexeril for pain control at home. - Date & Time of H&P Date of H&P: 11/23/16 Time of H&P: 19:11 Discharge Exam - Head Exam Head Exam: ATRAUMATIC, NORMOCEPHALIC - Eye Exam Eye Exam: EOMI, Normal appearance - ENT Exam ENT Exam: Mucous Membranes Moist, Normal Exam - Neck Exam Neck exam: Full Rom, Normal Inspection - Respiratory Exam Respiratory Exam: NORMAL BREATHING PATTERN, UNREMARKABLE. absent: Rales, Rhonchi, Wheezes, Respiratory Distress - Cardiovascular Exam Cardiovascular Exam: REGULAR RHYTHM, RRR, +S1, +S2. absent: Tachycardia, Diastolic murmur, Systolic Murmur - GI/Abdominal Exam GI & Abdominal Exam: Normal Bowel Sounds, Soft, Unremarkable. absent: Distended , Firm, Guarding, Tenderness - Exam Exam: absent: Bladder Distension - Extremities Exam Extremities exam: normal capillary refill, pedal pulses present Additional comments: No calf tenderness or pedal edema bilaterally - Back Exam Back exam: absent: CVA tenderness (L), CVA tenderness (R) - Neurological Exam Neurological exam: Alert, Oriented x3 - Psychiatric Exam Psychiatric exam: Normal Affect, Normal Mood - Skin Skin Exam: Dry, Intact, Normal Color, Warm Discharge Plan - Discharge Medications Prescriptions: Cyclobenzaprine [Cyclobenzaprine HCl] 10 mg PO TID PRN #15 tab PRN Reason: Pain, Moderate (4-7) Warfarin [Coumadin] 3 mg PO 1800 #5 tab - Follow Up Plan Condition: FAIR Disposition: HOME/ ROUTINE Instructions: Pulmonary Embolism (DC), Vertebral Compression Fracture (DC) Additional Instructions: 1. PLEASE FOLLOW UP WITH A PMD OF YOUR CHOICE WITHIN ONE WEEK FOR INR CHECK, YOU ARE BEING SENT HOME ON AN ANTICOAGULANT. It is also recommended that you establish routine Physical Therapy services until you are cleared from their standpoint. Discuss setting this up and any referrals you may need with your PMD. The following are recommendations of PMD's near [place] within the [employer] [facility], which will make accessing your records easier: 1. Dr. Juan Jose Killian Practice Name: [facility] [address] Address: [address] [place] [address] Reji Dorsey Practice Name: [facility] [address] Address: [address] [place] [address] Frances Esquivel Practice Name: [facility] Address: [address] [place] [address] Should you not be able to establish care and make an appointment within one week , please contact the [facility] at [facility] to schedule an appointment for an INR check NO LATER THAN TUESDAY OF THIS WEEK. They can be reached at [phone]. 2. Please take all medications as prescribed. You are being prescribed Flexeril 5mg for muscle spasm related pain. Take this medication as needed up to three times daily. Please continue using Incentive Spirometer up to 6 times per hour daily. 3. If your symptoms should worsen or persist, please seek emergency medical attention. Referrals: Shadi Jacobson MD [Staff Provider] - PCP,NO [Primary Care Provider] - <Clare Lipscomb - Last Filed: 12/06/16 11:42> Provider - Provider Date of Admission: 11/25/16 11:43 Attending physician: Clare Lipscomb MD Primary care physician: NO PRIMARY CARE PROVIDER Hospital Course - Lab Results Lab Results: Most Recent Lab Values WBC 12.6 10^3/ul (4.5-11.0) H 12/04/16 07:30 RBC 3.40 10^6/uL (3.5-6.1) L 12/04/16 07:30 Hgb 10.7 g/dL (14.0-18.0) L D 12/04/16 07:30 Hct 33.2 % (42.0-52.0) L 12/04/16 07:30 MCV 97.6 fl (80.0-105.0) 12/04/16 07:30 MCH 31.5 pg (25.0-35.0) 12/04/16 07:30 MCHC 32.2 g/dl (31.0-37.0) 12/04/16 07:30 RDW 14.7 % (11.5-14.5) H 12/04/16 07:30 Plt Count 392 10^3/uL (120.0-450.0) 12/04/16 07:30 MPV 8.5 fl (7.0-11.0) 12/04/16 07:30 Gran % 58.7 % (50.0-68.0) 12/04/16 07:30 Lymph % (Auto) 29.1 % (22.0-35.0) 12/04/16 07:30 Estill % (Auto) 10.4 % (1.0-6.0) H 12/04/16 07:30 Eos % (Auto) 1.7 % (1.5-5.0) 12/04/16 07:30 Baso % (Auto) 0.1 % (0.0-3.0) 12/04/16 07:30 Gran # 7.38 (1.4-6.5) H 12/04/16 07:30 Lymph # 3.7 (1.2-3.4) H 12/04/16 07:30 Estill # 1.3 (0.1-0.6) H 12/04/16 07:30 Eos # 0.2 (0.0-0.7) 12/04/16 07:30 Baso # 0.01 K/mm3 (0.0-2.0) 12/04/16 07:30 Neutrophils % (Manual) 66 % (50.0-70.0) 11/28/16 08:57 Lymphocytes % (Manual) 26 % (22.0-35.0) 11/28/16 08:57 Monocytes % (Manual) 8 % (1.0-6.0) H 11/28/16 08:57 Toxic Granulation 1+ 11/28/16 08:57 Platelet Evaluation Normal (NORMAL) 11/28/16 08:57 Hypochromasia 2+ 11/28/16 08:57 Anisocytosis (manual) 1+ 11/28/16 08:57 Target Cells 2+ 11/28/16 08:57 Rouleaux 1+ 11/28/16 08:57 Retic Count 2.32 % (0.5-1.5) H 11/28/16 10:30 PT 21.1 Seconds (9.9-11.8) H 12/05/16 01:55 INR 1.95 (0.93-1.08) H 12/05/16 01:55 APTT 59.6 Seconds (23.7-30.8) H 12/05/16 08:16 Sodium 139 mmol/L (132-148) 12/04/16 07:30 Potassium 3.9 mmol/L (3.6-5.0) 12/04/16 07:30 Chloride 99 mmol/L (98-107) 12/04/16 07:30 Carbon Dioxide 32 mmol/L (21-33) 12/04/16 07:30 Anion Gap 12 (10-20) 12/04/16 07:30 BUN 8 mg/dL (7-21) 12/04/16 07:30 Creatinine 0.5 mg/dL (0.5-1.4) 12/04/16 07:30 Est GFR ( Amer) > 60 12/04/16 07:30 Est GFR (Non-Af Amer) > 60 12/04/16 07:30 Random Glucose 108 mg/dL (70-110) 12/04/16 07:30 Calcium 8.9 mg/dL (8.4-10.5) 12/04/16 07:30 Phosphorus 4.5 mg/dL (2.5-4.5) 11/23/16 17:20 Magnesium 1.9 mg/dL (1.7-2.2) 11/23/16 17:20 Iron 61 ug/dL (45-180) 11/28/16 09:47 TIBC 265 ug/dL (261-462) 11/28/16 09:47 % Saturation 23 % (20-55) 11/28/16 09:47 Ferritin 128.0 ng/mL 11/28/16 09:47 Total Bilirubin 0.2 mg/dL (0.2-1.3) 12/04/16 07:30 AST 31 U/L (15-59) 12/04/16 07:30 ALT 50 U/L (7-56) 12/04/16 07:30 Alkaline Phosphatase 110 U/L (38-133) 12/04/16 07:30 Lactate Dehydrogenase 425 U/L (333-699) 11/23/16 17:20 Total Creatine Kinase < 20 U/L (35-230) L 11/23/16 17:20 Troponin I < 0.01 ng/mL 11/24/16 04:46 NT-Pro-B Natriuret Pep 70.4 pg/mL (0-450) 11/23/16 17:20 Total Protein 5.8 g/dL (5.8-8.3) 12/04/16 07:30 Albumin 3.6 g/dL (3.0-4.8) 12/04/16 07:30 Globulin 2.2 gm/dL 12/04/16 07:30 Albumin/Globulin Ratio 1.6 (1.1-1.8) 12/04/16 07:30 Prostate Specific Ag 1.4 ng/mL (0.00-2.5) 11/23/16 17:20 Vitamin B12 854 pg/mL (239-931) 12/02/16 09:00 Folate 15.0 ng/mL 12/02/16 09:00 Blood Type A POSITIVE 11/28/16 10:30 Blood Type Confirm A POSITIVE 11/28/16 11:37 Antibody Screen Negative 11/28/16 10:30 Crossmatch See Detail 11/28/16 10:30 BBK History Checked No verified bt 11/28/16 10:30 Attending/Attestation - Attestation I have personally seen and examined this patient.: Yes I have fully participated in the care of the patient.: Yes I have reviewed all pertinent clinical information, including history, physical exam and plan: Yes Notes (Text): I have seen and examined patient with the resident. Agree with the note above with the following additions/ exceptions: Briefly this is 56 year old male with history of recent PE, COPD, compression fracture of lower thoracic spine, and rib fracture at the posterior aspect of the right 8th rib was admitted with chest pain and found to have mild copd exacerbation which has resolved now. Nuclear stress test showed partially reversible ischemia, anterior, apical and inferior defects and underwent cardiac cath which revealed mild ostial lesion and normal LVF. During hospitalization, his Hb dropped and he required 1 unit of prbc. There was no active bleeding noted. CT abdomen and Pelvis is negative for retro peritoneal bleeding. Patient's INR is therapeutic today. Will send the patient home on 5 day supply of coumadin. He was explained that he will need frequent INR checks even after discharge from the hospital. He was instructed multiple times last week that he needs to make an appointment with his PMD or find a new PMD. Pateint reported that he was working on that. He was also advised that he can come to [facility] clinic or to ED if he cannot follow up with PMD for some reason. PT recommeded [facility] vs HWS. Patient got denied for [facility]. Upon discharge patient will follow up with PMD of choice and Dr Watts. Dr Clare Lipscomb
== END 2016-12-05 16:35 | disposition home or self-care (01) | DRG 88 ==
LOC: ED 16:13 → ERH 18:11 → 2RSO 21:49 → OBSVTOIN 11-25 11:43 → 5RSO 12-01 16:30
PROVIDERS: ADMIT Internal Medicine; ATTEND Hospitalist
PROC: 30233N1 Transfusion of Nonautologous Red Blood Cells into Peripheral Vein, Percutaneous Approach (ICD-10-PCS; 2016-11-28)
PROC: B2111ZZ Fluoroscopy of Multiple Coronary Arteries using Low Osmolar Contrast (ICD-10-PCS; principal; 2016-11-29)
PROC: B2151ZZ Fluoroscopy of Left Heart using Low Osmolar Contrast (ICD-10-PCS; 2016-11-29)
PROC: B41F1ZZ Fluoroscopy of Right Lower Extremity Arteries using Low Osmolar Contrast (ICD-10-PCS; 2016-11-29)
DX: J44.1 Chronic obstructive pulmonary disease with (acute) exacerbation (principal); Z99.81 Dependence on supplemental oxygen; I47.1 Supraventricular tachycardia; M48.54XA Collapsed vertebra, not elsewhere classified, thoracic region, initial encounter for fracture; E87.5 Hyperkalemia; D64.9 Anemia, unspecified; Z86.711 Personal history of pulmonary embolism; Z79.01 Long term (current) use of anticoagulants; Z72.0 Tobacco use; I70.201 Unspecified atherosclerosis of native arteries of extremities, right leg; I34.0 Nonrheumatic mitral (valve) insufficiency; G89.29 Other chronic pain; M54.9 Dorsalgia, unspecified; D72.829 Elevated white blood cell count, unspecified; T38.0X5A Adverse effect of glucocorticoids and synthetic analogues, initial encounter; I25.9 Chronic ischemic heart disease, unspecified; E55.9 Vitamin D deficiency, unspecified; R94.39 Abnormal result of other cardiovascular function study; K59.03 Drug induced constipation; T40.605A Adverse effect of unspecified narcotics, initial encounter; I25.119 Atherosclerotic heart disease of native coronary artery with unspecified angina pectoris; S22.31XA Fracture of one rib, right side, initial encounter for closed fracture

== ENCOUNTER 2016-12-14 08:47 | Inpatient (IN) | payer MEDICAID ==
[2016-12-14] MEDS ORDERED: Albuterol 0.5% Inhal Sol (2.5 mg/0.5 ml) UD IH STA (08:59)
[2016-12-14] MEDS ORDERED: Albuterol-Ipratrop 3 mg / 0.5 (3 ml) UD IH STA (08:59)
[2016-12-14] MEDS ORDERED: Ipratropium 0.02% Inhal Soln (0.5 mg/2.5 ml) UD IH STA (08:59)
--- NOTE | 2016-12-14 09:07 | ED PDOC ---
Arrival/HPI - General Chief Complaint: Respiratory Distress Time Seen by Provider: 12/14/16 08:58 Historian: Patient - Critical Care Critical Care Minutes: 30 minutes - History of Present Illness Narrative History of Present Illness (Text): 12/14/16 08:54 A 59 year old male, whose past medical history includes PE, COPD, Rib Fractures , Compression Fractures, was brought in by EMS complaining of shortness of breath since this morning. He feels like he's breathing fast which has caused him to have pain in his "whole ribcage". Patient was given one duoneb and 250 mg of solumedrol by EMS with only mild improvement. Patient denies of and cough , fever, or any other complaints. No PMD Time/Duration: 4-6 hours (this morning) Symptom Onset: Sudden Symptom Course: Unchanged Context: Home Past Medical History - Provider Review Nursing Documentation Reviewed: Yes - Infectious Disease Hx of Infectious Diseases: None - Tetanus Immunization Tetanus Immunization: Unknown - Cardiac Hx Cardiac Disorders: No - Pulmonary Hx Chronic Obstructive Pulmonary Disease (COPD): Yes - Neurological Hx Neurological Disorder: Yes Other/Comment: compression fx - HEENT Hx HEENT Disorder: Yes (glasses) Other/Comment: tonsillectomy - Renal Hx Renal Disorder: No - Endocrine/Metabolic Hx Endocrine Disorders: No - Hematological/Oncological Hx Blood Transfusions: Yes Hx Blood Transfusion Reaction: No - Integumentary Hx Dermatological Disorder: No - Musculoskeletal/Rheumatological Hx Musculoskeletal Disorders: Yes Hx Back Pain: Yes Hx Falls: No Hx Spinal Stenosis: Yes - Gastrointestinal Hx Gastrointestinal Disorders: No - Genitourinary/Gynecological Hx Genitourinary Disorders: No - Psychiatric Hx 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) Hx Substance Use: Yes - Surgical History Hx Tonsillectomy: Yes - Anesthesia Hx Anesthesia Reactions: No Family/Social History - Physician Review Nursing Documentation Reviewed: Yes Family/Social History: No Known Family HX Smoking Status: Former Smoker Hx Alcohol Use: No Hx Substance Use: Yes Allergies/Home Meds Allergies/Adverse Reactions: Allergies No Known Allergies Allergy (Verified 12/14/16 08:53) Home Medications: Home Meds Medication Instructions Recorded Confirmed Albuterol/Ipratropium [Duoneb 3 3 ml IH PRN PRN 12/14/16 12/14/16 MG/3 Ml-0.5 MG/3 Ml 3 Ml] Prednisone [Jairo] 0 mg PO DAILY 12/14/16 12/14/16 Review of Systems - Physician Review All systems were reviewed & negative as marked: Yes - Review of Systems Constitutional: absent: Fevers Respiratory: SOB, Wheezing. absent: Cough Cardiovascular: Other (whole rib cage pain) Gastrointestinal: absent: Abdominal Pain Skin: absent: Rash Physical Exam Vital Signs Reviewed: Yes Vital Signs Temp Pulse Resp BP Pulse Ox 12/14/16 11:23 101 H 26 H 126/89 100 12/14/16 08:57 98.1 F 112 H 32 H 128/94 H 96 Temperature: Afebrile Blood Pressure: Normal Pulse: Tachycardic Appearance: Positive for: Well-Appearing, Ill-Appearing Pain Distress: None Mental Status: Positive for: Alert and Oriented X 3 - Systems Exam Head: Present: Atraumatic, Normocephalic Pupils: Present: PERRL Extroacular Muscles: Present: EOMI Conjunctiva: Present: Normal Mouth: Present: Moist Mucous Membranes Pharnyx: Present: Normal. No: ERYTHEMA Neck: Present: Normal Range of Motion Respiratory/Chest: Present: Wheezes, Decreased Breath Sounds, Tachypneic Cardiovascular: Present: Regular Rate and Rhythm, Normal S1, S2. No: Murmurs Abdomen: Present: Normal Bowel Sounds. No: Tenderness, Distention, Peritoneal Signs Back: Present: Normal Inspection Upper Extremity: Present: Normal Inspection. No: Cyanosis, Edema Lower Extremity: Present: Normal Inspection. No: Edema Neurological: Present: GCS=15, CN II-XII Intact, Speech Normal Skin: Present: Warm, Dry, Normal Color. No: Rashes Psychiatric: Present: Alert, Oriented x 3, Normal Insight, Normal Concentration Medical Decision Making ED Course and Treatment: 12/14/16 09:06 Impression: 56 year old male with shortness of breath. Physical exam shows wheezing, decrease breath sounds, and tachypneic. Differential Diagnosis included but are not limited to: COPD exacerbation Plan: -- EKG -- Chest X-ray -- Blood Gas -- Labs -- Duoneb -- Albuterol -- Atrovent -- Blood Culture -- Reassess and disposition Prior Visits: Notes and results from previous visits were reviewed. Patient was last seen in the emergency department on 11/23/2016 for shortness of breath. Patient was admitted. Progress Notes: EKG: Ordered, reviewed, and independently interpreted the EKG. Rate : 108 BPM Rhythm : Sinus tachycardia Interpretation : PACs Comparison : No change from previous EKG from 11/26/2016. 12/14/2016 09:58 Chest X-ray IMPRESSION: No active pulmonary disease. COPD. Dictator : Jazmine Jara MD No change from previous Chest X-ray. 12/14/16 10:55 Patient doing better on BiPAP. ABG shows improvement of pCO2 level. pH improved. CXR negative for PNA. Case discussed with Dr. Ludivina Lipscomb and will admit patient to Telemetry for COPD exacerbation. Patient will need full admission for more than 2 days. - Critical Care Critical Care Minutes: 30 minutes - Lab Interpretations Lab Results: 12/14/16 09:55 12/14/16 09:55 Lab Results 12/14/16 10:40: pCO2 47 H, pO2 115.0 H, HCO3 27.8, ABG pH 7.38, ABG Total CO2 29.2 H, ABG O2 Saturation 99.7 H, ABG O2 Content 15.0, ABG Base Excess 2.1, ABG Hemoglobin 10.9 L, ABG Carboxyhemoglobin 2.1 H, POC ABG HHb (Measured) 0.3, ABG Methemoglobin 0.9, ABG O2 Capacity 15.0 L, Hgb O2 Saturation 96.6, FiO2 30.0 12/14/16 10:30: Total Bilirubin 0.3, Direct Bilirubin 0.2, AST 22, ALT 30, Alkaline Phosphatase 84, Total Protein 5.5 L, Albumin 3.1, Globulin 2.3, Albumin /Globulin Ratio 1.3 12/14/16 09:55: Sodium 143, Chloride 105, Potassium 3.7, Carbon Dioxide 29, Anion Gap 13, BUN 14, Creatinine 0.5, Est GFR ( Amer) > 60, Est GFR (Non- Af Amer) > 60, Random Glucose 96, Calcium 8.3 L, Lactate Dehydrogenase 341, Total Creatine Kinase 22 L, Troponin I < 0.01, NT-Pro-B Natriuret Pep 65.8 12/14/16 09:55: pO2 31, VBG pH 7.19 L*, VBG pCO2 88.0 H*, VBG HCO3 33.6 H, VBG Total CO2 36.3 H, VBG O2 Sat (Calc) 58.7, VBG Base Excess 2.5 H, VBG Potassium 4.1, Sodium 142.0, Chloride 103.0, Glucose 103, Lactate 2.7 H, FiO2 21.0, Venous Blood Potassium 4.1 12/14/16 09:55: PT 16.7 H, INR 1.55 H, APTT 29.6 12/14/16 09:55: WBC 13.3 H, RBC 3.51, Hgb 11.0 L, Hct 34.2 L, MCV 97.4, MCH 31.3 , MCHC 32.2, RDW 13.6, Plt Count 347, MPV 8.7, Gran % 73.3 H, Lymph % (Auto) 17.3 L, [place] % (Auto) 8.7 H, Eos % (Auto) 0.5 L, Baso % (Auto) 0.2, Gran # 9.71 H, Lymph # 2.3, [place] # 1.2 H, Eos # 0.1, Baso # 0.03 I have reviewed the lab results: Yes Interpretation: Abnormal lab values - RAD Interpretation Radiology Orders: 12/14/16 09:00 CHEST PORTABLE [RAD] Stat Artist Consultant: ED Physician - Medication Orders Current Medication Orders: Acetaminophen (Tylenol 325mg Tab) 650 mg PO Q6H PRN PRN Reason: Pain, Mild (1-3) Ipratropium [place] (Atrovent) 0.5 mg IH [id number] PRN PRN Reason: Shortness of Breath Levalbuterol HCl (Xopenex) 0.63 mg IH [id number] PRN PRN Reason: Shortness of Breath Pantoprazole Sodium (Protonix Ec Tab) 20 mg PO ACB ERIC Discontinued Medications Albuterol Sulfate (Albuterol 0.5% Inhal [place] (2.5 Mg/0.5 Ml) Ud) 2.5 mg IH STAT STA Stop: 12/14/16 09:00 Last Admin: 12/14/16 10:15 Dose: 2.5 mg Albuterol/Ipratropium (Duoneb 3 Mg/0.5 Mg (3 Ml) Ud) 3 ml IH STAT STA Stop: 12/14/16 09:00 Last Admin: 12/14/16 09:15 Dose: 3 ml Magnesium Sulfate 2 gm/ Sodium (Chloride) 104 mls @ 102 mls/hr IVPB ONCE ONE Stop: 12/14/16 11:55 Ipratropium [place] (Atrovent) 0.5 mg IH STAT STA Stop: 12/14/16 09:00 Last Admin: 12/14/16 09:30 Dose: 0.5 mg Ketorolac Tromethamine (Toradol) 30 mg IVP STAT STA Stop: 12/14/16 10:46 Last Admin: 12/14/16 11:08 Dose: 30 mg - Scribe Statement The provider has reviewed the documentation as recorded by the Rafiq Rogel Provider Scribe Attestation: All medical record entries made by the Rafiq were at my direction and personally dictated by me. I have reviewed the chart and agree that the record accurately reflects my personal performance of the history, physical exam, medical decision making, and the department course for this patient. I have also personally directed, reviewed, and agree with the discharge instructions and disposition. Disposition/Present on Arrival - Present on Arrival Any Indicators Present on Arrival: No History of DVT/PE: No History of Uncontrolled Diabetes: No Urinary Catheter: No History of Decub. Ulcer: No History Surgical Site Infection Following: None - Disposition Have Diagnosis and Disposition been Completed?: Yes Diagnosis: Chronic obstructive lung disease Disposition: HOSPITALIZED Disposition Time: 10:55 Patient Plan: Admission Condition: GUARDED
--- NOTE | 2016-12-14 10:00 | RAD ---
HISTORY: sob r/o pna COMPARISON: No prior. FINDINGS: LUNGS: The lungs are hyperinflated and there is peribronchial thickening with chronic changes in both lungs. No focal consolidation. PLEURA: No significant pleural effusion identified, no pneumothorax apparent. CARDIOVASCULAR: Normal. OSSEOUS STRUCTURES: There is diffuse bone demineralization. There are old fracture deformities in the left posterior 6th and 7th ribs. VISUALIZED UPPER ABDOMEN: Normal. OTHER FINDINGS: None. IMPRESSION: No active pulmonary disease. COPD.
[2016-12-14 10:05] LABS: BASO # 0.03 K/mm3 (0.0-2.0); BASO % 0.2 % (0.0-3.0); EOS # 0.1 (0.0-0.7); EOS % 0.5 % (1.5-5.0); GRAN # 9.71 (1.4-6.5); GRAN % 73.3 % (50.0-68.0); HEMATOCRIT 34.2 % (42.0-52.0); LYMPH # 2.3 (1.2-3.4); LYMPH % 17.3 % (22.0-35.0); MEAN CELL VOLUME 97.4 fl (80.0-105.0); MEAN CORPUSCULAR HEMOGLOBIN 31.3 pg (25.0-35.0); MEAN CORPUSCULAR HGB CONC 32.2 g/dl (31.0-37.0); MEAN PLATELET VOLUME 8.7 fl (7.0-11.0); MONO # 1.2 (0.1-0.6); MONO % 8.7 % (1.0-6.0); RED CELL DISTRIBUTION WIDTH 13.6 % (11.5-14.5); WHITE BLOOD COUNT 13.3 10^3/ul (4.5-11.0)
[2016-12-14 10:09] LABS: VENOUS BLOOD GAS BASE EXCESS 2.5 mmol/L (0.0-2.0)
[2016-12-14 10:12] LABS: BLOOD UREA NITROGEN 14 mg/dL (7-21); CALCIUM 8.3 mg/dL (8.4-10.5); CARBON DIOXIDE 29 mmol/L (21-33); CHLORIDE 105 mmol/L (98-107); GFR AFRICAN-AMERICAN > 60; GLUCOSE,RANDOM 96 mg/dL (70-110); POTASSIUM 3.7 mmol/L (3.6-5.0); SODIUM 143 mmol/L (132-148); VENOUS BLOOD PH 7.19 (7.32-7.43)
[2016-12-14 10:14] LABS: INR 1.55 (0.93-1.08); PARTIAL THROMBOPLASTIN TIME 29.6 Seconds (23.7-30.8)
[2016-12-14 10:25] LABS: TROPONIN I < 0.01 ng/mL
[2016-12-14 10:49] LABS: ARTERIAL BLOOD GAS HCO3 27.8 mmol/L (21-28); ARTERIAL BLOOD GAS PH 7.38 (7.35-7.45); ARTERIAL BLOOD HGB O2 SAT 96.6 % (95.0-98.0); CARBOXYHEMOGLOBIN 2.1 % (0.5-1.5); HHB 0.3 % (0-5); METHEMOGLOBIN 0.9 % (0.0-3.0)
[2016-12-14] MEDS ORDERED: Magnesium Sulfate 2 GM in Sodium Chloride 0.9% 100 ML IVPB ONE (10:54)
--- NOTE | 2016-12-14 11:41 | CARD ---
APPROVED REPORT EKG Measurement Heart [id number] <Conclusion> Sinus tachycardia with premature atrial complexes Septal infarct, age undetermined Abnormal ECG
[2016-12-14] MEDS ORDERED: Levalbuterol 0.63 MG/3 ML Inhal Soln UD IH PRN (11:47)
[2016-12-14] MEDS ORDERED: Ipratropium 0.02% Inhal Soln (0.5 mg/2.5 ml) UD IH PRN ×2 (11:49→12:41)
[2016-12-14 12:28] LABS: ALB/GLOB RATIO 1.3 (1.1-1.8); BILIRUBIN,DIRECT 0.2 mg/dL (0.0-0.4); BILIRUBIN,TOTAL 0.3 mg/dL (0.2-1.3); TOTAL PROTEIN 5.5 g/dL (5.8-8.3)
--- NOTE | 2016-12-14 12:52 | CP.PCM.HP ---
<Mani Al - Last Filed: 12/14/16 20:43> History of Present Illness - History of Present Illness History of Present Illness: Mani Al DO, PGY-1, Hospitalist Service 56 year old male with a medical history of advanced COPD (requiring 3L of oxygen at home), PE, thoracic and lumbar compression fractures, rib fractures , osteoporosis, who was discharged on 12/05 and with a 5-day supply of 3 mg Coumadin for anticoagulation s/p PE and 5-day supply of Flexeril for chest wall pain and general pain control who presents today (12/13) for 3 days of worsening chest wall pain and associated hyperventilation. He admits to pain in the area of his previous rib fracture that generalized to his rib cage and exacerbating his already poor breathing status. Despite taking some steroids, using his home nebulizers, and oxygen he could not tolerate his symtoms and naturally came to the ED He admits to post-nasal drip, coughing his usual spells, and having some clear phlegm. He denies any change in sputum, chest pain, or diaphoresis. PMD: None PSH: See prior notes for details PMH: As above Allergies: NKDA Medications: Above Present on Admission - Present on Admission Any Indicators Present on Admission: Yes History of DVT/PE: Yes Review of Systems - Review of Systems All systems: reviewed and no additional remarkable complaints except Review of Systems: as mentioned in HPI - Constitutional Constitutional: As Per HPI Past Patient History - Infectious Disease Hx of Infectious Diseases: None - Tetanus Immunizations Tetanus Immunization: Unknown - Past Social History Smoking Status: Former Smoker - CARDIAC Hx Cardiac Disorders: No - PULMONARY Hx Chronic Obstructive Pulmonary Disease (COPD): Yes - NEUROLOGICAL Hx Neurological Disorder: Yes Other/Comment: compression fx - HEENT Hx HEENT Problems: Yes (glasses) Other/Comment: tonsillectomy - RENAL Hx Chronic Kidney Disease: No - ENDOCRINE/METABOLIC Hx Endocrine Disorders: No - HEMATOLOGICAL/ONCOLOGICAL Hx Blood Transfusions: Yes Hx Blood Transfusion Reaction: No - INTEGUMENTARY Hx Dermatological Problems: No - MUSCULOSKELETAL/RHEUMATOLOGICAL Hx Musculoskeletal Disorders: Yes Hx Back Pain: Yes Hx Falls: No Hx Spinal Stenosis: Yes - GASTROINTESTINAL Hx Gastrointestinal Disorders: No - GENITOURINARY/GYNECOLOGICAL Hx Genitourinary Disorders: No - PSYCHIATRIC Hx 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) Hx Substance Use: Yes - SURGICAL HISTORY Hx Tonsillectomy: Yes - ANESTHESIA Hx Anesthesia Reactions: No Meds Allergies/Adverse Reactions: Allergies Allergy/AdvReac Type Severity Reaction Status Date / Time No Known Allergies Allergy Verified 12/14/16 13:07 Physical Exam - Constitutional Appears: Non-toxic, Older Than Stated Age - Head Exam Head Exam: ATRAUMATIC, NORMOCEPHALIC - Eye Exam Eye Exam: EOMI, Normal appearance, PERRL - ENT Exam ENT Exam: Mucous Membranes Moist, Normal Oropharynx - Neck Exam Neck exam: Positive for: Normal Inspection, Tenderness - Respiratory Exam Respiratory Exam: Prolonged Expiratory Phase, Wheezes (expiratory) Additional comments: BIPAP - Cardiovascular Exam Cardiovascular Exam: RRR, +S1, +S2 - GI/Abdominal Exam GI & Abdominal Exam: Normal Bowel Sounds, Soft. absent: Guarding, Mass, Tenderness - Extremities Exam Extremities exam: Positive for: normal capillary refill, normal inspection. Negative for: pedal edema - Back Exam Back exam: absent: CVA tenderness (L), CVA tenderness (R) Additional comments: patient ticklish on palpation of posterior rib angles, no pain on palpation of spinal and tranverse processes of T1-L4. - Neurological Exam Neurological exam: Alert, CN II-XII Intact, Oriented x3 - Psychiatric Exam Psychiatric exam: Normal Affect, Normal Mood - Skin Skin Exam: Dry, Intact, Normal Color Results - Vital Signs Recent Vital Signs: Last Vital Signs Temp 98.1 F 12/14/16 08:57 Pulse 101 H 12/14/16 11:23 Resp 26 H 12/14/16 11:23 BP 126/89 12/14/16 11:23 Pulse Ox 100 12/14/16 11:23 - Labs Result Diagrams: 12/14/16 09:55 12/14/16 09:55 - EKG Data EKG Interpreted by: Myself Rate: Tachycardia - EKG Data When Compared to Previous EKG: No Significant Change EKG comments: sinus tachycardia with PAC Assessment & Plan - Assessment and Plan (Free Text) Assessment: 56 year old male with advanced COPD, PE, thoracic and lumbar compression fractures, healing rib fracture presenting in respiratory distress and chest wall pain. Plan: 1) COPD exacerbation - Chest X-ray shows peribrochial thickening, hyper-inflated lungs, ( flattened diaphragms). - EKG and labs show no concurrent ACS - Doxycycline 100 mg q12h, Solumedrol 40 mg q12h, Levalbuterol q4h and Ipratropium q4h PRN for dyspnea/shortness of breath - Pulmonology consulted given patients advanced lung disease - Oxygen 3 L N[place]. 2) Elevated D-dimer in a patient with subtherapeutic INR, history of PE, and fairly immobile. - CT PE protocol shows marked emphysematous changes, but no PE. 3) Osteoporosis and compression fractures - Vitamin D 5,000 U/day - Pregabalin for subcostal nerve irritation and generalized pain - Tramadol for severe pain 4) DVT/GI prophylaxis: Heparin 5,000 units SC q12h and Protonix 5) Leukocytosis, likely reactive or secondary to steroids - Date & Time Date: 12/14/16 Time: 17:25 <Clare Lipscomb - Last Filed: 12/15/16 16:06> Results - Vital Signs Recent Vital Signs: Last Vital Signs Temp 97.8 F 12/15/16 12:00 Pulse 93 H 12/15/16 12:00 Resp 20 12/15/16 12:00 BP 110/75 12/15/16 12:00 Pulse Ox 98 12/15/16 05:07 - Labs Result Diagrams: 12/15/16 05:20 12/15/16 05:20 Labs: Laboratory Results - last 24 hr 12/15/16 12/15/16 12/15/16 01:00 05:20 05:20 WBC 13.9 H RBC 3.30 L Hgb 10.3 L Hct 31.4 L MCV 95.2 MCH 31.2 MCHC 32.8 RDW 13.2 Plt Count 333 MPV 8.7 Gran % 85.4 H Lymph % (Auto) 6.7 L [place] % (Auto) 7.9 H Eos % (Auto) 0.0 L Baso % (Auto) 0.0 Gran # 11.85 H Lymph # 0.9 L [place] # 1.1 H Eos # 0.0 Baso # 0.00 PT INR pO2 48 VBG pH 7.34 VBG pCO2 60.0 VBG HCO3 32.4 H VBG Total CO2 34.2 H VBG O2 Sat (Calc) 87.2 H VBG Base Excess 4.8 H VBG Potassium 4.5 Sodium 138.0 141 Chloride 104.0 103 Glucose 138 H Lactate 1.8 FiO2 21.0 Potassium 4.4 Carbon Dioxide 30 Anion Gap 12 BUN 16 Creatinine 0.5 Est GFR ( Amer) > 60 Est GFR (Non-Af Amer) > 60 Random Glucose 113 H Calcium 8.7 Total Bilirubin 0.2 AST 26 ALT 31 Alkaline Phosphatase 83 Total Protein 5.2 L Albumin 3.1 Globulin 2.1 Albumin/Globulin Ratio 1.5 Venous Blood Potassium 4.5 Urine Color Urine Appearance Urine pH Ur Specific [place] Urine Protein Urine Glucose (UA) Urine Ketones Urine Blood Urine Nitrate Urine Bilirubin Urine Urobilinogen Ur Leukocyte Esterase 12/15/16 12/15/16 07:30 07:50 WBC RBC Hgb Hct MCV MCH MCHC RDW Plt Count MPV Gran % Lymph % (Auto) [place] % (Auto) Eos % (Auto) Baso % (Auto) Gran # Lymph # [place] # Eos # Baso # PT 13.9 H INR 1.29 H pO2 VBG pH VBG pCO2 VBG HCO3 VBG Total CO2 VBG O2 Sat (Calc) VBG Base Excess VBG Potassium Sodium Chloride Glucose Lactate FiO2 Potassium Carbon Dioxide Anion Gap BUN Creatinine Est GFR ( Amer) Est GFR (Non-Af Amer) Random Glucose Calcium Total Bilirubin AST ALT Alkaline Phosphatase Total Protein Albumin Globulin Albumin/Globulin Ratio Venous Blood Potassium Urine Color Yellow Urine Appearance Clear Urine pH 6.5 Ur Specific [place] 1.020 Urine Protein Negative Urine Glucose (UA) Negative Urine Ketones Negative Urine Blood Negative Urine Nitrate Negative Urine Bilirubin Negative Urine Urobilinogen 0.2 Ur Leukocyte Esterase Negative Attending/Attestation - Attestation I have personally seen and examined this patient.: Yes I have fully participated in the care of the patient.: Yes I have reviewed all pertinent clinical information: Yes Notes (Text): I have seen and examined patient with the resident. Agree with the note above with the following additions/ exceptions: Briefly this is 56 year old male with history of recent PE , COPD, compression fracture of lower thoracic spine, and rib fracture at the posterior aspect of the right 8th rib was admitted with shortness of breath and found to have COPD exacerbation. Patient will be started on bipap, IV solumedrol, antibiotics and analgesics for rib pain. Patient has been very non compliant with the follow up. He had multiple hospitalization recently and was advised multiple times that heh as to follow up with pmd and used car make ready mechanic outpatient. 2 weeks ago he was discharged with 5 days supply of coumadin which he took and then never went to the doctor or made an appointment. Patient had small subsegmental PE in October and Duplex was negative for DVT. His INR is subtherapeutic and D dimer is elevated. Given prior history of PE, will start him on heparin. CT chest pending. If CT chest and Duple of LE negative, its probably better for the patient to stop anticoagulation. Will consult used car make ready mechanic. Upon discharge patient will follow up with PMD of choice and Dr Watts. Dr Clare Lipscomb
[2016-12-14 14:42] VITALS: BMI 16.0
[2016-12-14] MEDS ORDERED: Pneumococcal 23-Valent Vaccine IM ONE (14:42)
[2016-12-14] MEDS: MethylPREDNISolone 40 mg Vial IVP SCH ×2 (15:40→21:48)
[2016-12-14] MEDS: Pantoprazole 20 mg EC Tab PO SCH (15:40)
[2016-12-14] MEDS ORDERED: Heparin 25,000units in D5W 25,000 UNITS/250 ML BAG IV PRN (17:43)
[2016-12-14] MEDS ORDERED: Iohexol 350 MG/100 ML VIAL ONE (17:53)
--- NOTE | 2016-12-14 18:52 | CT ---
PROCEDURE: CT Chest with contrast (Pulmonary Angiogram) HISTORY: rule out PE COMPARISON: None available. TECHNIQUE: Axial computed tomography images were obtained of the chest in the pulmonary arterial phase of enhancement. Coronal and sagittal reformatted images were created and reviewed. Intravenous contrast dose: 100 mL Omnipaque 350 Radiation dose: Total exam DLP = 245.44 mGy-cm. This CT exam was performed using one or more of the following dose reduction techniques: Automated exposure control, adjustment of the mA and/or kV according to patient size, and/or use of iterative reconstruction technique. FINDINGS: PULMONARY ARTERIES: Unremarkable. No pulmonary embolism. AORTA: No acute findings. No thoracic aortic aneurysm. LUNGS: Severe centrilobular pulmonary emphysema. No infiltrate. PLEURAL SPACES: Unremarkable. No effusion or pneuomothorax. HEART: Unremarkable. No cardiomegaly. No significant pericardial effusion. LYMPH NODES: No lymphadenopathy. BONES, CHEST WALL: Extensive compression fractures of the thoracic vertebrae involving T4, T6 through T12 and L1 vertebrae, to varying degrees. Most severe compression deformity is at L1. No bony retropulsion appreciated. Healed fractures of left 7th and 8th ribs. OTHER FINDINGS: Unremarkable. IMPRESSION: No evidence of pulmonary embolism. Severe pulmonary emphysema. Numerous compression fractures of the thoracic and lumbar vertebrae.
[2016-12-15 01:27] LABS: VENOUS BLOOD GAS BASE EXCESS 4.8 mmol/L (0.0-2.0); VENOUS BLOOD PH 7.34 (7.32-7.43)
[2016-12-15 05:55] LABS: GRAN # 11.85 (1.4-6.5); GRAN % 85.4 % (50.0-68.0); HEMATOCRIT 31.4 % (42.0-52.0); LYMPH # 0.9 (1.2-3.4); LYMPH % 6.7 % (22.0-35.0); MEAN CELL VOLUME 95.2 fl (80.0-105.0); MEAN CORPUSCULAR HEMOGLOBIN 31.2 pg (25.0-35.0); MEAN CORPUSCULAR HGB CONC 32.8 g/dl (31.0-37.0); MEAN PLATELET VOLUME 8.7 fl (7.0-11.0); MONO # 1.1 (0.1-0.6); MONO % 7.9 % (1.0-6.0); RED CELL DISTRIBUTION WIDTH 13.2 % (11.5-14.5); WHITE BLOOD COUNT 13.9 10^3/ul (4.5-11.0)
[2016-12-15 06:19] LABS: ALB/GLOB RATIO 1.5 (1.1-1.8); ALKALINE PHOSPHATASE 83 U/L (38-133); ALT/SGPT 31 U/L (7-56); AST/SGOT 26 U/L (15-59); BILIRUBIN,TOTAL 0.2 mg/dL (0.2-1.3); BLOOD UREA NITROGEN 16 mg/dL (7-21); CALCIUM 8.7 mg/dL (8.4-10.5); CARBON DIOXIDE 30 mmol/L (21-33); CHLORIDE 103 mmol/L (98-107); GFR AFRICAN-AMERICAN > 60; GLUCOSE,RANDOM 113 mg/dL (70-110); POTASSIUM 4.4 mmol/L (3.6-5.0); SODIUM 141 mmol/L (132-148); TOTAL PROTEIN 5.2 g/dL (5.8-8.3)
[2016-12-15 08:05] LABS: PH,URINE 6.5 (4.7-8.0); URINE BILIRUBIN NEGATIVE (NEGATIVE); URINE BLOOD NEGATIVE (NEGATIVE); URINE GLUCOSE (UA) NEGATIVE (NEGATIVE); URINE KETONE NEGATIVE (NEGATIVE); URINE LEUKOCYTE ESTERASE NEGATIVE Leu/uL (NEGATIVE); URINE PROTEIN NEGATIVE mg/dL (<30 mg/dL); URINE UROBILINOGEN 0.2 E.U./dL (<1 E.U./dL)
[2016-12-15 08:06] LABS: URINE APPEARANCE CLEAR (CLEAR); URINE COLOR YELLOW (YELLOW)
[2016-12-15] MEDS: Pantoprazole 20 mg EC Tab PO SCH (08:45)
[2016-12-15] MEDS: MethylPREDNISolone 40 mg Vial IVP SCH (09:32)
[2016-12-15 10:50] LABS: INR 1.29 (0.93-1.08)
--- NOTE | 2016-12-15 11:00 | CP.PCM.CON ---
History of Present Illness - History of Present Illness History of Present Illness: Patient is 56yo male with PMhx of end stage COPD on home 2, 3LPM, recently diagnosed subsegmental PE in October non compliant with A/C, lumbar compression fractures, presented with chest wall pain, and sob. Pt reports he has had difficult breathing over the last few days, without fever, chills, cough, palpitations, N/V, CAI, dizziness. Pt reports he is only Albuterol MDI PRN at home, with no other inhalers. Reports compliance with O2, quit smoking 5 months ago, after smoking for 47years, 3pks per day. Pt endorses significant amount of weight loss, stating he used to weigh ~180lbs. No other constitutional symptoms. Repeat imaging on this admission demonstrates NO PE, or LE DVT. PMH: As above PSH: none Allergies: NKDA Medications: as per EMR FHx: NC Review of Systems - Review of Systems Review of Systems: as per hpi Past Patient History - Tetanus Immunizations Tetanus Immunization: Unknown - Past Social History Smoking Status: Former Smoker - CARDIAC Hx Cardiac Disorders: No - PULMONARY Hx Chronic Obstructive Pulmonary Disease (COPD): Yes - NEUROLOGICAL Hx Neurological Disorder: Yes Other/Comment: compression fx - HEENT Hx HEENT Problems: Yes (glasses) Other/Comment: tonsillectomy - RENAL Hx Chronic Kidney Disease: No - ENDOCRINE/METABOLIC Hx Endocrine Disorders: No - HEMATOLOGICAL/ONCOLOGICAL Hx Blood Transfusions: Yes Hx Blood Transfusion Reaction: No - INTEGUMENTARY Hx Dermatological Problems: No - MUSCULOSKELETAL/RHEUMATOLOGICAL Hx Musculoskeletal Disorders: Yes Hx Back Pain: Yes Hx Falls: No Hx Spinal Stenosis: Yes - GASTROINTESTINAL Hx Gastrointestinal Disorders: No - GENITOURINARY/GYNECOLOGICAL Hx Genitourinary Disorders: No - PSYCHIATRIC Hx 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) Hx Substance Use: Yes - SURGICAL HISTORY Hx Tonsillectomy: Yes - ANESTHESIA Hx Anesthesia Reactions: No Meds Allergies/Adverse Reactions: Allergies Allergy/AdvReac Type Severity Reaction Status Date / Time No Known Allergies Allergy Verified 12/14/16 13:07 - Medications Medications: Current Medications Acetaminophen (Tylenol 325mg Tab) 650 mg PO Q6H PRN PRN Reason: Pain, Mild (1-3) Heparin Sodium (Porcine) (Heparin) 5,000 units SC Q12 ERIC PRN Reason: Protocol Last Admin: 12/15/16 09:32 Dose: 5,000 units Ipratropium [place] (Atrovent) 0.5 mg IH [id number] ERIC Levalbuterol HCl (Xopenex) 0.63 mg IH [id number] [facility] Methylprednisolone (Solu-Medrol) 40 mg IVP Q12 ERIC Last Admin: 12/15/16 09:32 Dose: 40 mg Pantoprazole Sodium (Protonix Ec Tab) 20 mg PO ACB ERIC Last Admin: 12/15/16 08:45 Dose: 20 mg Pregabalin (Lyrica) 50 mg PO BID ERIC Last Admin: 12/15/16 09:32 Dose: 50 mg Tramadol HCl (Ultram) 50 mg PO Q6H PRN PRN Reason: Pain, severe (8-10) Last Admin: 12/15/16 05:34 Dose: 50 mg Physical Exam - Constitutional Appears: Well, Non-toxic, No Acute Distress Additional comments: cachexia - Head Exam Head Exam: ATRAUMATIC - Eye Exam Eye Exam: EOMI, Normal appearance Pupil Exam: PERRL - Respiratory Exam Respiratory Exam: Wheezes, NORMAL BREATHING PATTERN - Cardiovascular Exam Cardiovascular Exam: REGULAR RHYTHM, +S1, +S2 - GI/Abdominal Exam GI & Abdominal Exam: Normal Bowel Sounds, Soft - Extremities Exam Extremities exam: Positive for: normal inspection - Neurological Exam Neurological exam: CN II-XII Intact, Oriented x3 - Psychiatric Exam Psychiatric exam: Normal Affect Results - Vital Signs Recent Vital Signs: Last Vital Signs Temp 97.8 F 12/15/16 05:07 Pulse 89 12/15/16 05:07 Resp 19 12/15/16 05:07 BP 97/67 L 12/15/16 05:07 Pulse Ox 98 12/15/16 05:07 - Labs Result Diagrams: 12/15/16 05:20 12/15/16 05:20 Labs: Laboratory Results - last 24 hr 12/15/16 12/15/16 12/15/16 01:00 05:20 05:20 WBC 13.9 H RBC 3.30 L Hgb 10.3 L Hct 31.4 L MCV 95.2 MCH 31.2 MCHC 32.8 RDW 13.2 Plt Count 333 MPV 8.7 Gran % 85.4 H Lymph % (Auto) 6.7 L Sullivan % (Auto) 7.9 H Eos % (Auto) 0.0 L Baso % (Auto) 0.0 Gran # 11.85 H Lymph # 0.9 L Sullivan # 1.1 H Eos # 0.0 Baso # 0.00 pO2 48 VBG pH 7.34 VBG pCO2 60.0 VBG HCO3 32.4 H VBG Total CO2 34.2 H VBG O2 Sat (Calc) 87.2 H VBG Base Excess 4.8 H VBG Potassium 4.5 Sodium 138.0 141 Chloride 104.0 103 Glucose 138 H Lactate 1.8 FiO2 21.0 Potassium 4.4 Carbon Dioxide 30 Anion Gap 12 BUN 16 Creatinine 0.5 Est GFR ( Amer) > 60 Est GFR (Non-Af Amer) > 60 Random Glucose 113 H Calcium 8.7 Total Bilirubin 0.2 AST 26 ALT 31 Alkaline Phosphatase 83 Total Protein 5.2 L Albumin 3.1 Globulin 2.1 Albumin/Globulin Ratio 1.5 Venous Blood Potassium 4.5 Urine Color Urine Appearance Urine pH Ur Specific [place] Urine Protein Urine Glucose (UA) Urine Ketones Urine Blood Urine Nitrate Urine Bilirubin Urine Urobilinogen Ur Leukocyte Esterase 12/15/16 07:50 WBC RBC Hgb Hct MCV MCH MCHC RDW Plt Count MPV Gran % Lymph % (Auto) Sullivan % (Auto) Eos % (Auto) Baso % (Auto) Gran # Lymph # Sullivan # Eos # Baso # pO2 VBG pH VBG pCO2 VBG HCO3 VBG Total CO2 VBG O2 Sat (Calc) VBG Base Excess VBG Potassium Sodium Chloride Glucose Lactate FiO2 Potassium Carbon Dioxide Anion Gap BUN Creatinine Est GFR ( Amer) Est GFR (Non-Af Amer) Random Glucose Calcium Total Bilirubin AST ALT Alkaline Phosphatase Total Protein Albumin Globulin Albumin/Globulin Ratio Venous Blood Potassium Urine Color Yellow Urine Appearance Clear Urine pH 6.5 Ur Specific [place] 1.020 Urine Protein Negative Urine Glucose (UA) Negative Urine Ketones Negative Urine Blood Negative Urine Nitrate Negative Urine Bilirubin Negative Urine Urobilinogen 0.2 Ur Leukocyte Esterase Negative - Imaging and Cardiology CT scan - chest Status: Image reviewed by me, Report reviewed by me Assessment & Plan - Assessment and Plan (Free Text) Assessment: 56yo male a/w SOB SOB COPD on home O2 Hx of PE - currently afebrile, HD stable, comfortable at rest, on exam diffuse mild wheezing noted - pt has hx of non compliance with meds, and poor follow up with MDs - repeat imaging on this admission demonstrates NO PE or LE DVT Recommend: - cont with IV steroids, Solumedrol 40mg IV q12hr, would start tapering with PO Prednisone starting tomorrow - No evidence of consolidation on CT chest, consider discontinuing antibiotics - Duonebs Q6hr PRN - supp O2 - upon discharge patient should be on Spiriva daily, Symbicort 160/4.5 BID, and Albuterol PRN - smoking exposure avoidance, patient counseled on importance of smoking abstinence - would not further anticoagulate as patient demonstrates no PE or DVT on imaging from this admission, and intial PE was subsegmental - For patient with subsegmental PE and no DVT, the CHEST guidelines suggests clinical surveillance over anticoagulation when the risk of VTE recurrence is low (Grade 2C) - DVT ppx - OOB to chair, ambulation - recommendations conveyed to the primary team.
[2016-12-15] MEDS: Levalbuterol 0.63 MG/3 ML Inhal Soln UD IH SCH ×4 (14:00→23:32)
[2016-12-15] MEDS: Ipratropium 0.02% Inhal Soln (0.5 mg/2.5 ml) UD IH SCH ×4 (14:00→23:32)
--- NOTE | 2016-12-15 20:11 | CP.PCM.PN ---
<Mani Al - Last Filed: 12/16/16 07:04> Subjective - Date & Time of Evaluation Date of Evaluation: 12/15/16 Time of Evaluation: 20:09 - Subjective Subjective: Mani Al PGY-1, DO, Hospitalist Service Patient seen and examined at bedside. patient reports no receiving his breathing treatment overnight and getting short of breath. His breathing treatments were immediately changed to scheduled. He states his pain is well controlled. Objective - Vital Signs/Intake and Output Vital Signs (last 24 hours): Temp Pulse Resp BP Pulse Ox 97.9 F 93 H 20 104/70 98 12/15/16 18:00 12/15/16 18:00 12/15/16 18:00 12/15/16 18:00 12/15/16 05:07 Intake and Output: 12/15/16 12/16/16 18:59 06:59 Intake Total 660 Output Total 800 Balance -140 - Medications Medications: Current Medications Acetaminophen (Tylenol 325mg Tab) 650 mg PO Q6H PRN PRN Reason: Pain, Mild (1-3) Heparin Sodium (Porcine) (Heparin) 5,000 units SC Q12 ERIC PRN Reason: Protocol Last Admin: 12/15/16 09:32 Dose: 5,000 units Ipratropium [place] (Atrovent) 0.5 mg IH [id number] [facility] Last Admin: 12/15/16 15:41 Dose: 0.5 mg Levalbuterol HCl (Xopenex) 0.63 mg IH [id number] [facility] Last Admin: 12/15/16 15:41 Dose: 0.63 mg Methylprednisolone (Solu-Medrol) 40 mg IVP DAILY [facility] Pantoprazole Sodium (Protonix Ec Tab) 20 mg PO ACB [facility] Last Admin: 12/15/16 08:45 Dose: 20 mg Pregabalin (Lyrica) 50 mg PO BID [facility] Last Admin: 12/15/16 17:12 Dose: 50 mg Tramadol HCl (Ultram) 50 mg PO Q6H PRN PRN Reason: Pain, severe (8-10) Last Admin: 12/15/16 12:46 Dose: 50 mg - Labs Labs: 12/15/16 05:20 12/15/16 05:20 PT 13.9 Seconds (9.9-11.8) H 12/15/16 07:30 INR 1.29 (0.93-1.08) H 12/15/16 07:30 APTT 29.6 Seconds (23.7-30.8) 12/14/16 09:55 Assessment and Plan - Assessment and Plan (Free Text) Assessment: 56 year old male with advanced COPD, PE, thoracic and lumbar compression fractures, healing rib fracture presenting in respiratory distress and chest wall pain. 1) Respiratory distress secondary to end-stage COPD, chest-wall pain, and poor life circumstances/non-compliance - 20 mg of Prednisone beginning tomorrow. - Levalbuterol q4h and Ipratropium q4h ERIC - OOB to chair, ambulation. - Oxygen 3 L Nasal Cannula 2) DVT prophylaxis instituted, therapeutic dose of heparin fortunately never started given patient has history of bleeds while on anticoagulation and is a poor candidate for warfarin due to non-compliance and inability to follow up with MDs. 3) D-dimer elevated - CT PE protocol showed nothing 4) Increase Lyrica 75 BID and Tramadol 50 q6h prn 5) C/W other medications, including Protonix and Heparin 5,000 U q12 SC. 6) Patient counselled on smoking exposure avoidance, and remaining smoking abstinence. 7) PT evaluation and treat 8) Upon discharge patient should be on Spiriva daily, Symbicort 160/4.5 BID, and Albuterol PRN Plan: as above <Clare Lipscomb - Last Filed: 12/23/16 17:20> Objective - Vital Signs/Intake and Output Vital Signs (last 24 hours): Temp Pulse Resp BP Pulse Ox 98.1 F 90 20 113/78 100 12/17/16 07:47 12/17/16 07:47 12/17/16 07:47 12/17/16 07:47 12/17/16 07:47 - Labs Labs: 12/17/16 05:30 12/17/16 05:30 PT 11.9 Seconds (9.9-11.8) H 12/16/16 07:00 INR 1.10 (0.93-1.08) H 12/16/16 07:00 APTT 29.6 Seconds (23.7-30.8) 12/14/16 09:55 Attending/Attestation - Attestation I have personally seen and examined this patient.: Yes I have fully participated in the care of the patient.: Yes I have reviewed all pertinent clinical information, including history, physical exam and plan: Yes Notes (Text): I have seen and examined patient with the resident. Agree with the note above with the following additions/ exceptions: Briefly this is 56 year old male with history of recent PE , COPD, compression fracture of lower thoracic spine, and rib fracture at the posterior aspect of the right 8th rib was admitted with shortness of breath and found to have COPD exacerbation. Pulmonary consult appreciated. Continue solumedrol taper, He also had SSPE. There is no PE or dvt this time. No further anticoagulants needed. Discussed with pulmonologista as well. Upon discharge patient will follow up with PMD of choice and Dr Watts. Dr Clare Lipscomb
[2016-12-16] MEDS: Ipratropium 0.02% Inhal Soln (0.5 mg/2.5 ml) UD IH SCH ×3 (04:47→11:03)
[2016-12-16] MEDS: Levalbuterol 0.63 MG/3 ML Inhal Soln UD IH SCH ×3 (04:47→11:03)
[2016-12-16] MEDS: Pantoprazole 20 mg EC Tab PO SCH (06:53)
[2016-12-16 07:26] LABS: INR 1.1 (0.93-1.08)
--- NOTE | 2016-12-16 09:19 | CP.PCM.DIS ---
Provider - Provider Date of Admission: 12/14/16 10:55 Attending physician: Clare Lipscomb MD Primary care physician: NO PRIMARY CARE PROVIDER Hospital Course - Lab Results Lab Results: Micro Results 12/15/16 07:50 Urine,Clean Catch Urine Culture - Final No Growth (<1,000 CFU/ML) 12/15/16 01:00 Blood-Venous Blood Culture - Preliminary NO GROWTH AFTER 24 HOURS Most Recent Lab Values WBC 13.9 10^3/ul (4.5-11.0) H 12/15/16 05:20 RBC 3.30 10^6/uL (3.5-6.1) L 12/15/16 05:20 Hgb 10.3 g/dL (14.0-18.0) L 12/15/16 05:20 Hct 31.4 % (42.0-52.0) L 12/15/16 05:20 MCV 95.2 fl (80.0-105.0) 12/15/16 05:20 MCH 31.2 pg (25.0-35.0) 12/15/16 05:20 MCHC 32.8 g/dl (31.0-37.0) 12/15/16 05:20 RDW 13.2 % (11.5-14.5) 12/15/16 05:20 Plt Count 333 10^3/uL (120.0-450.0) 12/15/16 05:20 MPV 8.7 fl (7.0-11.0) 12/15/16 05:20 Gran % 85.4 % (50.0-68.0) H 12/15/16 05:20 Lymph % (Auto) 6.7 % (22.0-35.0) L 12/15/16 05:20 [place] % (Auto) 7.9 % (1.0-6.0) H 12/15/16 05:20 Eos % (Auto) 0.0 % (1.5-5.0) L 12/15/16 05:20 Baso % (Auto) 0.0 % (0.0-3.0) 12/15/16 05:20 Gran # 11.85 (1.4-6.5) H 12/15/16 05:20 Lymph # 0.9 (1.2-3.4) L 12/15/16 05:20 Bonner # 1.1 (0.1-0.6) H 12/15/16 05:20 Eos # 0.0 (0.0-0.7) 12/15/16 05:20 Baso # 0.00 K/mm3 (0.0-2.0) 12/15/16 05:20 PT 11.9 Seconds (9.9-11.8) H 12/16/16 07:00 INR 1.10 (0.93-1.08) H 12/16/16 07:00 APTT 29.6 Seconds (23.7-30.8) 12/14/16 09:55 D-Dimer, Quantitative 0.78 mg/L FEU (0-0.50) H 12/14/16 09:56 pCO2 47 mm/Hg (35-45) H 12/14/16 10:40 pO2 48 mm/Hg (30-55) 12/15/16 01:00 HCO3 27.8 mmol/L (21-28) 12/14/16 10:40 ABG pH 7.38 (7.35-7.45) 12/14/16 10:40 ABG Total CO2 29.2 mmol.L (22-28) H 12/14/16 10:40 ABG O2 Saturation 99.7 % (95-98) H 12/14/16 10:40 ABG O2 Content 15.0 ML/dl (15-23) 12/14/16 10:40 ABG Base Excess 2.1 mmol/L (-2.0-3.0) 12/14/16 10:40 ABG Hemoglobin 10.9 g/dL (11.7-17.4) L 12/14/16 10:40 ABG Carboxyhemoglobin 2.1 % (0.5-1.5) H 12/14/16 10:40 POC ABG HHb (Measured) 0.3 % (0-5) 12/14/16 10:40 ABG Methemoglobin 0.9 % (0.0-3.0) 12/14/16 10:40 ABG O2 Capacity 15.0 mL/dl (16-24) L 12/14/16 10:40 VBG pH 7.34 (7.32-7.43) 12/15/16 01:00 VBG pCO2 60.0 (40-60) 12/15/16 01:00 VBG HCO3 32.4 mmol/l (21-28) H 12/15/16 01:00 VBG Total CO2 34.2 mmol.L (22-28) H 12/15/16 01:00 VBG O2 Sat (Calc) 87.2 % (40-65) H 12/15/16 01:00 VBG Base Excess 4.8 mmol/L (0.0-2.0) H 12/15/16 01:00 VBG Potassium 4.5 mmol/L (3.6-5.2) 12/15/16 01:00 Hgb O2 Saturation 96.6 % (95.0-98.0) 12/14/16 10:40 Sodium 138.0 mmol/L (132-148) 12/15/16 01:00 Chloride 104.0 mmol/L (98-107) 12/15/16 01:00 Glucose 138 mg/dl (75-110) H 12/15/16 01:00 Lactate 1.8 mmol/L (0.7-2.1) 12/15/16 01:00 FiO2 21.0 % 12/15/16 01:00 Sodium 141 mmol/L (132-148) 12/15/16 05:20 Potassium 4.4 mmol/L (3.6-5.0) 12/15/16 05:20 Chloride 103 mmol/L (98-107) 12/15/16 05:20 Carbon Dioxide 30 mmol/L (21-33) 12/15/16 05:20 Anion Gap 12 (10-20) 12/15/16 05:20 BUN 16 mg/dL (7-21) 12/15/16 05:20 Creatinine 0.5 mg/dL (0.5-1.4) 12/15/16 05:20 Est GFR ( Amer) > 60 12/15/16 05:20 Est GFR (Non-Af Amer) > 60 12/15/16 05:20 Random Glucose 113 mg/dL (70-110) H 12/15/16 05:20 Calcium 8.7 mg/dL (8.4-10.5) 12/15/16 05:20 Total Bilirubin 0.2 mg/dL (0.2-1.3) 12/15/16 05:20 Direct Bilirubin 0.2 mg/dL (0.0-0.4) 12/14/16 10:30 AST 26 U/L (15-59) 12/15/16 05:20 ALT 31 U/L (7-56) 12/15/16 05:20 Alkaline Phosphatase 83 U/L (38-133) 12/15/16 05:20 Lactate Dehydrogenase 341 U/L (333-699) 12/14/16 09:55 Total Creatine Kinase 22 U/L (35-230) L 12/14/16 09:55 Troponin I < 0.01 ng/mL 12/14/16 09:55 NT-Pro-B Natriuret Pep 65.8 pg/mL (0-450) 12/14/16 09:55 Total Protein 5.2 g/dL (5.8-8.3) L 12/15/16 05:20 Albumin 3.1 g/dL (3.0-4.8) 12/15/16 05:20 Globulin 2.1 gm/dL 12/15/16 05:20 Albumin/Globulin Ratio 1.5 (1.1-1.8) 12/15/16 05:20 Venous Blood Potassium 4.5 mmol/L (3.6-5.2) 12/15/16 01:00 Urine Color Yellow (YELLOW) 12/15/16 07:50 Urine Appearance Clear (CLEAR) 12/15/16 07:50 Urine pH 6.5 (4.7-8.0) 12/15/16 07:50 Ur Specific [place] 1.020 (1.005-1.035) 12/15/16 07:50 Urine Protein Negative mg/dL (<30 mg/dL) 12/15/16 07:50 Urine Glucose (UA) Negative mg/dL (NEGATIVE) 12/15/16 07:50 Urine Ketones Negative mg/dL (NEGATIVE) 12/15/16 07:50 Urine Blood Negative (NEGATIVE) 12/15/16 07:50 Urine Nitrate Negative (NEGATIVE) 12/15/16 07:50 Urine Bilirubin Negative (NEGATIVE) 12/15/16 07:50 Urine Urobilinogen 0.2 E.U./dL (<1 E.U./dL) 12/15/16 07:50 Ur Leukocyte Esterase Negative Diya/uL (NEGATIVE) 12/15/16 07:50 Discharge Exam - Head Exam Head Exam: ATRAUMATIC Discharge Plan - Follow Up Plan Condition: GUARDED Additional Instructions: 1. PLEASE FOLLOW UP WITH A PMD OF YOUR CHOICE WITHIN ONE WEEK. The following are recommendations of PMD's near [place] within the [facility] System, which will make accessing your records easier: Dr. Juan Jose Killian Practice Name: [facility] Address: [address] [place] [address] Dr. Reji Dorsey Practice Name: [facility] Address: [address] [place] [address] Dr. Frances Esquivel Practice Name: [facility] [address] Address: [address] [place] [address] Should you not be able to establish care and make an appointment within one week , please contact the [facility] to schedule an appointment. 2. As far as pain management, you need not to see a pain specialist should you establish care any PMD, including one of the above Primary Medical Doctors, who can prescribe, at their own discretion, pain medication for your condition. 3. Dr. Elmo Watts, is a second option, if ther pain medication prescribed to you PMD is not sufficing. Address: [place] [address] 4. 5. If your symptoms should worsen or persist, please seek emergency medical attention. Referrals: PCP,NO [Primary Care Provider] -
[2016-12-16] MEDS ORDERED: MethylPREDNISolone 40 mg Vial IVP SCH (10:00)
[2016-12-16] MEDS ORDERED: Albuterol-Ipratrop 3 mg / 0.5 (3 ml) UD IH SCH ×2 (14:28→15:30)
--- NOTE | 2016-12-16 15:28 | CP.PCM.PN ---
<Mani Al - Last Filed: 12/16/16 16:13> Subjective - Date & Time of Evaluation Date of Evaluation: 12/16/16 Time of Evaluation: 15:25 - Subjective Subjective: Mani Al DO, PGY-1, Hospitalist Service: Dr. Hanna Patient seen and examined in bedside. Patient reports labored breathing, pain controlled moderately. Patient denies any chest pain, but admits to generalized chest wall pain. Denies any sputum production. Objective - Vital Signs/Intake and Output Vital Signs (last 24 hours): Temp Pulse Resp BP Pulse Ox 97.8 F 89 24 105/74 98 12/16/16 07:00 12/16/16 07:00 12/16/16 07:00 12/16/16 07:00 12/16/16 07:00 Intake and Output: 12/16/16 12/16/16 06:59 18:59 Intake Total 720 880 Output Total 1100 1550 Balance -380 -670 - Medications Medications: Current Medications Acetaminophen (Tylenol 325mg Tab) 650 mg PO Q4H PRN PRN Reason: Pain, Mild (1-3) Albuterol/Ipratropium (Duoneb 3 Mg/0.5 Mg (3 Ml) Ud) 3 ml IH [id number] [facility] Heparin Sodium (Porcine) (Heparin) 5,000 units SC Q12 ERIC PRN Reason: Protocol Last Admin: 12/16/16 09:50 Dose: 5,000 units Methylprednisolone (Solu-Medrol) 40 mg IVP Q12 [facility] Pantoprazole Sodium (Protonix Ec Tab) 20 mg PO ACB [facility] Last Admin: 12/16/16 06:53 Dose: 20 mg Pregabalin (Lyrica) 75 mg PO BID [facility] Last Admin: 12/16/16 09:50 Dose: 75 mg Tramadol HCl (Ultram) 50 mg PO Q6H PRN PRN Reason: Pain, severe (8-10) Last Admin: 12/16/16 06:02 Dose: 50 mg - Labs Labs: 12/15/16 05:20 12/15/16 05:20 PT 11.9 Seconds (9.9-11.8) H 12/16/16 07:00 INR 1.10 (0.93-1.08) H 12/16/16 07:00 APTT 29.6 Seconds (23.7-30.8) 12/14/16 09:55 - Constitutional Appears: In Acute Distress, Older Than Stated Age, Cachectic - Head Exam Head Exam: ATRAUMATIC, NORMOCEPHALIC - Eye Exam Eye Exam: EOMI, Normal appearance, PERRL - Respiratory Exam Respiratory Exam: Prolonged Expiratory Phase, Wheezes (expiratory) Additional comments: RR of 26, nasal flaring - Neurological Exam Neurological Exam: Alert, Awake, Oriented x3 - Psychiatric Exam Psychiatric exam: Normal Affect, Normal Mood - Skin Skin Exam: Dry, Intact, Normal Color, Warm Assessment and Plan - Assessment and Plan (Free Text) Assessment: 56 year old male with end-stage COPD with recent history of PE, thoracic and lumbar compression fractures, healing rib fracture who presented to [facility] in respiratory distress (requiring BIPAP in the ED), chest wall pain, and a likely COPD exacerbation. Plan: 1) COPD exacerbation - 40 mg of IV methylprednisolone q12h. - Duonebs q4h ERIC - Advair q12h ERIC - Oxygen 3 L Nasal Cannula - Upon discharge patient should be on Spiriva daily, Symbicort 160/4.5 BID, and Albuterol PRN, per Pulmonology 2) Thoracic and Lumbar compression fractures causing severe, intractable back pain - Interventional Radiologist, Dr. Karlo Morales, consulted for possible kyphoplasty, or any other recommendations. - Current Analgesic regiment: Lyrica 75 mg BID, Tramadol 50 mg q6h PRN for severe pain, and Tylenol 650 mg for mild to moderate pain 3) Cachexia secondary to increased work of breathing in a patient with end- stage COPD patient. - Liquid protein supplement to be provided three times daily with meals. 4) DVT/GI Prophylaxis: Protonix 20 mg PO daily and Heparin 5,000 Units SC q12h Patient seen and discussed with attending, Dr. Hanna. <Tanmay Hanna - Last Filed: 01/10/17 11:08> Objective - Vital Signs/Intake and Output Vital Signs (last 24 hours): Temp Pulse Resp BP Pulse Ox 98.1 F 90 20 113/78 100 12/17/16 07:47 12/17/16 07:47 12/17/16 07:47 12/17/16 07:47 12/17/16 07:47 - Labs Labs: 12/17/16 05:30 12/17/16 05:30 PT 11.9 Seconds (9.9-11.8) H 12/16/16 07:00 INR 1.10 (0.93-1.08) H 12/16/16 07:00 APTT 29.6 Seconds (23.7-30.8) 12/14/16 09:55 Attending/Attestation - Attestation I have personally seen and examined this patient.: Yes I have fully participated in the care of the patient.: Yes I have reviewed all pertinent clinical information, including history, physical exam and plan: Yes Notes (Text): 56 year old male with end-stage COPD with recent history of PE, thoracic and lumbar compression fractures, healing rib fracture who presented to [facility] in respiratory distress (requiring BIPAP in the ED), chest wall pain, and a likely COPD exacerbation. Plan: 1) Acute COPD exacerbation 2) Thoracic and Lumbar compression fractures causing severe, intractable back pain 3) Cachexia secondary to increased work of breathing in a patient with end- stage COPD patient.
[2016-12-16] MEDS: MethylPREDNISolone 40 mg Vial IVP SCH ×2 (16:58→21:35)
[2016-12-16] MEDS ORDERED: Fluticasone-Salmeterol 500-50mcg Diskus INH SCH (18:00)
[2016-12-16] MEDS: Budesonide 0.5 mg/2 ml Inhal Susp UD IH SCH (20:07)
[2016-12-16] MEDS: Arformoterol 15 mcg/2 ml Inh Sol IH SCH (20:07)
[2016-12-16] MEDS: Albuterol-Ipratrop 3 mg / 0.5 (3 ml) UD IH SCH (20:10)
[2016-12-17] MEDS: Albuterol-Ipratrop 3 mg / 0.5 (3 ml) UD IH SCH ×3 (02:24→13:09)
[2016-12-17 05:38] VITALS: RESP 20
[2016-12-17 05:55] LABS: GRAN # 10.55 (1.4-6.5); GRAN % 89.3 % (50.0-68.0); LYMPH # 0.7 (1.2-3.4); LYMPH % 5.6 % (22.0-35.0); MEAN CELL VOLUME 95.7 fl (80.0-105.0); MEAN CORPUSCULAR HEMOGLOBIN 30.4 pg (25.0-35.0); MEAN CORPUSCULAR HGB CONC 31.8 g/dl (31.0-37.0); MEAN PLATELET VOLUME 8.8 fl (7.0-11.0); MONO # 0.6 (0.1-0.6); MONO % 5.1 % (1.0-6.0); RED CELL DISTRIBUTION WIDTH 13.3 % (11.5-14.5); WHITE BLOOD COUNT 11.8 10^3/ul (4.5-11.0)
[2016-12-17 06:49] LABS: ALB/GLOB RATIO 1.3 (1.1-1.8); ALKALINE PHOSPHATASE 89 U/L (38-126); ALT/SGPT 46 U/L (7-56); AST/SGOT 30 U/L (17-59); BILIRUBIN,TOTAL 0.2 mg/dL (0.2-1.3); BLOOD UREA NITROGEN 19 mg/dL (7-21); CALCIUM 8.9 mg/dL (8.4-10.5); CARBON DIOXIDE 34 mmol/L (21-33); CHLORIDE 100 mmol/L (98-107); GFR AFRICAN-AMERICAN > 60; GLUCOSE,RANDOM 114 mg/dL (70-110); POTASSIUM 4.2 mmol/L (3.6-5.0); SODIUM 141 mmol/L (132-148); TOTAL PROTEIN 5.3 g/dL (5.8-8.3)
[2016-12-17] MEDS: Arformoterol 15 mcg/2 ml Inh Sol IH SCH (07:24)
[2016-12-17] MEDS: Budesonide 0.5 mg/2 ml Inhal Susp UD IH SCH (07:25)
[2016-12-17 07:48] VITALS: BP 113/78; PULSE 90; TEMP 98.1; O2SAT 100
[2016-12-17] MEDS: Pantoprazole 20 mg EC Tab PO SCH (07:55)
[2016-12-17] MEDS: MethylPREDNISolone 40 mg Vial IVP SCH (11:46)
--- NOTE | 2016-12-17 13:43 | MRI ---
PROCEDURE: MR THORACIC SPINE WITHOUT CONTRAST HISTORY: eval comp fx for kypho. c/w 11/17/16 COMPARISON: MRI of the thoracic spine 11/17/2016 TECHNIQUE: Multiecho multiplanar sequences were performed through the thoracic spine without the use of intravenous contrast. The previous study was numbered based on the lumbar spine with the most severe compression fracture seen at L2. However the current study was numbered based on counting from C2 which is more accurate. The severely compressed vertebral body previously counted is L2 is actually L1. FINDINGS: ALIGNMENT: Normal thoracic spinal alignment. Normal thoracic kyphosis. VERTEBRA: There is increasing marrow edema in the T8 vertebral body. There is mild compression of this vertebral body. The remaining compression fractures are chronic and unchanged. MARROW: As above PARASPINAL SOFT TISSUES: Unremarkable. CORD: Unremarkable thoracic cord. No volume loss, signal abnormality or syrinx. DISCS: No disc herniation, spinal canal stenosis, or neuroforaminal narrowing. OTHER FINDINGS: None. IMPRESSION: Counting discrepancy compared to previous study. The current study was numbered from the C2 level. See comments. There is increasing marrow edema and a mild compression of the T8 vertebral body. The remaining chronic compression fractures are unchanged
--- NOTE | 2016-12-18 09:59 | CP.PCM.DIS ---
Provider - Provider Date of Admission: 12/14/16 10:55 Attending physician: Clare Lipscomb MD Primary care physician: NO PRIMARY CARE PROVIDER Consults: Dr. Noe Pulmonogy Dr. Karlo CALLOWAY Time Spent in preparation of Discharge (in minutes): 33 Hospital Course - Lab Results Lab Results: Micro Results 12/15/16 01:00 Blood-Venous Blood Culture - Preliminary NO GROWTH AFTER 3 DAYS 12/15/16 07:50 Urine,Clean Catch Urine Culture - Final No Growth (<1,000 CFU/ML) Most Recent Lab Values WBC 11.8 10^3/ul (4.5-11.0) H 12/17/16 05:30 RBC 3.45 10^6/uL (3.5-6.1) L 12/17/16 05:30 Hgb 10.5 g/dL (14.0-18.0) L 12/17/16 05:30 Hct 33.0 % (42.0-52.0) L 12/17/16 05:30 MCV 95.7 fl (80.0-105.0) 12/17/16 05:30 MCH 30.4 pg (25.0-35.0) 12/17/16 05:30 MCHC 31.8 g/dl (31.0-37.0) 12/17/16 05:30 RDW 13.3 % (11.5-14.5) 12/17/16 05:30 Plt Count 297 10^3/uL (120.0-450.0) 12/17/16 05:30 MPV 8.8 fl (7.0-11.0) 12/17/16 05:30 Gran % 89.3 % (50.0-68.0) H 12/17/16 05:30 Lymph % (Auto) 5.6 % (22.0-35.0) L 12/17/16 05:30 [place] % (Auto) 5.1 % (1.0-6.0) 12/17/16 05:30 Eos % (Auto) 0.0 % (1.5-5.0) L 12/17/16 05:30 Baso % (Auto) 0.0 % (0.0-3.0) 12/17/16 05:30 Gran # 10.55 (1.4-6.5) H 12/17/16 05:30 Lymph # 0.7 (1.2-3.4) L 12/17/16 05:30 [place] # 0.6 (0.1-0.6) 12/17/16 05:30 Eos # 0.0 (0.0-0.7) 12/17/16 05:30 Baso # 0.00 K/mm3 (0.0-2.0) 12/17/16 05:30 PT 11.9 Seconds (9.9-11.8) H 12/16/16 07:00 INR 1.10 (0.93-1.08) H 12/16/16 07:00 APTT 29.6 Seconds (23.7-30.8) 12/14/16 09:55 D-Dimer, Quantitative 0.78 mg/L FEU (0-0.50) H 12/14/16 09:56 pCO2 47 mm/Hg (35-45) H 12/14/16 10:40 pO2 48 mm/Hg (30-55) 12/15/16 01:00 HCO3 27.8 mmol/L (21-28) 12/14/16 10:40 ABG pH 7.38 (7.35-7.45) 12/14/16 10:40 ABG Total CO2 29.2 mmol.L (22-28) H 12/14/16 10:40 ABG O2 Saturation 99.7 % (95-98) H 12/14/16 10:40 ABG O2 Content 15.0 ML/dl (15-23) 12/14/16 10:40 ABG Base Excess 2.1 mmol/L (-2.0-3.0) 12/14/16 10:40 ABG Hemoglobin 10.9 g/dL (11.7-17.4) L 12/14/16 10:40 ABG Carboxyhemoglobin 2.1 % (0.5-1.5) H 12/14/16 10:40 POC ABG HHb (Measured) 0.3 % (0-5) 12/14/16 10:40 ABG Methemoglobin 0.9 % (0.0-3.0) 12/14/16 10:40 ABG O2 Capacity 15.0 mL/dl (16-24) L 12/14/16 10:40 VBG pH 7.34 (7.32-7.43) 12/15/16 01:00 VBG pCO2 60.0 (40-60) 12/15/16 01:00 VBG HCO3 32.4 mmol/l (21-28) H 12/15/16 01:00 VBG Total CO2 34.2 mmol.L (22-28) H 12/15/16 01:00 VBG O2 Sat (Calc) 87.2 % (40-65) H 12/15/16 01:00 VBG Base Excess 4.8 mmol/L (0.0-2.0) H 12/15/16 01:00 VBG Potassium 4.5 mmol/L (3.6-5.2) 12/15/16 01:00 Hgb O2 Saturation 96.6 % (95.0-98.0) 12/14/16 10:40 Sodium 138.0 mmol/L (132-148) 12/15/16 01:00 Chloride 104.0 mmol/L (98-107) 12/15/16 01:00 Glucose 138 mg/dl (75-110) H 12/15/16 01:00 Lactate 1.8 mmol/L (0.7-2.1) 12/15/16 01:00 FiO2 21.0 % 12/15/16 01:00 Sodium 141 mmol/L (132-148) 12/17/16 05:30 Potassium 4.2 mmol/L (3.6-5.0) 12/17/16 05:30 Chloride 100 mmol/L (98-107) 12/17/16 05:30 Carbon Dioxide 34 mmol/L (21-33) H 12/17/16 05:30 Anion Gap 11 (10-20) 12/17/16 05:30 BUN 19 mg/dL (7-21) 12/17/16 05:30 Creatinine 0.5 mg/dL (0.5-1.4) 12/17/16 05:30 Est GFR ( Amer) > 60 12/17/16 05:30 Est GFR (Non-Af Amer) > 60 12/17/16 05:30 Random Glucose 114 mg/dL (70-110) H 12/17/16 05:30 Calcium 8.9 mg/dL (8.4-10.5) 12/17/16 05:30 Total Bilirubin 0.2 mg/dL (0.2-1.3) 12/17/16 05:30 Direct Bilirubin 0.2 mg/dL (0.0-0.4) 12/14/16 10:30 AST 30 U/L (17-59) 12/17/16 05:30 ALT 46 U/L (7-56) 12/17/16 05:30 Alkaline Phosphatase 89 U/L (38-126) 12/17/16 05:30 Lactate Dehydrogenase 341 U/L (333-699) 12/14/16 09:55 Total Creatine Kinase 22 U/L (35-230) L 12/14/16 09:55 Troponin I < 0.01 ng/mL 12/14/16 09:55 NT-Pro-B Natriuret Pep 65.8 pg/mL (0-450) 12/14/16 09:55 Total Protein 5.3 g/dL (5.8-8.3) L 12/17/16 05:30 Albumin 3.1 g/dL (3.0-4.8) 12/17/16 05:30 Globulin 2.3 gm/dL 12/17/16 05:30 Albumin/Globulin Ratio 1.3 (1.1-1.8) 12/17/16 05:30 Venous Blood Potassium 4.5 mmol/L (3.6-5.2) 12/15/16 01:00 Urine Color Yellow (YELLOW) 12/15/16 07:50 Urine Appearance Clear (CLEAR) 12/15/16 07:50 Urine pH 6.5 (4.7-8.0) 12/15/16 07:50 Ur Specific [place] 1.020 (1.005-1.035) 12/15/16 07:50 Urine Protein Negative mg/dL (<30 mg/dL) 12/15/16 07:50 Urine Glucose (UA) Negative mg/dL (NEGATIVE) 12/15/16 07:50 Urine Ketones Negative mg/dL (NEGATIVE) 12/15/16 07:50 Urine Blood Negative (NEGATIVE) 12/15/16 07:50 Urine Nitrate Negative (NEGATIVE) 12/15/16 07:50 Urine Bilirubin Negative (NEGATIVE) 12/15/16 07:50 Urine Urobilinogen 0.2 E.U./dL (<1 E.U./dL) 12/15/16 07:50 Ur Leukocyte Esterase Negative Diya/uL (NEGATIVE) 12/15/16 07:50 - Hospital Course Hospital Course: Mani Al DO, PGY-1, Hospitalist Service 56 year old male with a medical history of advanced COPD (requiring 3L of oxygen at home), PE, thoracic and lumbar compression fractures, rib fractures , osteoporosis, who was discharged on 12/05 and with a 5-day supply of 3 mg Coumadin for anticoagulation s/p PE and 5-day supply of Flexeril for chest wall pain now presents today (12/13) via EMS for 3 days of worsening chest wall pain, associated hyperventilation, and likely COPD exacerbation. He admits to pain in the area of his previous rib fracture that has generalized to his thoracic cage and spine. The chest wall pain, according to the patient, exacerbates his already poor breathing status. Despite taking some steroids, using his home nebulizers, and oxygen at home he simply could not tolerate his dyspnea and naturally came to the ED,He admits to post-nasal drip, mostly dry coughs with occasional clear phlegm expectorated. He denies any change in sputum, chest pain , or diaphoresis. En route to the ED, EMS gave the patient solumedrol and Duoneb treatment. In the ED the patient was found to respiratory distress, placed on BIPAP, given additional albuterol/ipratropirum nebulized treatments, Ketorolac, and 2 gram of Magnesium Sulfate. Routine labs and imaging showed hypoxemic respiratory failure that was abated by BIPAP, and concerns for PE given a mildly elevated D-dimer in a patient with a recent PE who hd a subtherapeutic INR on admission. CT per PE protocol as well as lower extremity US were negative for PE and DVT, respectively. Pulmonology, Dr. Noe, was consulted and recommended discontinuing antibiotics for the patient given there no evidence of any consolidation CT, and no sputum production. [place], in regards to the patient's anticoagulation status, the Chest guidelines recommend that for patients with subsegmental PE and no DVT, clinical surveillance over anticoagulation is recommended when the risk of VTE recurrence is low (Grade 2C). Thus, Mr. Manuel does not need to be on anticoagulation at this time, or upon discharge. Lastly, upon discharge patient should be on Spiriva daily, Symbicort 160/4.5 BID, and Albuterol PRN. The patient was also counseled on smoking exposure avoidance,and on the importance of smoking abstinence. Dr. Noe's recommendations were instituted, and greatly appreciated. Interventional Radiologist, Dr. Karlo Morales, was consulted for possible kyphoplasty. Dr. Morales ordered an MRI of the spine that noted the compression fracture of the L1 vertebral body as the most severe, while, the compression fracture of the T8 vertebral body is the most acute. The patient will be going to [id number] 12/22/16. The patient is scheduled for appointment with Dr. Karlo Morales at 12:30 PM for kyphoplasty. As per psychiatric social worker supervisor, Maggi Wheeler's note, she "called [facility] [phone] to set up transportation for patient to return for Same Day Surgery on 12/22. Manager Small Business spoke to [place] who stated office for scheduling appointments closes at 4:30pm. 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 Manager Small Business informed Maribel Gibson. transport from patient home to [facility] same day surgery need to be done on Tuesday." The patient was discharged with the medications and follow-up care details noted in the discharge instructions below. Discharge Exam - Head Exam Head Exam: ATRAUMATIC, NORMOCEPHALIC - Eye Exam Eye Exam: EOMI, Normal appearance - ENT Exam ENT Exam: Normal Exam - Neck Exam Neck exam: Normal Inspection - Respiratory Exam Respiratory Exam: Clear to PA & Lateral, NORMAL BREATHING PATTERN - Cardiovascular Exam Cardiovascular Exam: RRR, +S1, +S2 - GI/Abdominal Exam GI & Abdominal Exam: Normal Bowel Sounds. absent: Distended, Guarding, Rebound - Extremities Exam Extremities exam: normal inspection, pedal pulses present - Back Exam Back exam: absent: paraspinal tenderness, vertebral tenderness - Neurological Exam Neurological exam: Alert, CN II-XII Intact, Oriented x3 - Psychiatric Exam Psychiatric exam: Normal Affect, Normal Mood - Skin Skin Exam: Dry, Intact, Normal Color, Warm Discharge Plan - Discharge Medications Prescriptions: Albuterol HFA [Ventolin HFA 90 mcg/actuation (8 g)] 2 puff IH [id number] #1 bottle Budesonide/Formoterol Fumarate [Symbicort 160-4.5 Mcg Inhaler] 10.2 gm IH BID # 1 hfa.aer.ad Pantoprazole [Protonix EC Tab] 20 mg PO ACB #30 ect predniSONE [predniSONE Tab] 10 mg PO DAILY #22 tab Pregabalin [Lyrica] 75 mg PO BID #60 cap Tiotropium Vandervoort Inhaler [Spiriva Inhalation Handihaler Device] 1 inhaler INH DAILY #1 inhaler traMADol [Ultram] 50 mg PO Q6H PRN #20 tab PRN Reason: Pain, Severe (8-10) - Follow Up Plan Condition: GUARDED Disposition: HOME/ ROUTINE Instructions: How to Stop Smoking (DC), Cigarette Smoking and Your Health (GEN) , Non-pharmacological Pain Management Therapies for Adults (GEN), Chronic Pain ( DC), COPD (Chronic Obstructive Pulmonary Disease) (DC) Additional Instructions: Discharge Instructions 1. Follow up with Dr. Karlo Morales, Interventional Radiologist, next Tuesday for kyphoplasty. Exercise fall precautions 2. Transportation has been arranged by assistant case manager to pick you up and transport you to [facility] 3. Follow up with bone specialist/Leather Leveler for brittle bone osteoporosis 4. PLEASE FOLLOW UP WITH A PMD OF YOUR CHOICE WITHIN ONE WEEK. The following are recommendations of PMD's near [place] within the [employer] [facility], which will make accessing your records easier: Dr. Juan Jose Killian or Dr. Reji Dorsey [facility] [address], [address] [place] [id number] [address] Frances Esquivel Practice Name: [facility] [address] [address] Should you not be able to establish care and make an appointment within one week , please contact the [facility] at [facility] to schedule an appointment. Med changes/New Meds Continue albuterol as needed per instructions: Prednisone taper at home: 40mg BID x 2 d; 30mg BID x 2 d; 20mg x 2 d; 10mg bid x 2 days; 10mg once daily x 2 days Prednisone taper at home New meds: prednisone, protonix Spiriva, Symbicort Lyrica and ultram as needed for pain For mild pain, take tylenol, do not exceed 2400mg a day. 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
== END 2016-12-17 17:06 | disposition home or self-care (01) | DRG 541 ==
LOC: ED 08:47 → ERH 10:55 → 2RNO 14:04 → 5RSO 12-15 19:17
PROVIDERS: ADMIT Hospitalist; ATTEND Hospitalist
DX: J44.1 Chronic obstructive pulmonary disease with (acute) exacerbation (principal); J96.91 Respiratory failure, unspecified with hypoxia; R64 Cachexia; M48.56XA Collapsed vertebra, not elsewhere classified, lumbar region, initial encounter for fracture; M48.54XA Collapsed vertebra, not elsewhere classified, thoracic region, initial encounter for fracture; Z99.81 Dependence on supplemental oxygen; M81.0 Age-related osteoporosis without current pathological fracture; Z86.711 Personal history of pulmonary embolism; Z87.891 Personal history of nicotine dependence; Z91.14 Patient's other noncompliance with medication regimen; Z91.19 Patient's noncompliance with other medical treatment and regimen; M54.9 Dorsalgia, unspecified; M48.00 Spinal stenosis, site unspecified; Z87.898 Personal history of other specified conditions; D72.829 Elevated white blood cell count, unspecified; T38.0X5A Adverse effect of glucocorticoids and synthetic analogues, initial encounter

== ENCOUNTER 2016-12-22 11:13 | Inpatient (IN) | payer MEDICAID ==
[2016-12-22 11:14] VITALS: BMI 16.1
[2016-12-22] MEDS ORDERED: Albuterol-Ipratrop 3 mg / 0.5 (3 ml) UD IH STA (11:32)
[2016-12-22 11:50] LABS: BASO # 0.01 K/mm3 (0.0-2.0); BASO % 0.1 % (0.0-3.0); EOS # 0.1 (0.0-0.7); EOS % 0.4 % (1.5-5.0); GRAN # 9.02 (1.4-6.5); GRAN % 66.5 % (50.0-68.0); HEMATOCRIT 38.3 % (42.0-52.0); LYMPH # 2.7 (1.2-3.4); MEAN CELL VOLUME 97.7 fl (80.0-105.0); MEAN CORPUSCULAR HEMOGLOBIN 31.4 pg (25.0-35.0); MEAN CORPUSCULAR HGB CONC 32.1 g/dl (31.0-37.0); MEAN PLATELET VOLUME 8.9 fl (7.0-11.0); MONO # 1.8 (0.1-0.6); RED CELL DISTRIBUTION WIDTH 13.5 % (11.5-14.5); WHITE BLOOD COUNT 13.6 10^3/ul (4.5-11.0)
[2016-12-22 12:01] LABS: ARTERIAL BLOOD GAS HCO3 29.1 mmol/L (21-28); ARTERIAL BLOOD GAS O2 CAPACITY 15.6 mL/dl (16-24); ARTERIAL BLOOD GAS O2 CONTENT 15.6 ML/dl (15-23); ARTERIAL BLOOD HGB O2 SAT 95.9 % (95.0-98.0); CARBOXYHEMOGLOBIN 2.7 % (0.5-1.5); HHB 0.2 % (0-5); METHEMOGLOBIN 1.3 % (0.0-3.0)
[2016-12-22 12:02] LABS: ALB/GLOB RATIO 1.6 (1.1-1.8); ALKALINE PHOSPHATASE 97 U/L (38-126); ALT/SGPT 35 U/L (7-56); AST/SGOT 25 U/L (17-59); BILIRUBIN,TOTAL 0.6 mg/dL (0.2-1.3); BLOOD UREA NITROGEN 12 mg/dL (7-21); CALCIUM 8.6 mg/dL (8.4-10.5); CARBON DIOXIDE 31 mmol/L (21-33); CHLORIDE 100 mmol/L (98-107); GFR AFRICAN-AMERICAN > 60; GLUCOSE,RANDOM 87 mg/dL (70-110); POTASSIUM 4.3 mmol/L (3.6-5.0); SODIUM 138 mmol/L (132-148); TOTAL PROTEIN 5.8 g/dL (5.8-8.3)
[2016-12-22 12:04] LABS: INR 0.99 (0.93-1.08); PARTIAL THROMBOPLASTIN TIME 23.2 Seconds (23.7-30.8)
[2016-12-22 12:06] LABS: D DIMER 2.46 mg/L FEU (0-0.50)
--- NOTE | 2016-12-22 12:12 | ED PDOC ---
Arrival/HPI - General Chief Complaint: Respiratory Distress Time Seen by Provider: 12/22/16 11:19 - History of Present Illness Narrative History of Present Illness (Text): 12/22/16 11:55 56 M with PMHx pertinent for chronic COPD, past rib fracture, previous PE no longer on anticoagulation, and recent cardiac cath presents with a few hours duration of shortness of breath. Patient states that this feels like previous exacerbations of COPD, and that every time he tries to take a deep breath he feels tightness in the middle of his chest radiating bilaterally. Patient denies any recent sick contacts. He further denies any f/ch or productive cough. Patient was recently admitted for the same thing and discharged on . Pt denies n/v/d. Of note, he was supposed to have a kyphoplasty procedure today. Dr. Morales came to see him in the ER, and will perform the procedure either tomorrow or day after, when the current epidsode of sob resolves. (Johnnie Hooker) Past Medical History - Provider Review Nursing Documentation Reviewed: Yes - Infectious Disease Hx of Infectious Diseases: None - Tetanus Immunization Tetanus Immunization: Unknown - Cardiac Hx Pacemaker: No - Pulmonary Hx Chronic Obstructive Pulmonary Disease (COPD): Yes - Neurological Hx Paralysis: No - HEENT Hx HEENT Disorder: Yes (glasses) Other/Comment: tonsillectomy - Renal Hx Renal Disorder: No - Endocrine/Metabolic Hx Endocrine Disorders: No - Hematological/Oncological Hx Blood Transfusions: Yes (ONE MONTH AGO) Hx Blood Transfusion Reaction: No - Integumentary Hx Dermatological Disorder: No - Musculoskeletal/Rheumatological Hx Musculoskeletal Disorders: Yes Hx Back Pain: Yes (compression fracture) - Gastrointestinal Hx Gastrointestinal Disorders: No - Genitourinary/Gynecological Hx Genitourinary Disorders: No - Psychiatric Hx 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) Hx Substance Use: Yes (OVER 35 YRS AGO) - Surgical History Hx Tonsillectomy: Yes - Anesthesia Hx Anesthesia Reactions: No Hx Malignant Hyperthermia: No Family/Social History - Physician Review Nursing Documentation Reviewed: Yes Family/Social History: Unknown Family HX Smoking Status: Former Smoker Hx Alcohol Use: Yes (OVER 35 YRS AGO) Hx Substance Use: Yes (OVER 35 YRS AGO) Allergies/Home Meds Allergies/Adverse Reactions: Allergies No Known Allergies Allergy (Verified 12/14/16 13:07) Home Medications: Home Meds Medication Instructions Recorded Confirmed predniSONE [predniSONE Tab] 0 mg PO DAILY 12/22/16 12/22/16 Review of Systems - Physician Review All systems were reviewed & negative as marked: Yes - Review of Systems Constitutional: Fatigue. absent: Weight Change, Fevers, Night Sweats Eyes: Normal. absent: Vision Changes, Photophobia, Eye Pain ENT: Normal. absent: Hearing Changes, Tinnitus Respiratory: SOB, Wheezing. absent: Cough, Sputum Cardiovascular: Chest Pain, DENISE. absent: Palpitations, Edema, Calf Pain Gastrointestinal: Normal. absent: Abdominal Pain, Diarrhea, Nausea, Vomiting Genitourinary Male: Normal. absent: Dysuria, Frequency, Hematuria Musculoskeletal: Normal. absent: Arthralgias, Back Pain, Neck Pain Skin: Normal. absent: Rash, Pruritis, Skin Lesions Neurological: Normal. absent: Headache, Dizziness, Focal Weakness Endocrine: Normal. absent: Diaphoresis, Polyuria, Polydipsia Hemo/Lymphatic: Normal. absent: Adenopathy, Easy Bleeding, Easy Bruising Psychiatric: Normal. absent: Anxiety, Depression, Suicidal Ideation Physical Exam Vital Signs Reviewed: Yes Temperature: Afebrile Blood Pressure: Hypertensive Pulse: Tachycardic Respiratory Rate: Tachypneic Appearance: Positive for: Non-Toxic, Ill-Appearing (Patient struggling to breath , using accessory muscles) Pain Distress: None Mental Status: Positive for: Alert and Oriented X 3 - Systems Exam Head: Present: Atraumatic, Normocephalic. No: Tenderness, Contusion Pupils: Present: PERRL. No: Sluggish, Non-Reactive Extroacular Muscles: Present: EOMI. No: Gaze Palsy, Entrapment Conjunctiva: Present: Normal. No: Injected, Icteric Ears: Present: Normal, NORMAL TM, Normal Canal. No: TM Bulging Mouth: Present: Moist Mucous Membranes, Normal Lips, Normal Tounge. No: Dry, Drooling Pharnyx: Present: Normal. No: ERYTHEMA, EXUDATE Nose (External): Present: Atraumatic. No: Abrasion, Contusion Neck: Present: Normal Range of Motion. No: MIDLINE TENDERNESS, Paraspinal Tenderness Respiratory/Chest: Present: Respiratory Distress, Accessory Muscle Use, Wheezes , Decreased Breath Sounds, Retracting, Tachypneic. No: Good Air Exchange, Rales , Rhonchi Cardiovascular: Present: Normal S1, S2, Tachycardic. No: Murmurs, Irregular Rhythm Abdomen: Present: Normal Bowel Sounds. No: Tenderness, Distention, Peritoneal Signs, Rebound, Guarding Back: Present: Normal Inspection. No: CVA Tenderness, Midline Tenderness Upper Extremity: Present: Normal Inspection, Normal ROM, NORMAL PULSES. No: Cyanosis, Edema, Tenderness Lower Extremity: Present: Normal Inspection, NORMAL PULSES. No: Edema, CALF TENDERNESS, Cyanosis Neurological: Present: GCS=15, CN II-XII Intact, Speech Normal, Motor Func Grossly Intact, Normal Sensory Function, Memory Normal Skin: Present: Warm, Normal Color. No: Dry, Rashes, Diaphoretic Psychiatric: Present: Alert, Oriented x 3, Normal Insight, Normal Concentration , Normal Affect. No: Suicidal Ideation, Homicidal Ideation, Delusional Medical Decision Making ED Course and Treatment: Assessed 12/22/16 11:55 Impression: 56 M PMHx pertinent for COPD, recent PE, and recent cath presents with SOB of a few hours duration. Tachycardic and using accessory muscles. Recently stopped taking anticoagulation. Plan: - CBC, CMP, D-Dimer, Coags, Troponin - CXR, EKG, ABG - Solumedrol, Bi-Pap, Duonebs Reassessed 12/22/16 12:30 - Patient feeling better after BiPap and Duonebs - Still tachycardic - D-Dimer elevated and Coags decreased - CMP shows good renal function, CBC shows mild white count - CTA ordered - EKG shows Sinus Tachycardia at 130 bpm - ABG shows no significant hypercapnea nor acidosis. Reassessed 12/22/16 14:05 - Pt is improved after BiPap and Duonebs - CTA negative for PE - Case d/w Dr. Vázquez, admitted under his service on Telemetry (Johnnie Hooker) 12/22/16 13:51 Patient Seen With Resident: In agreement with resident note. Patient was seen and evaluated with resident, came up with plan and treatment together. 56 y/o M p/w dyspnea and chest pain, tachycardic on exam, recent discontinued AC with previous PE. (Shadi Head) - Lab Interpretations Lab Results: 12/22/16 11:20 12/22/16 11:20 Lab Results 12/22/16 11:50: pCO2 47 H, pO2 140.0 H, HCO3 29.1 H, ABG pH 7.40, ABG Total CO2 30.5 H, ABG O2 Saturation 99.8 H, ABG O2 Content 15.6, ABG Base Excess 3.6 H, ABG Hemoglobin 11.4 L, ABG Carboxyhemoglobin 2.7 H, POC ABG HHb (Measured) 0.2, ABG Methemoglobin 1.3, ABG O2 Capacity 15.6 L, Hgb O2 Saturation 95.9, FiO2 35.0 12/22/16 11:20: PT 10.7, INR 0.99, APTT 23.2 L, D-Dimer, Quantitative 2.46 H 12/22/16 11:20: Sodium 138, Potassium 4.3, Chloride 100, Carbon Dioxide 31, Anion Gap 11, BUN 12, Creatinine 0.6, Est GFR ( Amer) > 60, Est GFR (Non- Af Amer) > 60, Random Glucose 87, Calcium 8.6, Total Bilirubin 0.6, AST 25, ALT 35, Alkaline Phosphatase 97, Total Creatine Kinase 27 L, Troponin I < 0.01, Total Protein 5.8, Albumin 3.5, Globulin 2.2, Albumin/Globulin Ratio 1.6 12/22/16 11:20: WBC 13.6 H, RBC 3.92, Hgb 12.3 L, Hct 38.3 L, MCV 97.7, MCH 31.4 , MCHC 32.1, RDW 13.5, Plt Count 305, MPV 8.9, Gran % 66.5, Lymph % (Auto) 20.0 L, [place] % (Auto) 13.0 H, Eos % (Auto) 0.4 L, Baso % (Auto) 0.1, Gran # 9.02 H, Lymph # 2.7, Dare # 1.8 H, Eos # 0.1, Baso # 0.01 - RAD Interpretation Radiology Orders: 12/22/16 09:16 CAR PERIPHERAL VASCULAR ORDER [VASCULAR] Routine 12/22/16 11:32 CHEST PORTABLE [RAD] Stat 12/22/16 12:58 ANGIO CHEST PE PROTOCOL [CT] Stat - Medication Orders Current Medication Orders: Discontinued Medications Albuterol/Ipratropium (Duoneb 3 Mg/0.5 Mg (3 Ml) Ud) 3 ml IH Q15M STA Stop: 12/22/16 11:33 Last Admin: 12/22/16 11:49 Dose: 3 ml Iodixanol (Visipaque 320 Mg/Ml 100 Ml) Confirm Administered Dose 100 ml IV .STK- MED ONE Stop: 12/22/16 13:10 Methylprednisolone (Solu-Medrol) 125 mg IVP STAT STA Stop: 12/22/16 11:34 Last Admin: 12/22/16 11:49 Dose: 125 mg Disposition/Present on Arrival - Present on Arrival Any Indicators Present on Arrival: Yes History of DVT/PE: Yes History of Uncontrolled Diabetes: No Urinary Catheter: No History of Decub. Ulcer: No History Surgical Site Infection Following: None - Disposition Have Diagnosis and Disposition been Completed?: Yes Disposition Time: 14:20 - Disposition Diagnosis: COPD exacerbation Disposition: HOSPITALIZED Patient Problems: Current Active Problems Problem Status Onset COPD exacerbation Acute Condition: FAIR [facility] - Follow up with primary Forms: [employer] (Belarusian)
[2016-12-22 12:14] LABS: TROPONIN I < 0.01 ng/mL
[2016-12-22] MEDS ORDERED: Iodixanol 320 MG/ML 100 ML BOTTLE IV ONE (13:09)
--- NOTE | 2016-12-22 13:14 | RAD ---
HISTORY: dyspnea COMPARISON: 12/14/2016 FINDINGS: LUNGS: No active pulmonary disease. PLEURA: No significant pleural effusion identified, no pneumothorax apparent. CARDIOVASCULAR: Normal. OSSEOUS STRUCTURES: Old rib fractures left upper chest VISUALIZED UPPER ABDOMEN: Normal. OTHER FINDINGS: None. IMPRESSION: No active disease.
--- NOTE | 2016-12-22 13:57 | CT ---
PROCEDURE: CT Chest with contrast (Pulmonary Angiogram) HISTORY: r/o PE COMPARISON: 12/14/2016 TECHNIQUE: Axial computed tomography images were obtained of the chest in the pulmonary arterial phase of enhancement. Coronal and sagittal reformatted images were created and reviewed. Intravenous contrast dose: 100 cc of Visipaque Radiation dose: Total exam DLP = 188 mGy-cm. This CT exam was performed using one or more of the following dose reduction techniques: Automated exposure control, adjustment of the mA and/or kV according to patient size, and/or use of iterative reconstruction technique. FINDINGS: PULMONARY ARTERIES: Unremarkable. No pulmonary embolism. AORTA: No acute findings. No thoracic aortic aneurysm. LUNGS: There is severe emphysema. No focal infiltrate PLEURAL SPACES: Unremarkable. No effusion or pneuomothorax. HEART: Unremarkable. No cardiomegaly. No significant pericardial effusion. LYMPH NODES: No lymphadenopathy. BONES, CHEST WALL: Multiple severe thoracic compression fractures are seen. These are unchanged OTHER FINDINGS: Unremarkable. IMPRESSION: Severe emphysema. No evidence of pulmonary embolus. Multiple chronic compression fractures
--- NOTE | 2016-12-22 15:52 | CP.PCM.HP ---
<Mani Al - Last Filed: 12/22/16 18:22> History of Present Illness - History of Present Illness History of Present Illness: Mani Al DO, PGY-1, Hospitalist Service 56 year old male with a history of end-stage COPD, recent thoracic and lumbar compression fractures, subsegemental PE (no longer on anticoagulation) who presents with one day of shortness of breath and chest tightness after being told yesterday to stop taking all of his medications in preparation for his kyphoplasty which was scheduled today. In not his medication, including his inhaled treatments for his COPD, he got progressively short of breath and was [place] [facility] [place]. He admits to cough and associated chest tightness, but denies any substernal, sustained chest pain,any sputum production, nausea, vomiting, or lower extremity edema. PMD: None PMH: COPD, subsegmental PE-no longer on anticoagulation, thoracic and lumbar vertebral body compression fractures, rib fractures, vitamin D deficiency PSH: Denies any Allergies: NKDA Social: Lives alone, 80 pack year history of tobacco use, denies alcohol or illict drug use Present on Admission - Present on Admission Any Indicators Present on Admission: Yes History of DVT/PE: Yes Review of Systems - Constitutional Constitutional: As Per HPI Past Patient History - Infectious Disease Hx of Infectious Diseases: None - Tetanus Immunizations Tetanus Immunization: Unknown - Past Social History Smoking Status: Former Smoker - CARDIAC Hx Pacemaker: No - PULMONARY Hx Chronic Obstructive Pulmonary Disease (COPD): Yes - NEUROLOGICAL Hx Paralysis: No - HEENT Hx HEENT Problems: Yes (glasses) Other/Comment: tonsillectomy - RENAL Hx Chronic Kidney Disease: No - ENDOCRINE/METABOLIC Hx Endocrine Disorders: No - HEMATOLOGICAL/ONCOLOGICAL Hx Blood Transfusions: Yes (ONE MONTH AGO) Hx Blood Transfusion Reaction: No - INTEGUMENTARY Hx Dermatological Problems: No - MUSCULOSKELETAL/RHEUMATOLOGICAL Hx Musculoskeletal Disorders: Yes Hx Back Pain: Yes (compression fracture) - GASTROINTESTINAL Hx Gastrointestinal Disorders: No - GENITOURINARY/GYNECOLOGICAL Hx Genitourinary Disorders: No - PSYCHIATRIC Hx 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) Hx Substance Use: Yes (OVER 35 YRS AGO) - SURGICAL HISTORY Hx Tonsillectomy: Yes - ANESTHESIA Hx Anesthesia Reactions: No Hx Malignant Hyperthermia: No Meds Allergies/Adverse Reactions: Allergies Allergy/AdvReac Type Severity Reaction Status Date / Time No Known Allergies Allergy Verified 12/14/16 13:07 Physical Exam - Constitutional Appears: In Acute Distress, Older Than Stated Age, Cachectic - Head Exam Head Exam: ATRAUMATIC, NORMAL INSPECTION - Eye Exam Eye Exam: EOMI, Normal appearance, PERRL - ENT Exam ENT Exam: Mucous Membranes Dry, Normal Oropharynx - Neck Exam Neck exam: Positive for: Normal Inspection. Negative for: Lymphadenopathy, Tenderness - Respiratory Exam Respiratory Exam: Accessory Muscle Use, Decreased Breath Sounds Additional comments: Respirations of 30 - Cardiovascular Exam Cardiovascular Exam: Tachycardia, REGULAR RHYTHM, +S1, +S2 - GI/Abdominal Exam GI & Abdominal Exam: Normal Bowel Sounds, Soft. absent: Guarding, Rebound, Rigid - Extremities Exam Extremities exam: Positive for: normal capillary refill, normal inspection. Negative for: calf tenderness, pedal edema - Back Exam Back exam: NORMAL INSPECTION. absent: CVA tenderness (L), CVA tenderness (R), paraspinal tenderness - Neurological Exam Neurological exam: Alert, CN II-XII Intact, Oriented x3 - Psychiatric Exam Psychiatric exam: Normal Affect, Normal Mood - Skin Skin Exam: Dry, Intact, Normal Color Results - Vital Signs Recent Vital Signs: Last Vital Signs Temp 98.2 F 12/22/16 11:32 Pulse 125 H 12/22/16 15:32 Resp 16 12/22/16 15:32 BP 104/72 12/22/16 15:32 Pulse Ox 100 12/22/16 15:32 - Labs Result Diagrams: 12/22/16 11:20 12/22/16 11:20 - EKG Data Rate: Tachycardia Assessment & Plan - Assessment and Plan (Free Text) Assessment: 56 year old male with a end-stage COPD, s/p subsegemental PE; rib, thoracic and lumbar compression fractures who [place] [facility] [place] with one day of dyspnea. In the ED patient was found to be in acute respiratory distress and hence placed on BIPAP, administered IV steroids, and Duonebulized treatements. Furthermore, preliminary labs and imaging showed an elevated D-dimer, though CT per PE protocol was negative for pulmonary embolism. The patient, however, was tachypneic and with a HR in the 140 and therefore admitted to telemetry as an in -patient. He will be medically optimized in hopes of allowing him to undergo kyphoplasty to ameliorate his intractable back/chest wall pain. Plan: 1) COPD exacerbation - CXR showed no infiltrate - CT PE protocol showed no PE, but emphysema. - Dr. Jeanne Lipscomb, Shipping Support, consulted for pre-operative clearance and medical optimization. - Levalbuterol and Ipratropium q6h ERIC with Levalbuterol staggered PRN - IVP Solumedrol 30 mg q12h ERIC 2) Elevated D-dimer - CT PE protocol negative for pulmonary embolism 3) Sustained tachycardia, without typical chest pain - Patient switched to Levalbuterol rather than Albuterol - Cardiology consulted - EKG showed no ST-T wave changes 4) Judy-operative management for kyphoplasty - Consulted IR, Dr. Karlo Morales - Will medically optimize patient's breathing 5) DVT/GI prophylaxis: Protonix 40 mg IVP and Heparin 5,000 SC q12h Plan discussed with attending, Dr. Lewis Vázquez - Date & Time Date: 12/22/16 Time: 18:47 <Lewis Vázquez - Last Filed: 12/23/16 07:42> Results - Vital Signs Recent Vital Signs: Last Vital Signs Temp 97.9 F 12/23/16 06:00 Pulse 125 H 12/23/16 06:00 Resp 22 12/23/16 06:00 BP 115/85 12/23/16 06:00 Pulse Ox 99 12/23/16 06:00 - Labs Result Diagrams: 12/22/16 11:20 12/22/16 11:20 Attending/Attestation - Attestation I have personally seen and examined this patient.: Yes I have fully participated in the care of the patient.: Yes I have reviewed all pertinent clinical information: Yes Notes (Text): 12/22/16 56 year old male with past medical history of COPD, vertebral compression fractures, and subsegmental PE now off anticoagulation who presents with acute respiratory distress secondary to COPD exacerbation. Symptoms have improved with bipap, duonebs and iv steroids in ER. Will start on iv steroids and xopenex. Pulmonary evaluation is requested. Ddimer was elevated however CT is negative for PE. Cardiology evaluation is requested for tachycardia. TFTs are ordered. He was also scheduled for kyphoplasty with IR today as an elective procedure. Will request for IR evaluation. Lewis Vázquez MD Hospitalist.
--- NOTE | 2016-12-22 17:12 | CARD ---
APPROVED REPORT EKG Measurement Heart [id number] MI 120P [id number] <Conclusion> Ectopic Atrial tachycardia Otherwise normal ECG
[2016-12-22] MEDS ORDERED: Sodium Chloride 0.9% 1,000 ML IV SCH (17:30)
[2016-12-22] MEDS ORDERED: Non Formulary Medication (Budesonide/Formoterol Fumarate [Symbicort 160-4.5 Mcg Inhaler] 1 IH SCH (18:00)
[2016-12-22] MEDS: MethylPREDNISolone 40 mg Vial IVP SCH (18:08)
[2016-12-22] MEDS ORDERED: Levalbuterol 1.25 MG/3 ML Inhal Soln UD IH PRN (19:00)
[2016-12-22] MEDS ORDERED: Albuterol-Ipratrop 3 mg / 0.5 (3 ml) UD IH PRN (19:00)
[2016-12-22] MEDS ORDERED: Pneumococcal 23-Valent Vaccine IM ONE (19:11)
[2016-12-22] MEDS: Levalbuterol 1.25 MG/3 ML Inhal Soln UD IH SCH (19:40)
[2016-12-22] MEDS: Ipratropium 0.02% Inhal Soln (0.5 mg/2.5 ml) UD IH SCH (19:40)
[2016-12-22 20:29] LABS: FREE T4 1.52 ng/dL (0.78-2.19)
[2016-12-22 20:43] LABS: THYROID STIMULATING HORMONE 0.33 mIU/mL (0.46-4.68)
[2016-12-23] MEDS: Levalbuterol 1.25 MG/3 ML Inhal Soln UD IH SCH ×7 (01:37→19:47)
[2016-12-23] MEDS: Ipratropium 0.02% Inhal Soln (0.5 mg/2.5 ml) UD IH SCH ×7 (01:37→19:46)
[2016-12-23] MEDS: MethylPREDNISolone 40 mg Vial IVP SCH ×2 (06:26→18:00)
[2016-12-23 07:43] LABS: GRAN # 9.1 (1.4-6.5); HEMATOCRIT 34.5 % (42.0-52.0); LYMPH # 0.9 (1.2-3.4); LYMPH % 7.9 % (22.0-35.0); MEAN CELL VOLUME 95.3 fl (80.0-105.0); MEAN CORPUSCULAR HEMOGLOBIN 31.2 pg (25.0-35.0); MEAN CORPUSCULAR HGB CONC 32.8 g/dl (31.0-37.0); MEAN PLATELET VOLUME 8.9 fl (7.0-11.0); MONO # 1.1 (0.1-0.6); MONO % 10.1 % (1.0-6.0); RED CELL DISTRIBUTION WIDTH 13.2 % (11.5-14.5); WHITE BLOOD COUNT 11.1 10^3/ul (4.5-11.0)
[2016-12-23 07:56] LABS: ALB/GLOB RATIO 1.5 (1.1-1.8); ALKALINE PHOSPHATASE 98 U/L (38-126); ALT/SGPT 39 U/L (7-56); AST/SGOT 25 U/L (17-59); BILIRUBIN,TOTAL 0.3 mg/dL (0.2-1.3); BLOOD UREA NITROGEN 15 mg/dL (7-21); CALCIUM 8.8 mg/dL (8.4-10.5); CARBON DIOXIDE 32 mmol/L (21-33); CHLORIDE 102 mmol/L (98-107); GFR AFRICAN-AMERICAN > 60; GLUCOSE,RANDOM 113 mg/dL (70-110); POTASSIUM 4.2 mmol/L (3.6-5.0); SODIUM 140 mmol/L (132-148); TOTAL PROTEIN 5.3 g/dL (5.8-8.3)
[2016-12-23] MEDS ORDERED: Dextrose 5%/0.9% NS 1,000 ML IV SCH (11:00)
--- NOTE | 2016-12-23 12:01 | CP.PCM.PN ---
<Mani Al - Last Filed: 12/23/16 12:53> Subjective - Date & Time of Evaluation Date of Evaluation: 12/23/16 Time of Evaluation: 12:00 - Subjective Subjective: Mani Al DO, PGY-1, Hospitalist Service Patient seen and examined at bedside. Patient admits to dyspnea with any OOB activity and chest-tightness. Patient denies chest pain, nausea, sputum production, or hemoptysis. Objective - Vital Signs/Intake and Output Vital Signs (last 24 hours): Temp Pulse Resp BP Pulse Ox 98.4 F 120 H 21 107/74 99 12/23/16 11:52 12/23/16 11:52 12/23/16 11:52 12/23/16 11:52 12/23/16 06:00 Intake and Output: 12/23/16 12/23/16 06:59 18:59 Intake Total 579 Output Total 1800 Balance -1221 - Medications Medications: Current Medications Heparin Sodium (Porcine) (Heparin) 5,000 units SC Q12H ERIC PRN Reason: Protocol Last Admin: 12/23/16 04:37 Dose: 5,000 units Dextrose/Sodium Chloride (Dextrose 5%/0.9% Ns 1000 Ml) 1,000 mls @ 80 mls/hr IV .[id number] [facility] Last Admin: 12/23/16 11:29 Dose: 80 mls/hr Ipratropium Mora (Atrovent) 0.5 mg IH Q6H ERIC Last Admin: 12/23/16 11:26 Dose: Not Given Levalbuterol HCl (Xopenex) 1.25 mg IH Q6H ERIC Last Admin: 12/23/16 11:26 Dose: Not Given Levalbuterol HCl (Xopenex) 1.25 mg IH Q6H PRN PRN Reason: Shortness of Breath Methylprednisolone (Solu-Medrol) 30 mg IVP Q12H [facility] Last Admin: 12/23/16 06:26 Dose: 30 mg Pantoprazole Sodium (Protonix Inj) 40 mg IVP DAILY [facility] Last Admin: 12/23/16 09:29 Dose: 40 mg Pregabalin (Lyrica) 75 mg PO BID [facility] Last Admin: 12/23/16 09:29 Dose: 75 mg Tramadol HCl (Ultram) 50 mg PO Q6H PRN PRN Reason: Pain, severe (8-10) Last Admin: 12/23/16 04:38 Dose: 50 mg - Labs Labs: 12/23/16 07:00 12/23/16 07:00 PT 10.7 Seconds (9.9-11.8) 12/22/16 11:20 INR 0.99 (0.93-1.08) 12/22/16 11:20 APTT 23.2 Seconds (23.7-30.8) L 12/22/16 11:20 - Constitutional Appears: Older Than Stated Age, Cachectic - Head Exam Head Exam: ATRAUMATIC, NORMOCEPHALIC - Eye Exam Eye Exam: EOMI, Normal appearance, PERRL - ENT Exam ENT Exam: Mucous Membranes Moist, Normal Oropharynx - Neck Exam Neck Exam: Normal Inspection. absent: Lymphadenopathy - Respiratory Exam Respiratory Exam: Accessory Muscle Use, Decreased Breath Sounds - Cardiovascular Exam Cardiovascular Exam: Tachycardia, +S1, +S2 - GI/Abdominal Exam GI & Abdominal Exam: Soft, Normal Bowel Sounds. absent: Tenderness, Rebound - Extremities Exam Extremities Exam: Normal Capillary Refill, Normal Inspection. absent: Calf Tenderness - Back Exam Back Exam: NORMAL INSPECTION. absent: CVA tenderness (L), CVA tenderness (R) - Neurological Exam Neurological Exam: Alert, CN II-XII Intact, Oriented x3 - Psychiatric Exam Psychiatric exam: Normal Affect, Normal Mood - Skin Skin Exam: Dry, Intact, Normal Color, Warm Assessment and Plan - Assessment and Plan (Free Text) Assessment: 56 year old male with a end-stage COPD, s/p subsegemental PE; rib, thoracic and lumbar compression fractures who presented to [facility] via EMS with one day of dyspnea. He is currently on telemetry, being medically optimized in hopes of allowing him to undergo two areas of kyphoplasty for compression fractures that have caused him intractable back and chest wall pain. Plan: 1) COPD exacerbation - CXR showed no infiltrate - CT per PE protocol showed no PE, but emphysema. - Dr. Noe, Loan Inspector, consulted for end-stage COPD. - Levalbuterol and Ipratropium q6h ERIC with Levalbuterol PRN in between - IVP Solumedrol 30 mg q12h ERIC 2) Sustained tachycardia, without typical chest pain - Cardiology consulted, Dr. Mckeon, will follow up with his recommendations. - EKG showed no ST-T wave changes 3) Judy-operative management for kyphoplasty - Consulted IR, Dr. Karlo Morales - Regular diet, clear liquids after midnight, 1/2 NS 4) Cachexia secondary to increased work of breathing - C/W Ensure Enlive with each meal 5) Analgesia - Tramadol 50 mg q6h PRN and Lyrica 75 mg BID 6) DVT/GI prophylaxis: Protonix 40 mg IVP and Heparin 5,000 SC q12h Plan discussed with attending, Dr. Lewis Vázquez <Lewis Vázquez - Last Filed: 12/23/16 14:48> Objective - Vital Signs/Intake and Output Vital Signs (last 24 hours): Temp Pulse Resp BP Pulse Ox 98.4 F 120 H 21 107/74 99 12/23/16 11:52 12/23/16 11:52 12/23/16 11:52 12/23/16 11:52 12/23/16 06:00 Intake and Output: 12/23/16 12/23/16 06:59 18:59 Intake Total 579 Output Total 1800 Balance -1221 - Medications Medications: Current Medications Heparin Sodium (Porcine) (Heparin) 5,000 units SC Q12H ERIC PRN Reason: Protocol Last Admin: 12/23/16 04:37 Dose: 5,000 units Sodium Chloride (Sodium Chloride 0.45%) 1,000 mls @ 80 mls/hr IV .[id number] ERIC Last Admin: 12/23/16 13:45 Dose: 80 mls/hr Ipratropium Mora (Atrovent) 0.5 mg IH Q6H ERIC Last Admin: 12/23/16 13:59 Dose: 0.5 mg Levalbuterol HCl (Xopenex) 1.25 mg IH Q6H ERIC Last Admin: 12/23/16 13:59 Dose: 1.25 mg Levalbuterol HCl (Xopenex) 1.25 mg IH Q6H PRN PRN Reason: Shortness of Breath Methylprednisolone (Solu-Medrol) 30 mg IVP Q12H ERIC Last Admin: 12/23/16 06:26 Dose: 30 mg Pantoprazole Sodium (Protonix Inj) 40 mg IVP DAILY [facility] Last Admin: 12/23/16 09:29 Dose: 40 mg Pregabalin (Lyrica) 75 mg PO BID ERIC Last Admin: 12/23/16 09:29 Dose: 75 mg Tramadol HCl (Ultram) 50 mg PO Q6H PRN PRN Reason: Pain, severe (8-10) Last Admin: 12/23/16 04:38 Dose: 50 mg - Labs Labs: 12/23/16 07:00 12/23/16 07:00 PT 10.7 Seconds (9.9-11.8) 12/22/16 11:20 INR 0.99 (0.93-1.08) 12/22/16 11:20 APTT 23.2 Seconds (23.7-30.8) L 12/22/16 11:20 Attending/Attestation - Attestation I have personally seen and examined this patient.: Yes I have fully participated in the care of the patient.: Yes I have reviewed all pertinent clinical information, including history, physical exam and plan: Yes Notes (Text): 12/23/16 14:43 56 year old male with past medical history of COPD, vertebral compression fractures, and subsegmental PE now off anticoagulation who presented with acute respiratory distress secondary to COPD exacerbation. Symptoms improved with bipap, duonebs and iv steroids in ER. He is currently on iv solumedrol and xopenex. Although D-dimer was elevated CT angiogram was negative for PE. Pulmonary evaluation is requested. Cardiology evaluation was requested for tachycardia. He is on xopenex rather than duonebs. TSH is 0.33 and free T4 is 1.52. Recommended to repeat TFTs in 4 -6 weeks. IR evaluation was requested as he was initially scheduled for kyphoplasty. He is on tramadol and lyrica for pain. Lewis Vázquez MD Hospitalist.
[2016-12-23] MEDS: Sodium Chloride 0.45% 1,000 ML IV SCH (13:45)
[2016-12-24] MEDS: Sodium Chloride 0.45% 1,000 ML IV SCH ×2 (02:02→15:06)
--- NOTE | 2016-12-24 05:52 | CON ---
REASON FOR CONSULTATION: Tachycardia. HISTORY OF PRESENT ILLNESS: The patient is a 56-year-old male who has a history of chronic obstructive lung disease, on nasal O2 at home, a former drug abuser, who presents because of shortness of breath and was found to be in sinus tachycardia. The patient underwent recently a cardiac catheterization, which revealed an insignificant left main ostial narrowing. The procedure was done on 11/29/2016. I did review the images and it revealed unremarkable coronary circulation. The patient denies any retrosternal chest pain, but he complains of bilateral chest pain that he attributed to COPD and he describes it as steady tightness. The patient denies any productive cough or hemoptysis and is unaware of any history of TB in the past. SOCIAL HISTORY: The patient quit smoking. He was a former multidrug abuser, but denies any intravenous drug abuse. MEDICATIONS: Atrovent 0.5 mg inhalation q. 6 hours, heparin 5000 units twice a day, Lyrica 75 mg once a day, Protonix 40 mg intravenously daily, Solu-Medrol intravenously q. 12 hours, and Xopenex 1.25 mg inhalation q. 6 hours. PHYSICAL EXAMINATION GENERAL: The patient is a middle age male who appears much older than his stated age and appears emaciated. VITAL SIGNS: Blood pressure 115/85, heart rate 125, temperature 97.9, and respirations 22. HEENT: Temporal wasting. NECK: No JVD. CHEST: Bilateral rhonchi. HEART: S1 and S2 regular. ABDOMEN: Soft. EXTREMITIES: Significant muscle wasting. No pedal edema. LABORATORY DATA: Hemoglobin and hematocrit 11.3 and 34.5. White count and platelet count are 11.1 and 268 respectively. D-dimer is 2.46. SMA-7 is within normal limits except for glucose of 113. One set of troponin is negative. TSH level is 0.33. EKG revealed ectopic atrial tachycardia at the rate of 127. Chest CT angio; no pulmonary embolus, severe emphysema, multiple chronic compression fractures. ASSESSMENT: 1. Exacerbation of chronic obstructive lung disease. 2. Ectopic atrial tachycardia. RECOMMENDATIONS: Continue current Atrovent, subcutaneous heparin, and Solu-Medrol. The patient is not a suitable candidate for beta-blockers. Optimize intravenous hydration as well as nutritional supplement. Shahriar Mckeon MD
[2016-12-24] MEDS ORDERED: Lidocaine 2% Inj (20ml) ONE (07:02)
[2016-12-24 07:28] LABS: GRAN # 16.8 (1.4-6.5); GRAN % 81.4 % (50.0-68.0); HEMATOCRIT 36.3 % (42.0-52.0); LYMPH # 1.4 (1.2-3.4); LYMPH % 6.8 % (22.0-35.0); MEAN CELL VOLUME 96.8 fl (80.0-105.0); MEAN CORPUSCULAR HEMOGLOBIN 30.4 pg (25.0-35.0); MEAN CORPUSCULAR HGB CONC 31.4 g/dl (31.0-37.0); MONO # 2.4 (0.1-0.6); MONO % 11.8 % (1.0-6.0); RED CELL DISTRIBUTION WIDTH 13.6 % (11.5-14.5); WHITE BLOOD COUNT 20.6 10^3/ul (4.5-11.0)
[2016-12-24 07:38] LABS: ALKALINE PHOSPHATASE 97 U/L (38-126); ALT/SGPT 29 U/L (7-56); AST/SGOT 24 U/L (17-59); BILIRUBIN,TOTAL 0.3 mg/dL (0.2-1.3); BLOOD UREA NITROGEN 19 mg/dL (7-21); CALCIUM 8.7 mg/dL (8.4-10.5); CARBON DIOXIDE 34 mmol/L (21-33); CHLORIDE 100 mmol/L (95-110); GFR AFRICAN-AMERICAN > 60; GLUCOSE,RANDOM 86 mg/dL (70-110); POTASSIUM 4.5 mmol/L (3.6-5.0); SODIUM 139 mmol/L (132-148)
[2016-12-24 07:39] LABS: INR 0.96 (0.93-1.08)
[2016-12-24 07:51] LABS: ALB/GLOB RATIO 1.3 (1.1-1.8); TOTAL PROTEIN 5.5 g/dL (5.8-8.3)
[2016-12-24] MEDS ORDERED: Midazolam 2 MG/2 ML VIAL ONE ×3 (07:58→08:44)
[2016-12-24] MEDS: Levalbuterol 1.25 MG/3 ML Inhal Soln UD IH SCH ×3 (08:06→19:44)
[2016-12-24] MEDS ORDERED: Iohexol 350mgl/ml 50 ML ONE ×2 (08:14→08:33)
[2016-12-24] MEDS ORDERED: Naloxone 0.4 mg/ml Inj (Adult) ONE (09:06)
[2016-12-24] MEDS ORDERED: Flumazenil 0.1 mg/ml Inj (5ml) IVP ONE (09:06)
[2016-12-24] MEDS: MethylPREDNISolone 40 mg Vial IVP SCH ×2 (10:48→21:01)
--- NOTE | 2016-12-24 12:41 | VASCULAR ---
PROCEDURE: 1. L1 kyphoplasty 2. T9 kyphoplasty HISTORY: Severe, refractory back pain. Unresponsive to bed rest and analgesics. Multiple thoracolumbar compression fractures. Acute symptomatic T9 and L1 compression fractures. COPD. . PHYSICIAN(S): Karlo Morales MD. TECHNIQUE: he relative risks and indications of the procedure were explained to the patient and informed written consent obtained. The patient was placed prone on the arteriography table and the thoracolumbar spine prepped and draped in the usual sterile fashion. Conscious sedation and monitoring were provided throughout the procedure by a nurse. The L1 vertebral body was carefully localized with fluoroscopy. The skin and soft tissues were anesthetized with 1% Xylocaine. Under direct fluoroscopic guidance, a right transpedicular bone needle was placed into the posterior aspect of L1 centrally. Only 1 balloon was required. A 15 mm balloon was inflated to 6 mm. The balloon was removed and 4.5 cc of PMMA cement placed in the anterior and superior aspect of L1. A minimal amount of superior extravasation was noted, which is not clinically significant. Next the T9 vertebral body was localized with fluoroscopy. Bilateral transpedicular bone needles were placed. Bilateral 10 mm balloons were inflated in a kissing fashion. The balloons were removed and 3.25 cc of PMMA cement instilled into the T9 vertebral body. No extravasation was noted. The patient tolerated the procedure well. IMPRESSION: 1. L1 kyphoplasty. 2. T9 kyphoplasty.
[2016-12-24] MEDS: Ipratropium 0.02% Inhal Soln (0.5 mg/2.5 ml) UD IH SCH ×2 (14:01→19:44)
[2016-12-24] MEDS: Morphine 2 mg/ml ISec IVP PRN ×2 (14:26→21:02)
[2016-12-24] MEDS ORDERED: Albuterol-Ipratrop 3 mg / 0.5 (3 ml) UD IH STA (15:11)
--- NOTE | 2016-12-24 16:26 | CP.PCM.PN ---
<Mani Al - Last Filed: 12/24/16 18:25> Subjective - Date & Time of Evaluation Date of Evaluation: 12/24/16 Time of Evaluation: 16:26 - Subjective Subjective: Mani Al DO, PGY-1, Hospitalist Service Patient seen and examined. Patient c/o increased rib pain when sitting upright. Patient admits to typical dyspnea symptoms. Objective - Vital Signs/Intake and Output Vital Signs (last 24 hours): Temp Pulse Resp BP Pulse Ox 98.5 F 109 H 20 115/82 100 12/24/16 12:00 12/24/16 12:00 12/24/16 12:00 12/24/16 12:00 12/24/16 09:42 Intake and Output: 12/24/16 12/24/16 06:59 18:59 Intake Total 360 Output Total 1550 Balance -1190 - Medications Medications: Current Medications Guaifenesin/Dextromethorphan (Mucinex-Dm 600-30 Mg) 1 tab PO BID [facility] Heparin Sodium (Porcine) (Heparin) 5,000 units SC Q12H ERIC PRN Reason: Protocol Last Admin: 12/24/16 04:13 Dose: 5,000 units Sodium Chloride (Sodium Chloride 0.45%) 1,000 mls @ 80 mls/hr IV .[id number] [facility] Last Admin: 12/24/16 15:06 Dose: 80 mls/hr Ipratropium [place] (Atrovent) 0.5 mg IH Q6H [facility] Last Admin: 12/24/16 14:01 Dose: Not Given Levalbuterol HCl (Xopenex) 1.25 mg IH [id number] [facility] Last Admin: 12/24/16 14:00 Dose: 1.25 mg Methylprednisolone (Solu-Medrol) 30 mg IVP Q12H [facility] Last Admin: 12/24/16 10:48 Dose: 30 mg Morphine Sulfate (Morphine) 1 mg IVP Q4H PRN PRN Reason: Pain, severe (8-10) Last Admin: 12/24/16 14:26 Dose: 1 mg Pantoprazole Sodium (Protonix Inj) 40 mg IVP DAILY [facility] Last Admin: 12/24/16 10:47 Dose: 40 mg Pregabalin (Lyrica) 75 mg PO BID [facility] Last Admin: 12/24/16 10:47 Dose: 75 mg Tramadol HCl (Ultram) 50 mg PO Q6H PRN PRN Reason: Pain, severe (8-10) Last Admin: 12/24/16 10:47 Dose: 50 mg - Labs Labs: 12/24/16 06:45 12/24/16 06:45 PT 10.4 Seconds (9.9-11.8) 12/24/16 06:45 INR 0.96 (0.93-1.08) 12/24/16 06:45 APTT 23.2 Seconds (23.7-30.8) L 12/22/16 11:20 - Constitutional Appears: Non-toxic, No Acute Distress, Older Than Stated Age, Cachectic - Head Exam Head Exam: ATRAUMATIC, NORMOCEPHALIC - Eye Exam Eye Exam: EOMI, Normal appearance, PERRL - ENT Exam ENT Exam: Mucous Membranes Moist, Normal Oropharynx - Neck Exam Neck Exam: Normal Inspection. absent: Thyromegaly - Respiratory Exam Respiratory Exam: Decreased Breath Sounds Additional comments: RR 26 - Cardiovascular Exam Cardiovascular Exam: Tachycardia, +S1, +S2 - GI/Abdominal Exam GI & Abdominal Exam: Soft, Normal Bowel Sounds. absent: Rigid, Rebound - Extremities Exam Extremities Exam: Normal Capillary Refill, Normal Inspection. absent: Calf Tenderness - Back Exam Additional comments: coverings noted - Neurological Exam Neurological Exam: Alert, Awake, CN II-XII Intact, Oriented x3 Neuro motor strength exam: Left Upper Extremity: 5, Right Upper Extremity: 5, Left Lower Extremity: 5, Right Lower Extremity: 5 Assessment and Plan - Assessment and Plan (Free Text) Assessment: 56 year old male with a end-stage COPD, s/p subsegemental PE; rib, thoracic and lumbar compression fractures who presented to [facility] via EMS with one day of dyspnea. He is currently on telemetry, being medically optimized in hopes of allowing him to undergo two areas of kyphoplasty for compression fractures that have caused him intractable back and chest wall pain. Plan: 1) COPD exacerbation - CXR showed no infiltrate - CT per PE protocol showed no PE, but emphysema. - Levalbuterol and Ipratropium q6h ERIC with Levalbuterol PRN in between - IVP Solumedrol 30 mg q12h ERIC 2) Sustained tachycardia, without typical chest pain - Cardiology consulted, Dr. Mckeon, will follow up with his recommendations. - EKG showed no ST-T wave changes 3) Post-operative management for kyphoplasty - One episode of respiratory distress, patient given 1 dose of Duonebs. - Per Dr. Kalro Morales, patient is to stay in bed today and OOB to chair and ambulating tomorrow - Regular diet, clear liquids after midnight, 1/2 NS 4) Cachexia secondary to increased work of breathing - C/W Ensure Enlive with each meal 5) Analgesia/Post-operative pain - Tramadol 50 mg q6h PRN, Morphine 1mg q4h IVP PRN for severe pain, and Lyrica 75 mg BID 6) DVT/GI prophylaxis: Protonix 40 mg IVP and Heparin 5,000 SC q12h Plan discussed with attending, Dr. Carvajal <Wei GUERRERO,[facility] - Last Filed: 12/24/16 18:44> Objective - Vital Signs/Intake and Output Vital Signs (last 24 hours): Temp Pulse Resp BP Pulse Ox 98 F 103 H 21 107/78 100 12/24/16 18:00 12/24/16 18:00 12/24/16 18:00 12/24/16 18:00 12/24/16 09:42 Intake and Output: 12/24/16 12/24/16 06:59 18:59 Intake Total 360 Output Total 1550 Balance -1190 - Medications Medications: Current Medications Guaifenesin/Dextromethorphan (Mucinex-Dm 600-30 Mg) 1 tab PO BID [facility] Last Admin: 12/24/16 18:12 Dose: Not Given Heparin Sodium (Porcine) (Heparin) 5,000 units SC Q12H [facility] PRN Reason: Protocol Last Admin: 12/24/16 18:13 Dose: 5,000 units Sodium Chloride (Sodium Chloride 0.45%) 1,000 mls @ 80 mls/hr IV .[id number] [facility] Last Admin: 12/24/16 15:06 Dose: 80 mls/hr Ipratropium [place] (Atrovent) 0.5 mg IH Q6H [facility] Last Admin: 12/24/16 14:01 Dose: Not Given Levalbuterol HCl (Xopenex) 1.25 mg IH [id number] [facility] Last Admin: 12/24/16 14:00 Dose: 1.25 mg Methylprednisolone (Solu-Medrol) 30 mg IVP Q12H [facility] Last Admin: 12/24/16 10:48 Dose: 30 mg Morphine Sulfate (Morphine) 1 mg IVP Q4H PRN PRN Reason: Pain, severe (8-10) Last Admin: 12/24/16 14:26 Dose: 1 mg Pantoprazole Sodium (Protonix Inj) 40 mg IVP DAILY [facility] Last Admin: 12/24/16 10:47 Dose: 40 mg Pregabalin (Lyrica) 75 mg PO BID [facility] Last Admin: 12/24/16 18:12 Dose: 75 mg Tramadol HCl (Ultram) 50 mg PO Q6H PRN PRN Reason: Pain, severe (8-10) Last Admin: 12/24/16 10:47 Dose: 50 mg - Labs Labs: 12/24/16 06:45 12/24/16 06:45 PT 10.4 Seconds (9.9-11.8) 12/24/16 06:45 INR 0.96 (0.93-1.08) 12/24/16 06:45 APTT 23.2 Seconds (23.7-30.8) L 12/22/16 11:20 Attending/Attestation - Attestation I have personally seen and examined this patient.: Yes I have fully participated in the care of the patient.: Yes I have reviewed all pertinent clinical information, including history, physical exam and plan: Yes Notes (Text): 12/24/16 18:41 Patient was seen and examined with medical billing assistant. Agreed with resident assessment and plan. 56 year old male with past medical history of COPD, vertebral compression fractures, and subsegmental PE now off anticoagulation who presented with acute respiratory distress secondary to COPD exacerbation. Patient has chronic back pain, underwent Kyphoplasty today, c/o pain after the procedure.Pain medications are adjusted.Patient is also mildly dyspnic after procedure, hypoxia is at base line.He is not wheezing, has good air entry ,We will continue current dose of steroid at this time. Management plan was discussed in detail with patient Education was provided.
[2016-12-24] MEDS: guaiFENesin-DM 600-30 mg ER Tab PO SCH ×2 (16:36→18:12)
[2016-12-25] MEDS: Ipratropium 0.02% Inhal Soln (0.5 mg/2.5 ml) UD IH SCH ×5 (01:29→19:48)
[2016-12-25] MEDS: Levalbuterol 1.25 MG/3 ML Inhal Soln UD IH SCH ×4 (01:29→19:47)
[2016-12-25] MEDS: Morphine 2 mg/ml ISec IVP PRN ×5 (01:46→21:55)
[2016-12-25] MEDS: Sodium Chloride 0.45% 1,000 ML IV SCH ×2 (03:17→15:45)
[2016-12-25 07:54] LABS: GRAN # 14.92 (1.4-6.5); GRAN % 85.1 % (50.0-68.0); HEMATOCRIT 34.6 % (42.0-52.0); LYMPH # 1.1 (1.2-3.4); LYMPH % 6.2 % (22.0-35.0); MEAN CELL VOLUME 97.7 fl (80.0-105.0); MEAN CORPUSCULAR HEMOGLOBIN 30.8 pg (25.0-35.0); MEAN CORPUSCULAR HGB CONC 31.5 g/dl (31.0-37.0); MEAN PLATELET VOLUME 9.3 fl (7.0-11.0); MONO # 1.5 (0.1-0.6); MONO % 8.7 % (1.0-6.0); RED CELL DISTRIBUTION WIDTH 13.7 % (11.5-14.5); WHITE BLOOD COUNT 17.5 10^3/ul (4.5-11.0)
[2016-12-25 08:06] LABS: INR 1.01 (0.93-1.08)
[2016-12-25 08:09] LABS: ALB/GLOB RATIO 1.4 (1.1-1.8); ALKALINE PHOSPHATASE 109 U/L (38-126); ALT/SGPT 43 U/L (7-56); AST/SGOT 23 U/L (17-59); BILIRUBIN,TOTAL 0.2 mg/dL (0.2-1.3); BLOOD UREA NITROGEN 17 mg/dL (7-21); CALCIUM 8.3 mg/dL (8.4-10.5); CARBON DIOXIDE 34 mmol/L (21-33); CHLORIDE 99 mmol/L (98-107); GFR AFRICAN-AMERICAN > 60; GLUCOSE,RANDOM 93 mg/dL (70-110); POTASSIUM 4.2 mmol/L (3.6-5.0); SODIUM 139 mmol/L (132-148); TOTAL PROTEIN 5.1 g/dL (5.8-8.3)
[2016-12-25] MEDS: MethylPREDNISolone 40 mg Vial IVP SCH ×2 (08:09→18:03)
[2016-12-25] MEDS: guaiFENesin-DM 600-30 mg ER Tab PO SCH ×2 (09:15→18:03)
--- NOTE | 2016-12-25 14:45 | CP.PCM.PN ---
<Mani Al - Last Filed: 12/25/16 14:40> Subjective - Date & Time of Evaluation Date of Evaluation: 12/25/16 Time of Evaluation: 14:40 - Subjective Subjective: Mani Al DO, PGY-1, Hospitalist Service Patient seen and examined at bedside. Patient reports some pain when sitting, but pain has improved since yesterday. Patient reports typical dyspnea. Objective - Vital Signs/Intake and Output Vital Signs (last 24 hours): Temp Pulse Resp BP Pulse Ox 97 F L 119 H 19 118/82 99 12/25/16 12:00 12/25/16 13:27 12/25/16 12:00 12/25/16 13:27 12/25/16 06:00 Intake and Output: 12/25/16 12/25/16 06:59 18:59 Intake Total 960 Output Total 1200 Balance -240 - Medications Medications: Current Medications Diltiazem HCl (Cardizem) 30 mg PO QID [facility] Last Admin: 12/25/16 13:27 Dose: 30 mg Guaifenesin/Dextromethorphan (Mucinex-Dm 600-30 Mg) 1 tab PO BID [facility] Last Admin: 12/25/16 09:15 Dose: 1 tab Heparin Sodium (Porcine) (Heparin) 5,000 units SC Q12H [facility] PRN Reason: Protocol Last Admin: 12/25/16 04:19 Dose: 5,000 units Sodium Chloride (Sodium Chloride 0.45%) 1,000 mls @ 80 mls/hr IV .[id number] [facility] Last Admin: 12/25/16 03:17 Dose: 80 mls/hr Ipratropium [place] (Atrovent) 0.5 mg IH Q6H [facility] Last Admin: 12/25/16 14:22 Dose: 0.5 mg Levalbuterol HCl (Xopenex) 1.25 mg IH [id number] [facility] Last Admin: 12/25/16 14:22 Dose: 1.25 mg Methylprednisolone (Solu-Medrol) 30 mg IVP Q12H [facility] Last Admin: 12/25/16 08:09 Dose: 30 mg Morphine Sulfate (Morphine) 1 mg IVP Q4H PRN PRN Reason: Pain, severe (8-10) Last Admin: 12/25/16 11:16 Dose: 1 mg Pantoprazole Sodium (Protonix Inj) 40 mg IVP DAILY [facility] Last Admin: 12/25/16 09:17 Dose: 40 mg Pregabalin (Lyrica) 75 mg PO BID [facility] Last Admin: 12/25/16 09:16 Dose: 75 mg Tramadol HCl (Ultram) 50 mg PO Q6H PRN PRN Reason: Pain, severe (8-10) Last Admin: 12/25/16 09:16 Dose: 50 mg - Labs Labs: 12/25/16 07:00 12/25/16 07:00 PT 10.9 Seconds (9.9-11.8) 12/25/16 07:00 INR 1.01 (0.93-1.08) 12/25/16 07:00 APTT 23.2 Seconds (23.7-30.8) L 12/22/16 11:20 - Head Exam Additional comments: - Constitutional Appears: Non-toxic, No Acute Distress, Older Than Stated Age, Cachectic - Head Exam Head Exam: ATRAUMATIC, NORMOCEPHALIC - Eye Exam Eye Exam: EOMI, Normal appearance, PERRL - ENT Exam ENT Exam: Mucous Membranes Moist, Normal Oropharynx - Neck Exam Neck Exam: Normal Inspection. absent: Thyromegaly - Respiratory Exam Respiratory Exam: Decreased Breath Sounds Additional comments: RR 26 - Cardiovascular Exam Cardiovascular Exam: Tachycardia, +S1, +S2 - GI/Abdominal Exam GI & Abdominal Exam: Soft, Normal Bowel Sounds. absent: Rigid, Rebound - Extremities Exam Extremities Exam: Normal Capillary Refill, Normal Inspection. absent: Calf Tenderness - Back Exam Additional comments: coverings noted - Neurological Exam Neurological Exam: Alert, Awake, CN II-XII Intact, Oriented x3 Neuro motor strength exam: Left Upper Extremity: 5, Right Upper Extremity: 5, Left Lower Extremity: 5, Right Lower Extremity: 5 Assessment and Plan - Assessment and Plan (Free Text) Assessment: 56 year old male with a end-stage COPD, s/p subsegemental PE; rib, thoracic and lumbar compression fractures who presented to [facility] via EMS with one day of dyspnea. He is currently on telemetry, being medically optimized in hopes of allowing him to undergo two areas of kyphoplasty for compression fractures that have caused him intractable back and chest wall pain. Plan: 1) COPD exacerbation - CXR showed no infiltrate - CT per PE protocol showed no PE, but emphysema. - Levalbuterol and Ipratropium q6h ERIC with Levalbuterol PRN in between - IVP Solumedrol 30 mg q12h ERIC 2) Sustained tachycardia, without typical chest pain - Cardiology consulted, Dr. Mckeon, recommended 30 mg Diltiazem QID. 3) Post-operative management for kyphoplasty - One episode of respiratory distress, patient given 1 dose of Duonebs. - Per Dr. Karlo Morales, patient is to stay in bed today and OOB to chair and ambulating tomorrow - Regular diet, clear liquids after midnight, 1/2 NS 4) Cachexia secondary to increased work of breathing - C/W Ensure Enlive with each meal 5) Analgesia/Post-operative pain - Tramadol 50 mg q6h PRN, Morphine 1mg q4h IVP PRN for severe pain, and Lyrica 75 mg BID 6) DVT/GI prophylaxis: Protonix 40 mg IVP and Heparin 5,000 SC q12h Plan discussed with attending, Dr. Vázquez <Lewis Vázquez - Last Filed: 12/25/16 15:09> Objective - Vital Signs/Intake and Output Vital Signs (last 24 hours): Temp Pulse Resp BP Pulse Ox 97 F L 119 H 19 118/82 99 12/25/16 12:00 12/25/16 13:27 12/25/16 12:00 12/25/16 13:27 12/25/16 06:00 Intake and Output: 12/25/16 12/25/16 06:59 18:59 Intake Total 960 Output Total 1200 Balance -240 - Medications Medications: Current Medications Diltiazem HCl (Cardizem) 30 mg PO QID [facility] Last Admin: 12/25/16 13:27 Dose: 30 mg Guaifenesin/Dextromethorphan (Mucinex-Dm 600-30 Mg) 1 tab PO BID [facility] Last Admin: 12/25/16 09:15 Dose: 1 tab Heparin Sodium (Porcine) (Heparin) 5,000 units SC Q12H [facility] PRN Reason: Protocol Last Admin: 12/25/16 04:19 Dose: 5,000 units Sodium Chloride (Sodium Chloride 0.45%) 1,000 mls @ 80 mls/hr IV .[id number] [facility] Last Admin: 12/25/16 03:17 Dose: 80 mls/hr Ipratropium [place] (Atrovent) 0.5 mg IH Q6H [facility] Last Admin: 12/25/16 14:22 Dose: 0.5 mg Levalbuterol HCl (Xopenex) 1.25 mg IH [id number] [facility] Last Admin: 12/25/16 14:22 Dose: 1.25 mg Methylprednisolone (Solu-Medrol) 30 mg IVP Q12H [facility] Last Admin: 12/25/16 08:09 Dose: 30 mg Morphine Sulfate (Morphine) 1 mg IVP Q4H PRN PRN Reason: Pain, severe (8-10) Last Admin: 12/25/16 11:16 Dose: 1 mg Pantoprazole Sodium (Protonix Inj) 40 mg IVP DAILY [facility] Last Admin: 12/25/16 09:17 Dose: 40 mg Pregabalin (Lyrica) 75 mg PO BID [facility] Last Admin: 12/25/16 09:16 Dose: 75 mg Tramadol HCl (Ultram) 50 mg PO Q6H PRN PRN Reason: Pain, severe (8-10) Last Admin: 12/25/16 09:16 Dose: 50 mg - Labs Labs: 12/25/16 07:00 12/25/16 07:00 PT 10.9 Seconds (9.9-11.8) 12/25/16 07:00 INR 1.01 (0.93-1.08) 12/25/16 07:00 APTT 23.2 Seconds (23.7-30.8) L 12/22/16 11:20 Attending/Attestation - Attestation I have personally seen and examined this patient.: Yes I have fully participated in the care of the patient.: Yes I have reviewed all pertinent clinical information, including history, physical exam and plan: Yes Notes (Text): 12/25/16 15:04 56 year old male with past medical history of COPD, vertebral compression fractures, and subsegmental PE now off anticoagulation who presented with acute respiratory distress secondary to COPD exacerbation. He is on iv steroids and xopenex. He is on chronic O2 supplementation. Patient is s/p kyphoplasty POD # 1. Continue with analgesics as needed for pain. Today he remains to be tachycardic with HR ranging from 130-150. Case was discussed with Dr. Mckeon ; will start on cardizem and monitor. If HR is better later today than will have patient OOB to chair with PT evaluation. Lewis Vázquez MD Hospitalist.
--- NOTE | 2016-12-25 18:09 | PN ---
SUBJECTIVE: The patient is experiencing back pain. He denies any retrosternal chest pain. Monitor reveals runs of ectopic atrial tachycardia. PHYSICAL EXAMINATION: VITAL SIGNS: Blood pressure 110/75, heart rate 112, temperature 98.7, respirations 19. HEENT: Pale conjunctivae. CHEST: Bilateral rhonchi. HEART: S1 and S2 regular. EXTREMITIES: Significant muscle wasting. LABORATORY DATA: Hemoglobin and hematocrit 11.9 and 34.6. White count 17.5, platelet count 235,000. INR is within normal limits. Today/s SMA-7 is within normal limits except for carbon dioxide of 34. ASSESSMENT: 1. Exacerbation of chronic obstructive lung disease. 2. Ectopic atrial tachycardia. 3. Status post kyphoplasty. RECOMMENDATIONS: Continue current bronchodilators, subcutaneous heparin 5000 units twice a day, Solu-Medrol 30 mg intravenously q.12 hours. Case was discussed with Dr. Vázquez and the patient will be started on Cardizem at 300 mg four times a day. Shahriar Mckeon MD
[2016-12-26 00:21] VITALS: RESP 20
[2016-12-26] MEDS: Morphine 2 mg/ml ISec IVP PRN ×5 (02:04→21:55)
[2016-12-26] MEDS: Levalbuterol 1.25 MG/3 ML Inhal Soln UD IH SCH ×4 (02:08→19:39)
[2016-12-26] MEDS: Ipratropium 0.02% Inhal Soln (0.5 mg/2.5 ml) UD IH SCH ×6 (02:08→19:39)
[2016-12-26] MEDS: Sodium Chloride 0.45% 1,000 ML IV SCH ×3 (04:52→17:58)
[2016-12-26] MEDS: MethylPREDNISolone 40 mg Vial IVP SCH ×2 (06:00→21:54)
[2016-12-26] MEDS: Oxycodone/Acetaminophen 5/325 mg Tab PO PRN (09:43)
[2016-12-26] MEDS: guaiFENesin-DM 600-30 mg ER Tab PO SCH ×2 (09:44→17:56)
--- NOTE | 2016-12-26 10:10 | CP.PCM.PN ---
Subjective - Date & Time of Evaluation Date of Evaluation: 12/26/16 Time of Evaluation: 07:45 - Subjective Subjective: Patient seen and examined at bedside. No acute events reported overnight. Reports his pain is a little better today. Still reports some dyspnea with exertion. Denies any other complaints. Review of Systems - Review of Systems All systems: reviewed and no additional remarkable complaints except - Constitutional Constitutional: absent: Fever, Chills - EENT Eyes: absent: Blurred Vision Ears: absent: Dizziness - Cardiovascular Cardiovascular: Dyspnea. absent: Chest Pain - Respiratory Respiratory: Dyspnea, Dyspnea on Exertion. absent: Cough - Gastrointestinal Gastrointestinal: absent: Abdominal Pain, Dysphagia, Vomiting - Genitourinary Genitourinary: absent: Dysuria - Musculoskeletal Musculoskeletal: Back Pain (some improvement) - Neurological Neurological: absent: Tremor - Psychiatric Psychiatric: absent: Anxiety Objective - Vital Signs/Intake and Output Vital Signs (last 24 hours): Temp Pulse Resp BP Pulse Ox 98.2 F 98 H 20 110/80 97 12/26/16 05:29 12/26/16 09:44 12/26/16 05:29 12/26/16 09:44 12/26/16 05:29 Intake and Output: 12/26/16 12/26/16 06:59 18:59 Intake Total 1020 Output Total 1665 Balance -645 - Medications Medications: Current Medications Diltiazem HCl (Cardizem) 30 mg PO QID [facility] Last Admin: 12/26/16 09:44 Dose: 30 mg Guaifenesin/Dextromethorphan (Mucinex-Dm 600-30 Mg) 1 tab PO BID [facility] Last Admin: 12/26/16 09:44 Dose: 1 tab Heparin Sodium (Porcine) (Heparin) 5,000 units SC Q12H [facility] PRN Reason: Protocol Last Admin: 12/26/16 04:53 Dose: 5,000 units Sodium Chloride (Sodium Chloride 0.45%) 1,000 mls @ 80 mls/hr IV .[id number] [facility] Last Admin: 12/26/16 04:53 Dose: 80 mls/hr Ipratropium [place] (Atrovent) 0.5 mg IH Q6H [facility] Last Admin: 12/26/16 07:27 Dose: 0.5 mg Levalbuterol HCl (Xopenex) 1.25 mg IH [id number] [facility] Last Admin: 12/26/16 07:27 Dose: 1.25 mg Methylprednisolone (Solu-Medrol) 20 mg IVP Q12 [facility] Morphine Sulfate (Morphine) 1 mg IVP Q4H PRN PRN Reason: Pain, severe (8-10) Last Admin: 12/26/16 06:00 Dose: 1 mg Oxycodone/Acetaminophen (Percocet 5/325 Mg Tab) 1 tab PO Q6H PRN PRN Reason: moderate pain Stop: 12/29/16 08:46 Last Admin: 12/26/16 09:43 Dose: 1 tab Pantoprazole Sodium (Protonix Inj) 40 mg IVP DAILY [facility] Last Admin: 12/26/16 09:44 Dose: 40 mg Pregabalin (Lyrica) 75 mg PO BID [facility] Last Admin: 12/26/16 09:44 Dose: 75 mg - Labs Labs: 12/25/16 07:00 12/25/16 07:00 PT 10.9 Seconds (9.9-11.8) 12/25/16 07:00 INR 1.01 (0.93-1.08) 12/25/16 07:00 APTT 23.2 Seconds (23.7-30.8) L 12/22/16 11:20 - Constitutional Appears: Well, No Acute Distress, Cachectic, Chronically Ill - Head Exam Head Exam: NORMAL INSPECTION - Eye Exam Eye Exam: EOMI - ENT Exam ENT Exam: Normal Exam - Respiratory Exam Respiratory Exam: Decreased Breath Sounds, Rhonchi (few) - Cardiovascular Exam Cardiovascular Exam: Tachycardia, +S1, +S2 - GI/Abdominal Exam GI & Abdominal Exam: Soft, Normal Bowel Sounds. absent: Tenderness, Organomegaly - Extremities Exam Extremities Exam: Normal Inspection - Neurological Exam Neurological Exam: Alert, Awake, Oriented x3 - Psychiatric Exam Psychiatric exam: Normal Affect, Normal Mood Assessment and Plan - Assessment and Plan (Free Text) Plan: 56 year old male with past medical history of advanced COPD, compression fractures and subsegmental PE now off anticoagulation presented with dyspnea secondary to COPD exacerbation. 1. COPD exacerbation - Continue with tapering iv steroids. He is also on xopenex. 2. Tachycardia - D-dimer was elevated however CT angio was negative for PE. He was started on cardizem yesterday as per cardiology and his heart rate has improved today (HR ranging from 90-105). 3. Chronic back pain from compression fractures - Patient is s/p kyphoplasty POD #2. He is on morphine prn and percocet. He is also on lyrica. Will have patient out of bed to chair and possible PT evaluation later this afternoon if patient tolerates. 4. Abnormal TFTs - TSH was low at 0.33 with normal free T4. Recommended to repeat TFTs in 4-6 weeks. 5. Leukocytosis - Likely reactive or due to steroids. Will monitor. Labs this morning are pending. Patient is on protonix for GI prophylaxis and heparin for DVT prophylaxis.
--- NOTE | 2016-12-26 10:12 | CP.PCM.PN ---
Subjective - Date & Time of Evaluation Date of Evaluation: 12/26/16 Time of Evaluation: 08:00 - Subjective Subjective: Mani Al DO, PGY-1, Hospitalist Service Patient seen and examined at beside. Patient reports decent appetite, only SOB when out of bed. Nurse reports no events overnight. Patient is willing to try to sit in chair with assistance. Objective - Vital Signs/Intake and Output Vital Signs (last 24 hours): Temp Pulse Resp BP Pulse Ox 98.2 F 98 H 20 110/80 97 12/26/16 05:29 12/26/16 09:44 12/26/16 05:29 12/26/16 09:44 12/26/16 05:29 Intake and Output: 12/26/16 12/26/16 06:59 18:59 Intake Total 1020 Output Total 1665 Balance -645 - Medications Medications: Current Medications Diltiazem HCl (Cardizem) 30 mg PO QID [facility] Last Admin: 12/26/16 09:44 Dose: 30 mg Guaifenesin/Dextromethorphan (Mucinex-Dm 600-30 Mg) 1 tab PO BID [facility] Last Admin: 12/26/16 09:44 Dose: 1 tab Heparin Sodium (Porcine) (Heparin) 5,000 units SC Q12H [facility] PRN Reason: Protocol Last Admin: 12/26/16 04:53 Dose: 5,000 units Sodium Chloride (Sodium Chloride 0.45%) 1,000 mls @ 80 mls/hr IV .[id number] [facility] Last Admin: 12/26/16 04:53 Dose: 80 mls/hr Ipratropium [place] (Atrovent) 0.5 mg IH Q6H [facility] Last Admin: 12/26/16 07:27 Dose: 0.5 mg Levalbuterol HCl (Xopenex) 1.25 mg IH [id number] [facility] Last Admin: 12/26/16 07:27 Dose: 1.25 mg Methylprednisolone (Solu-Medrol) 20 mg IVP Q12 [facility] Morphine Sulfate (Morphine) 1 mg IVP Q4H PRN PRN Reason: Pain, severe (8-10) Last Admin: 12/26/16 06:00 Dose: 1 mg Oxycodone/Acetaminophen (Percocet 5/325 Mg Tab) 1 tab PO Q6H PRN PRN Reason: moderate pain Stop: 12/29/16 08:46 Last Admin: 12/26/16 09:43 Dose: 1 tab Pantoprazole Sodium (Protonix Inj) 40 mg IVP DAILY [facility] Last Admin: 12/26/16 09:44 Dose: 40 mg Pregabalin (Lyrica) 75 mg PO BID [facility] Last Admin: 12/26/16 09:44 Dose: 75 mg - Labs Labs: 12/25/16 07:00 12/25/16 07:00 PT 10.9 Seconds (9.9-11.8) 12/25/16 07:00 INR 1.01 (0.93-1.08) 12/25/16 07:00 APTT 23.2 Seconds (23.7-30.8) L 12/22/16 11:20 - Constitutional Appears: Well, Non-toxic, No Acute Distress - Head Exam Head Exam: ATRAUMATIC, NORMOCEPHALIC - Eye Exam Eye Exam: EOMI, Normal appearance, PERRL - ENT Exam ENT Exam: Mucous Membranes Moist, Normal Oropharynx - Neck Exam Neck Exam: Normal Inspection. absent: Lymphadenopathy, Thyromegaly - Respiratory Exam Respiratory Exam: Decreased Breath Sounds. absent: Wheezes - Cardiovascular Exam Cardiovascular Exam: RRR, +S1, +S2 - GI/Abdominal Exam GI & Abdominal Exam: Soft, Normal Bowel Sounds. absent: Guarding, Rebound - Back Exam Back Exam: NORMAL INSPECTION. absent: CVA tenderness (L), CVA tenderness (R) - Neurological Exam Neurological Exam: Alert, Awake, CN II-XII Intact, Oriented x3 - Psychiatric Exam Psychiatric exam: Normal Affect, Normal Mood - Skin Skin Exam: Dry, Intact, Normal Color, Warm
[2016-12-26 11:04] LABS: HEMATOCRIT 35.2 % (42.0-52.0); MEAN CORPUSCULAR HEMOGLOBIN 30.9 pg (25.0-35.0); MEAN CORPUSCULAR HGB CONC 31.8 g/dl (31.0-37.0); MEAN PLATELET VOLUME 9.3 fl (7.0-11.0); RED CELL DISTRIBUTION WIDTH 13.7 % (11.5-14.5); WHITE BLOOD COUNT 22.2 10^3/ul (4.5-11.0)
[2016-12-26 11:13] LABS: BLOOD UREA NITROGEN 20 mg/dL (7-21); CALCIUM 8.7 mg/dL (8.4-10.5); CARBON DIOXIDE 36 mmol/L (21-33); CHLORIDE 100 mmol/L (98-107); GFR AFRICAN-AMERICAN > 60; GLUCOSE,RANDOM 101 mg/dL (70-110); POTASSIUM 4.2 mmol/L (3.6-5.0); SODIUM 138 mmol/L (132-148)
--- NOTE | 2016-12-26 18:38 | PN ---
DATE: SUBJECTIVE: The patient is mildly short of breath. He denies any retrosternal chest pain. He complains of rib pain at the site of his previous rib fracture. PHYSICAL EXAMINATION: VITAL SIGNS: Blood pressure 108/78, heart rate 91, temperature 98, respirations 20. HEENT: Normocephalic. CHEST: Bilateral rhonchi. HEART: S1 and S2 regular. EXTREMITIES: Significant muscle wasting. LABORATORY DATA: Hemoglobin and hematocrit 11.2 and 35.2, white count is elevated at 22.2. Today's Chem-7 is within normal limits except for carbon dioxide of 36 and anion gap of 6. ASSESSMENT: 1. Chronic obstructive lung disease. 2. Ectopic atrial tachycardia. 3. Status post kyphoplasty. RECOMMENDATIONS: Continue Cardizem at 30 mg t.i.d., subcutaneous heparin 5000 units twice a day, Protonix 40 mg intravenously once a day, Solu-Medrol 20 mg intravenously twice a day. Case was discussed with Dr. Vázquez. Shahriar Mckeon MD
[2016-12-27] MEDS: Oxycodone/Acetaminophen 5/325 mg Tab PO PRN (00:59)
[2016-12-27] MEDS: Levalbuterol 1.25 MG/3 ML Inhal Soln UD IH SCH ×3 (02:00→13:41)
[2016-12-27] MEDS: Ipratropium 0.02% Inhal Soln (0.5 mg/2.5 ml) UD IH SCH ×6 (02:00→13:41)
[2016-12-27] MEDS: Morphine 2 mg/ml ISec IVP PRN ×2 (04:05→09:04)
[2016-12-27] MEDS: Sodium Chloride 0.45% 1,000 ML IV SCH (04:07)
[2016-12-27 05:32] VITALS: O2SAT 97
[2016-12-27 06:59] LABS: HEMATOCRIT 34.7 % (42.0-52.0); MEAN CELL VOLUME 96.9 fl (80.0-105.0); MEAN PLATELET VOLUME 9.3 fl (7.0-11.0); RED CELL DISTRIBUTION WIDTH 13.7 % (11.5-14.5); WHITE BLOOD COUNT 19.7 10^3/ul (4.5-11.0)
[2016-12-27 07:34] LABS: BLOOD UREA NITROGEN 25 mg/dL (7-21); CALCIUM 8.6 mg/dL (8.4-10.5); CARBON DIOXIDE 34 mmol/L (21-33); CHLORIDE 99 mmol/L (95-110); GFR AFRICAN-AMERICAN > 60; GLUCOSE,RANDOM 103 mg/dL (70-110); POTASSIUM 4.2 mmol/L (3.6-5.0); SODIUM 137 mmol/L (132-148)
[2016-12-27] MEDS: MethylPREDNISolone 40 mg Vial IVP SCH (09:03)
[2016-12-27] MEDS: guaiFENesin-DM 600-30 mg ER Tab PO SCH ×2 (09:05→18:11)
[2016-12-27 11:45] VITALS: TEMP 98.3
--- NOTE | 2016-12-27 11:45 | CP.PCM.DIS ---
<Mani Al - Last Filed: 12/27/16 14:36> Provider - Provider Date of Admission: 12/22/16 14:12 Attending physician: Lewis Vázquez MD Consults: Dr. Karlo Mckeon Time Spent in preparation of Discharge (in minutes): 33 Hospital Course - Lab Results Lab Results: Most Recent Lab Values WBC 19.7 10^3/ul (4.5-11.0) H 12/27/16 06:30 RBC 3.58 10^6/uL (3.5-6.1) 12/27/16 06:30 Hgb 11.1 g/dL (14.0-18.0) L 12/27/16 06:30 Hct 34.7 % (42.0-52.0) L 12/27/16 06:30 MCV 96.9 fl (80.0-105.0) 12/27/16 06:30 MCH 31.0 pg (25.0-35.0) 12/27/16 06:30 MCHC 32.0 g/dl (31.0-37.0) 12/27/16 06:30 RDW 13.7 % (11.5-14.5) 12/27/16 06:30 Plt Count 251 10^3/uL (120.0-450.0) 12/27/16 06:30 MPV 9.3 fl (7.0-11.0) 12/27/16 06:30 Gran % 85.1 % (50.0-68.0) H 12/25/16 07:00 Lymph % (Auto) 6.2 % (22.0-35.0) L 12/25/16 07:00 [place] % (Auto) 8.7 % (1.0-6.0) H 12/25/16 07:00 Eos % (Auto) 0.0 % (1.5-5.0) L 12/25/16 07:00 Baso % (Auto) 0.0 % (0.0-3.0) 12/25/16 07:00 Gran # 14.92 (1.4-6.5) H 12/25/16 07:00 Lymph # 1.1 (1.2-3.4) L 12/25/16 07:00 [place] # 1.5 (0.1-0.6) H 12/25/16 07:00 Eos # 0.0 (0.0-0.7) 12/25/16 07:00 Baso # 0.00 K/mm3 (0.0-2.0) 12/25/16 07:00 PT 10.9 Seconds (9.9-11.8) 12/25/16 07:00 INR 1.01 (0.93-1.08) 12/25/16 07:00 APTT 23.2 Seconds (23.7-30.8) L 12/22/16 11:20 D-Dimer, Quantitative 2.46 mg/L FEU (0-0.50) H 12/22/16 11:20 pCO2 47 mm/Hg (35-45) H 12/22/16 11:50 pO2 140.0 mm/Hg (80-100) H 12/22/16 11:50 HCO3 29.1 mmol/L (21-28) H 12/22/16 11:50 ABG pH 7.40 (7.35-7.45) 12/22/16 11:50 ABG Total CO2 30.5 mmol.L (22-28) H 12/22/16 11:50 ABG O2 Saturation 99.8 % (95-98) H 12/22/16 11:50 ABG O2 Content 15.6 ML/dl (15-23) 12/22/16 11:50 ABG Base Excess 3.6 mmol/L (-2.0-3.0) H 12/22/16 11:50 ABG Hemoglobin 11.4 g/dL (11.7-17.4) L 12/22/16 11:50 ABG Carboxyhemoglobin 2.7 % (0.5-1.5) H 12/22/16 11:50 POC ABG HHb (Measured) 0.2 % (0-5) 12/22/16 11:50 ABG Methemoglobin 1.3 % (0.0-3.0) 12/22/16 11:50 ABG O2 Capacity 15.6 mL/dl (16-24) L 12/22/16 11:50 Hgb O2 Saturation 95.9 % (95.0-98.0) 12/22/16 11:50 FiO2 35.0 % 12/22/16 11:50 Sodium 137 mmol/L (132-148) 12/27/16 06:30 Potassium 4.2 mmol/L (3.6-5.0) 12/27/16 06:30 Chloride 99 mmol/L (95-110) 12/27/16 06:30 Carbon Dioxide 34 mmol/L (21-33) H 12/27/16 06:30 Anion Gap 8 (10-20) L 12/27/16 06:30 BUN 25 mg/dL (7-21) H 12/27/16 06:30 Creatinine 0.5 mg/dL (0.5-1.4) 12/27/16 06:30 Est GFR ( Amer) > 60 12/27/16 06:30 Est GFR (Non-Af Amer) > 60 12/27/16 06:30 Random Glucose 103 mg/dL (70-110) 12/27/16 06:30 Calcium 8.6 mg/dL (8.4-10.5) 12/27/16 06:30 Total Bilirubin 0.2 mg/dL (0.2-1.3) 12/25/16 07:00 AST 23 U/L (17-59) 12/25/16 07:00 ALT 43 U/L (7-56) 12/25/16 07:00 Alkaline Phosphatase 109 U/L (38-126) 12/25/16 07:00 Total Creatine Kinase 27 U/L (35-230) L 12/22/16 11:20 Troponin I < 0.01 ng/mL 12/22/16 11:20 Total Protein 5.1 g/dL (5.8-8.3) L 12/25/16 07:00 Albumin 3.0 g/dL (3.0-4.8) 12/25/16 07:00 Globulin 2.1 gm/dL 12/25/16 07:00 Albumin/Globulin Ratio 1.4 (1.1-1.8) 12/25/16 07:00 Free T4 1.52 ng/dL (0.78-2.19) 12/22/16 11:20 TSH 3rd Generation 0.33 mIU/mL (0.46-4.68) L 12/22/16 11:20 - Hospital Course Hospital Course: Mani Al DO, PGY-1, Hospitalist Service 56 year old male with a history of end-stage COPD, recent thoracic and lumbar compression fractures, subsegemental PE (no longer on anticoagulation) who presented with one day of shortness of breath and chest tightness after stopping all of his medication in preparation for his kyphoplasty. In not his medication, including his inhaled treatments for his COPD, he got progressively short of breath was [place] [facility] [place]. In the ED he was given IV solumedrol, albuterol/ipratropium nebulized treatments, and started on BIPAP given he was in respiratory distress. Dr. Mckeon also saw the patient and cleared him for the procedure from a cardiac standpoint. The patient's was medically optimized and underwent L1 and T9 kyphoplasty for symptomatic compression fracture. There were no complications during or after the procedure. Post-operatively, and on prior admissions, the patient was noted to be persistently tachycardic, with a HR in the 140 and also complaining of chest tightness, palpitations, though without wheezing. He was started on Diltiazem 30 mg QID and his HR normalized and the patient's palpitations/chest tightness resolved. The patient was transitioned from out of bed to chair on POD 2 and on POD 3 was cleared by physical therapy and medically was cleared for discharge with instructions as stated below. - Date & Time of H&P Date of H&P: 12/27/16 Time of H&P: 14:21 Discharge Exam - Head Exam Head Exam: ATRAUMATIC, NORMAL INSPECTION - Eye Exam Eye Exam: EOMI, Normal appearance, PERRL - ENT Exam ENT Exam: Mucous Membranes Moist, Normal Oropharynx - Neck Exam Neck exam: Normal Inspection - Respiratory Exam Respiratory Exam: Clear to PA & Lateral, NORMAL BREATHING PATTERN, UNREMARKABLE. absent: Wheezes - Cardiovascular Exam Cardiovascular Exam: RRR, +S1, +S2 - GI/Abdominal Exam GI & Abdominal Exam: Normal Bowel Sounds. absent: Distended, Guarding, Rebound - Extremities Exam Extremities exam: normal capillary refill, normal inspection, pedal pulses present - Back Exam Back exam: NORMAL INSPECTION. absent: CVA tenderness (L), CVA tenderness (R) - Neurological Exam Neurological exam: Alert, CN II-XII Intact, Normal Gait, Oriented x3 - Psychiatric Exam Psychiatric exam: Normal Affect, Normal Mood - Skin Skin Exam: Dry, Intact, Normal Color, Warm Discharge Plan - Discharge Medications Prescriptions: Diltiazem HCl [Diltiazem ER] 120 mg PO DAILY #30 cap.er.deg oxyCODONE/Acetaminophen [Percocet 5/325 mg Tab] 1 tab PO Q6 PRN #16 tab PRN Reason: Pain, Severe (8-10) predniSONE [Prednisone] 30 mg PO BID #2 tab predniSONE [Prednisone] 10 mg PO BID #2 tab predniSONE [Prednisone] 40 mg PO BID 2 Days predniSONE [Prednisone] 20 mg PO BID #2 tab - Follow Up Plan Condition: FAIR Disposition: HOME/ ROUTINE Instructions: COPD (Chronic Obstructive Pulmonary Disease) (DC), Kyphoplasty ( DC), Back Pain (GEN) Additional Instructions: 1)Patient to take Prednisone taper: 40 BID (x2), 30 BID, 20 BID, 10 BID 2) Patient to take new medication, Diltiazem 120 SR once a day. 3) Patient to use all inhaled treatments as previously prescribed. 4) Patient to follow up with Dr. Karlo Morales, as directed. 5) Patient to establish care with a primary medical doctor 6) Patient to follow up with [facility], can call to scheduled an appointment with Dr Wu as stated below. Nursing If you begin to experience shortness of breath, chest pain, symptoms return or any changes, [facility] or call 911 See care notes provided for further instructions Referrals: Chaz Wu MD [Staff Provider] - Karlo Morales MD [Staff Provider] - <Wei GUERRERO,[facility] - Last Filed: 12/27/16 18:09> Provider - Provider Date of Admission: 12/22/16 14:12 Attending physician: Lewis Vázquez MD Hospital Course - Lab Results Lab Results: Most Recent Lab Values WBC 19.7 10^3/ul (4.5-11.0) H 12/27/16 06:30 RBC 3.58 10^6/uL (3.5-6.1) 12/27/16 06:30 Hgb 11.1 g/dL (14.0-18.0) L 12/27/16 06:30 Hct 34.7 % (42.0-52.0) L 12/27/16 06:30 MCV 96.9 fl (80.0-105.0) 12/27/16 06:30 MCH 31.0 pg (25.0-35.0) 12/27/16 06:30 MCHC 32.0 g/dl (31.0-37.0) 12/27/16 06:30 RDW 13.7 % (11.5-14.5) 12/27/16 06:30 Plt Count 251 10^3/uL (120.0-450.0) 12/27/16 06:30 MPV 9.3 fl (7.0-11.0) 12/27/16 06:30 Gran % 85.1 % (50.0-68.0) H 12/25/16 07:00 Lymph % (Auto) 6.2 % (22.0-35.0) L 12/25/16 07:00 [place] % (Auto) 8.7 % (1.0-6.0) H 12/25/16 07:00 Eos % (Auto) 0.0 % (1.5-5.0) L 12/25/16 07:00 Baso % (Auto) 0.0 % (0.0-3.0) 12/25/16 07:00 Gran # 14.92 (1.4-6.5) H 12/25/16 07:00 Lymph # 1.1 (1.2-3.4) L 12/25/16 07:00 [place] # 1.5 (0.1-0.6) H 12/25/16 07:00 Eos # 0.0 (0.0-0.7) 12/25/16 07:00 Baso # 0.00 K/mm3 (0.0-2.0) 12/25/16 07:00 PT 10.9 Seconds (9.9-11.8) 12/25/16 07:00 INR 1.01 (0.93-1.08) 12/25/16 07:00 APTT 23.2 Seconds (23.7-30.8) L 12/22/16 11:20 D-Dimer, Quantitative 2.46 mg/L FEU (0-0.50) H 12/22/16 11:20 pCO2 47 mm/Hg (35-45) H 12/22/16 11:50 pO2 140.0 mm/Hg (80-100) H 12/22/16 11:50 HCO3 29.1 mmol/L (21-28) H 12/22/16 11:50 ABG pH 7.40 (7.35-7.45) 12/22/16 11:50 ABG Total CO2 30.5 mmol.L (22-28) H 12/22/16 11:50 ABG O2 Saturation 99.8 % (95-98) H 12/22/16 11:50 ABG O2 Content 15.6 ML/dl (15-23) 12/22/16 11:50 ABG Base Excess 3.6 mmol/L (-2.0-3.0) H 12/22/16 11:50 ABG Hemoglobin 11.4 g/dL (11.7-17.4) L 12/22/16 11:50 ABG Carboxyhemoglobin 2.7 % (0.5-1.5) H 12/22/16 11:50 POC ABG HHb (Measured) 0.2 % (0-5) 12/22/16 11:50 ABG Methemoglobin 1.3 % (0.0-3.0) 12/22/16 11:50 ABG O2 Capacity 15.6 mL/dl (16-24) L 12/22/16 11:50 Hgb O2 Saturation 95.9 % (95.0-98.0) 12/22/16 11:50 FiO2 35.0 % 12/22/16 11:50 Sodium 137 mmol/L (132-148) 12/27/16 06:30 Potassium 4.2 mmol/L (3.6-5.0) 12/27/16 06:30 Chloride 99 mmol/L (95-110) 12/27/16 06:30 Carbon Dioxide 34 mmol/L (21-33) H 12/27/16 06:30 Anion Gap 8 (10-20) L 12/27/16 06:30 BUN 25 mg/dL (7-21) H 12/27/16 06:30 Creatinine 0.5 mg/dL (0.5-1.4) 12/27/16 06:30 Est GFR ( Amer) > 60 12/27/16 06:30 Est GFR (Non-Af Amer) > 60 12/27/16 06:30 Random Glucose 103 mg/dL (70-110) 12/27/16 06:30 Calcium 8.6 mg/dL (8.4-10.5) 12/27/16 06:30 Total Bilirubin 0.2 mg/dL (0.2-1.3) 12/25/16 07:00 AST 23 U/L (17-59) 12/25/16 07:00 ALT 43 U/L (7-56) 12/25/16 07:00 Alkaline Phosphatase 109 U/L (38-126) 12/25/16 07:00 Total Creatine Kinase 27 U/L (35-230) L 12/22/16 11:20 Troponin I < 0.01 ng/mL 12/22/16 11:20 Total Protein 5.1 g/dL (5.8-8.3) L 12/25/16 07:00 Albumin 3.0 g/dL (3.0-4.8) 12/25/16 07:00 Globulin 2.1 gm/dL 12/25/16 07:00 Albumin/Globulin Ratio 1.4 (1.1-1.8) 12/25/16 07:00 Free T4 1.52 ng/dL (0.78-2.19) 12/22/16 11:20 TSH 3rd Generation 0.33 mIU/mL (0.46-4.68) L 12/22/16 11:20 Attending/Attestation - Attestation I have personally seen and examined this patient.: Yes I have fully participated in the care of the patient.: Yes I have reviewed all pertinent clinical information, including history, physical exam and plan: Yes Notes (Text): 12/27/16 18:04 Patient was seen and examined with medical record librarian. Agreed with resident assessment and plan. 56 year old male with past medical history of End stage COPD, chronic Hypoxic Resp Failure on 3L of oxygen via nasal canula, , vertebral compression fractures , and subsegmental PE now off anticoagulation who presented with acute respiratory distress secondary to COPD exacerbation. Patient has chronic back pain, underwent Kyphoplasty ,Pain was also having sinus tachycardia and was evaluated by cardiology and was started on cardizem. His back pain is better, his cough and dyspnea is improving.His Hypoxia is improving.He will be discharged home with tapering dose of steroid. He was given 3 days of supply for percocet and was advised to follow up with his PCP.he was also given education regarding side effect of Narcotic. Prognosis is guarded. Management plan was discussed in detail with patient Education was provided.
--- NOTE | 2016-12-27 15:08 | PN ---
12/24/2016SUBJECTIVE: The patient is experiencing dry cough. He denies any chest pain. PHYSICAL EXAMINATION VITAL SIGNS: Blood pressure 115/82, heart rate 109, temperature 98.5, respirations 20. HEENT: Normocephalic. CHEST: Bilateral rhonchi. HEART: S1 and S2, regular. EXTREMITIES: Significant muscle wasting. LABORATORY DATA: Today's white count is 20.6, hemoglobin and hematocrit 11.4 and 36.3, platelet count is within normal limit. SMA-7 is within normal limits except for carbon dioxide of 34. TSH level is below normal at 0.33. ASSESSMENT: 1. Exacerbation of chronic obstructive lung disease. 2. Physiologic sinus tachycardia. RECOMMENDATIONS: Continue current subcutaneous heparin, albuterol inhaler, IV Protonix, half normal saline infusion 80 mL an hour, Solu-Medrol intravenously twice a day, as well as Xopenex inhaler. Shahriar Mckeon MD
[2016-12-27] MEDS ORDERED: Albuterol-Ipratrop 3 mg / 0.5 (3 ml) UD IH ONE (15:13)
[2016-12-27 18:12] VITALS: BP 128/81; PULSE 128
--- NOTE | 2016-12-27 18:36 | PN ---
SUBJECTIVE: The patient denies any chest pain. He is comfortable on nasal O2. PHYSICAL EXAMINATION: VITAL SIGNS: Blood pressure 110/60, heart rate 94, temperature 97.6, and respirations 20. HEENT: Normocephalic. CHEST: Bilateral rhonchi. HEART: S1 and S2 regular. EXTREMITIES: No edema. LABORATORY DATA: Hemoglobin and hematocrit 11.1 and 34.7. White count is 19.7, platelet count is within normal limit. Today's BUN and creatinine are 25 and 0.5. ASSESSMENT: 1. Chronic obstructive lung disease. 2. Paroxysmal atrial tachycardia. 3. Status post kyphoplasty. RECOMMENDATIONS: Continue Cardizem 300 mg q.i.d. and continue Atrovent inhaler q. 6 hours, Mucinex DM 1 tablet twice a day, Solu-Medrol 20 mg intravenously twice a day. Shahriar Mckeon MD
== END 2016-12-27 19:30 | disposition home or self-care (01) | DRG 468 ==
LOC: ED 11:13 → ERH 14:12 → 2RSO 15:42
PROVIDERS: ADMIT Internal Medicine; ATTEND Internal Medicine
PROC: 3E0F7GC Introduction of Other Therapeutic Substance into Respiratory Tract, Via Natural or Artificial Opening (ICD-10-PCS; principal; 2016-12-22)
PROC: 0QS03ZZ Reposition Lumbar Vertebra, Percutaneous Approach (ICD-10-PCS; 2016-12-24)
PROC: 0PS43ZZ Reposition Thoracic Vertebra, Percutaneous Approach (ICD-10-PCS; 2016-12-24)
PROC: 0QU03JZ Supplement Lumbar Vertebra with Synthetic Substitute, Percutaneous Approach (ICD-10-PCS; 2016-12-24)
PROC: 0PU43JZ Supplement Thoracic Vertebra with Synthetic Substitute, Percutaneous Approach (ICD-10-PCS; 2016-12-24)
DX: J44.1 Chronic obstructive pulmonary disease with (acute) exacerbation (principal); M48.55XA Collapsed vertebra, not elsewhere classified, thoracolumbar region, initial encounter for fracture; R64 Cachexia; J96.11 Chronic respiratory failure with hypoxia; Z99.81 Dependence on supplemental oxygen; I47.1 Supraventricular tachycardia; G89.29 Other chronic pain; E55.9 Vitamin D deficiency, unspecified; G89.18 Other acute postprocedural pain; Z86.711 Personal history of pulmonary embolism; Z87.891 Personal history of nicotine dependence; Z68.1 Body mass index [BMI] 19.9 or less, adult

== ENCOUNTER 2016-12-28 20:51 | Inpatient (IN) | payer MEDICAID ==
[2016-12-28 20:55] VITALS: BMI 15.6
[2016-12-28 21:19] LABS: BASO # 0.01 K/mm3 (0.0-2.0); GRAN # 18.64 (1.4-6.5); HEMATOCRIT 40.3 % (42.0-52.0); LYMPH # 0.9 (1.2-3.4); MEAN CELL VOLUME 97.3 fl (80.0-105.0); MEAN CORPUSCULAR HEMOGLOBIN 31.9 pg (25.0-35.0); MEAN CORPUSCULAR HGB CONC 32.8 g/dl (31.0-37.0); MEAN PLATELET VOLUME 9.3 fl (7.0-11.0); MONO # 1.7 (0.1-0.6); PLATELET COUNT 277 10^3/uL (120.0-450.0); RED CELL DISTRIBUTION WIDTH 14.3 % (11.5-14.5); WHITE BLOOD COUNT 21.2 10^3/ul (4.5-11.0)
[2016-12-28] MEDS: Albuterol-Ipratrop 3 mg / 0.5 (3 ml) UD IH SCH ×4 (21:20→23:23)
[2016-12-28 21:25] LABS: VENOUS BLOOD GAS BASE EXCESS 6.6 mmol/L (0.0-2.0); VENOUS BLOOD PH 7.28 (7.32-7.43)
[2016-12-28 21:31] LABS: INR 0.94 (0.93-1.08); PARTIAL THROMBOPLASTIN TIME 20.1 Seconds (23.7-30.8)
[2016-12-28 21:33] LABS: ALB/GLOB RATIO 1.6 (1.1-1.8); ALKALINE PHOSPHATASE 132 U/L (38-126); ALT/SGPT 109 U/L (7-56); AST/SGOT 55 U/L (17-59); BILIRUBIN,TOTAL 0.3 mg/dL (0.2-1.3); BLOOD UREA NITROGEN 36 mg/dL (7-21); CALCIUM 8.8 mg/dL (8.4-10.5); CARBON DIOXIDE 36 mmol/L (21-33); CHLORIDE 99 mmol/L (98-107); GFR AFRICAN-AMERICAN > 60; GLUCOSE,RANDOM 136 mg/dL (70-110); POTASSIUM 4.2 mmol/L (3.6-5.0); SODIUM 141 mmol/L (132-148); TOTAL PROTEIN 6.2 g/dL (5.8-8.3)
[2016-12-28 21:45] LABS: TROPONIN I < 0.01 ng/mL
[2016-12-28 22:05] LABS: ARTERIAL BLOOD GAS HCO3 31.8 mmol/L (21-28); ARTERIAL BLOOD GAS O2 CAPACITY 16.4 mL/dl (16-24); ARTERIAL BLOOD GAS O2 CONTENT 15.8 ML/dl (15-23); ARTERIAL BLOOD GAS PH 7.42 (7.35-7.45); ARTERIAL BLOOD HGB O2 SAT 93.3 % (95.0-98.0); CARBOXYHEMOGLOBIN 2.2 % (0.5-1.5); HHB 3.3 % (0-5); METHEMOGLOBIN 1.1 % (0.0-3.0)
[2016-12-28 22:08] LABS: BAND 1 % (0-2); NEUTROPHIL 91 % (50.0-70.0); PLATELET ESTIMATE NORMAL (NORMAL)
--- NOTE | 2016-12-28 22:16 | ED PDOC ---
Arrival/HPI - General Chief Complaint: Shortness Of Breath Time Seen by Provider: 12/28/16 20:52 Historian: Patient - History of Present Illness Narrative History of Present Illness (Text): 12/28/16 20:55 Shane Manuel is a 56 year old male whose past medical history includes PE, COPD , rib fractures, and compression fractures, was brought to be emergency department by EMS complaining of shortness of since earlier today. States symptoms are similar to previous episodes of COPD exacerbation. Patient was given 2 nebulizer treatments by EMS for minimal relief. Denies fever, chills, cough, headache, dizziness, nausea, vomiting, diarrhea, urinary symptoms, or any other complaints at this time. Time/Duration: Other (earlier today ) Symptom Onset: Gradual Severity Level: Mild Activities at Onset: Light Past Medical History - Provider Review Nursing Documentation Reviewed: Yes - Infectious Disease Hx of Infectious Diseases: None - Tetanus Immunization Tetanus Immunization: Unknown - Cardiac Hx Cardiac Disorders: Yes Hx Atrial Fibrillation: Yes Hx Pacemaker: No - Pulmonary Hx Respiratory Disorders: Yes Hx Chronic Obstructive Pulmonary Disease (COPD): Yes - Neurological Hx Neurological Disorder: No Hx Paralysis: No - HEENT Hx HEENT Disorder: Yes (glasses) Other/Comment: tonsillectomy - Renal Hx Renal Disorder: No - Endocrine/Metabolic Hx Endocrine Disorders: No - Hematological/Oncological Hx Blood Disorders: Yes Hx Blood Transfusions: Yes Hx Blood Transfusion Reaction: No - Integumentary Hx Dermatological Disorder: No - Musculoskeletal/Rheumatological Hx Musculoskeletal Disorders: Yes Hx Back Pain: Yes (compression fracture) - Gastrointestinal Hx Gastrointestinal Disorders: No - Genitourinary/Gynecological Hx Genitourinary Disorders: No - Psychiatric Hx 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) Hx Substance Use: Yes (OVER 35 YRS AGO) - Surgical History Hx Tonsillectomy: Yes - Anesthesia Hx Anesthesia: Yes Hx Anesthesia Reactions: No Hx Malignant Hyperthermia: No Family/Social History - Physician Review Nursing Documentation Reviewed: Yes Family/Social History: No Known Family HX Smoking Status: Former Smoker Hx Alcohol Use: No Hx Substance Use: Yes (OVER 35 YRS AGO) Allergies/Home Meds Allergies/Adverse Reactions: Allergies No Known Allergies Allergy (Verified 12/28/16 20:55) Review of Systems - Physician Review All systems were reviewed & negative as marked: Yes - Review of Systems Constitutional: Normal. absent: Fatigue, Fevers Respiratory: SOB. absent: Cough, Sputum Cardiovascular: absent: Chest Pain, Palpitations Gastrointestinal: Normal. absent: Abdominal Pain, Diarrhea, Nausea Neurological: Normal. absent: Headache, Dizziness Physical Exam Vital Signs Reviewed: Yes Vital Signs Temp Pulse Resp BP Pulse Ox 12/28/16 22:04 109 H 22 113/70 100 12/28/16 21:00 26 H 99 12/28/16 20:58 98.7 F 110 H 28 H 124/80 100 Temperature: Afebrile Blood Pressure: Normal Pulse: Tachycardic Respiratory Rate: Normal Appearance: Positive for: Well-Appearing, Non-Toxic, Comfortable Pain Distress: None Mental Status: Positive for: Alert and Oriented X 3 - Systems Exam Head: Present: Atraumatic, Normocephalic Pupils: Present: PERRL Conjunctiva: Present: Normal Mouth: Present: Moist Mucous Membranes Respiratory/Chest: Present: Decreased Breath Sounds. No: Respiratory Distress, Accessory Muscle Use Cardiovascular: Present: Regular Rate and Rhythm, Normal S1, S2. No: Murmurs Abdomen: Present: Normal Bowel Sounds. No: Tenderness, Distention, Peritoneal Signs Upper Extremity: Present: Normal Inspection. No: Cyanosis, Edema Lower Extremity: Present: Normal Inspection. No: Edema Neurological: Present: GCS=15, CN II-XII Intact, Speech Normal Skin: Present: Warm, Dry, Normal Color. No: Rashes Psychiatric: Present: Alert, Oriented x 3, Normal Insight, Normal Concentration Medical Decision Making ED Course and Treatment: 12/28/16 20:55 Impression: A 56 year old male who presents to the emergency department complaining of shortness of breath since earlier today. Plan: -- EKG -- Chest X-ray -- Labs, Cardiac enzymes -- Duoneb -- Prednisone -- Blood Culture -- Reassess and disposition Progress Notes: 12/28/16 21:40 EKG reviewed by me: Sinus tachycardia @ 105 bpm. normal axis. normal interval. Case discussed with Dr. Perez who is aware and agrees with the plan to admit patient to telemetry for COPD. accepts patient under hospitalist service. - Lab Interpretations Lab Results: 12/28/16 21:00 12/28/16 21:00 Lab Results 12/28/16 22:02: pCO2 49 H, pO2 69.0 L, HCO3 31.8 H, ABG pH 7.42, ABG Total CO2 33.3 H, ABG O2 Saturation 96.6, ABG O2 Content 15.8, ABG Base Excess 6.2 H, ABG Hemoglobin 12.0, ABG Carboxyhemoglobin 2.2 H, POC ABG HHb (Measured) 3.3, ABG Methemoglobin 1.1, ABG O2 Capacity 16.4, Hgb O2 Saturation 93.3 L, FiO2 32.0 12/28/16 21:00: Sodium 141, Chloride 99, Potassium 4.2, Carbon Dioxide 36 H, Anion Gap 10, BUN 36 H, Creatinine 0.5, Est GFR ( Amer) > 60, Est GFR ( Non-Af Amer) > 60, Random Glucose 136 H, Calcium 8.8, Total Bilirubin 0.3, AST 55, ALT 109 H, Alkaline Phosphatase 132 H D, Lactate Dehydrogenase 602, Total Creatine Kinase 23 L, Troponin I < 0.01, NT-Pro-B Natriuret Pep 108, Total Protein 6.2, Albumin 3.8, Globulin 2.4, Albumin/Globulin Ratio 1.6 12/28/16 21:00: pO2 50, VBG pH 7.28 L, VBG pCO2 77.0 H*, VBG HCO3 36.2 H, VBG Total CO2 38.6 H, VBG O2 Sat (Calc) 83.9 H, VBG Base Excess 6.6 H, VBG Potassium 4.2, Sodium 140.0, Chloride 101.0, Glucose 148 H, Lactate 1.7, FiO2 21.0, Venous Blood Potassium 4.2 12/28/16 21:00: PT 10.2, INR 0.94, APTT 20.1 L 12/28/16 21:00: WBC 21.2 H, RBC 4.14, Hgb 13.2 L D, Hct 40.3 L, MCV 97.3, MCH 31.9, MCHC 32.8, RDW 14.3, Plt Count 277, MPV 9.3, Gran % 88.0 H, Lymph % (Auto ) 4.0 L, [place] % (Auto) 8.0 H, Eos % (Auto) 0.0 L, Baso % (Auto) 0.0, Gran # 18.64 H, Lymph # 0.9 L, [place] # 1.7 H, Eos # 0.0, Baso # 0.01, Neutrophils % ( Manual) 91 H, Band Neutrophils % 1, Lymphocytes % (Manual) 3 L, Monocytes % ( Manual) 5, Platelet Evaluation Normal - RAD Interpretation Radiology Orders: 12/28/16 21:03 CHEST PORTABLE [RAD] Stat - Medication Orders Current Medication Orders: Albuterol/Ipratropium (Duoneb 3 Mg/0.5 Mg (3 Ml) Ud) 3 ml IH [id number] [facility] Last Admin: 12/29/16 13:50 Dose: 3 ml Albuterol/Ipratropium (Duoneb 3 Mg/0.5 Mg (3 Ml) Ud) 3 ml IH Q2H PRN PRN Reason: Shortness of Breath Diltiazem HCl (Cardizem Cd) 120 mg PO DAILY [facility] Last Admin: 12/29/16 09:58 Dose: 120 mg Docusate Sodium (Colace) 100 mg PO BID PRN PRN Reason: Constipation Last Admin: 12/29/16 09:56 Dose: 100 mg Heparin Sodium (Porcine) (Heparin) 5,000 units SC Q12 ERIC PRN Reason: Protocol Last Admin: 12/29/16 09:57 Dose: 5,000 units Azithromycin 250 mg/ Sodium (Chloride) 250 mls @ 167 mls/hr IVPB DAILY [facility] PRN Reason: Protocol Last Admin: 12/29/16 09:58 Dose: 167 mls/hr Methylprednisolone (Solu-Medrol) 40 mg IVP Q8 [facility] Last Admin: 12/29/16 13:36 Dose: 40 mg Morphine Sulfate (Morphine) 2 mg IVP Q3H PRN PRN Reason: Pain, severe (8-10) Last Admin: 12/29/16 15:37 Dose: 2 mg Oxycodone/Acetaminophen (Percocet 5/325 Mg Tab) 1 tab PO Q6 PRN PRN Reason: Pain, moderate (4-7) Stop: 01/01/17 00:01 Last Admin: 12/29/16 02:27 Dose: 1 tab Re-Assess: CARLA Pain Assessment Document 12/29/16 03:27 [facility] (Rec: 12/29/16 03:39 [id number] Pain Reassessment Is this a pain reassessment? Yes Sleep Is patient sleeping during reassessment? Yes Pantoprazole Sodium (Protonix Ec Tab) 40 mg PO DAILY ERIC Last Admin: 12/29/16 09:56 Dose: 40 mg Discontinued Medications Albuterol/Ipratropium (Duoneb 3 Mg/0.5 Mg (3 Ml) Ud) 3 ml IH Q15M ERIC Stop: 12/28/16 21:46 Last Admin: 12/28/16 22:04 Dose: 3 ml Albuterol/Ipratropium (Duoneb 3 Mg/0.5 Mg (3 Ml) Ud) 3 ml IH Q2H PRN PRN Reason: Shortness of Breath Stop: 12/29/16 03:01 Azithromycin (Zithromax 500mg In Ns) 500 mg in 250 mls @ 167 mls/hr IVPB STAT STA PRN Reason: Protocol Stop: 12/29/16 00:28 Last Admin: 12/28/16 23:22 Dose: 167 mls/hr Methylprednisolone (Solu-Medrol) 125 mg IVP ONCE ONE Stop: 12/28/16 21:14 Last Admin: 12/28/16 21:20 Dose: 125 mg - Melecioibe Statement The provider has reviewed the documentation as recorded by the Rafiq López Provider Attestation: All medical record entries made by the Rafiq were at my direction and personally dictated by me. I have reviewed the chart and agree that the record accurately reflects my personal performance of the history, physical exam, medical decision making, and the department course for this patient. I have also personally directed, reviewed, and agree with the discharge instructions and disposition. Disposition/Present on Arrival - Present on Arrival Any Indicators Present on Arrival: No History of DVT/PE: Yes History of Uncontrolled Diabetes: No Urinary Catheter: No History of Decub. Ulcer: No History Surgical Site Infection Following: None - Disposition Have Diagnosis and Disposition been Completed?: Yes Diagnosis: Chronic obstructive lung disease Disposition: HOSPITALIZED Disposition Time: 22:00 Condition: FAIR
[2016-12-28] MEDS ORDERED: Albuterol-Ipratrop 3 mg / 0.5 (3 ml) UD IH PRN (22:55)
[2016-12-28] MEDS ORDERED: Azithromycin 500MG/NS 250ml 500 MG/250 ML BAG IVPB STA (22:59)
[2016-12-28] MEDS ORDERED: Oxycodone/Acetaminophen 5/325 mg Tab PO PRN (23:06)
[2016-12-28] MEDS: Morphine 2 mg/ml ISec IVP PRN (23:23)
[2016-12-29] MEDS: Albuterol-Ipratrop 3 mg / 0.5 (3 ml) UD IH SCH ×4 (01:59→20:08)
[2016-12-29] MEDS ORDERED: Albuterol-Ipratrop 3 mg / 0.5 (3 ml) UD IH PRN (03:21)
--- NOTE | 2016-12-29 03:59 | CP.PCM.HP ---
<AURORA BARAHONA - Last Filed: 12/29/16 03:30> History of Present Illness - History of Present Illness History of Present Illness: Kamvelvet Nicole DO PGY1 - Internal Medicine H&P CC: SOB HPI: 56yo M with PMH of end-stage COPD, subsegmental PE (now off anticoagulation ), and vertebral compression fracture s/p T9 and L1 kyphoplasty, who presents by EMS complaining of SOB. He also admits to some anterior and lateral chest pain associated with deep inspiration and coughing. SOB started earlier today when he tried to get out of bed. He says this is similar to COPD exacerbations he has had in the past. He admits to nonproductive cough. He denies palpitations , leg pain or swelling, F/C, N/V/D/C, abdominal pain, CAI, dizziness, focal weakness or numbness. He received two nebulizer treatments en route, and one duoneb treatment in the ER, with only minimal improvement in his symptoms. He is familiar with BIPAP from prior admissions, and says it helps open up his lungs and improves his SOB. Of note, patient was discharged on 12/27/2016 after admission for COPD exacerbation (currently on steroid taper). During that admission he had T9 and L1 kyphoplasty for symptomatic vertebral compression fracture. He was also discharged on diltiazem 120mg QD for persistent symptomatic tachycardia. Patient notes that since the procedure, he has been mostly bed bound, and only gets up to use the bathroom a few times daily. He had only been out of the hospital for a day, and during his hospitalization he was receiving prophylactic anticoagulation. PMH: End-stage COPD, subsegmental PE (now off anticoagulation), vertebral compression fracture s/p T9 and L1 kyphoplasty PSH: T9 and L1 kyphoplasty 12/24/2016 Meds: Recently discharged with prednisone taper, Diltiazem 120mg QD, and Percocet. Patient could not recall list of medications he takes at home, though he reports multiple PO meds and inhalers. Chart review shows that he was previously on Spiriva, Symbicort, Ventolin, Singulair, Advair, Prednisone, ASA, Lipitor, and Lyrica FHx: HTN, Thyroid CA, Lung CA, Brain CA Soc: Tob 150 PYH, quit 7 mo ago; EtOH h/o alcohol abuse, quit 35 years ago; Illicits h/o IVDU, quit 35 years ago All: NKDA ROS: Constitutional: pt denies fever, chills, generalized weakness ENT: pt denies dysphagia, otalgia, hearing deficit, rhinorrhea Eyes: pt denies sudden loss of vision, diplopia, blurred vision MSK: +Back pain pt denies muscle stiffness, joint pain, extremity cramping Cardio: +CP pt denies palpitations Pulm: +Cough, SOB pt denies cough, hemoptysis, wheeze GI: pt denies loss of appetite, abdominal pain, constipation, melena, n/v/d : pt denies burning on urination, urinary frequency, hematuria, urinary urgency Neuro: pt denies paresis, paresthesia, dizziness, cai, numbness, tingling Derm: pt denies skin changes, lesions, nail changes Endo: pt denies intolerance to heat/cold, diaphoresis, night sweats, polydipsia Psych: pt denies anxiety, depression, mood changes Present on Admission - Present on Admission Any Indicators Present on Admission: Yes History of DVT/PE: Yes Past Patient History - Infectious Disease Hx of Infectious Diseases: None - Tetanus Immunizations Tetanus Immunization: Unknown - Past Social History Smoking Status: Former Smoker - CARDIAC Hx Cardia Arrhythmia: Yes (A. fib) - PULMONARY Hx Chronic Obstructive Pulmonary Disease (COPD): Yes Hx Emphysema: Yes - NEUROLOGICAL Hx Neurological Disorder: No Hx Paralysis: No - HEENT Hx HEENT Problems: Yes (glasses) Other/Comment: tonsillectomy - RENAL Hx Chronic Kidney Disease: No - ENDOCRINE/METABOLIC Hx Endocrine Disorders: No - HEMATOLOGICAL/ONCOLOGICAL Hx Blood Disorders: Yes Hx Blood Transfusions: Yes Hx Blood Transfusion Reaction: No - INTEGUMENTARY Hx Dermatological Problems: No - MUSCULOSKELETAL/RHEUMATOLOGICAL Hx Falls: Yes - GASTROINTESTINAL Hx Gastrointestinal Disorders: No - GENITOURINARY/GYNECOLOGICAL Hx Genitourinary Disorders: No - PSYCHIATRIC Hx Substance Use: No - SURGICAL HISTORY Hx Tonsillectomy: Yes - ANESTHESIA Hx Anesthesia: Yes Hx Anesthesia Reactions: No Hx Malignant Hyperthermia: No Meds Allergies/Adverse Reactions: Allergies Allergy/AdvReac Type Severity Reaction Status Date / Time No Known Allergies Allergy Verified 12/28/16 20:55 Physical Exam - Constitutional Appears: Non-toxic, In Acute Distress, Older Than Stated Age, Cachectic, Chronically Ill - Head Exam Head Exam: ATRAUMATIC, NORMOCEPHALIC - Eye Exam Eye Exam: EOMI, Normal appearance, PERRL - ENT Exam ENT Exam: Mucous Membranes Moist - Neck Exam Neck exam: Negative for: Lymphadenopathy, Meningismus - Respiratory Exam Respiratory Exam: Accessory Muscle Use, Chest Wall Tenderness, Decreased Breath Sounds Additional comments: Diffusely decreased breath sounds, poor air exchange Tachypnea - Cardiovascular Exam Cardiovascular Exam: Tachycardia, RRR, +S1, +S2 - GI/Abdominal Exam GI & Abdominal Exam: Normal Bowel Sounds, Soft. absent: Tenderness - Extremities Exam Extremities exam: Negative for: calf tenderness, pedal edema - Neurological Exam Neurological exam: Alert, CN II-XII Intact, Oriented x3 - Psychiatric Exam Psychiatric exam: Normal Affect, Normal Mood - Skin Skin Exam: Dry, Intact, Normal Color Results - Vital Signs Recent Vital Signs: Last Vital Signs Temp 98.6 F 12/29/16 03:00 Pulse 102 H 12/29/16 03:00 Resp 22 12/29/16 03:00 BP 117/81 12/29/16 03:00 Pulse Ox 100 12/28/16 22:04 - Labs Result Diagrams: 12/28/16 21:00 12/28/16 21:00 Assessment & Plan - Assessment and Plan (Free Text) Assessment: 56yo M with PMH of end-stage COPD, subsegmental PE (off anticoagulation), vertebral compression fracture s/p recent T9 and L1 kyphoplasty who presents with SOB with associated CP. Plan: 1. Dyspnea with CP - Mixed hypoxic, hypercapnic respiratory distress - Likely 2/2 COPD exacerbation vs ACS vs PE - On exam, patient is tachypnic, with very poor air exchange. CP is pleuritic in nature, and reproducible on exam. - Initial VBG shows hypercapnic resp acidosis. Subsequent ABG shows normal pH w/ resp acidosis and compensatory metab alkalosis, mild hypoxia on 3L NC - Echo done in 09/30/2016 showed LVEF 60% - EKG in ER shows sinus tach with no ST-T changes, pending official read - Trop negative x1, continue to trend - Start BIPAP 10/5 at 50% RR 16 overnight, may switch to NC in AM and reassess - Start Solumedrol 40mg Q8 - Start Duonebs Q6 ERIC and Q2 PRN - Start Azithromycin 250mg IV QD 2. Leukocytosis - Likely 2/2 steroid administration vs COPD exacerbation/CAP; patient is currently afebrile, lactate 1.7 - Patient received course of IV steroids in prior administration, and was discharged on prednisone taper - CXR shows opacification in RUL, though improved compared to prior CXR on - Sepsis workup ordered, BCx, UA and UCx, Sputum Cx pending - Recheck with AM labs 3. h/o PE - Patient was diagnosed with RLL subsegmental PE, without DVT on 11/10/16, and was anticoagulated for approximately 1 month. Repeat CTA on 12/14 and 12/22 showed no PE, and LE duplex repeatedly showed no DVT - Patient was taken off anticoagulation per pulmonology's recommendations on - Though pt admits to immobility for the past few days, he currently denies LE swelling or pain, and during his hospitalization, he was receiving prophylactic anticoagulation - New PE is unlikely diagnosis at this time, as his tachycardia and tachypnea have improved after receiving IV steroids, nebulizer treatments, and BIPAP. Should he continue to be tachycardic and tachypnic with persistent CP, further workup for PE should be pursued 4. h/o End stage COPD - Patient is unsure of the medications he takes at home, though he is on 3L O2 by NC around the clock - Previously, pulmonology recommended Spiriva daily, Symbicort 160/4.5 BID, and Albuterol PRN - On IV steroids, duonebs, abx, and BIPAP as above - Maintain SaO2 92-94% - Avoid respiratory depression 5. h/o Vertebral compression fractures - s/p T9 and L1 kyphoplasty on 12/24/2016 - Patient continues to have back pain - Percocet and morphine for pain control, colace to avoid constipation - PT eval and treat GI/DVT Ppx Patient seen, discussed, and reviewed with attending <Rolando Perez - Last Filed: 12/29/16 06:57> Results - Vital Signs Recent Vital Signs: Last Vital Signs Temp 97.7 F 12/29/16 06:00 Pulse 91 H 12/29/16 06:00 Resp 20 12/29/16 06:00 BP 117/73 12/29/16 06:00 Pulse Ox 98 12/29/16 06:00 - Labs Result Diagrams: 12/29/16 06:04 12/28/16 21:00 Labs: Laboratory Results - last 24 hr 12/29/16 06:04 WBC 17.7 H RBC 3.77 Hgb 11.8 L Hct 36.4 L MCV 96.6 MCH 31.3 MCHC 32.4 RDW 14.3 Plt Count 255 MPV 9.2 Gran % 95.5 H Lymph % (Auto) 1.3 L [place] % (Auto) 3.2 Eos % (Auto) 0.0 L Baso % (Auto) 0.0 Gran # 16.90 H Lymph # 0.2 L [place] # 0.6 Eos # 0.0 Baso # 0.00 Attending/Attestation - Attestation I have personally seen and examined this patient.: Yes I have fully participated in the care of the patient.: Yes I have reviewed all pertinent clinical information: Yes
[2016-12-29] MEDS: Morphine 2 mg/ml ISec IVP PRN ×4 (05:23→20:45)
[2016-12-29] MEDS: MethylPREDNISolone 40 mg Vial IVP SCH ×3 (05:24→22:29)
[2016-12-29 06:15] LABS: GRAN # 16.9 (1.4-6.5); GRAN % 95.5 % (50.0-68.0); HEMATOCRIT 36.4 % (42.0-52.0); LYMPH # 0.2 (1.2-3.4); LYMPH % 1.3 % (22.0-35.0); MEAN CELL VOLUME 96.6 fl (80.0-105.0); MEAN CORPUSCULAR HEMOGLOBIN 31.3 pg (25.0-35.0); MEAN CORPUSCULAR HGB CONC 32.4 g/dl (31.0-37.0); MEAN PLATELET VOLUME 9.2 fl (7.0-11.0); MONO # 0.6 (0.1-0.6); MONO % 3.2 % (1.0-6.0); RED CELL DISTRIBUTION WIDTH 14.3 % (11.5-14.5); WHITE BLOOD COUNT 17.7 10^3/ul (4.5-11.0)
[2016-12-29 07:17] LABS: ALB/GLOB RATIO 1.5 (1.1-1.8); ALKALINE PHOSPHATASE 112 U/L (38-126); ALT/SGPT 87 U/L (7-56); AST/SGOT 36 U/L (17-59); BILIRUBIN,TOTAL 0.3 mg/dL (0.2-1.3); BLOOD UREA NITROGEN 30 mg/dL (7-21); CALCIUM 8.7 mg/dL (8.4-10.5); CARBON DIOXIDE 35 mmol/L (21-33); CHLORIDE 101 mmol/L (98-107); GFR AFRICAN-AMERICAN > 60; GLUCOSE,RANDOM 111 mg/dL (70-110); POTASSIUM 4.5 mmol/L (3.6-5.0); SODIUM 142 mmol/L (132-148); TOTAL PROTEIN 5.5 g/dL (5.8-8.3)
--- NOTE | 2016-12-29 08:28 | RAD ---
HISTORY: sob COMPARISON: 12/22/2016 FINDINGS: LUNGS: Bilateral hyper inflation. Central and upper lobe bullous emphysematous like changes -similar. No complicating pneumothorax appreciated. Subacute and/or chronic left posterior lateral rib fractures -6 and 7 with callus formation kimberlyn inferred overlying pleural-parenchymal vague opacity -similar-appearing PLEURA: No significant pleural effusion identified, no pneumothorax apparent. Pleural reaction bordering left rib fractures probable and similar CARDIOVASCULAR: Normal. OSSEOUS STRUCTURES: Known multiple thoracic compression fractures. Interval kyphoplasty cement mid and inferior thoracic levels VISUALIZED UPPER ABDOMEN: Normal. OTHER FINDINGS: None. IMPRESSION: No active cardiopulmonary disease. Interval kyphoplasty thoracic cement
[2016-12-29] MEDS: Pantoprazole 40 mg EC Tab PO SCH (09:56)
--- NOTE | 2016-12-29 09:57 | CARD ---
APPROVED REPORT EKG Measurement Heart [id number] <Conclusion> Sinus tachycardia Poor R Progression V1-V3.
[2016-12-29] MEDS: Azithromycin 250 MG in Sodium Chloride 0.9% 250 ML IVPB SCH (09:58)
[2016-12-29] MEDS: diltiaZEM 120 mg/24 Hours CD Cap PO SCH (09:58)
[2016-12-29 22:56] LABS: URINE BILIRUBIN NEGATIVE (NEGATIVE); URINE BLOOD NEGATIVE (NEGATIVE); URINE GLUCOSE (UA) NEGATIVE (NEGATIVE); URINE KETONE NEGATIVE (NEGATIVE); URINE LEUKOCYTE ESTERASE NEGATIVE Leu/uL (NEGATIVE); URINE PROTEIN NEGATIVE mg/dL (<30 mg/dL); URINE UROBILINOGEN 0.2 E.U./dL (<1 E.U./dL)
[2016-12-29 22:57] LABS: URINE APPEARANCE CLEAR (CLEAR); URINE COLOR YELLOW (YELLOW)
[2016-12-30] MEDS: Morphine 2 mg/ml ISec IVP PRN ×2 (00:49→05:01)
[2016-12-30] MEDS: Albuterol-Ipratrop 3 mg / 0.5 (3 ml) UD IH SCH ×4 (02:36→19:35)
[2016-12-30] MEDS: MethylPREDNISolone 40 mg Vial IVP SCH ×2 (05:00→22:42)
[2016-12-30 06:28] LABS: GRAN # 17.55 (1.4-6.5); GRAN % 89.4 % (50.0-68.0); HEMATOCRIT 32.9 % (42.0-52.0); LYMPH # 0.5 (1.2-3.4); LYMPH % 2.4 % (22.0-35.0); MEAN CELL VOLUME 95.9 fl (80.0-105.0); MEAN CORPUSCULAR HEMOGLOBIN 31.2 pg (25.0-35.0); MEAN CORPUSCULAR HGB CONC 32.5 g/dl (31.0-37.0); MEAN PLATELET VOLUME 9.2 fl (7.0-11.0); MONO # 1.6 (0.1-0.6); MONO % 8.2 % (1.0-6.0); RED CELL DISTRIBUTION WIDTH 14.4 % (11.5-14.5); WHITE BLOOD COUNT 19.6 10^3/ul (4.5-11.0)
[2016-12-30 07:02] LABS: ALB/GLOB RATIO 1.3 (1.1-1.8); ALKALINE PHOSPHATASE 96 U/L (38-126); ALT/SGPT 67 U/L (7-56); AST/SGOT 23 U/L (17-59); BILIRUBIN,TOTAL 0.4 mg/dL (0.2-1.3); BLOOD UREA NITROGEN 27 mg/dL (7-21); CALCIUM 8.6 mg/dL (8.4-10.5); CARBON DIOXIDE 34 mmol/L (21-33); CHLORIDE 101 mmol/L (95-110); GFR AFRICAN-AMERICAN > 60; GLUCOSE,RANDOM 104 mg/dL (70-110); POTASSIUM 4.5 mmol/L (3.6-5.0); SODIUM 137 mmol/L (132-148)
[2016-12-30] MEDS: diltiaZEM 120 mg/24 Hours CD Cap PO SCH (10:19)
[2016-12-30] MEDS: Pantoprazole 40 mg EC Tab PO SCH (10:21)
[2016-12-30] MEDS: Azithromycin 250 MG in Sodium Chloride 0.9% 250 ML IVPB SCH (10:24)
--- NOTE | 2016-12-30 12:37 | CP.PCM.PN ---
Subjective - Date & Time of Evaluation Date of Evaluation: 12/30/16 Time of Evaluation: 12:00 - Subjective Subjective: 56 y/o M w/ END Stage COPD , w/ Emphysema on previous CT chest. He is well known to us and he has been admitted twice in the past month for SOB. He explains that since he has been home has not been able to catch his breath and feel relief despite the oxygen and medications. His walk distance has been less than 25 feet and in the past year has been less than 100 feet. He has been on oxygen for 8 months and he has been declining despite stopping smoking 6 months prior. He currently cannot do any ADl's and has been loosing weight. He currently is SOb on oxygen while lying in his bed speaking. Objective - Vital Signs/Intake and Output Vital Signs (last 24 hours): Temp Pulse Resp BP Pulse Ox 98.4 F 105 H 20 112/68 98 12/30/16 06:00 12/30/16 10:19 12/30/16 06:00 12/30/16 10:19 12/30/16 06:00 Intake and Output: 12/30/16 12/30/16 06:59 18:59 Intake Total 940 Output Total 3550 Balance -2610 - Medications Medications: Current Medications Albuterol/Ipratropium (Duoneb 3 Mg/0.5 Mg (3 Ml) Ud) 3 ml IH [id number] [facility] Last Admin: 12/30/16 08:32 Dose: 3 ml Albuterol/Ipratropium (Duoneb 3 Mg/0.5 Mg (3 Ml) Ud) 3 ml IH Q2H PRN PRN Reason: Shortness of Breath Diltiazem HCl (Cardizem Cd) 120 mg PO DAILY [facility] Last Admin: 12/30/16 10:19 Dose: 120 mg Docusate Sodium (Colace) 100 mg PO BID PRN PRN Reason: Constipation Last Admin: 12/29/16 09:56 Dose: 100 mg Heparin Sodium (Porcine) (Heparin) 5,000 units SC Q12 [facility] PRN Reason: Protocol Last Admin: 12/30/16 10:20 Dose: 5,000 units Azithromycin 250 mg/ Sodium (Chloride) 250 mls @ 167 mls/hr IVPB DAILY [facility] PRN Reason: Protocol Last Admin: 12/30/16 10:24 Dose: 167 mls/hr Ketorolac Tromethamine (Toradol) 15 mg IVP Q6 PRN PRN Reason: Pain, moderate (4-7) Last Admin: 12/30/16 10:22 Dose: 15 mg Methylprednisolone (Solu-Medrol) 20 mg IVP Q12 [facility] Nystatin (Nystatin Oral Susp) 5 ml PO QID [facility] Oxycodone/Acetaminophen (Percocet 5/325 Mg Tab) 1 tab PO Q6 PRN PRN Reason: Pain, moderate (4-7) Stop: 01/01/17 00:01 Last Admin: 12/29/16 02:27 Dose: 1 tab Pantoprazole Sodium (Protonix Ec Tab) 40 mg PO DAILY [facility] Last Admin: 12/30/16 10:21 Dose: 40 mg - Labs Labs: 12/30/16 06:00 12/30/16 06:00 PT 10.2 Seconds (9.9-11.8) 12/28/16 21:00 INR 0.94 (0.93-1.08) 12/28/16 21:00 APTT 20.1 Seconds (23.7-30.8) L 12/28/16 21:00 - Constitutional Appears: In Acute Distress - Head Exam Head Exam: ATRAUMATIC, NORMAL INSPECTION - Eye Exam Eye Exam: EOMI, Normal appearance Pupil Exam: NORMAL ACCOMODATION - ENT Exam ENT Exam: Mucous Membranes Dry - Neck Exam Neck Exam: Full ROM - Respiratory Exam Respiratory Exam: NORMAL BREATHING PATTERN (decreased breath sounds b/l no crackles, ronchi or wheezing ) - Cardiovascular Exam Cardiovascular Exam: REGULAR RHYTHM - GI/Abdominal Exam GI & Abdominal Exam: Normal Bowel Sounds - Extremities Exam Extremities Exam: Full ROM - Neurological Exam Neurological Exam: Alert, Normal Gait, Oriented x3 Assessment and Plan - Assessment and Plan (Free Text) Assessment: 56 y/o M w/ End Stage COPD Poor performance score Walk distance < 20 feet Oxygen dependant 3-4L to keep o2 sat> 88% Spirometry planned today to have baseline FEV-1 Roberto index High , likely 15-20% mortality in 4 years. On Spiriva, Symbicort and PRN albuterol. IV solumedrol also added but unlikely helping. The patient has also been loosing weight, ABG 2 day prior shows CO2 retention ( air trapping). Accessory muscle use noted. Pt wants tto be DNr/ DNI and the risks and benefits were explained in detail. Hospice was also introduced and the patient is willing to be accepted. Hospice eval / paliative care consulted. dvt p
[2016-12-30] MEDS: Nystatin 100,000 Units/ml Oral Susp 5 ml UD PO SCH ×3 (14:00→22:44)
--- NOTE | 2016-12-30 15:43 | CP.PCM.PN ---
<Mani Al - Last Filed: 12/30/16 17:33> Subjective - Date & Time of Evaluation Date of Evaluation: 12/30/16 Time of Evaluation: 09:00 - Subjective Subjective: Mani Al DO, PGY-1, Hospitalist Service Patient seen and examined at bedside. Patient reports dyspnea with ambulation and some right rib pain. Objective - Vital Signs/Intake and Output Vital Signs (last 24 hours): Temp Pulse Resp BP Pulse Ox 98.5 F 103 H 20 90/62 L 98 12/30/16 12:00 12/30/16 14:00 12/30/16 12:00 12/30/16 12:00 12/30/16 06:00 Intake and Output: 12/30/16 12/30/16 06:59 18:59 Intake Total 940 Output Total 3550 Balance -2610 - Medications Medications: Current Medications Albuterol/Ipratropium (Duoneb 3 Mg/0.5 Mg (3 Ml) Ud) 3 ml IH [id number] [facility] Last Admin: 12/30/16 13:47 Dose: 3 ml Albuterol/Ipratropium (Duoneb 3 Mg/0.5 Mg (3 Ml) Ud) 3 ml IH Q2H PRN PRN Reason: Shortness of Breath Arformoterol Tartrate (Brovana) 15 mcg IH [id number] [facility] Budesonide (Pulmicort Respules) 1 mg IH [id number] [facility] Diltiazem HCl (Cardizem Cd) 120 mg PO DAILY [facility] Last Admin: 12/30/16 10:19 Dose: 120 mg Docusate Sodium (Colace) 100 mg PO BID PRN PRN Reason: Constipation Last Admin: 12/29/16 09:56 Dose: 100 mg Heparin Sodium (Porcine) (Heparin) 5,000 units SC Q12 [facility] PRN Reason: Protocol Last Admin: 12/30/16 10:20 Dose: 5,000 units Azithromycin 250 mg/ Sodium (Chloride) 250 mls @ 167 mls/hr IVPB DAILY [facility] PRN Reason: Protocol Last Admin: 12/30/16 10:24 Dose: 167 mls/hr Ketorolac Tromethamine (Toradol) 15 mg IVP Q6 PRN PRN Reason: Pain, moderate (4-7) Last Admin: 12/30/16 10:22 Dose: 15 mg Methylprednisolone (Solu-Medrol) 20 mg IVP Q12 [facility] Nystatin (Nystatin Oral Susp) 5 ml PO QID [facility] Oxycodone/Acetaminophen (Percocet 5/325 Mg Tab) 1 tab PO Q6 PRN PRN Reason: Pain, moderate (4-7) Stop: 01/01/17 00:01 Last Admin: 12/29/16 02:27 Dose: 1 tab Pantoprazole Sodium (Protonix Ec Tab) 40 mg PO DAILY [facility] Last Admin: 12/30/16 10:21 Dose: 40 mg Roflumilast (Daliresp) 500 mcg PO DAILY [facility] Last Admin: 12/30/16 13:51 Dose: 500 mcg - Labs Labs: 12/30/16 06:00 12/30/16 06:00 PT 10.2 Seconds (9.9-11.8) 12/28/16 21:00 INR 0.94 (0.93-1.08) 12/28/16 21:00 APTT 20.1 Seconds (23.7-30.8) L 12/28/16 21:00 - Constitutional Appears: Older Than Stated Age, Cachectic, Chronically Ill - Head Exam Head Exam: ATRAUMATIC, NORMOCEPHALIC - Eye Exam Eye Exam: EOMI, Normal appearance, PERRL - ENT Exam ENT Exam: Mucous Membranes Moist, Normal Oropharynx - Neck Exam Neck Exam: Full ROM, Normal Inspection - Respiratory Exam Respiratory Exam: Decreased Breath Sounds (bilaterally) - Cardiovascular Exam Cardiovascular Exam: RRR, +S1, +S2 - GI/Abdominal Exam GI & Abdominal Exam: Soft, Normal Bowel Sounds. absent: Distended, Rebound - Extremities Exam Extremities Exam: Normal Capillary Refill, Normal Inspection - Back Exam Back Exam: NORMAL INSPECTION. absent: CVA tenderness (L), CVA tenderness (R) - Neurological Exam Neurological Exam: Alert, CN II-XII Intact, Oriented x3 - Psychiatric Exam Psychiatric exam: Normal Affect, Normal Mood - Skin Skin Exam: Dry, Intact, Normal Color, Warm Assessment and Plan - Assessment and Plan (Free Text) Assessment: 56 year old male with end-stage COPD, subsegmental PE (off anticoagulation), vertebral compression fracture s/p recent T9 and L1 kyphoplasty who presents with dyspnea with associated chest wall pain. Plan: 1) End-stage COPD - Consulted Pulmonology, Dr. Vu Lipscomb, to discuss end-stage COPD options. - Spirometry ordered to assess FEV1 - Supportive/Palliative care consult, Cynthia Clement. 2) COPD exacerbation - Azithromycin 250 mg IV qday day 2 - Solumedrol 20 mg q12h - Duonebs q6h ERIC and q2h PRN -Daliresp 500 mg BID -PRN Budesonide and Brovana (patient has not required) 3) Tachycardia causing chest pain - Diltiazem 120 CD daily 4) Steroid-induced orophargeal candidiasis - Nystatin swish and swallow. If no improvement with this medication, will start PO fluconazole. 5) Dyspnea/Chest wall pain - Percocet 5 mg q6h PRN - Toradol 15 mg q6h for moderate pain 6) DVT/GI prophylaxis: Heparin 5,000 q12h and Protonix 40 mg PO daily <Clare Lipscomb - Last Filed: 01/01/17 12:52> Objective - Vital Signs/Intake and Output Vital Signs (last 24 hours): Temp Pulse Resp BP Pulse Ox 97.8 F 105 H 18 125/83 99 12/31/16 18:00 12/31/16 18:00 12/31/16 18:00 12/31/16 18:00 12/31/16 06:00 - Labs Labs: 12/31/16 06:40 12/31/16 06:40 PT 10.2 Seconds (9.9-11.8) 12/28/16 21:00 INR 0.94 (0.93-1.08) 12/28/16 21:00 APTT 20.1 Seconds (23.7-30.8) L 12/28/16 21:00 Attending/Attestation - Attestation I have personally seen and examined this patient.: Yes I have fully participated in the care of the patient.: Yes I have reviewed all pertinent clinical information, including history, physical exam and plan: Yes Notes (Text): I have seen and examined the patient at bedside. Agree with the above note with the following additions/ exceptions: Briefly this is 56 year old male with history of end stage copd, recent thoracic and lumbar compression fractures s/p kyphoplasty, SSPE in the recent past not on anticoagulation who basically came for DENISE, wheezing and found to have copd exacerbation. Patient has home oxygen but he complains that even walking upto the bathroom makes him sob. We consulted director of plant operations for evaluation of his end stage copd. We are waiting for spirometry to be done. Continue solumedrol taper, duonebs and IV antibiotics. Start nystatin swish and swallow for oral candidiasis. Upon discharge patient will follow up with PMD of choice. Dr Clare Lipscomb .
[2016-12-30] MEDS: Arformoterol 15 mcg/2 ml Inh Sol IH SCH (19:35)
[2016-12-30] MEDS: Budesonide 0.5 mg/2 ml Inhal Susp UD IH SCH (19:35)
[2016-12-30] MEDS ORDERED: Arformoterol 15 mcg/2 ml Inh Sol IH SCH (20:00)
[2016-12-31] MEDS: Albuterol-Ipratrop 3 mg / 0.5 (3 ml) UD IH SCH ×3 (01:02→13:43)
[2016-12-31 06:04] VITALS: O2SAT 99
[2016-12-31 07:21] LABS: GRAN # 17.74 (1.4-6.5); GRAN % 93.4 % (50.0-68.0); HEMATOCRIT 35.5 % (42.0-52.0); LYMPH # 0.3 (1.2-3.4); LYMPH % 1.5 % (22.0-35.0); MEAN CELL VOLUME 95.7 fl (80.0-105.0); MEAN CORPUSCULAR HEMOGLOBIN 30.7 pg (25.0-35.0); MEAN CORPUSCULAR HGB CONC 32.1 g/dl (31.0-37.0); MEAN PLATELET VOLUME 9.4 fl (7.0-11.0); MONO % 5.1 % (1.0-6.0); RED CELL DISTRIBUTION WIDTH 14.3 % (11.5-14.5)
[2016-12-31 07:32] LABS: ALB/GLOB RATIO 1.3 (1.1-1.8); ALKALINE PHOSPHATASE 92 U/L (38-126); ALT/SGPT 89 U/L (7-56); BILIRUBIN,TOTAL 0.4 mg/dL (0.2-1.3); BLOOD UREA NITROGEN 30 mg/dL (7-21); CARBON DIOXIDE 33 mmol/L (21-33); CHLORIDE 101 mmol/L (95-110); GFR AFRICAN-AMERICAN > 60; GLUCOSE,RANDOM 96 mg/dL (70-110); SODIUM 137 mmol/L (132-148); TOTAL PROTEIN 4.9 g/dL (5.8-8.3)
[2016-12-31 07:45] LABS: AST/SGOT 39 U/L (17-59); CALCIUM 8.5 mg/dL (8.4-10.5)
[2016-12-31] MEDS: Budesonide 0.5 mg/2 ml Inhal Susp UD IH SCH (08:42)
[2016-12-31] MEDS: Arformoterol 15 mcg/2 ml Inh Sol IH SCH (08:43)
[2016-12-31] MEDS: MethylPREDNISolone 40 mg Vial IVP SCH (10:46)
[2016-12-31] MEDS: Azithromycin 250 MG in Sodium Chloride 0.9% 250 ML IVPB SCH (10:46)
[2016-12-31] MEDS: Lactobacillus Acidophilus 500 MU Cap PO SCH ×2 (10:46→17:19)
[2016-12-31] MEDS: Nystatin 100,000 Units/ml Oral Susp 5 ml UD PO SCH ×3 (10:46→17:20)
[2016-12-31] MEDS: Pantoprazole 40 mg EC Tab PO SCH (10:46)
[2016-12-31] MEDS: diltiaZEM 120 mg/24 Hours CD Cap PO SCH (11:13)
--- NOTE | 2016-12-31 18:21 | CP.PCM.DIS ---
<Mani Al - Last Filed: 01/01/17 11:58> Provider - Provider Date of Admission: 12/28/16 22:48 Attending physician: Clare Lipscomb MD Consults: Dr. Vu Lipscomb Time Spent in preparation of Discharge (in minutes): 55 Hospital Course - Lab Results Lab Results: Micro Results 12/29/16 22:49 Urine,Clean Catch Urine Culture - Final No Growth (<1,000 CFU/ML) 12/31/16 11:35 Stool C. difficile Antigen & Toxin A,B (M - Final Most Recent Lab Values WBC 19.0 10^3/ul (4.5-11.0) H 12/31/16 06:40 RBC 3.71 10^6/uL (3.5-6.1) 12/31/16 06:40 Hgb 11.4 g/dL (14.0-18.0) L 12/31/16 06:40 Hct 35.5 % (42.0-52.0) L 12/31/16 06:40 MCV 95.7 fl (80.0-105.0) 12/31/16 06:40 MCH 30.7 pg (25.0-35.0) 12/31/16 06:40 MCHC 32.1 g/dl (31.0-37.0) 12/31/16 06:40 RDW 14.3 % (11.5-14.5) 12/31/16 06:40 Plt Count 254 10^3/uL (120.0-450.0) 12/31/16 06:40 MPV 9.4 fl (7.0-11.0) 12/31/16 06:40 Gran % 93.4 % (50.0-68.0) H 12/31/16 06:40 Lymph % (Auto) 1.5 % (22.0-35.0) L 12/31/16 06:40 [place] % (Auto) 5.1 % (1.0-6.0) 12/31/16 06:40 Eos % (Auto) 0.0 % (1.5-5.0) L 12/31/16 06:40 Baso % (Auto) 0.0 % (0.0-3.0) 12/31/16 06:40 Gran # 17.74 (1.4-6.5) H 12/31/16 06:40 Lymph # 0.3 (1.2-3.4) L 12/31/16 06:40 [place] # 1.0 (0.1-0.6) H 12/31/16 06:40 Eos # 0.0 (0.0-0.7) 12/31/16 06:40 Baso # 0.00 K/mm3 (0.0-2.0) 12/31/16 06:40 Neutrophils % (Manual) 91 % (50.0-70.0) H 12/28/16 21:00 Band Neutrophils % 1 % (0-2) 12/28/16 21:00 Lymphocytes % (Manual) 3 % (22.0-35.0) L 12/28/16 21:00 Monocytes % (Manual) 5 % (1.0-6.0) 12/28/16 21:00 Platelet Evaluation Normal (NORMAL) 12/28/16 21:00 PT 10.2 Seconds (9.9-11.8) 12/28/16 21:00 INR 0.94 (0.93-1.08) 12/28/16 21:00 APTT 20.1 Seconds (23.7-30.8) L 12/28/16 21:00 pCO2 49 mm/Hg (35-45) H 12/28/16 22:02 pO2 69.0 mm/Hg (80-100) L 12/28/16 22:02 HCO3 31.8 mmol/L (21-28) H 12/28/16 22:02 ABG pH 7.42 (7.35-7.45) 12/28/16 22:02 ABG Total CO2 33.3 mmol.L (22-28) H 12/28/16 22:02 ABG O2 Saturation 96.6 % (95-98) 12/28/16 22:02 ABG O2 Content 15.8 ML/dl (15-23) 12/28/16 22:02 ABG Base Excess 6.2 mmol/L (-2.0-3.0) H 12/28/16 22:02 ABG Hemoglobin 12.0 g/dL (11.7-17.4) 12/28/16 22:02 ABG Carboxyhemoglobin 2.2 % (0.5-1.5) H 12/28/16 22:02 POC ABG HHb (Measured) 3.3 % (0-5) 12/28/16 22:02 ABG Methemoglobin 1.1 % (0.0-3.0) 12/28/16 22:02 ABG O2 Capacity 16.4 mL/dl (16-24) 12/28/16 22:02 VBG pH 7.28 (7.32-7.43) L 12/28/16 21:00 VBG pCO2 77.0 (40-60) H* 12/28/16 21:00 VBG HCO3 36.2 mmol/l (21-28) H 12/28/16 21:00 VBG Total CO2 38.6 mmol.L (22-28) H 12/28/16 21:00 VBG O2 Sat (Calc) 83.9 % (40-65) H 12/28/16 21:00 VBG Base Excess 6.6 mmol/L (0.0-2.0) H 12/28/16 21:00 VBG Potassium 4.2 mmol/L (3.6-5.2) 12/28/16 21:00 Hgb O2 Saturation 93.3 % (95.0-98.0) L 12/28/16 22:02 Sodium 140.0 mmol/L (132-148) 12/28/16 21:00 Chloride 101.0 mmol/L (98-107) 12/28/16 21:00 Glucose 148 mg/dl (75-110) H 12/28/16 21:00 Lactate 1.7 mmol/L (0.7-2.1) 12/28/16 21:00 FiO2 32.0 % 12/28/16 22:02 Sodium 137 mmol/L (132-148) 12/31/16 06:40 Potassium 5.0 mmol/L (3.6-5.0) 12/31/16 06:40 Chloride 101 mmol/L (95-110) 12/31/16 06:40 Carbon Dioxide 33 mmol/L (21-33) 12/31/16 06:40 Anion Gap 8 (10-20) L 12/31/16 06:40 BUN 30 mg/dL (7-21) H 12/31/16 06:40 Creatinine 0.5 mg/dL (0.5-1.4) 12/31/16 06:40 Est GFR ( Amer) > 60 12/31/16 06:40 Est GFR (Non-Af Amer) > 60 12/31/16 06:40 Random Glucose 96 mg/dL (70-110) 12/31/16 06:40 Calcium 8.5 mg/dL (8.4-10.5) 12/31/16 06:40 Total Bilirubin 0.4 mg/dL (0.2-1.3) 12/31/16 06:40 AST 39 U/L (17-59) 12/31/16 06:40 ALT 89 U/L (7-56) H 12/31/16 06:40 Alkaline Phosphatase 92 U/L (38-126) 12/31/16 06:40 Lactate Dehydrogenase 602 U/L (333-699) 12/28/16 21:00 Total Creatine Kinase 23 U/L (35-230) L 12/28/16 21:00 Troponin I < 0.01 ng/mL 12/29/16 11:00 NT-Pro-B Natriuret Pep 108 pg/mL (0-450) 12/28/16 21:00 Total Protein 4.9 g/dL (5.8-8.3) L 12/31/16 06:40 Albumin 2.8 g/dL (3.0-4.8) L 12/31/16 06:40 Globulin 2.1 gm/dL 12/31/16 06:40 Albumin/Globulin Ratio 1.3 (1.1-1.8) 12/31/16 06:40 Procalcitonin < 0.05 NG/ML (0.19-0.49) L 12/30/16 09:32 Venous Blood Potassium 4.2 mmol/L (3.6-5.2) 12/28/16 21:00 Urine Color Yellow (YELLOW) 12/29/16 22:49 Urine Appearance Clear (CLEAR) 12/29/16 22:49 Urine pH 7.0 (4.7-8.0) 12/29/16 22:49 Ur Specific [place] 1.010 (1.005-1.035) 12/29/16 22:49 Urine Protein Negative mg/dL (<30 mg/dL) 12/29/16 22:49 Urine Glucose (UA) Negative mg/dL (NEGATIVE) 12/29/16 22:49 Urine Ketones Negative mg/dL (NEGATIVE) 12/29/16 22:49 Urine Blood Negative (NEGATIVE) 12/29/16 22:49 Urine Nitrate Negative (NEGATIVE) 12/29/16 22:49 Urine Bilirubin Negative (NEGATIVE) 12/29/16 22:49 Urine Urobilinogen 0.2 E.U./dL (<1 E.U./dL) 12/29/16 22:49 Ur Leukocyte Esterase Negative Diya/uL (NEGATIVE) 12/29/16 22:49 - Hospital Course Hospital Course: 56 year old male with a history of advanced COPD on 3 L of home oxygen s/p 1 week post op from kyphoplasty, hx of subsegmental PE (no chronic AC required) who presented with a COPD exacerbation with increased SOB and regular sputum production. In the ED patient was started on BIPAP, administered 125 mg of IVP Solumedrol, Duonebs, azithromycin, and admitted for medical management. Pulmonology, Dr. Vu Lipscomb was consulted started the patient on Daliresp, recommended PFT, namely an FEV1 to be performed (which the patient later refused to), and also counselled the patient on the option of hospice care. Hospital course complicated by inhaled steroid induced thrush treated with nystatin. Completed three days of antibiotic therapy. Transitioned to home 3 L oxygen requirement and [facility]. - Date & Time of H&P Date of H&P: 12/31/16 Time of H&P: 18:00 Discharge Exam - Head Exam Head Exam: ATRAUMATIC, NORMOCEPHALIC - Eye Exam Eye Exam: EOMI, Normal appearance - ENT Exam ENT Exam: Mucous Membranes Moist Additional comments: some residual thrush apparent - Neck Exam Neck exam: Normal Inspection - Respiratory Exam Respiratory Exam: Decreased Breath Sounds, NORMAL BREATHING PATTERN - Cardiovascular Exam Cardiovascular Exam: RRR, +S1, +S2 - Extremities Exam Extremities exam: normal capillary refill, normal inspection - Back Exam Back exam: NORMAL INSPECTION. absent: CVA tenderness (L), CVA tenderness (R) - Neurological Exam Neurological exam: Alert, CN II-XII Intact, Normal Gait, Oriented x3 - Psychiatric Exam Psychiatric exam: Normal Affect, Normal Mood - Skin Skin Exam: Dry, Intact, Normal Color, Warm Discharge Plan - Discharge Medications Prescriptions: Roflumilast [Daliresp] 500 mcg PO DAILY #30 tab - Follow Up Plan Condition: FAIR Disposition: [facility] Instructions: Chronic Pain (DC), COPD (Chronic Obstructive Pulmonary Disease) ( DC) Additional Instructions: 1) Take new medication, Daliresp as prescribed, unless otherwise indicated. <Clare Lipscomb - Last Filed: 01/01/17 13:37> Provider - Provider Date of Admission: 12/28/16 22:48 Attending physician: Clare Lipscomb MD Hospital Course - Lab Results Lab Results: Micro Results 12/29/16 22:49 Urine,Clean Catch Urine Culture - Final No Growth (<1,000 CFU/ML) 12/31/16 11:35 Stool C. difficile Antigen & Toxin A,B (M - Final Most Recent Lab Values WBC 19.0 10^3/ul (4.5-11.0) H 12/31/16 06:40 RBC 3.71 10^6/uL (3.5-6.1) 12/31/16 06:40 Hgb 11.4 g/dL (14.0-18.0) L 12/31/16 06:40 Hct 35.5 % (42.0-52.0) L 12/31/16 06:40 MCV 95.7 fl (80.0-105.0) 12/31/16 06:40 MCH 30.7 pg (25.0-35.0) 12/31/16 06:40 MCHC 32.1 g/dl (31.0-37.0) 12/31/16 06:40 RDW 14.3 % (11.5-14.5) 12/31/16 06:40 Plt Count 254 10^3/uL (120.0-450.0) 12/31/16 06:40 MPV 9.4 fl (7.0-11.0) 12/31/16 06:40 Gran % 93.4 % (50.0-68.0) H 12/31/16 06:40 Lymph % (Auto) 1.5 % (22.0-35.0) L 12/31/16 06:40 [place] % (Auto) 5.1 % (1.0-6.0) 12/31/16 06:40 Eos % (Auto) 0.0 % (1.5-5.0) L 12/31/16 06:40 Baso % (Auto) 0.0 % (0.0-3.0) 12/31/16 06:40 Gran # 17.74 (1.4-6.5) H 12/31/16 06:40 Lymph # 0.3 (1.2-3.4) L 12/31/16 06:40 [place] # 1.0 (0.1-0.6) H 12/31/16 06:40 Eos # 0.0 (0.0-0.7) 12/31/16 06:40 Baso # 0.00 K/mm3 (0.0-2.0) 12/31/16 06:40 Neutrophils % (Manual) 91 % (50.0-70.0) H 12/28/16 21:00 Band Neutrophils % 1 % (0-2) 12/28/16 21:00 Lymphocytes % (Manual) 3 % (22.0-35.0) L 12/28/16 21:00 Monocytes % (Manual) 5 % (1.0-6.0) 12/28/16 21:00 Platelet Evaluation Normal (NORMAL) 12/28/16 21:00 PT 10.2 Seconds (9.9-11.8) 12/28/16 21:00 INR 0.94 (0.93-1.08) 12/28/16 21:00 APTT 20.1 Seconds (23.7-30.8) L 12/28/16 21:00 pCO2 49 mm/Hg (35-45) H 12/28/16 22:02 pO2 69.0 mm/Hg (80-100) L 12/28/16 22:02 HCO3 31.8 mmol/L (21-28) H 12/28/16 22:02 ABG pH 7.42 (7.35-7.45) 12/28/16 22:02 ABG Total CO2 33.3 mmol.L (22-28) H 12/28/16 22:02 ABG O2 Saturation 96.6 % (95-98) 12/28/16 22:02 ABG O2 Content 15.8 ML/dl (15-23) 12/28/16 22:02 ABG Base Excess 6.2 mmol/L (-2.0-3.0) H 12/28/16 22:02 ABG Hemoglobin 12.0 g/dL (11.7-17.4) 12/28/16 22:02 ABG Carboxyhemoglobin 2.2 % (0.5-1.5) H 12/28/16 22:02 POC ABG HHb (Measured) 3.3 % (0-5) 12/28/16 22:02 ABG Methemoglobin 1.1 % (0.0-3.0) 12/28/16 22:02 ABG O2 Capacity 16.4 mL/dl (16-24) 12/28/16 22:02 VBG pH 7.28 (7.32-7.43) L 12/28/16 21:00 VBG pCO2 77.0 (40-60) H* 12/28/16 21:00 VBG HCO3 36.2 mmol/l (21-28) H 12/28/16 21:00 VBG Total CO2 38.6 mmol.L (22-28) H 12/28/16 21:00 VBG O2 Sat (Calc) 83.9 % (40-65) H 12/28/16 21:00 VBG Base Excess 6.6 mmol/L (0.0-2.0) H 12/28/16 21:00 VBG Potassium 4.2 mmol/L (3.6-5.2) 12/28/16 21:00 Hgb O2 Saturation 93.3 % (95.0-98.0) L 12/28/16 22:02 Sodium 140.0 mmol/L (132-148) 12/28/16 21:00 Chloride 101.0 mmol/L (98-107) 12/28/16 21:00 Glucose 148 mg/dl (75-110) H 12/28/16 21:00 Lactate 1.7 mmol/L (0.7-2.1) 12/28/16 21:00 FiO2 32.0 % 12/28/16 22:02 Sodium 137 mmol/L (132-148) 12/31/16 06:40 Potassium 5.0 mmol/L (3.6-5.0) 12/31/16 06:40 Chloride 101 mmol/L (95-110) 12/31/16 06:40 Carbon Dioxide 33 mmol/L (21-33) 12/31/16 06:40 Anion Gap 8 (10-20) L 12/31/16 06:40 BUN 30 mg/dL (7-21) H 12/31/16 06:40 Creatinine 0.5 mg/dL (0.5-1.4) 12/31/16 06:40 Est GFR ( Amer) > 60 12/31/16 06:40 Est GFR (Non-Af Amer) > 60 12/31/16 06:40 Random Glucose 96 mg/dL (70-110) 12/31/16 06:40 Calcium 8.5 mg/dL (8.4-10.5) 12/31/16 06:40 Total Bilirubin 0.4 mg/dL (0.2-1.3) 12/31/16 06:40 AST 39 U/L (17-59) 12/31/16 06:40 ALT 89 U/L (7-56) H 12/31/16 06:40 Alkaline Phosphatase 92 U/L (38-126) 12/31/16 06:40 Lactate Dehydrogenase 602 U/L (333-699) 12/28/16 21:00 Total Creatine Kinase 23 U/L (35-230) L 12/28/16 21:00 Troponin I < 0.01 ng/mL 12/29/16 11:00 NT-Pro-B Natriuret Pep 108 pg/mL (0-450) 12/28/16 21:00 Total Protein 4.9 g/dL (5.8-8.3) L 12/31/16 06:40 Albumin 2.8 g/dL (3.0-4.8) L 12/31/16 06:40 Globulin 2.1 gm/dL 12/31/16 06:40 Albumin/Globulin Ratio 1.3 (1.1-1.8) 12/31/16 06:40 Procalcitonin < 0.05 NG/ML (0.19-0.49) L 12/30/16 09:32 Venous Blood Potassium 4.2 mmol/L (3.6-5.2) 12/28/16 21:00 Urine Color Yellow (YELLOW) 12/29/16 22:49 Urine Appearance Clear (CLEAR) 12/29/16 22:49 Urine pH 7.0 (4.7-8.0) 12/29/16 22:49 Ur Specific [place] 1.010 (1.005-1.035) 12/29/16 22:49 Urine Protein Negative mg/dL (<30 mg/dL) 12/29/16 22:49 Urine Glucose (UA) Negative mg/dL (NEGATIVE) 12/29/16 22:49 Urine Ketones Negative mg/dL (NEGATIVE) 12/29/16 22:49 Urine Blood Negative (NEGATIVE) 12/29/16 22:49 Urine Nitrate Negative (NEGATIVE) 12/29/16 22:49 Urine Bilirubin Negative (NEGATIVE) 12/29/16 22:49 Urine Urobilinogen 0.2 E.U./dL (<1 E.U./dL) 12/29/16 22:49 Ur Leukocyte Esterase Negative Diya/uL (NEGATIVE) 12/29/16 22:49 Attending/Attestation - Attestation I have personally seen and examined this patient.: Yes I have fully participated in the care of the patient.: Yes I have reviewed all pertinent clinical information, including history, physical exam and plan: Yes Notes (Text): I have seen and examined the patient at bedside. Agree with the above note with the following additions/ exceptions: Briefly this is 56 year old male with history of end stage copd, recent thoracic and lumbar compression fractures s/p kyphoplasty, SSPE in the recent past not on anticoagulation who basically came for [facility]ISE, wheezing and found to have copd exacerbation. Patient has home oxygen but he complains that even walking upto the bathroom makes him sob. Continue medrol dose pack, duonebs, nsytatin swish and swallow and po abx. He complained of loose stools. Cdiff came back negative.As patient had recurrent admissions in the hospital due to COPD exacerbation, it will be beneficial if he can be transferred to LTC. He will also benefit from bipap overnight. Patient got accepted in [facility]. Upon discharge patient will follow up with PMD of choice. Dr Clare Lipscomb
[2016-12-31] MEDS: Morphine 30 mg SR Tab PO ONE ×2 (18:42→18:55)
[2016-12-31 19:39] VITALS: BP 125/83; PULSE 105; RESP 18; TEMP 97.8
== END 2016-12-31 21:21 | DRG 88 ==
LOC: ED 20:51 → ERH 22:48 → 2RNO 12-29 01:21
PROVIDERS: ADMIT Internal Medicine; ATTEND Hospitalist
DX: J44.1 Chronic obstructive pulmonary disease with (acute) exacerbation (principal); R64 Cachexia; B37.0 Candidal stomatitis; T38.0X5A Adverse effect of glucocorticoids and synthetic analogues, initial encounter; M48.54XD Collapsed vertebra, not elsewhere classified, thoracic region, subsequent encounter for fracture with routine healing; M48.56XD Collapsed vertebra, not elsewhere classified, lumbar region, subsequent encounter for fracture with routine healing; Z86.711 Personal history of pulmonary embolism; Z66 Do not resuscitate; Z87.891 Personal history of nicotine dependence; Z68.1 Body mass index [BMI] 19.9 or less, adult; Z99.81 Dependence on supplemental oxygen

== ENCOUNTER 2017-01-14 10:26 | Inpatient (IN) | payer MEDICAID ==
--- NOTE | 2017-01-14 11:01 | ED PDOC ---
Arrival/HPI - History of Present Illness Time/Duration: 1 week Symptom Onset: Sudden Symptom Course: Worsening Quality: Stabbing, Cramping, Burning Severity Level: 10 Activities at Onset: Rest Context: Home <ERNIE RAYA - Last Filed: 01/14/17 12:44> <KolbySimone L - Last Filed: 01/14/17 15:22> - General Chief Complaint: Shortness Of Breath - History of Present Illness Narrative History of Present Illness (Text): 01/14/17 10:55 Mr. Manuel is a 56 year old male with a past medical history significant for COPD and spinal compression fractures presents to the [facility] ED with a chief complaint of upper back pain and shortness of breath. Patient states that one week ago while he was at rest, his upper back and shoulder regions started to cause him a significant amount of pain that he rates a 10/10 and this causes difficulty with taking deep breaths. He reports that the pain does not radiate and has been constant since its onset. He states that initially it was pain in his entire chest but after the first 24 hours, it localized to his bilateral upper back and paraspinal regions extending to the scapular margins. He reports that it has prevented him from sleeping for two days now as well as limited his PO intake. He reports no alleviating or aggravating factors for this pain and reports that he has not taken anything for the pain at home, prescription or OTC. Patient denies fever, chills, headache, changes in his vision, chest pain, palpitations, productive cough, abdominal pain, N/V, diarrhea, burning with urination, or any numbness/tingling/weakness of any extremity. (ERNIE RAYA) Past Medical History - Provider Review Nursing Documentation Reviewed: Yes - Travel History Have you recently traveled outside [place] w/in the past 3 mons?: No - Infectious Disease Hx of Infectious Diseases: None - Tetanus Immunization Tetanus Immunization: Unknown - Cardiac Hx Cardiac Disorders: Yes Hx Atrial Fibrillation: Yes Hx Pacemaker: No - Pulmonary Hx Respiratory Disorders: Yes Hx Chronic Obstructive Pulmonary Disease (COPD): Yes - Neurological Hx Neurological Disorder: No Hx Paralysis: No - HEENT Hx HEENT Disorder: Yes (glasses) Other/Comment: tonsillectomy - Renal Hx Renal Disorder: No - Endocrine/Metabolic Hx Endocrine Disorders: No - Hematological/Oncological Hx Blood Disorders: Yes Hx Blood Transfusions: Yes Hx Blood Transfusion Reaction: No - Integumentary Hx Dermatological Disorder: No - Musculoskeletal/Rheumatological Hx Musculoskeletal Disorders: Yes Hx Back Pain: Yes (compression fracture) - Gastrointestinal Hx Gastrointestinal Disorders: No - Genitourinary/Gynecological Hx Genitourinary Disorders: No - Psychiatric Hx 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) Hx Substance Use: No - Surgical History Hx Tonsillectomy: Yes - Anesthesia Hx Anesthesia: Yes Hx Anesthesia Reactions: No Hx Malignant Hyperthermia: No <ERNIE RAYA - Last Filed: 01/14/17 12:44> <Simone Jarrett - Last Filed: 01/14/17 15:22> - Patient History Narrative Patient History: History of thoracic compression fractures and chronic steroid use (ERNIE RAYA) Family/Social History - Physician Review Nursing Documentation Reviewed: Yes Family/Social History: Unknown Family HX Smoking Status: Former Smoker Hx Alcohol Use: No Hx Substance Use: No <ERNIE RAYA - Last Filed: 01/14/17 12:44> Allergies/Home Meds <ERNIE RAYA - Last Filed: 01/14/17 12:44> <Simone Jarrett - Last Filed: 01/14/17 15:22> Allergies/Adverse Reactions: Allergies No Known Allergies Allergy (Verified 01/14/17 10:40) Home Medications: Home Meds Medication Instructions Recorded Confirmed Acidoph/L.bulg/Bif.b/S.thermop 1 tab PO BID 01/14/17 01/14/17 [Bacid Caplet] Albuterol/Ipratropium [Duoneb 3 3 ml IH Q4 01/14/17 01/14/17 mg/0.5 mg (3 ml) UD] Albuterol/Ipratropium [Duoneb 3 3 ml IH Q6 01/14/17 01/14/17 mg/0.5 mg (3 ml) UD] Cyclobenzaprine [Flexeril] 10 mg PO TID PRN 01/14/17 01/14/17 Docusate [Colace] 200 mg PO HS 01/14/17 01/14/17 Fluticasone Propionate [Flovent 2 puff INH BID 01/14/17 01/14/17 Diskus] Methyl Salicylate/Menthol [Bengay 1 appful TOP Q6 PRN 01/14/17 01/14/17 Greaseless Cream] Review of Systems - Physician Review All systems were reviewed & negative as marked: Yes - Review of Systems Constitutional: Normal. absent: Fevers, Night Sweats Eyes: Normal. absent: Vision Changes ENT: Normal. absent: Sore Throat, Rhinorrhea Respiratory: SOB. absent: Normal, Cough, Sputum, Wheezing Cardiovascular: Normal. absent: Chest Pain, Palpitations, Edema Gastrointestinal: Normal, Appetite Changes (Decreased PO intake). absent: Abdominal Pain, Constipation, Diarrhea, Nausea, Vomiting Genitourinary Male: Normal. absent: Dysuria Musculoskeletal: Normal, Back Pain (Upper back pain extending from midline to scapular margins from C7 to T11), Neck Pain. absent: Arthralgias, Myalgias Skin: Normal. absent: Rash Neurological: Normal. absent: Headache, Dizziness <ERNIE RAYA - Last Filed: 01/14/17 12:44> Physical Exam Vital Signs Reviewed: Yes Temperature: Afebrile Blood Pressure: Normal Pulse: Tachycardic Respiratory Rate: Tachypneic Appearance: Positive for: Non-Toxic, Uncomfortable, Cachectic Pain Distress: Severe Mental Status: Positive for: Alert and Oriented X 3 - Systems Exam Head: Present: Atraumatic, Normocephalic Pupils: Present: PERRL Extroacular Muscles: Present: EOMI Conjunctiva: Present: Normal Mouth: Present: Moist Mucous Membranes Neck: Present: MIDLINE TENDERNESS (C7 region), Trachea Midline. No: JVD, Lymphadenopathy Respiratory/Chest: Present: Accessory Muscle Use, Decreased Breath Sounds ( Bilateral and diffuse), Tachypneic, Tender to Palpation (Diffuse throughout thoracic spine and paraspinal regions). No: Clear to Auscultation, Good Air Exchange, Wheezes, Rales, Rhonchi Cardiovascular: Present: Normal S1, S2, Peripheal Pulses Present, Tachycardic. No: Regular Rate and Rhythm, Irregular Rhythm Abdomen: Present: Normal Bowel Sounds. No: Tenderness, Distention, Peritoneal Signs Back: Present: Midline Tenderness, Paraspinal Tenderness (C7-T11). No: Normal Inspection Upper Extremity: Present: Normal Inspection, NORMAL PULSES, Capillary Refill < 2s. No: Cyanosis, Edema Lower Extremity: Present: Normal Inspection, NORMAL PULSES, Capillary Refill < 2 s. No: Edema, CALF TENDERNESS Neurological: Present: GCS=15, Speech Normal Skin: Present: Warm, Dry, Normal Color. No: Rashes Lymphatic: No: Cervical Adenopathy Psychiatric: Present: Alert, Oriented x 3, Normal Insight, Normal Concentration <ERNIE RAYA - Last Filed: 01/14/17 12:44> Vital Signs Temp Pulse Resp BP Pulse Ox 01/14/17 14:49 150 H 01/14/17 14:30 111 H 22 107/76 99 01/14/17 13:15 113 H 20 109/84 99 01/14/17 12:50 124 H 20 110/79 100 01/14/17 12:44 140 H 30 H 159/88 H 100 01/14/17 12:14 138 H 32 H 124/79 100 01/14/17 10:51 32 H 97 01/14/17 10:26 97.8 F 153 H 30 H 143/82 100 Medical Decision Making Re-evaluation Time: 12:35 Reassessment Condition: Unchanged - EKG Interpretation Interpreted by ED Physician: Yes <ERNIE RAYA - Last Filed: 01/14/17 12:44> <Simone Jarrett - Last Filed: 01/14/17 15:22> ED Course and Treatment: 01/14/17 11:24 Impression: 56 year old male with a past medical history significant for COPD and spinal compression fractures presents to the [facility] ED with a chief complaint of upper back pain and SOB Plan: -Duonebs (x3 Q15M), IV Solu-medrol 20mg and IV Solu-medrol 125mg -30mg IV Toradol and 2mg IV Morphine for pain control -NC at 4lpm -Chest X-Ray, CBC, BMP, Mag/Phos pending -Reassess and disposition Prior Visits: Notes and results from previous visits reviewed 12/28/16: Patient seen for COPD exacerbation and back pain with history of multiple compression fractures 12/22/16: Patient seen for COPD exacerbation and back pain with history of multiple compression fractures 11/10/16: Patient seen for pulmonary embolism 01/14/17 12:32 Patient reassessed and reports that his breathing is mildly improved but that he has experienced no relief of his pain with both morphine and toradol. Patient also notes that percocet and steroids haven't worked in the past. Patient requests something stronger as he has not slept in two days or eaten anything due to pain. 01/14/17 12:41 Patient noted to be hypercapneic to 100 on VBG and placed on BiPAP (ERNIE RAYA) 01/14/17 12:19 Shane Manuel is a 56 year old male who presents to the emergency department with upper back pain and shortness of breath. Patient seen and examined with resident. Came up with treatment and disposition plan with resident. EKG: Ordered, reviewed, and independently interpreted the EKG. Rate : 108 BPM Rhythm : Sinus Tachycardia 01/14/17 15:03: After patient was placed on BiPAP his pCO2 improved to 60's. He is known COPD patient and this were he usually stays stable. Patient states he feels much better. His HR improved to 119 on monitor technician. I discussed case with Dr. Tomas who recommends adding Zosyn so I will add it for him. Will admit to his service. Requests consults from Dr. Mendenhall and Dr. Milton. (Simone Jarrett) - Lab Interpretations Lab Results: 01/14/17 10:45 01/14/17 10:45 Lab Results 01/14/17 13:04: pCO2 63 H, pO2 132.0 H, HCO3 39.0 H, ABG pH 7.40, ABG Total CO2 40.9 H, ABG O2 Saturation 99.7 H, ABG Base Excess 11.5 H, ABG Potassium 3.6, Glucose 101, Lactate 0.5 L, FiO2 35.0, Sodium 136.0, Chloride 100.0, Arterial Blood Potassium 3.6 01/14/17 11:50: pO2 38, VBG pH 7.27 L, VBG pCO2 100.0 H*, VBG HCO3 45.9 H, VBG O2 Sat (Calc) 65.0, VBG Base Excess 14.2 H 01/14/17 10:45: Sodium 138, Potassium 3.9, Chloride 91 L, Carbon Dioxide 45 H D , Anion Gap 6 L, BUN 28 H, Creatinine 0.5, Est GFR ( Amer) > 60, Est GFR (Non-Af Amer) > 60, Random Glucose 78, Calcium 9.1, Phosphorus 4.0, Magnesium 2.2 01/14/17 10:45: WBC 15.9 H, RBC 4.44, Hgb 13.9 L D, Hct 43.0, MCV 96.8, MCH 31.3 , MCHC 32.3, RDW 13.8, Plt Count 216, MPV 9.4, Gran % 81.9 H, Lymph % (Auto) 7.9 L, [place] % (Auto) 10.0 H, Eos % (Auto) 0.1 L, Baso % (Auto) 0.1, Gran # 13.06 H, Lymph # 1.3, [place] # 1.6 H, Eos # 0.0, Baso # 0.01 - RAD Interpretation Radiology Orders: 01/14/17 11:15 CHEST PORTABLE [RAD] Stat - Medication Orders Current Medication Orders: Piperacillin Sod/Tazobactam Sod (Zosyn 4.5 Gm In Ns 100ml) 4.5 gm in 100 mls @ 200 mls/hr IVPB STAT STA PRN Reason: Protocol Stop: 01/14/17 15:28 Discontinued Medications Albuterol/Ipratropium (Duoneb 3 Mg/0.5 Mg (3 Ml) Ud) 3 ml IH Q15M [facility] Stop: 01/14/17 11:46 Last Admin: 01/14/17 12:40 Dose: 3 ml Ketorolac Tromethamine (Toradol) 30 mg IVP STAT STA Stop: 01/14/17 11:13 Last Admin: 01/14/17 11:27 Dose: 30 mg MAR Pain Assessment Document 01/14/17 11:27 [place] (Rec: 01/14/17 11:28 [id number] Pain Reassessment Is this a pain reassessment? No Sleep Is patient sleeping during reassessment? No Presence of Pain Presence of Pain Yes Pain Scale Used Pain Scale Used Numeric Location Upper or Lower Upper Pain Location Body Site Back Description Description Constant Intensity of Pain at present 10 Acceptable Level of Pain 2 Pain Behavior Irritability Facial Grimacing Aggravating Factors Changing Position IVP Administration Document 01/14/17 11:27 [place] (Rec: 01/14/17 11:28 [id number] Charges for Administration # of IVP Administrations 1 Methylprednisolone (Solu-Medrol) 20 mg IVP STAT STA Stop: 01/14/17 11:13 Last Admin: 01/14/17 11:28 Dose: 20 mg IVP Administration Document 01/14/17 11:28 [place] (Rec: 01/14/17 11:28 [id number] Charges for Administration # of IVP Administrations 1 Methylprednisolone (Solu-Medrol) 125 mg IVP STAT STA Stop: 01/14/17 12:04 Last Admin: 01/14/17 12:40 Dose: 125 mg IVP Administration Document 01/14/17 12:40 [place] (Rec: 01/14/17 12:41 [id number]) Charges for Administration # of IVP Administrations 1 Morphine Sulfate (Morphine) 2 mg IVP STAT STA Stop: 01/14/17 12:08 Last Admin: 01/14/17 12:41 Dose: 2 mg MAR Pain Assessment Document 01/14/17 12:41 [place] (Rec: 01/14/17 12:42 [id number] Pain Reassessment Is this a pain reassessment? Yes Sleep Is patient sleeping during reassessment? Yes Pain Scale Used Pain Scale Used Numeric Location Upper or Lower Upper Pain Location Body Site Back Description Description Constant Intensity of Pain at present 10 Acceptable Level of Pain 2 Pain Behavior Irritability Facial Grimacing Aggravating Factors Changing Position IVP Administration Document 01/14/17 12:41 [place] (Rec: 01/14/17 12:42 [id number]) Charges for Administration # of IVP Administrations 1 Disposition/Present on Arrival - Present on Arrival Any Indicators Present on Arrival: Yes History of DVT/PE: Yes History of Uncontrolled Diabetes: No Urinary Catheter: No History of Decub. Ulcer: No History Surgical Site Infection Following: None - Disposition Have Diagnosis and Disposition been Completed?: Yes Disposition Time: 12:44 <ERNIE RAYA - Last Filed: 01/14/17 12:44> - Disposition Disposition Time: 15:20 Isolation: Droplet Patient Plan: Admission <Simone Jarrett - Last Filed: 01/14/17 15:22> - Disposition Diagnosis: COPD exacerbation, Back pain Patient Problems: Current Active Problems Problem Status Onset COPD exacerbation Acute Back pain Chronic Condition: GUARDED
[2017-01-14] MEDS ORDERED: MethylPREDNISolone 40 mg Vial IVP STA (11:12)
[2017-01-14] MEDS: Albuterol-Ipratrop 3 mg / 0.5 (3 ml) UD IH SCH ×3 (11:28→12:40)
[2017-01-14] MEDS ORDERED: Morphine 2 mg/ml ISec IVP STA (12:07)
[2017-01-14 12:24] LABS: VENOUS BLOOD GAS BASE EXCESS 14.2 mmol/L (0.0-2.0); VENOUS BLOOD PH 7.27 (7.32-7.43)
--- NOTE | 2017-01-14 12:25 | RAD ---
HISTORY: Shortness of breath COMPARISON: 12/28/2016. FINDINGS: LUNGS: The lungs are hyperinflated and there is peribronchial thickening with chronic changes in both lungs. No focal consolidation. PLEURA: No significant pleural effusion identified, no pneumothorax apparent. CARDIOVASCULAR: Normal. OSSEOUS STRUCTURES: There is diffuse bone demineralization and kyphoplasty in 1 of the mid thoracic and lower thoracic vertebral bodies. There are old fracture deformities in the left posterior 6th and 7th ribs. VISUALIZED UPPER ABDOMEN: Normal. OTHER FINDINGS: None. IMPRESSION: No active pulmonary disease. COPD.
[2017-01-14 12:31] LABS: BASO # 0.01 K/mm3 (0.0-2.0); BASO % 0.1 % (0.0-3.0); EOS % 0.1 % (1.5-5.0); GRAN # 13.06 (1.4-6.5); GRAN % 81.9 % (50.0-68.0); LYMPH # 1.3 (1.2-3.4); LYMPH % 7.9 % (22.0-35.0); MEAN CELL VOLUME 96.8 fl (80.0-105.0); MEAN CORPUSCULAR HEMOGLOBIN 31.3 pg (25.0-35.0); MEAN CORPUSCULAR HGB CONC 32.3 g/dl (31.0-37.0); MEAN PLATELET VOLUME 9.4 fl (7.0-11.0); MONO # 1.6 (0.1-0.6); RED CELL DISTRIBUTION WIDTH 13.8 % (11.5-14.5); WHITE BLOOD COUNT 15.9 10^3/ul (4.5-11.0)
[2017-01-14 12:41] LABS: BLOOD UREA NITROGEN 28 mg/dL (7-21); CALCIUM 9.1 mg/dL (8.4-10.5); CHLORIDE 91 mmol/L (98-107); GFR AFRICAN-AMERICAN > 60; GLUCOSE,RANDOM 78 mg/dL (70-110); MAGNESIUM 2.2 mg/dL (1.7-2.2); POTASSIUM 3.9 mmol/L (3.6-5.0); SODIUM 138 mmol/L (132-148)
[2017-01-14 12:51] LABS: CARBON DIOXIDE 45 mmol/L (21-33)
[2017-01-14] MEDS ORDERED: Piperacill/Tazo 4.5gm in NS 4.5 GM/100 ML BAG IVPB STA (14:59)
[2017-01-14] MEDS ORDERED: Morphine 4 mg/ml ISec IVP PRN (15:19)
[2017-01-14] MEDS ORDERED: Morphine 4 mg/ml ISec IVP STA (15:58)
[2017-01-14 20:58] VITALS: BMI 25.4
[2017-01-14] MEDS ORDERED: Pneumococcal 23-Valent Vaccine IM ONE (20:58)
[2017-01-14] MEDS: MethylPREDNISolone 40 mg Vial IVP SCH (22:07)
[2017-01-14] MEDS: Lidocaine 5% Patch TD SCH (22:13)
[2017-01-14] MEDS: Pantoprazole 40 mg EC Tab PO SCH (22:14)
[2017-01-15] MEDS: Albuterol-Ipratrop 3 mg / 0.5 (3 ml) UD IH SCH ×4 (01:07→20:22)
[2017-01-15] MEDS ORDERED: Alum-Mag Hydrox-Simethicone Susp (30 mL) PO ONE (01:58)
--- NOTE | 2017-01-15 04:19 | CON ---
PULMONARY CRITICAL CARE CONSULT DATE: 01/14/2017 REFERRING PHYSICIAN: Janet Gillespie MD REASON FOR CONSULT: Respiratory failure and chronic obstructive lung disease. HISTORY OF PRESENT ILLNESS: This is a 56 years old gentleman with known severe obstructive lung disease, multiple spinal compression fracture, comes in with upper back pain and shortness of breath, found to be in respiratory failure with CO2 retention, respiratory acidosis, and also has some chest pain. The patient was treated with morphine given IV and inhaled bronchodilator, noninvasive ventilation placed in successfully, decreasing pCO2 and making the patient comfortable. At present, he is sitting up in a bed, tachypneic. Heart rate is much improved from 140 to 110 and feels better. No hemoptysis, hematemesis, or hematuria. No diarrhea reported. PAST MEDICAL HISTORY: Chronic obstructive lung disease, anemia, history of vertebral fracture, and history of substance abuse especially heroin. FAMILY HISTORY: No significant cardiopulmonary disease reported. SOCIAL HISTORY: He is a former smoker. MEDICATIONS: He is on morphine 4 mg q.4 hours p.r.n., Tylenol p.r.n. basis, Zofran p.r.n. basis, received Solu-Medrol 125 mg, Zosyn 4.5 g one dose, aspirin, DuoNeb, received Cardizem, also been on at home, Colace, and Flexeril. REVIEW OF SYSTEMS: No headache. No rhinitis. Admits to have some chest pain and shortness of breath. No nausea. No vomiting. No diarrhea. No leg pain or leg swelling. PHYSICAL EXAMINATION: GENERAL: Sitting up in a bed, on noninvasive ventilation, and tachypneic. VITAL SIGNS: Afebrile, heart rates 110 to 115, respiratory rate is 20 to 30, blood pressure is 102/71, and pulse ox 97% on BiPAP. HEENT: Moist mucous membranes. Crowded airway. NECK: Supple. No JVD. LUNGS: Poor airflow with expiratory phase with wheezing. HEART: S1 and S2. ABDOMEN: Soft and nontender. No organomegaly. EXTREMITIES: No edema. NEUROLOGICAL: Awake, alert, and follow simple commands. LABORATORY DATA: Shows hemoglobin 13.9, hematocrit 43.0, WBC 15.9, and platelet count is 216. VBG on admission shows pH of 7.27, pCO2 of 100, and also placing on BiPAP. The patient's ABG showed pH of 7.40, pCO2 of 63, and O2 of 132. Sodium 138, potassium 2.9, chloride 91, bicarbonate is 45, BUN 28, creatinine 0.8, calcium 9.1, phosphorus 4.0, and magnesium 2.2. Chest x-ray done in ER shows no active pulmonary disease other than chronic obstructive lung disease. IMPRESSION AND PLAN: Respiratory failure with CO2 retention, respiratory acidosis, has multiple compression fracture of the vertebra, and malnourished. Case discussed with ER physician, my concern was that he is stable enough to go telemetry. According to ER team, the patient frequently visited to ER with similar scenario. He does well with noninvasive ventilation, so I will continue present setting with noninvasive ventilation, add Solu-Medrol 40 mg q.6 hours, doxycycline 100 mg twice a day, DuoNeb q.6 hours, and Mucomyst twice a day. Add Daliresp 500 mcg daily, gastric prophylaxis, and DVT prophylaxis. Continue BiPAP. Follow up ABG and chest x-ray in the morning. Thank you and we will follow with you. Winston Mendenhall MD 19:05:32
[2017-01-15] MEDS: Pantoprazole 40 mg EC Tab PO SCH (05:27)
[2017-01-15] MEDS: MethylPREDNISolone 40 mg Vial IVP SCH ×3 (05:27→21:36)
[2017-01-15] MEDS: Cefepime 1gm in NS 100ml 1 GM/100 ML BAG IVPB SCH ×3 (05:27→21:57)
[2017-01-15] MEDS ORDERED: Morphine 2 mg/ml ISec IVP STA ×2 (06:41→07:20)
--- NOTE | 2017-01-15 07:57 | CP.PCM.PN ---
Subjective - Date & Time of Evaluation Date of Evaluation: 01/15/17 Time of Evaluation: 06:00 - Subjective Subjective: called by nurse pt has tachy cardia. on further questioning pt states hehas cp and back pain 10/10 intermittent.pt is admitted for severe copd and hypercapnaeic respiratory failure. pt is on bipap.pt also has hx of spinal compression fractures. Objective - Vital Signs/Intake and Output Vital Signs (last 24 hours): Temp Pulse Resp BP Pulse Ox 97.9 F 130 H 20 114/84 98 01/15/17 06:00 01/15/17 06:52 01/15/17 06:00 01/15/17 06:52 01/15/17 06:00 - Medications Medications: Current Medications Acetaminophen (Tylenol 325mg Tab) 650 mg PO Q4H PRN PRN Reason: Fever >100.5 F Last Admin: 01/15/17 05:48 Dose: 650 mg Acetylcysteine (Acetylcysteine 20%) 3 ml INH BIDRESP ERIC Albuterol/Ipratropium (Duoneb 3 Mg/0.5 Mg (3 Ml) Ud) 3 ml IH [id number] ERIC Last Admin: 01/15/17 01:07 Dose: 3 ml Budesonide (Pulmicort Respules) 0.5 mg IH [id number] ERIC Calcium/Vitamin D (Oscal-D 250 Mg-125 Units Tab) 1 tab PO DAILY ERIC Diltiazem HCl (Cardizem Cd) 120 mg PO DAILY ERIC Doxycycline Hyclate (Doryx) 100 mg PO Q12 ERIC PRN Reason: Protocol Last Admin: 01/14/17 22:13 Dose: 100 mg Heparin Sodium (Porcine) (Heparin) 5,000 units SC Q12 ERIC PRN Reason: Protocol Last Admin: 01/14/17 22:12 Dose: 5,000 units Cefepime HCl (Maxipime 1gm) 1 gm in 100 mls @ 100 mls/hr IVPB Q8 ERIC PRN Reason: Protocol Last Admin: 01/15/17 05:27 Dose: 100 mls/hr Lidocaine (Lidoderm) 2 ea TD HS ERIC Last Admin: 01/14/17 22:13 Dose: 2 ea Methylprednisolone (Solu-Medrol) 40 mg IVP Q8 ERIC Last Admin: 01/15/17 05:27 Dose: 40 mg Ondansetron HCl (Zofran Inj) 4 mg IVP Q4H PRN PRN Reason: Nausea/Vomiting Pantoprazole Sodium (Protonix Ec Tab) 40 mg PO 0600 [facility] Last Admin: 01/15/17 05:27 Dose: 40 mg Roflumilast (Daliresp) 500 mcg PO DAILY [facility] - Constitutional Appears: No Acute Distress, Cachectic - Head Exam Head Exam: NORMOCEPHALIC - Eye Exam Pupil Exam: PERRL - ENT Exam ENT Exam: Mucous Membranes Moist - Neck Exam Neck Exam: Full ROM - Respiratory Exam Respiratory Exam: NORMAL BREATHING PATTERN - Cardiovascular Exam Cardiovascular Exam: Tachycardia, RRR, +S1, +S2 - GI/Abdominal Exam GI & Abdominal Exam: Soft, Normal Bowel Sounds - Extremities Exam Extremities Exam: Full ROM - Neurological Exam Neurological Exam: Alert, Awake, Oriented x3 - Psychiatric Exam Psychiatric exam: Normal Affect - Skin Skin Exam: Dry, Warm Assessment and Plan - Assessment and Plan (Free Text) Assessment: sinus tachycardia/cp. copd . acute st elevation in inferior lead on ekg Plan: morphine , cardiazem , aspirin nitro given to pt . hr decreased to [address] changes . cp decreased but sill present . dr christiane leo. is calling dr marte for pt.
--- NOTE | 2017-01-15 08:00 | CP.PCM.PN ---
Subjective - Date & Time of Evaluation Date of Evaluation: 01/15/17 Time of Evaluation: 06:35 - Subjective Subjective: called by nurse pt is c/o back pain and hr is elevated . pt has hx of multiple compression fractures of spine and severe copd. pt is on bipap. Objective - Vital Signs/Intake and Output Vital Signs (last 24 hours): Temp Pulse Resp BP Pulse Ox 97.6 F 95 H 19 105/74 99 01/15/17 00:01 01/15/17 02:00 01/15/17 00:01 01/15/17 00:01 01/15/17 00:01 - Medications Medications: Current Medications Acetaminophen (Tylenol 325mg Tab) 650 mg PO Q4H PRN PRN Reason: Fever >100.5 F Last Admin: 01/15/17 05:48 Dose: 650 mg Acetylcysteine (Acetylcysteine 20%) 3 ml INH BIDRESP ERIC Albuterol/Ipratropium (Duoneb 3 Mg/0.5 Mg (3 Ml) Ud) 3 ml IH [id number] ERIC Last Admin: 01/15/17 01:07 Dose: 3 ml Budesonide (Pulmicort Respules) 0.5 mg IH [id number] ERIC Calcium/Vitamin D (Oscal-D 250 Mg-125 Units Tab) 1 tab PO DAILY ERIC Diltiazem HCl (Cardizem Cd) 120 mg PO DAILY ERIC Diltiazem HCl (Cardizem) 10 mg IVP STAT STA Stop: 01/15/17 06:33 Doxycycline Hyclate (Doryx) 100 mg PO Q12 ERIC PRN Reason: Protocol Last Admin: 01/14/17 22:13 Dose: 100 mg Heparin Sodium (Porcine) (Heparin) 5,000 units SC Q12 ERIC PRN Reason: Protocol Last Admin: 01/14/17 22:12 Dose: 5,000 units Cefepime HCl (Maxipime 1gm) 1 gm in 100 mls @ 100 mls/hr IVPB Q8 ERIC PRN Reason: Protocol Last Admin: 01/15/17 05:27 Dose: 100 mls/hr Lidocaine (Lidoderm) 2 ea TD HS ERIC Last Admin: 01/14/17 22:13 Dose: 2 ea Methylprednisolone (Solu-Medrol) 40 mg IVP Q8 ERIC Last Admin: 01/15/17 05:27 Dose: 40 mg Ondansetron HCl (Zofran Inj) 4 mg IVP Q4H PRN PRN Reason: Nausea/Vomiting Pantoprazole Sodium (Protonix Ec Tab) 40 mg PO 0600 [facility] Last Admin: 01/15/17 05:27 Dose: 40 mg Roflumilast (Daliresp) 500 mcg PO DAILY ERIC - Constitutional Appears: No Acute Distress - Head Exam Head Exam: NORMOCEPHALIC
--- NOTE | 2017-01-15 08:25 | CARD ---
APPROVED REPORT EKG Measurement Heart [id number] <Conclusion> Sinus tachycardia Otherwise normal ECG No change
[2017-01-15] MEDS: Acetylcysteine 20% Inhal Soln (4ml) INH SCH ×2 (08:32→20:22)
[2017-01-15] MEDS: Budesonide 0.5 mg/2 ml Inhal Susp UD IH SCH ×3 (08:33→20:23)
--- NOTE | 2017-01-15 08:40 | CARD ---
APPROVED REPORT EKG Measurement Heart [id number] [id number] <Conclusion> SVT ST elevations 2,3,F, possible acute ME Findings are new since earlier ECG.
[2017-01-15] MEDS: diltiaZEM IVPB 100mg in NS 100 ML IV PRN ×2 (09:28→23:50)
[2017-01-15] MEDS: diltiaZEM 180 mg/24 Hours CD Cap PO SCH (09:30)
[2017-01-15] MEDS: Calcium-Vit D 250 mg-125 Units Tab UD PO SCH (09:31)
--- NOTE | 2017-01-15 09:45 | CARD ---
APPROVED REPORT EKG Measurement Heart [id number] <Conclusion> Normal sinus rhythm Septal infarct, age undetermined Since earlier ECG: the rate is slower and ST elevations 2,3,F no longer present
--- NOTE | 2017-01-15 09:46 | CARD ---
APPROVED REPORT EKG Measurement Heart [id number] [place] 142P [id number] <Conclusion> SVT ST elevations 2,3,F, possible acute IMI or injury pattern C/W earlier ECG: the rate is slower
[2017-01-15] MEDS ORDERED: diltiaZEM 120 mg/24 Hours CD Cap PO SCH ×2 (10:00)
[2017-01-15] MEDS ORDERED: Pantoprazole 40 mg EC Tab PO SCH (12:00)
[2017-01-15] MEDS ORDERED: Oxycodone/Acetaminophen 5/325 mg Tab PO PRN (16:52)
[2017-01-15] MEDS: Morphine 2 mg/ml ISec IVP PRN (18:23)
--- NOTE | 2017-01-15 19:38 | PN ---
PULMONARY PROGRESS NOTE DATE: 01/15/2017 REFERRING PHYSICIAN: Janet Gillespie MD SUBJECTIVE: The patient is sitting up in the bed. Feels better. Off non-invasive ventilator or nasal cannula. Still cough with shortness of breath. On and off headache. No nausea. No vomiting. No diarrhea. No leg pain or leg swelling. OBJECTIVE: GENERAL: In no acute distress. VITAL SIGNS: Temperature is 98, heart rate is 88, respiratory rate is 18, and blood pressure 114/77. HEENT: Moist mucous membrane. Crowded airway. NECK: Supple. No JVD. LUNGS: Had a poor airflow. HEART: S1 and S2. ABDOMEN: Soft, nontender. No organomegaly. EXTREMITIES: No edema. NEUROLOGICAL: Awake and alert. Follow simple commands. MEDICATIONS: He is on Mucomyst 20% inhale twice a day, Cardizem IV and also Cardizem p.o. 180 mg daily, Daliresp 500 mcg daily, doxycycline 100 mg twice a day, DuoNeb q. 6 hours, heparin 5000 units subcutaneous q. 12 hours, Lidoderm patch affected area at bedtime, cefepime 1 g q. 8 hours, vitamin D and calcium one tab daily, Percocet 5/325 mg one tab q. 6 hours p.r.n., Protonix 40 mg daily, also Pulmicort inhaler twice a day, Solu-Medrol 40 mg q. 8 hours, Tylenol p.r.n., and Zofran p.r.n. basis. LABORATORY DATA: Reviewed shows troponin less than 0.01 and glucose is 116. IMPRESSION AND PLAN: Respiratory failure with CO2 retention, requiring non-invasive ventilation, chronic obstructive lung disease, history of osteopenia with vertebral fracture, Pulmicort . We will encourage the patient to use bilevel positive airway pressure at night time and p.r.n. during the daytime if short of breath, intravenous and inhaled bronchodilator. Supplement calcium and vitamin D. Gastric prophylaxis and deep venous thrombosis prophylaxis. Thank you and we will follow with you. Winston Mendenhall MD
--- NOTE | 2017-01-15 20:31 | CON ---
DATE: 01/15/2017 CONSULTATION The patient was seen earlier this morning in room 268, bed 1. CHIEF COMPLAINT: Shortness of breath for several days. HISTORY OF PRESENT ILLNESS: This is a 56-year-old male who appears much, much older than his stated age, who was admitted through the emergency room on 01/14/2017, was seen by in the emergency room. The patient was admitted with history of chronic obstructive lung disease, spinal compression fractures. The patient was admitted with back pain and shortness of breath. He did not have any fevers or chills. No headache. No new neck pain, no abdominal pain, diarrhea or constipation. PAST MEDICAL HISTORY: Is significant for chronic obstructive lung disease, atrial fibrillation, coronary artery disease and spinal compression fractures. PAST SURGICAL HISTORY: Significant for tonsillectomy. ALLERGIES: THE PATIENT HAS NO KNOWN ALLERGIES. MEDICATIONS AT HOME: Reveals the inhaler, Flexeril and Colace. PHYSICAL EXAMINATION: GENERAL: The patient is lying in bed. Appearing chronically ill. Appears much older than his stated age. VITAL SIGNS: Temperature of 98, heart rate of 101, respiratory rate of 22, blood pressure is 114/80. Oxygen saturation is 98%. HEENT: Unremarkable. NECK: .Supple. CARDIOPULMONARY: Heart exam has normal S1 and S2. LUNGS: Decreased breath sounds. ABDOMEN: Soft, nontender, no rebound, no guarding. LABORATORY DATA: Reveals a white count of 15,900; hemoglobin of 13; platelets of 216. Coagulation is noted. Blood gases are noted. BUN is 28, creatinine of 0.5. The patient had a chest x-ray which showed no active pulmonary disease. It did show chronic obstructive lung disease. Dr. Jay Mendenhall's consultation is appreciated. The patient is a 56-year-old gentleman with known chronic obstructive lung disease and multiple spinal compression fractures in the past, who is admitted now with respiratory acidosis and CO2 retention. ASSESSMENT AND PLAN: This is a 56-year-old male who appears chronically ill, cachectic, with a BMI of 17, who appears much, much older than his stated age of 56, with chronic obstructive lung disease, spinal compression fracture, atrial fibrillation, coronary artery disease, presenting with shortness of breath, tachycardia. 1. Systemic inflammatory response syndrome. Currently, the patient is treated with steroids doxycycline and Cefepime. We will check on the procalcitonin and the blood culture results and clinical response. emergency operator prognosis for this patient is poor. We will follow up closely with you. Review of previous cultures reveals the blood cultures in the past had been negative, and the patient has had an HIV test, that was negative in September. Hepatitis profile is negative, also in 09/2016. Sin Milton MD
[2017-01-15] MEDS: Lidocaine 5% Patch TD SCH (21:44)
[2017-01-16] MEDS: Morphine 2 mg/ml ISec IVP PRN ×4 (00:31→23:40)
[2017-01-16] MEDS: Albuterol-Ipratrop 3 mg / 0.5 (3 ml) UD IH SCH ×4 (01:41→20:11)
[2017-01-16] MEDS: MethylPREDNISolone 40 mg Vial IVP SCH ×2 (05:33→15:00)
[2017-01-16] MEDS: Cefepime 1gm in NS 100ml 1 GM/100 ML BAG IVPB SCH ×3 (05:33→23:50)
[2017-01-16] MEDS: Pantoprazole 40 mg EC Tab PO SCH (05:34)
[2017-01-16] MEDS: Acetylcysteine 20% Inhal Soln (4ml) INH SCH ×2 (09:02→20:11)
[2017-01-16] MEDS: Budesonide 0.5 mg/2 ml Inhal Susp UD IH SCH ×2 (09:03→20:11)
[2017-01-16] MEDS: Calcium-Vit D 250 mg-125 Units Tab UD PO SCH (10:51)
[2017-01-16] MEDS: diltiaZEM 180 mg/24 Hours CD Cap PO SCH (10:51)
--- NOTE | 2017-01-16 11:01 | CT ---
PROCEDURE: CT Thoracic Spine without contrast HISTORY: pain COMPARISON: 11/15/2016 TECHNIQUE: Axial computed tomography images were obtained of the thoracic spine without intravenous contrast. Coronal and sagittal reformatted images were created and reviewed. Radiation dose: Total exam DLP = 201.57 mGy-cm. This CT exam was performed using one or more of the following dose reduction techniques: Automated exposure control, adjustment of the mA and/or kV according to patient size, and/or use of iterative reconstruction technique. FINDINGS: VERTEBRAE: There are multiple thoracic vertebral compression fractures. In comparison to the prior examination of 11/15/2016, there has been. Multiple vertebroplasties performed. There is vertebroplasty on the T12 vertebra and T8 vertebra since the prior examination. There is increased compression deformity of the T7 vertebra since the prior examination. There is marked compression deformity of the T3 and T4 vertebral bodies new since prior examination. Remaining vertebral bodies are maintained in height. No lytic or blastic osseous lesion is appreciated. The transverse processes and posterior elements are grossly intact. . DISCS/SPINAL CANAL/NEURAL FORAMINA: There is narrowing of multiple intervertebral disc spaces of the upper thoracic spine including T 3- 4, 4- 5, 5- 6, 6-7 and T7-8. This is unchanged.. PARASPINAL SOFT TISSUES: Unremarkable. OTHER FINDINGS: Unremarkable. IMPRESSION: New or increasing compression deformity of T7, T3 and T4 vertebral bodies compared to 11/14. Status post interval vertebroplasty of T8 and T12 vertebrae.
--- NOTE | 2017-01-16 11:15 | PN ---
DATE: 01/16/2017 SUBJECTIVE: The patient is in bed, in no acute distress, nontoxic. PHYSICAL EXAMINATION: VITAL SIGNS: Temperature is 98, blood pressure is 118/80, respiratory rate of 18, and heart rate of 101. HEENT: Unremarkable. NECK: Supple. LUNGS: Decreased breath sounds. HEART: Normal S1 and S2. ABDOMEN: Soft and nontender. LABORATORY DATA: Reveals a white count of 15,900, hemoglobin of 13, and platelets of 216. Blood gases are noted. Chemistries reveals creatinine of 0.5. Microbiology reveals blood cultures no growth. Dr. Mendenhall's progress note is reviewed from yesterday. ASSESSMENT AND PLAN: This is a 56-year-old male, who appears chronically ill, cachectic with a BMI of 17, who appears much older than his stated age of 56, with end-stage chronic obstructive lung disease, spinal compression fractures, atrial fibrillation, coronary artery disease, who is now presenting with systemic inflammatory response syndrome, on doxycycline and cefepime, day #3, also on prednisone. The patient is scheduled for CT of the spine and negative cultures and negative procalcitonin, and hyperinflated lungs with peribronchial thickening with no focal consolidation, most likely we will discontinue the cefepime in the next 24-48 hours. His overall prognosis is quite poor with CO2 retention, requiring noninvasive ventilation and end-stage chronic obstructive lung disease, osteopenia, and vertebral fractures. Sin Milton MD
--- NOTE | 2017-01-16 11:19 | CT ---
PROCEDURE: CT Lumbar Spine without contrast HISTORY: pain COMPARISON: None. TECHNIQUE: Axial computed tomography images were obtained of the lumbar spine without the use of intravenous contrast. Coronal and sagittal reformatted images were created and reviewed. Radiation dose: Total exam DLP = 152.87 mGy-cm. This CT exam was performed using one or more of the following dose reduction techniques: Automated exposure control, adjustment of the mA and/or kV according to patient size, and/or use of iterative reconstruction technique. FINDINGS: VERTEBRAE: There is severe compression deformity of the L2 vertebra, unchanged. Once again, there is mild spinal stenosis as a result of this L2 compression fracture. This is unchanged in extent. There is mild increase compression deformity of the L3 vertebra. There is persistent moderate compression deformity of the L4 and L5 vertebrae. The patient is status post interval vertebroplasty of the L1 vertebra. DISCS/SPINAL CANAL/NEURAL FORAMINA: L1-2: Unremarkable. L2-3: Disc bulge. Mild spinal stenosis, no significant change. L3-4: Unremarkable L4-5: Diffuse disc bulge. Mild spinal stenosis. No change. L5-S1: Unremarkable. PARASPINAL SOFT TISSUES: Unremarkable. OTHER FINDINGS: None. IMPRESSION: Status post interval vertebroplasty of L1. Severe compression deformity of L2 with mild spinal stenosis resulting from retropulsion. No change. Mild increased compression deformity of L3. Persistent compression deformity of L4 and L5.
--- NOTE | 2017-01-16 12:47 | PN ---
DATE: 01/16/2017 CARDIOLOGY FOLLOWUP SUBJECTIVE: The patient is off the BIPAP this morning, still complains of chronic shortness of breath. OBJECTIVE: VITAL SIGNS: Blood pressure is 118/81, heart rate is in the 80s, normal sinus rhythm. NECK: Negative JVD. LUNGS: Decreased breath sounds without rales. HEART: Reveal S1, S2. EXTREMITIES: Without edema. LABORATORY DATA: Troponins are negative x1. Glucose is 116. IMPRESSION: 1. Exacerbation of chronic obstructive pulmonary disease. 2. Severe chronic obstructive pulmonary disease. 3. Supraventricular tachycardia. 4. Diffuse body aches including chest and back pain. Given these findings, the patient's symptoms are predominately from his severe COPD, there is no evidence for acute coronary syndrome. We will discontinue telemetry today. We will order an echocardiogram to evaluate, to rule out pulmonary hypertension. Karlo Lawson MD
[2017-01-16] MEDS: diltiaZEM IVPB 100mg in NS 100 ML IV PRN (19:57)
[2017-01-16] MEDS: Lidocaine 5% Patch TD SCH ×2 (23:51→23:58)
--- NOTE | 2017-01-16 23:58 | PN ---
PULMONARY PROGRESS NOTE DATE: 01/16/2017 REFERRING PHYSICIAN: Dr. Tomas SUBJECTIVE: The patient is sitting up in the bed. Complaining of generalized pain, especially when breathing, anxious at a time, also have a shortness of breath. No nausea. No vomiting. No diarrhea. No leg pain or leg swelling. OBJECTIVE: GENERAL: In no acute distress. VITAL SIGNS: Temperature is 98, heart rate is 106, respiratory rate is 22, blood pressure 121/76, pulse ox 99% on BiPAP. HEENT: Moist mucous membrane. Small oral cavity. NECK: Supple. No JVD. LUNGS: Had a poor airflow. HEART: S1 and S2. ABDOMEN: Soft, nontender. No organomegaly. EXTREMITIES: There is no edema. NEUROLOGICAL: Awake and alert. Follow simple command, but very anxious. MEDICATIONS: He is on Mucomyst 20% inhale twice a day, diltiazem IV drip, Cardizem CD 180 mg daily, Daliresp 500 mcg daily, doxycycline 100 mg twice a day, DuoNeb q. 6 hours, heparin 5000 units subcutaneous q. 12 hours, Lidoderm patch at bedtime, cefepime 1 g IV q. 8 hours, morphine 2 g IV q. 6 hours p.r.n., calcium plus vitamin D 1 tablet daily, Protonix 40 mg daily, Pulmicort inhaler twice a day, Solu-Medrol 40 mg q. 8 hours, Tylenol p.r.n. basis, and Zofran p.r.n. basis. LABORATORY DATA: Reviewed. No new lab is available since yesterday. Microbiology; blood cultures have been negative. Had a CT scan of the thoracic spine done this afternoon, which shows new or increased compression deformities at T7, T3, and T4 vertebral bodies compared to 11/14/2016 and 05/07/2016. Also have a vertebroplasty done at T8 and T12 vertebrae. There is also vertebroplasty at L1, severe compression fracture at L2 with mild spinous stenosis resulting from retropulsion. IMPRESSION AND PLAN: Respiratory failure with CO2 retention, requiring non-invasive ventilation; chronic obstructive lung disease, osteopenia, multiple vertebral fractures. We have no choice to continue steroids because of his severe limitation of lung disease. We will decrease to 20 mg q. 8 hours. Continue inhaled bronchodilator. Continue BiPAP as needed basis, pain management, gastric prophylaxis and deep venous thrombosis prophylaxis. Thank you and we will follow with you. Winston Mendenhall MD
[2017-01-17] MEDS: MethylPREDNISolone 40 mg Vial IVP SCH ×4 (00:02→21:35)
[2017-01-17] MEDS: Albuterol-Ipratrop 3 mg / 0.5 (3 ml) UD IH SCH ×4 (02:40→22:10)
--- NOTE | 2017-01-17 04:55 | PN ---
DATE: 01/15/2017 SUBJECTIVE: The patient complained of severe back pain. Toradol, ibuprofen, and Tylenol seem not helping. Tramadol, no help and he needs more medications. His breathing is better, but it gets worse with pain severity. PHYSICAL EXAMINATION: VITAL SIGNS: On 01/15/2017, his temperature is 98.2, heart rate 99, blood pressure 116/76, respirations 22. HEAD AND NECK: Normal. No JVD. No thyromegaly. CHEST: Diminished breath sounds bilaterally. CARDIAC: First second and second sound normal. ABDOMEN: Soft and nontender. EXTREMITIES: No edema. SPINE: The patient's spine exam is tender to touch. NEUROLOGIC: Normal. LABORATORY STUDIES: Noted for chemistry; blood sugar 150 and procalcitonin 0.08. Troponin was negative. IMPRESSION AND PLAN: 1. Acute chronic obstructive pulmonary disease exacerbation. Continue IV steroids. Continue inhaled bronchodilators, BiPAP, and follow up with the parking meter collector, Dr. Mendenhall. Stable pulmonary glass. 2. Severe chronic back pain, seemed old fractures, history of kyphoplasty. We gave the patient Percocet, the patient refused. He said it does not help him. We will give him morphine 2 mg every 6 hours p.r.n. We will follow up clinically this patient and we will get Dr. Karlo Morales to help us to review CT spine, also thoracic and lumbosacral spine to evaluate his spine. Continue current therapy. Follow clinically. Elmo Tomas MD
[2017-01-17] MEDS: Cefepime 1gm in NS 100ml 1 GM/100 ML BAG IVPB SCH ×3 (05:28→21:37)
[2017-01-17] MEDS: Pantoprazole 40 mg EC Tab PO SCH (05:29)
[2017-01-17] MEDS: Morphine 2 mg/ml ISec IVP PRN ×3 (05:30→20:21)
--- NOTE | 2017-01-17 05:55 | HP ---
REASON FOR ADMISSION: Acute short of breath. HISTORY OF PRESENT ILLNESS: A 56-year-old male, history of chronic COPD, severe COPD, has been known to the hospitalist program and to Dr. Mendenhall from multiple admissions with COPD exacerbation and severe emphysema. He has been recently placed in detention for 6 weeks. He also has chronic severe back pain, intractable back pain according to him and apparently he is not taking except Advil p.r.n. The patient has no chest pain, just complaint of severe short of breath and also chronic back pain of the whole spine. Denied any fever. He does have some cough. He does have severe short of breath when he came in and very well known with CO2 retainer. In the emergency room, he was evaluated, was given BiPAP with improvement of his ventilations and the patient did well. ALLERGIES: NO KNOWN ALLERGY. 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 FAMILY HISTORY: Not significant. SOCIAL HISTORY: He is a former smoker. MEDICATIONS: He does take inhalers, nebulizer treatment in the detention and his home medications are as follows; he takes Pepcid, he takes nebulizer treatment, Flexeril, Cardizem CD 120 mg once a day, Colace, Flonase, and he also takes Bengay cream. PHYSICAL EXAMINATION: GENERAL: When he came in was tachypneic and was tachycardic with improvement when he came in. VITAL SIGNS: As follows: Temperature 97.8; heart rate was 120-130, came down to 100; and his respiratory rate was like in the 30s, came down to 20, saturation 97% on BiPAP. HEAD AND NECK: Normal. No JVD. CHEST: Diminished breath sounds bilaterally. CARDIAC: First and second sounds normal, tachycardic. No murmurs. ABDOMEN: Soft, nontender. EXTREMITIES: Lower extremities, no edema. BACK: Spine seems tender all over to touch according to him. NEUROLOGIC: Exam is nonfocal. The patient is alert, awake, oriented x3. LABORATORY STUDIES: When he came in, his white count was 15.9, hemoglobin 16.9, hematocrit 43, platelets 216. Chemistry was noted for sodium 138, potassium 3.9, chloride 91, bicarb 45, BUN 28, creatinine 0.5. Liver function test is normal. Chest x-ray noted for lungs hyperinflated, peribronchial thickening, chronic changes in both lungs, no focal consolidations. There is also diffuse demineralization of the bones and kyphoplasty in one of the mid thoracic and lower thoracic vertebral bodies. There is an old fracture deformed in the left posterior 6th and 7th ribs. We will go into blood gas also which reflect his lung severity, his pH is 7.40, pO2 of 132, pCO2 of 63, oxygen sat 99%, and ABG, base excess 11.5. Earlier, his pH of the previous ABGs was pH of 7.27, pCO2 of 100, bicarb 45, and oxygen sat 65%. IMPRESSION AND PLAN: 1. A 56-year-old male with severe chronic obstructive pulmonary disease. We will admit the patient for IV for acute chronic obstructive pulmonary disease exacerbation. We will give IV steroids. We will give inhaled bronchodilators, continue BiPAP, IV antibiotics and we will admit to telemetry to monitor his cardiac status. We will get a pulmonary consult to Dr. Mendenhall. For his back pain, we will give him some Toradol, may be ibuprofen and we will try that and tramadol was given an option for him, but he says is not helping him at all, so we will continue to monitor his back problem and we will follow up clinically. Also, get Dr. Karlo Morales to address his back spine problems and we will see how he does. 2. Also, we will get infectious disease consult with Dr. Milton and we will follow up on his leukocytosis. Elmo Tomas MD
[2017-01-17] MEDS ORDERED: Magnesium Hydroxide Susp 30 ml UD PO ONE (07:00)
[2017-01-17] MEDS: Acetylcysteine 20% Inhal Soln (4ml) INH SCH ×2 (08:07→22:09)
[2017-01-17] MEDS: Budesonide 0.5 mg/2 ml Inhal Susp UD IH SCH ×2 (08:07→22:10)
--- NOTE | 2017-01-17 09:04 | CON ---
DATE: 01/15/2017 CARDIOLOGY CONSULTATION HISTORY OF PRESENT ILLNESS: The patient is a 56-year-old male with a long history of severe COPD from smoking who presents with pleuritic like chest pain. His chest pain is increased on inspiration. The EKG shows low atrial rhythm consistent with an SVT or atrial tachycardia with associated ST-T changes. In addition, the patient's past medical history is notable for an SVT treated with diltiazem. No previous myocardial infarction. SOCIAL HISTORY: This former heavy smoker. Negative diabetes mellitus. REVIEW OF SYSTEMS: A 14-point review of systems was reviewed. Dyspnea and pleuritic like chest pain is predominant symptoms currently the patient is on CPAP. PHYSICAL EXAMINATION: VITAL SIGNS: Blood pressure 113/84, heart rate in the 80s, normal sinus rhythm. NECK: Negative JVD. LUNGS: Decreased breath sounds. HEART: Reveal S1, S2. EXTREMITIES: Without edema. EKG during the tachycardia shows a low atrial rhythm with diffuse ST-T changes. Now the patient is back in normal sinus rhythm at [address] resolution of the ST changes. LABORATORY: Glucose is 116, BUN and creatinine unremarkable. Hemoglobin is 13.9. IMPRESSION: 1. Exacerbation of chronic obstructive pulmonary disease. 2. Pleuritic like chest pain. 3. No evidence for acute coronary syndrome. 4. Low atrial rhythm with tachycardia, likely due to his chronic obstructive pulmonary disease and treatment of his chronic obstructive pulmonary disease. Given these findings, I agree with restarting him on his diltiazem. We will increase his Cardizem to 180 daily. Karlo Lawson MD
[2017-01-17] MEDS: diltiaZEM 180 mg/24 Hours CD Cap PO SCH (09:08)
[2017-01-17] MEDS: Calcium-Vit D 250 mg-125 Units Tab UD PO SCH (09:09)
[2017-01-17] MEDS ORDERED: Enoxaparin 40 mg Syringe SC SCH (10:00)
--- NOTE | 2017-01-17 13:21 | CP.PCM.PN ---
Subjective - Date & Time of Evaluation Date of Evaluation: 01/17/17 Time of Evaluation: 10:05 - Subjective Subjective: Comfortable, no efevers, not in distress. Objective - Vital Signs/Intake and Output Vital Signs (last 24 hours): Temp Pulse Resp BP Pulse Ox 97.9 F 101 H 20 116/83 99 01/17/17 06:00 01/17/17 09:08 01/17/17 06:00 01/17/17 09:08 01/17/17 06:00 Intake and Output: 01/17/17 01/17/17 06:59 18:59 Intake Total 480 Output Total 500 Balance -20 - Medications Medications: Current Medications Acetaminophen (Tylenol 325mg Tab) 650 mg PO Q4H PRN PRN Reason: Fever >100.5 F Last Admin: 01/17/17 08:41 Dose: 650 mg Acetaminophen (Tylenol 325mg Tab) 650 mg PO Q4H PRN PRN Reason: Pain, Mild (1-3) Last Admin: 01/16/17 15:00 Dose: 650 mg Acetylcysteine (Acetylcysteine 20%) 3 ml INH BIDRESP ERIC Last Admin: 01/17/17 08:07 Dose: Not Given Albuterol/Ipratropium (Duoneb 3 Mg/0.5 Mg (3 Ml) Ud) 3 ml IH [id number] ERIC Last Admin: 01/17/17 08:07 Dose: 3 ml Atenolol (Tenormin) 25 mg PO BID ERIC Budesonide (Pulmicort Respules) 0.5 mg IH [id number] ERIC Last Admin: 01/17/17 08:07 Dose: 0.5 mg Calcium/Vitamin D (Oscal-D 250 Mg-125 Units Tab) 1 tab PO DAILY ERIC Last Admin: 01/17/17 09:09 Dose: 1 tab Diltiazem HCl (Cardizem Cd) 180 mg PO DAILY ERIC Last Admin: 01/17/17 09:08 Dose: 180 mg Doxycycline Hyclate (Doryx) 100 mg PO Q12 ERIC PRN Reason: Protocol Last Admin: 01/17/17 09:09 Dose: 100 mg Heparin Sodium (Porcine) (Heparin) 5,000 units SC Q12 ERIC PRN Reason: Protocol Last Admin: 01/17/17 09:09 Dose: 5,000 units Cefepime HCl (Maxipime 1gm) 1 gm in 100 mls @ 100 mls/hr IVPB Q8 ERIC PRN Reason: Protocol Last Admin: 01/17/17 05:28 Dose: 100 mls/hr Lidocaine (Lidoderm) 2 ea TD HS [facility] Last Admin: 01/16/17 23:58 Dose: Not Given Methylprednisolone (Solu-Medrol) 20 mg IVP Q8 [facility] Last Admin: 01/17/17 05:29 Dose: 20 mg Morphine Sulfate (Morphine) 2 mg IVP Q6H PRN PRN Reason: Pain, severe (8-10) Last Admin: 01/17/17 05:30 Dose: 2 mg Ondansetron HCl (Zofran Inj) 4 mg IVP Q4H PRN PRN Reason: Nausea/Vomiting Pantoprazole Sodium (Protonix Ec Tab) 40 mg PO 0600 [facility] Last Admin: 01/17/17 05:29 Dose: 40 mg Roflumilast (Daliresp) 500 mcg PO DAILY [facility] Last Admin: 01/17/17 09:09 Dose: 500 mcg - Constitutional Appears: Non-toxic, No Acute Distress - Head Exam Head Exam: NORMAL INSPECTION - ENT Exam ENT Exam: Mucous Membranes Moist - Neck Exam Neck Exam: absent: Meningismus - Respiratory Exam Respiratory Exam: Decreased Breath Sounds - Cardiovascular Exam Cardiovascular Exam: +S1, +S2 - GI/Abdominal Exam GI & Abdominal Exam: Soft. absent: Tenderness Assessment and Plan - Assessment and Plan (Free Text) Plan: Assessment Systemic Inflammatory response Syndrome, probably due to COPD exacerbation in a patient with end-stage COPD, no evidence of pneumonia on CXR multiple thoracic and lumbar compression fractures, S/P vertebroplasty T8-T12, L1 atrial fibrillation CAD cachexia with BMI 17 Plan On Cefepime and Doxycycline day 4 - will d/c Cefepime today and continue Doxycycline until tomorrow Pulmonary is also following for COPD noted CT thoracic and lumbar spine showing the old and new compression fractures Overall prognosis is poor will monitor clinically
[2017-01-17] MEDS: Enoxaparin 30 mg Syringe SC SCH (14:03)
--- NOTE | 2017-01-17 14:14 | PN ---
REASON FOR CONSULTATION: Arrhythmia and chronic obstructive pulmonary disease exacerbation. SUBJECTIVE: The patient is lying flat on the bed, not in apparent distress. Denies any chest pain. Denies any shortness of breath or palpitation. PHYSICAL EXAMINATION GENERAL: Lying on bed, not in apparent distress. VITAL SIGNS: Temperature afebrile, heart rate 81, and blood pressure 116/83. HEENT: PERRLA. Extraocular muscles intact. NECK: Supple. No carotid bruits. No thyromegaly. CHEST: Clear to auscultation. HEART: S1 and S2 regular. ABDOMEN: Soft. EXTREMITIES: Clubbing and cyanosis negative. LABORATORY DATA: Blood work up as follows: WBC 15.9, hemoglobin 13.9, hematocrit 43.0, and platelet count 216. Chemistry shows sodium 130, potassium 3.9, chloride 91, carbon dioxide 45, anion gap of 6, BUN 28, creatinine 0.5. EKG shows normal sinus, no acute ST-T changes. Note had initially reported ST elevation, but no evidence of acute PR. IMPRESSION: Acute exacerbation of chronic obstructive pulmonary disease, supraventricular tachycardia on bilevel positive airway pressure, extensive chronic obstructive pulmonary disease, history of pulmonary disease, history of substance abuse in the past. RECOMMENDATION: Change Cardizem to CD. Discontinue IV Cardizem. Change atenolol 25 b.i.d. We will discontinue telemetry. Thank you Dr. Tomas for providing us the opportunity in taking care of the patient. We will also put DVT prophylaxis. Winston Herring MD
--- NOTE | 2017-01-17 20:57 | PN ---
PULMONARY PROGRESS NOTE DATE: 01/17/2017 REFERRING PHYSICIAN: Dr. Tomas. SUBJECTIVE: He is sitting up in a bed. Keep complaining about back pain. Breathing is okay. Does well with noninvasive ventilation. No nausea. No vomiting. No diarrhea. No leg pain or leg swelling. OBJECTIVE: GENERAL: In no acute distress. VITAL SIGNS: Temperature is 98, heart rate is 84, respiratory rate is 24, blood pressure is 103/73, and pulse ox 99% on room air. HEENT: Moist mucous membrane. Crowded airway. Mallampati score is IV. NECK: Supple. No JVD. LUNGS: Has a poor airflow, prolonged expiratory phase. HEART: S1 and S2. ABDOMEN: Soft and nontender. No organomegaly. EXTREMITIES: No edema. NEUROLOGICAL: Awake and alert. Follows simple commands. MEDICATIONS: He is on Mucomyst 20% inhale q. 12 hours, Cardizem CD 180 mg daily, Daliresp 500 mcg daily, doxycycline 100 mg twice a day, DuoNeb q. 6 hours, heparin 5000 units subcutaneous q. 12 hours, Lidoderm patch daily, Lovenox 30 mg subcutaneous daily, cefepime 1 g IV q. 8 hours, morphine 2 mg q. 6 hours p.r.n., vitamin D and calcium one tablet daily, Protonix 40 mg daily, Pulmicort inhaler twice a day, Tenormin 25 mg twice a day, Tylenol p.r.n. basis, Ultram 50 mg q. 6 hours p.r.n., and Zofran p.r.n. basis. LABORATORY DATA: Reviewed and noted no new changes in medication reported since yesterday. Microbiology: Blood cultures have been negative. IMPRESSION AND PLAN: Respiratory failure with CO2 retention, requiring noninvasive ventilation, chronic obstructive lung disease, osteopenia, multiple vertebral fractures, history of kyphoplasty in the past, chronic pain syndrome, and opiate dependant. Continue IV and inhale bronchodilator. Keep head elevated at 45 degrees. Pain management as per Dr. Tomas, gastric prophylaxis, deep venous thrombosis prophylaxis, fall precautions, and may need evaluation for interventional radiology for further vertebroplasty or kyphoplasty. Thank you and we will follow with you. Winston Mendenhall MD
[2017-01-17] MEDS: Lidocaine 5% Patch TD SCH (21:48)
[2017-01-18] MEDS: Morphine 2 mg/ml ISec IVP PRN ×4 (02:23→21:18)
[2017-01-18] MEDS: Albuterol-Ipratrop 3 mg / 0.5 (3 ml) UD IH SCH ×4 (02:40→19:36)
[2017-01-18] MEDS: Pantoprazole 40 mg EC Tab PO SCH (05:04)
[2017-01-18] MEDS: MethylPREDNISolone 40 mg Vial IVP SCH ×3 (05:05→21:19)
[2017-01-18] MEDS: Cefepime 1gm in NS 100ml 1 GM/100 ML BAG IVPB SCH (05:06)
[2017-01-18] MEDS: Acetylcysteine 20% Inhal Soln (4ml) INH SCH ×2 (08:47→19:36)
[2017-01-18] MEDS: Budesonide 0.5 mg/2 ml Inhal Susp UD IH SCH ×2 (08:47→19:36)
[2017-01-18] MEDS: diltiaZEM 180 mg/24 Hours CD Cap PO SCH (09:15)
[2017-01-18] MEDS: Calcium-Vit D 250 mg-125 Units Tab UD PO SCH (09:16)
[2017-01-18] MEDS: Enoxaparin 30 mg Syringe SC SCH (09:17)
--- NOTE | 2017-01-18 15:46 | PN ---
DATE: 01/17/2017 SUBJECTIVE: The patient complained of back pain, short of breath and also the patient noted loose bowel movement 2 to 3 times that day. He also complained of chest pain on and off for the last 3 weeks. He still has a chest pain now where it seems worse with breathing and worse cough. PHYSICAL EXAMINATION: VITAL SIGNS: Temperature of 98.4, blood pressure of 103/73, respirations 24, and saturation 99%, the patient is on oxygen 30% via BiPAP machine also. HEAD AND NECK: Normal. No JVD. No thyromegaly. The patient is on the edge of the bed, his hand is on the edge of the bead and he is breathing better. CHEST: Diminished breath sounds bilaterally. CARDIAC: First sound and second sounds normal and regular. ABDOMEN: Soft and nontender. EXTREMITIES: No edema. NEUROLOGIC: The patient has no rebound tenderness in the thoracic and lumbar spine. LABORATORY STUDIES: Troponin was negative 0.01. I have ordered repeat lab in the morning. The patient had CT spine, shows compression fractures and severe degenerative disk disease with osteoarthritis. The thoracic spine, shows new or increased compression deformity of , T3 and T4 vertebral bodies compared to 11/14/2016, status post interval vertebroplasty in T8 and T12. For his lumbar spine, post vertebroplasty, severe compression fracture, deformity of L2 with stenosis resulted from retropulsion, mild increase compression deformity of L3, persistent compression deformity of L4-L5. IMPRESSION AND PLAN: 1. Acute chronic obstructive pulmonary disease exacerbation, severe. Continue intravenous steroids and continue current therapy. 2. Chronic back pain with compression deformity. The patient will need to be seen by specialist for his back pain and also I am going to give him vitamin D. Possibly, the patient will need Prolia or some osteoporosis medications to help heal his compression fractures and to prevent his deformities. Different options, to keep on intravenous, we will discuss with the patient about treatment for osteoporosis and may need to be seen by specialist for that and I believe Prolia injection twice a year would be helpful and other options will be Fosamax and similar products. Right now, continue pain medicine. We will discuss with Dr. Karlo Morales to see if any intervention can help him. I believe he has multiple compression fractures. He will need pain management doctor also. 3. Chest pain. The electrocardiogram is unchanged. His troponin is negative. Cardiology consult with Dr. Herring and Dr. Karlo Lawson seen the patient already and we will continue follow up with them. We will continue his treatment. According to cardiology, there is no evidence of acute coronary syndrome. Electrocardiogram changes is transient and further evaluation would be done by them. Continue current therapy. 4. Systemic inflammatory syndrome and leukocytosis. Continue intravenous antibiotics. The patient currently getting Cefepime and doxycycline. 5. Diarrhea. We will get a Clostridium difficile and continue current therapy. CURRENT MEDICATIONS: Mucomyst, Cardizem CD 180, Daliresp, doxycycline, DuoNeb, heparin subcutaneous q. 12 hours, Lidoderm patch, and Lovenox. We will discontinue heparin, Maxipime, morphine, Protonix, Pulmicort, Solu-Medrol, Tenormin, Tylenol, tramadol and Zofran. Continue current therapy. Elmo Tomas MD
--- NOTE | 2017-01-18 15:55 | PN ---
DATE: 01/18/2017 REASON FOR CONSULTATION: Arrhythmia, chronic obstructive pulmonary disease, paroxysmal atrial fibrillation converted to normal sinus, and COPD exacerbation. SUBJECTIVE: Lying flat. Denies any chest pain. Denies any palpitation, but complained of shortness of breath and wheezing. OBJECTIVE: GENERAL: Lying flat with the CPAP, mild respiratory distress on auscultation and mild wheezing. VITAL SIGNS: Temperature afebrile, heart rate 73, and blood pressure 104/77. HEENT: PERRLA. Extraocular ocular muscles intact. NECK: Supple. No carotid bruits or thyromegaly. CHEST: Clear to auscultation. HEART: S1 and S2 regular. ABDOMEN: Soft. EXTREMITIES: Clubbing and cyanosis negative. LABORATORY DATA: Blood workup as follows: WBC 15.9, hemoglobin 13.9, hematocrit 43, and platelet count 216. Chemistry shows sodium 138, potassium 3.9, chloride 91, carbon dioxide 45, anion gap of 6, BUN 28, and creatinine 0.5 IMPRESSION: Paroxysmal atrial fibrillation converted to normal sinus and the patient is in normal sinus, excerebration of chronic obstructive pulmonary disease, supraventricular tachycardia on bilevel positive airway pressure, extensive chronic obstructive pulmonary disease history, history of pulmonary disease, history of substance abuse in the past. Continue Cardizem, changed to p.o. atenolol b.i.d. Continue aggressive treatment for chronic obstructive pulmonary disease. The patient had extensive cardiac workup in the past including cardiac catheterization and echo as well. The patient had a cardiac catheterization on 11/29/2016 because of abnormal stress test that revealed left main ostial 20% stenosis, Left anterior descending circumflex and right coronary artery essentially free of significant disease. Preserved left ventricular function, ejection fraction of 60%. No gradient across aortic valve noted. The patient had also echocardiography on 09/30/2016 that shows normal left ventricle, no segmental wall motion abnormality, trace tricuspid regurgitation reported, right ventricular systolic pressure reported as 30, and ejection fraction 60%. RECOMMENDATIONS: No further cardiac workup is planned or warranted. Continue current treatment as mentioned, Cardizem CD 180 and added atenolol 25 b.i.d. Avoid DuoNeb nebulizer, if needed we will put Xopenex. Thank you Dr. Tomas for providing us the opportunity in taking care of Kaleb Lynn. Winston Herring MD
--- NOTE | 2017-01-18 16:43 | PN ---
DATE: 01/18/2017 SUBJECTIVE: The patient is in bed, in no acute distress, nontoxic. PHYSICAL EXAMINATION VITAL SIGNS: Temperature is 97, blood pressure is 140/70, respiratory rate of 16. HEENT: Unremarkable. NECK: Supple. LUNGS: Decreased breath sounds. HEART: Normal S1 and S2. ABDOMEN: Soft, nontender. LABORATORY DATA: Reveals the blood cultures are negative. ASSESSMENT AND PLAN: This is a 56-year-old with systemic inflammatory response syndrome, chronic obstructive pulmonary disease, end-stage chronic obstructive pulmonary disease and multiple thoracic and lumbar compression fracture, status post vertebroplasty and atrial fibrillation, coronary artery disease. Currently on p.o. doxycycline and tolerating medications. Overall, terminal gauger prognosis is quite poor. We will discontinue the cefepime. Cultures have been negative and a procalcitonin of 0.08. Sin Milton MD
[2017-01-18] MEDS: Lidocaine 5% Patch TD SCH (21:17)
[2017-01-19] MEDS: Albuterol-Ipratrop 3 mg / 0.5 (3 ml) UD IH SCH ×5 (01:09→20:00)
--- NOTE | 2017-01-19 02:37 | PN ---
DATE: 01/18/2017 PULMONARY PROGRESS NOTE REFERRING PHYSICIAN: Dr. Tomas. SUBJECTIVE: He is lying in the bed, head at 45-degree, on noninvasive ventilation. He still have back pain. No nausea. No vomiting. No diarrhea. No leg pain or leg swelling. OBJECTIVE: GENERAL: In no acute distress. VITAL SIGNS: Temperature is 98, heart rate is 73, respiratory rate is 20, blood pressure is 104/77, pulse ox 99% on nasal cannula. HEENT: Moist mucous membranes. Crowded airway. NECK: Supple. No JVD. LUNGS: Poor airflow with scattered wheezing. HEART: S1 and S2. ABDOMEN: Soft and nontender. No organomegaly. EXTREMITIES: No edema. NEUROLOGICAL: Sleepy, arousable. Follow simple commands. LABORATORY DATA: No new lab is available. Blood culture, no growth so far. MEDICATIONS: Mucomyst 20% inhale twice a day, Cardizem CD 180 mg daily, Daliresp 500 mcg daily, doxycycline 100 mg twice a day, DuoNeb q. 6 hours, Lidoderm patch at bedtime, Lovenox 30 mg daily, morphine 2 mg q. 6 hours p.r.n., calcium plus vitamin D 1 tablet daily, Protonix 40 mg daily, Pulmicort inhale twice a day, Solu-Medrol 20 mg q. 8 hours, Tenormin 25 mg twice a day, Tylenol on p.r.n. basis, Ultram 50 mg q. 6 hour p.r.n., Zofran p.r.n. basis. IMPRESSION AND PLAN: Respiratory failure with CO2 retention requiring noninvasive ventilation, chronic obstructive lung disease, osteopenia, multiple vertebral fractures, history of kyphoplasty, chronic pain syndrome, opiate dependant. Pulmonary point of view, doing okay. Decrease IV Solu-Medrol to 20 q. 12 hours, continue inhale bronchodilator, antibiotic, gastric prophylaxis, deep venous thrombosis prophylaxis. Encourage BiPAP use. Pain management. Thank you and we will follow with you. Winston Mendenhall MD
[2017-01-19] MEDS: Morphine 2 mg/ml ISec IVP PRN ×3 (02:52→17:40)
[2017-01-19] MEDS: Pantoprazole 40 mg EC Tab PO SCH (06:20)
[2017-01-19] MEDS: MethylPREDNISolone 40 mg Vial IVP SCH ×3 (06:20→21:06)
--- NOTE | 2017-01-19 06:37 | CP.PCM.PN ---
Subjective - Date & Time of Evaluation Date of Evaluation: 01/19/17 Time of Evaluation: 06:32 - Subjective Subjective: Patient was seen at bedside. He received morphine 2 mg IV, Ultram 50 mg PO for pain, which has not helped him. Requesting for pain medication. States that he has pain in entire back , chest , both arms. Has no other complaints now. Medical record was reviewed. This 56 year old white male was admitted with sob, chronic back pain. Has PMH of chronic back pain, compression fracture of spine,COPD, substance abuse, heroine use, former smoker. Objective - Vital Signs/Intake and Output Vital Signs (last 24 hours): Temp Pulse Resp BP Pulse Ox 97 F L 73 23 104/77 99 01/18/17 06:00 01/18/17 23:29 01/18/17 06:00 01/18/17 09:16 01/18/17 06:00 Intake and Output: 01/18/17 01/19/17 18:59 06:59 Intake Total 360 Output Total 400 Balance -40 - Medications Medications: Current Medications Acetaminophen (Tylenol 325mg Tab) 650 mg PO Q4H PRN PRN Reason: Fever >100.5 F Last Admin: 01/17/17 08:41 Dose: 650 mg Acetaminophen (Tylenol 325mg Tab) 650 mg PO Q4H PRN PRN Reason: Pain, Mild (1-3) Last Admin: 01/16/17 15:00 Dose: 650 mg Acetylcysteine (Acetylcysteine 20%) 3 ml INH BIDRESP [facility] Last Admin: 01/18/17 19:36 Dose: 3 ml Albuterol/Ipratropium (Duoneb 3 Mg/0.5 Mg (3 Ml) Ud) 3 ml IH [id number] [facility] Last Admin: 01/19/17 01:09 Dose: 3 ml Atenolol (Tenormin) 25 mg PO BID [facility] Last Admin: 01/18/17 18:30 Dose: 25 mg Budesonide (Pulmicort Respules) 0.5 mg IH [id number] [facility] Last Admin: 01/18/17 19:36 Dose: 0.5 mg Calcium/Vitamin D (Oscal-D 250 Mg-125 Units Tab) 1 tab PO DAILY [facility] Last Admin: 01/18/17 09:16 Dose: 1 tab Diltiazem HCl (Cardizem Cd) 180 mg PO DAILY [facility] Last Admin: 01/18/17 09:15 Dose: 180 mg Doxycycline Hyclate (Doryx) 100 mg PO Q12 [facility] PRN Reason: Protocol Last Admin: 01/18/17 21:17 Dose: 100 mg Enoxaparin Sodium (Lovenox) 30 mg SC DAILY [facility] PRN Reason: Protocol Last Admin: 01/18/17 09:17 Dose: 30 mg Ketorolac Tromethamine (Toradol) 15 mg IVP STAT STA Stop: 01/19/17 06:32 Lidocaine (Lidoderm) 2 ea TD HS [facility] Last Admin: 01/18/17 21:17 Dose: 2 ea Methylprednisolone (Solu-Medrol) 20 mg IVP Q8 [facility] Last Admin: 01/19/17 06:20 Dose: 20 mg Morphine Sulfate (Morphine) 2 mg IVP Q6H PRN PRN Reason: Pain, severe (8-10) Last Admin: 01/19/17 02:52 Dose: 2 mg Ondansetron HCl (Zofran Inj) 4 mg IVP Q4H PRN PRN Reason: Nausea/Vomiting Pantoprazole Sodium (Protonix Ec Tab) 40 mg PO 0600 [facility] Last Admin: 01/19/17 06:20 Dose: 40 mg Roflumilast (Daliresp) 500 mcg PO DAILY [facility] Last Admin: 01/18/17 09:16 Dose: 500 mcg Tramadol HCl (Ultram) 50 mg PO Q6 PRN PRN Reason: Pain, moderate (4-7) Last Admin: 01/19/17 06:19 Dose: 50 mg - Constitutional Appears: Well, No Acute Distress - Head Exam Head Exam: ATRAUMATIC, NORMAL INSPECTION, NORMOCEPHALIC - Eye Exam Eye Exam: Normal appearance - ENT Exam ENT Exam: Normal External Ear Exam - Neck Exam Neck Exam: Normal Inspection - Respiratory Exam Respiratory Exam: NORMAL BREATHING PATTERN - Cardiovascular Exam Cardiovascular Exam: absent: JVD - GI/Abdominal Exam GI & Abdominal Exam: absent: Distended - Rectal Exam Rectal Exam: Deferred - Exam Additional comments: Deferred. - Extremities Exam Extremities Exam: Normal Inspection - Back Exam Back Exam: NORMAL INSPECTION - Neurological Exam Neurological Exam: Alert, Oriented x3 - Skin Skin Exam: Normal Color Assessment and Plan - Assessment and Plan (Free Text) Assessment: Chronic back pain. COPD. Compression fracture of spine. Former smoker. Substance abuse. Plan: Toradol 15 mg IV stat. Continue present management.
[2017-01-19 06:39] LABS: HEMATOCRIT 39.5 % (42.0-52.0); MEAN CELL VOLUME 96.6 fl (80.0-105.0); MEAN CORPUSCULAR HEMOGLOBIN 30.3 pg (25.0-35.0); MEAN CORPUSCULAR HGB CONC 31.4 g/dl (31.0-37.0); MEAN PLATELET VOLUME 9.8 fl (7.0-11.0); WHITE BLOOD COUNT 18.8 10^3/ul (4.5-11.0)
[2017-01-19 07:11] LABS: ALB/GLOB RATIO 1.4 (1.1-1.8); ALKALINE PHOSPHATASE 133 U/L (38-126); ALT/SGPT 112 U/L (7-56); AST/SGOT 36 U/L (17-59); BILIRUBIN,TOTAL 0.3 mg/dL (0.2-1.3); BLOOD UREA NITROGEN 32 mg/dL (7-21); CALCIUM 9.2 mg/dL (8.4-10.5); CHLORIDE 98 mmol/L (98-107); GFR AFRICAN-AMERICAN > 60; GLUCOSE,RANDOM 116 mg/dL (70-110); POTASSIUM 4.1 mmol/L (3.6-5.0); SODIUM 143 mmol/L (132-148); TOTAL PROTEIN 5.2 g/dL (5.8-8.3)
[2017-01-19 07:29] LABS: CARBON DIOXIDE 39 mmol/L (21-33)
[2017-01-19] MEDS: Budesonide 0.5 mg/2 ml Inhal Susp UD IH SCH ×2 (07:59→19:41)
[2017-01-19] MEDS: Acetylcysteine 20% Inhal Soln (4ml) INH SCH ×2 (07:59→19:41)
[2017-01-19] MEDS: diltiaZEM 180 mg/24 Hours CD Cap PO SCH (10:06)
[2017-01-19] MEDS: Calcium-Vit D 250 mg-125 Units Tab UD PO SCH (10:06)
[2017-01-19] MEDS: Enoxaparin 30 mg Syringe SC SCH (10:07)
--- NOTE | 2017-01-19 13:55 | PN ---
DATE: 01/19/2017 LOCATION: The patient is in room 368, bed 1. REASON FOR CONSULTATION AND FOLLOWUP: Paroxysmal atrial fibrillation and exacerbation of COPD. SUBJECTIVE: The patient is lying flat in bed and complaints of shortness of breath. Denies chest pain or palpitation. PHYSICAL EXAMINATION: VITAL SIGNS: Blood pressure 123/76, respirations 20, pulse 90, and temperature 97.6. HEENT: Head is normocephalic. Eyes: Pupils normal. Conjunctivae normal. NECK: JVP low. Carotid equal. THORAX: AP diameter normal. LUNGS: Expiratory wheezing. CARDIOVASCULAR: S1 and S2. ABDOMEN: Soft and nontender. No organomegaly. Bowel sounds normal. EXTREMITIES: No clubbing. No cyanosis. LABORATORY DATA: WBC is 18.8, hemoglobin 12.4, hematocrit 39.5, and platelet 172. Sodium 143, potassium 4.1, BUN 32, and creatinine 0.4. Random glucose 116. AST 36 and ALT 112. Total protein 5.2 and albumin 3.0. DIAGNOSES: Paroxysmal atrial fibrillation converted to normal sinus rhythm, maintained sinus rhythm now, excerebration of chronic obstructive pulmonary disease and history of substance abuse in the past. The patient had cardiac catheterization on 11/29/2016 because of abnormal stress test, which showed nonobstructive coronary artery disease, left ventricular ejection fraction normal 60%. Echo on 09/30/2016 show normal left ventricle, right ventricular systolic pressure 30 mmHg, and trace tricuspid regurgitation. PLAN: Continue BiPAP as per Pulmonary and continue Cardizem CD 180 p.o. daily, Lovenox 30 mg subcutaneously daily, Solu-Medrol 20 mg IV q.8 hours, atenolol 25 mg b.i.d. along with other pulmonary therapy as per Pulmonary recommendations. I will continue to follow and monitor the patient. Wniston Larson MD
--- NOTE | 2017-01-19 15:30 | PN ---
REFERRING PHYSICIAN: Dr. Tomas. SUBJECTIVE: The patient is sitting up in the bed, keep complaining about pain, did not eat his lunch, tolerated BiPAP well at night. Had some cough, short of breath. No nausea. No vomiting. No diarrhea. No leg pain or leg swelling. OBJECTIVE GENERAL: In no acute distress. VITAL SIGNS: Temperature is 98, heart rate is 90, respiratory rate is 20, blood pressure 123/76, and pulse ox 98% on BiPAP. HEENT: Moist mucous membranes. Small oral cavity. No ulcer or thrush noted. NECK: Supple. No JVD. LUNGS: Has prolonged expiratory phase, poor airflow with wheezing. HEART: S1 and S2. ABDOMEN: Soft and nontender. No organomegaly. EXTREMITIES: No edema. NEUROLOGIC: Awake and alert. Follows simple commands. MEDICATIONS: He is on Mucomyst 20% inhale twice a day, Cardizem CD 180 mg daily, Daliresp 500 mcg daily, doxycycline 100 mg twice a day, DuoNeb q.6 hours, Lidoderm patch daily, Lovenox 30 mg daily, morphine 2 mg IV q.6 hours p.r.n., Protonix 40 mg daily, budesonide inhaled twice a day, Solu-Medrol 20 mg q.8 hours, Tenormin 25 mg twice a day, Tylenol p.r.n. basis, Ultram 50 mg q.6 hour p.r.n., Zofran p.r.n. basis. LABORATORY DATA: Shows hemoglobin 12.4, hematocrit 39.5, WBC is 18.8 and platelet is 172. Sodium 143, potassium 4.1, chloride 91, bicarbonate 39, BUN 32, and creatinine 0.4, glucose is 116, calcium is 9.2, AST 36, ALT 112, alk phos is 133, albumin is 3.0, procalcitonin is 0.08. Microbiology; blood culture has been negative. IMPRESSION AND PLAN: Respiratory failure with CO2 retention, requiring non-invasive ventilation; chronic obstructive lung disease; osteopenia; multiple vertebral fractures; history of kyphoplasty; chronic pain syndrome; opiate dependant. Pulmonary point of view, continue BiPAP while sleeping. Keep head at 45 degree, pain management, gastric prophylaxis, deep venous thrombosis prophylaxis. Need physical therapy. Need to get him out of bed to chair. Will benefit from rehab upon discharge. Thank you and we will follow up with you. Winston Mendenhall MD
[2017-01-19] MEDS: Lidocaine 5% Patch TD SCH (22:59)
[2017-01-20] MEDS: Morphine 2 mg/ml ISec IVP PRN ×3 (00:38→18:16)
[2017-01-20] MEDS: Albuterol-Ipratrop 3 mg / 0.5 (3 ml) UD IH SCH ×5 (01:03→19:22)
--- NOTE | 2017-01-20 02:25 | PN ---
DATE: 01/19/2017 SUBJECTIVE: The patient is in bed, seen earlier this morning, who states he had difficulty sleeping last night. The patient was seen early this morning in room 368, bed 1. PHYSICAL EXAMINATION VITAL SIGNS: Temperature is 98, blood pressure is 114/70, respiratory rate of 20, heart rate of 90. HEENT: Unremarkable. NECK: Supple. LUNGS: Have decreased breath sounds. HEART: Normal S1 and S2. ABDOMEN: Soft. LABORATORY DATA: White count of 18,000, hemoglobin of 12, and platelets of 172. Chemistries reveals a BUN of 32, creatinine of 0.4, procalcitonin 0.08. Microbiology is noted. The blood cultures are negative. Review of orders revealed the patient to be on p.o. doxycycline and the patient is also on Solu Medrol. Dr. Mendenhall's note is appreciated. Dr. Larson's note is appreciated. ASSESSMENT AND PLAN: This is a 56-year-old male with systemic inflammatory response syndrome, chronic obstructive lung disease end-stage, chronic obstructive pulmonary disease, and multiple thoracic and lumbar compression fracture status post vertebroplasty, atrial fibrillation, coronary artery disease, currently on p.o. doxycycline. The patient is at risk for developing nosocomial infections. Sin Milton MD
[2017-01-20] MEDS: MethylPREDNISolone 40 mg Vial IVP SCH ×3 (06:21→21:38)
[2017-01-20] MEDS: Pantoprazole 40 mg EC Tab PO SCH (06:21)
[2017-01-20] MEDS: Acetylcysteine 20% Inhal Soln (4ml) INH SCH ×3 (07:43→19:22)
[2017-01-20] MEDS: Budesonide 0.5 mg/2 ml Inhal Susp UD IH SCH ×3 (07:44→19:22)
--- NOTE | 2017-01-20 08:21 | PN ---
DATE: 01/18/2017 SUBJECTIVE: The patient is on the bed, seems on BiPAP machine, and seems breathing comfortably better than before. He is still complaining of significant back pain and seen by Dr. Karlo Morales. There is no chest pain at this time. PHYSICAL EXAMINATION: VITAL SIGNS: Temperature is 97, heart rate 73, blood pressure 140/77, respirations , and he is saturating 99%, FiO2 of 30%. HEAD AND NECK: Normal. No JVD. No thyromegaly. CHEST: The patient has barrel chest with some kyphosis and there is tenderness in whole spine. There was diminished breath sounds bilaterally. CARDIAC: First sound and second sound normal. ABDOMEN: Soft and nontender. EXTREMITIES: No edema. NEUROLOGIC: The patient is here since his muscle bulk is low, but he moves all extremities and he is alert, awake, and oriented x3. LABORATORY DATA: Blood sugar is in the 130-140 and his CAT scan was reported multiple compression deformities. IMPRESSION AND PLAN: 1. Acute, severe chronic obstructive pulmonary disease exacerbation seems improving. Continue bilevel positive airway pressure and continue steroids. 2. Multiple compression fractures, osteoporosis. The patient need to follow up as an outpatient in the clinic for continuation of therapy including and calcium with vitamin D regimen. I explained that to the patient and we will follow up with that and continue pain management. The patient is seen by Dr. Karlo Morales, there is nothing much he can do about it because kyphoplasty did not change his pain, so we will follow up as outpatient. The patient does have a snf situation, he can be managed over there. The patient also has to be evaluated for other medical issues that he has including cardiac arrhythmia and tachycardia. Continue Cardizem and continue Tenormin 25 mg b.i.d. He seems stable at this time, continue current therapy. We will discuss further with other consultants including the ID consult, Dr Milton and pulmonary consult, Dr. Mendenhall. I discussed with Dr. Karlo Morales about him and we will continue current therapy. Elmo Tomas MD [facility] # [id number]
[2017-01-20] MEDS: Enoxaparin 30 mg Syringe SC SCH (10:51)
--- NOTE | 2017-01-20 10:53 | US ---
HISTORY: Elevated liver enzymes COMPARISON: CT abdomen and pelvis from 11/29/2016 TECHNIQUE: Grayscale imaging was performed. FINDINGS: LIVER: Measures 12.1 cm. Normal echogenicity of the liver parenchyma. No mass. No intrahepatic bile duct dilatation. GALLBLADDER: There are no gallstones, wall thickening or pericholecystic fluid. The sonographic Jimenez's sign is negative. COMMON BILE DUCT: Measures 3.9 mm. No stones. No dilatation. PANCREAS: Unremarkable as visualized. No mass. No ductal dilatation. RIGHT KIDNEY: Measures 10.7cm. Normal echogenicity. No calculus, mass, or hydronephrosis. LEFT KIDNEY: Measures 10.9cm. Normal echogenicity. No calculus, mass, or hydronephrosis. SPLEEN: Normal in size and contour. No mass. AORTA: No aneurysmal dilatation. IVC: Unremarkable. OTHER FINDINGS: None. IMPRESSION: Status post cholecystectomy, no biliary dilatation. Normal sonographic appearance of the liver.
[2017-01-20] MEDS: diltiaZEM 180 mg/24 Hours CD Cap PO SCH (10:55)
[2017-01-20] MEDS: Calcium-Vit D 250 mg-125 Units Tab UD PO SCH (10:55)
--- NOTE | 2017-01-20 12:02 | CP.PCM.CON ---
<Kori Mullins - Last Filed: 01/20/17 12:00> History of Present Illness - History of Present Illness History of Present Illness: Patient was seen and examined and the chart was reviewed earlier this morning. Request for GI consult is for elevated liver enzymes and diarrhea. HPI: This is a 56-year-old male with past medical history of COPD, severe chronic back pain, and substance abuse came with severe shortness of breath. The patient was placed on BiPAP improvement in the emergency room. The patient on review of labs was noted to have elevated liver enzymes and complaint of diarrhea. No reports of any melena or bright red blood per rectum. The patient does appear cachectic, denies nausea, vomiting, or abdominal pain. Past medical history chronic COPD based with emphysema, chronic back pain with compression fractures on Advil when necessary, history of substance abuse: Heroin, history of vertebral fractures Surgical History: Tonsilectomy, cholecystectomy Family history: Noncontributory at this time Social History: Former smoker, denies EtOH, history of heroin use Medications: Reviewed as per MAR Allergies: No known drug allergies ROS: Systems reviewed with positive findings see HPI Past Patient History - Infectious Disease Hx of Infectious Diseases: None - Tetanus Immunizations Tetanus Immunization: Unknown - Past Social History Smoking Status: Former Smoker - CARDIAC Hx Cardiac Disorders: Yes Hx Cardia Arrhythmia: Yes (AFIB) Hx Pacemaker: No - PULMONARY Hx Respiratory Disorders: Yes (PE) Hx Chronic Obstructive Pulmonary Disease (COPD): Yes - NEUROLOGICAL Hx Neurological Disorder: No - HEENT Hx HEENT Problems: Yes (glasses) Other/Comment: tonsillectomy - RENAL Hx Chronic Kidney Disease: No - ENDOCRINE/METABOLIC Hx Endocrine Disorders: No - HEMATOLOGICAL/ONCOLOGICAL Hx Blood Disorders: Yes - INTEGUMENTARY Hx Dermatological Problems: No - MUSCULOSKELETAL/RHEUMATOLOGICAL Hx Musculoskeletal Disorders: Yes (KHYPOPLASTY) Hx Back Pain: Yes (compression fracture) Hx Falls: Yes - GASTROINTESTINAL Hx Gastrointestinal Disorders: No - GENITOURINARY/GYNECOLOGICAL Hx Genitourinary Disorders: No - PSYCHIATRIC Hx 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) Hx Substance Use: Yes (H/O SUBSTANCE ABUE/HEROINE) - SURGICAL HISTORY Hx Surgeries: Yes - ANESTHESIA Hx Anesthesia: Yes Hx Anesthesia Reactions: No Hx Malignant Hyperthermia: No Meds Allergies/Adverse Reactions: Allergies Allergy/AdvReac Type Severity Reaction Status Date / Time No Known Allergies Allergy Verified 01/14/17 18:27 - Medications Medications: Current Medications Acetaminophen (Tylenol 325mg Tab) 650 mg PO Q4H PRN PRN Reason: Fever >100.5 F Last Admin: 01/17/17 08:41 Dose: 650 mg Acetaminophen (Tylenol 325mg Tab) 650 mg PO Q4H PRN PRN Reason: Pain, Mild (1-3) Last Admin: 01/16/17 15:00 Dose: 650 mg Acetylcysteine (Acetylcysteine 20%) 3 ml INH BIDRESP [facility] Last Admin: 01/20/17 07:46 Dose: Not Given Albuterol/Ipratropium (Duoneb 3 Mg/0.5 Mg (3 Ml) Ud) 3 ml IH [id number] [facility] Last Admin: 01/20/17 07:47 Dose: Not Given Atenolol (Tenormin) 25 mg PO BID ER[facility] Last Admin: 01/20/17 10:51 Dose: 25 mg Budesonide (Pulmicort Respules) 0.5 mg IH [id number] [facility] Last Admin: 01/20/17 07:47 Dose: Not Given Calcium/Vitamin D (Oscal-D 250 Mg-125 Units Tab) 1 tab PO DAILY ERIC Last Admin: 01/20/17 10:55 Dose: 1 tab Diltiazem HCl (Cardizem Cd) 180 mg PO DAILY [facility] Last Admin: 01/20/17 10:55 Dose: 180 mg Doxycycline Hyclate (Doryx) 100 mg PO Q12 [facility] PRN Reason: Protocol Last Admin: 01/20/17 10:51 Dose: 100 mg Enoxaparin Sodium (Lovenox) 30 mg SC DAILY [facility] PRN Reason: Protocol Last Admin: 01/20/17 10:51 Dose: 30 mg Lidocaine (Lidoderm) 2 ea TD HS [facility] Last Admin: 01/19/17 22:59 Dose: Not Given Methylprednisolone (Solu-Medrol) 20 mg IVP Q8 [facility] Last Admin: 01/20/17 06:21 Dose: 20 mg Morphine Sulfate (Morphine) 2 mg IVP Q6H PRN PRN Reason: Pain, severe (8-10) Last Admin: 01/20/17 10:44 Dose: 2 mg Ondansetron HCl (Zofran Inj) 4 mg IVP Q4H PRN PRN Reason: Nausea/Vomiting Pantoprazole Sodium (Protonix Ec Tab) 40 mg PO 0600 [facility] Last Admin: 01/20/17 06:21 Dose: 40 mg Roflumilast (Daliresp) 500 mcg PO DAILY [facility] Last Admin: 01/20/17 10:55 Dose: 500 mcg Tramadol HCl (Ultram) 50 mg PO Q6 PRN PRN Reason: Pain, moderate (4-7) Last Admin: 01/20/17 04:42 Dose: 50 mg Physical Exam - Constitutional Appears: Older Than Stated Age, Cachectic - Head Exam Head Exam: NORMOCEPHALIC - Eye Exam Eye Exam: Normal appearance. absent: Scleral icterus - ENT Exam ENT Exam: Mucous Membranes Moist - Neck Exam Neck exam: Positive for: Normal Inspection - Respiratory Exam Respiratory Exam: Decreased Breath Sounds, Rhonchi, NORMAL BREATHING PATTERN. absent: Respiratory Distress - Cardiovascular Exam Cardiovascular Exam: +S1, +S2 - GI/Abdominal Exam GI & Abdominal Exam: Normal Bowel Sounds, Soft. absent: Distended, Guarding, Rebound, Tenderness - Extremities Exam Extremities exam: Positive for: pedal pulses present. Negative for: calf tenderness, pedal edema - Neurological Exam Neurological exam: Alert, Oriented x3 - Skin Skin Exam: Dry, Warm Results - Vital Signs Recent Vital Signs: Last Vital Signs Temp 97.6 F 01/20/17 06:00 Pulse 82 01/20/17 10:55 Resp 28 H 01/20/17 06:00 BP 123/87 01/20/17 10:55 Pulse Ox 98 01/20/17 06:00 - Labs Result Diagrams: 01/19/17 06:23 01/19/17 06:23 Assessment & Plan - Assessment and Plan (Free Text) Assessment: Assessment: Transaminitis, differentials to consider is medication induced, hepatic congestion, or infectious hepatitis History of cholecystectomy, status post abdominal ultrasound, CBD 3.9 mm Diarrhea, rule out C. difficile, history of antibiotic use Paroxysmal atrial fibrillation, now sinus rhythm Exacerbation of COPD Chronic back pain with history of compression fractures Plan: Abdominal ultrasound report reviewed,no cholelithiasis Requests hepatitis panel Trend LFTs avoid hepatotoxic drugs Continued GI and DVT prophylaxis Diet as tolerated Stool for C. difficile pending collection On oral antibiotics doxycycline On Cardizem PO On Solu-Medrol Thank you for this consult and for allowing us to participate in your patient's care, further recommendations clinical course. Seen and discussed with Dr. Stock. <Oriana Stock V - Last Filed: 01/20/17 21:33> Meds - Medications Medications: Current Medications Acetaminophen (Tylenol 325mg Tab) 650 mg PO Q4H PRN PRN Reason: Fever >100.5 F Last Admin: 01/17/17 08:41 Dose: 650 mg Acetaminophen (Tylenol 325mg Tab) 650 mg PO Q4H PRN PRN Reason: Pain, Mild (1-3) Last Admin: 01/16/17 15:00 Dose: 650 mg Acetylcysteine (Acetylcysteine 20%) 3 ml INH BIDRESP [facility] Last Admin: 01/20/17 19:22 Dose: 3 ml Albuterol/Ipratropium (Duoneb 3 Mg/0.5 Mg (3 Ml) Ud) 3 ml IH [id number] [facility] Last Admin: 01/20/17 19:22 Dose: 3 ml Atenolol (Tenormin) 25 mg PO BID ERIC Last Admin: 01/20/17 18:17 Dose: 25 mg Budesonide (Pulmicort Respules) 0.5 mg IH [id number] [facility] Last Admin: 01/20/17 19:22 Dose: 0.5 mg Calcium/Vitamin D (Oscal-D 250 Mg-125 Units Tab) 1 tab PO DAILY ERIC Last Admin: 01/20/17 10:55 Dose: 1 tab Diltiazem HCl (Cardizem Cd) 180 mg PO DAILY ER[facility] Last Admin: 01/20/17 10:55 Dose: 180 mg Doxycycline Hyclate (Doryx) 100 mg PO Q12 ERIC PRN Reason: Protocol Last Admin: 01/20/17 10:51 Dose: 100 mg Enoxaparin Sodium (Lovenox) 30 mg SC DAILY [facility] PRN Reason: Protocol Last Admin: 01/20/17 10:51 Dose: 30 mg Lidocaine (Lidoderm) 2 ea TD HS [facility] Last Admin: 01/19/17 22:59 Dose: Not Given Methylprednisolone (Solu-Medrol) 20 mg IVP Q8 [facility] Last Admin: 01/20/17 13:09 Dose: 20 mg Morphine Sulfate (Morphine) 2 mg IVP Q6H PRN PRN Reason: Pain, severe (8-10) Last Admin: 01/20/17 18:16 Dose: 2 mg Ondansetron HCl (Zofran Inj) 4 mg IVP Q4H PRN PRN Reason: Nausea/Vomiting Pantoprazole Sodium (Protonix Ec Tab) 40 mg PO 0600 [facility] Last Admin: 01/20/17 06:21 Dose: 40 mg Pregabalin (Lyrica) 75 mg PO HS ERIC Roflumilast (Daliresp) 500 mcg PO DAILY ER[facility] Last Admin: 01/20/17 10:55 Dose: 500 mcg Tramadol HCl (Ultram) 50 mg PO Q6 PRN PRN Reason: Pain, moderate (4-7) Last Admin: 01/20/17 13:13 Dose: 50 mg Results - Vital Signs Recent Vital Signs: Last Vital Signs Temp 98.9 F 01/20/17 17:50 Pulse 78 01/20/17 18:17 Resp 18 01/20/17 17:50 BP 116/78 01/20/17 18:17 Pulse Ox 100 01/20/17 17:50 - Labs Result Diagrams: 01/19/17 06:23 01/19/17 06:23 Labs: Laboratory Results - last 24 hr 01/20/17 11:52 Hepatitis A IgM Ab Negative Hep Bs Antigen Negative Hep B Core IgM Ab Negative Hepatitis C Antibody Negative Attending/Attestation - Attestation I have personally seen and examined this patient.: Yes I have fully participated in the care of the patient.: Yes I have reviewed all pertinent clinical information: Yes Notes (Text): This is an addendum to GI progress report dictated by Kori Mullins APN.The patient was seen and examined earlier. Medical records, lab studies, imagings were reviewed. Last 24 hours events reviewed. Agreed with the above treatment plan as outlined in Kori Mullins APN's notes the with the addition of the following on examination abdomen soft no tenderness Patient is on doxycycline and also on steroid ffollow-up the stool studies follow-up with LFTs 01/20/17 21:28
--- NOTE | 2017-01-20 13:53 | PN ---
DATE: 01/19/2017 SUBJECTIVE: A 56-year-old male with chronic back pain, severe emphysema, and COPD. The patient was admitted with respiratory distress and back pain. He seems comfortable today when the patient was seen by me, 01/19/2017. He seems respiratory improved. His pain seems controlled with the pain medicines somehow. I discussed the patient's details with Dr. Morales's recommendations. PHYSICAL EXAMINATION: VITAL SIGNS: Temperature 97.6, heart rate 80, blood pressure 114/77, saturating 98% on 30% FiO2. HEAD AND NECK: Normal. No JVD. CHEST: Diminished breath sounds bilaterally. CARDIAC: First sound and second sound normal. ABDOMEN: Soft and nontender. EXTREMITIES: No edema. NEUROLOGIC: The patient generally has low muscle volume and neurologically he is able to ambulate. LABORATORY STUDIES: White count 18.8, hemoglobin 12.4, hematocrit 39.5, and platelets 172. Chemistries; sodium 143, potassium 4.1, chloride 98, bicarbonate 39, BUN 32, creatinine 0.4, blood sugar 116. The patient also has an ALT 112 and alk phos of 133. IMPRESSION AND PLAN: 1. Acute chronic obstructive pulmonary disease exacerbation. Continue current therapy. Continue inhaled and IV bronchodilator, seems doing better. 2. Chronic intractable back pain. The patient has multiple compression fractures, most probably osteoporosis. We will recommend medication for him and follow up clinically. 3. The patient does have anemia, does have liver enzyme elevation. The patient needs endoscopic evaluation and colonoscopy to rule out cancer. Certain preventive measures should be done as outpatient for this particular patient. 4. Osteoporosis. We will give calcium, vitamin D. The patient will need Prolia or Boniva. Continue current treatment for pain, morphine, Lidoderm. Continue gastrointestinal and deep venous thrombosis prophylaxis. Continue Protonix, Solu-Medrol, Tenormin, Tylenol, Ultram, and Zofran. The patient is currently on doxycycline IV as he is doing well and for his tachyarrhythmia, the patient is currently on Cardizem and Tenormin. Continue Mucomyst. Elmo Tomas MD
--- NOTE | 2017-01-20 14:09 | PN ---
DATE: 01/20/2017 LOCATION: The patient is in room 368, bed 1. REASON FOR CONSULTATION AND FOLLOWUP: Paroxysmal atrial fibrillation and exacerbation of COPD. SUBJECTIVE: The patient is sitting in bed, still complaining at times shortness of breath. The patient complains of chronic pain. Denies chest pain. Denies palpitation. PHYSICAL EXAMINATION VITAL SIGNS: Blood pressure 123/87, respirations 30, pulse 82, and temperature 97.6. HEENT: Head is normocephalic. Eyes: Pupils normal. Conjunctivae normal. NECK: JVP low. Carotid equal. THORAX: AP diameter increased. LUNGS: Expiratory wheezing with a prolonged respiration. CARDIOVASCULAR: S1 and S2. ABDOMEN: Soft and nontender. No organomegaly. EXTREMITIES: No clubbing. No cyanosis. LABORATORY DATA: WBC is 18.8, hemoglobin 12.4, hematocrit 39.5, and platelet 172. Sodium 143, potassium 4.1, BUN 32, and creatinine 0.4. Random glucose 116. AST 36 and ALT 112. Troponin less than 0.01. Total protein 5.2 and albumin 3.0. DIAGNOSES: Paroxysmal atrial fibrillation converted, maintaining sinus rhythm with medication; excerebration of chronic obstructive pulmonary disease with CO2 retention, the patient at night on BiPAP; kyphosis; osteopenia; history of multiple vertebral fractures. Cardiac catheterization on 11/29/2016 showed nonobstructive coronary artery disease, left ventricular ejection fraction 60%. Cath was done because of abnormal stress test. Echo on 09/30/2016 showed normal left ventricle, right ventricular systolic pressure of 30 mmHg, and trace tricuspid regurgitation. PLAN: The patient is on Cardizem CD 180 mg p.o. daily, 100 mg q. 12 hours, Lovenox 30 mg subcutaneously daily, Protonix 40 daily, Solu-Medrol 20 mg IV q. 8 hours, atenolol 25 mg b.i.d. We will continue this therapy and monitor the heart rate. We will follow. Winston Larson MD
--- NOTE | 2017-01-20 14:58 | CP.PCM.CON ---
History of Present Illness - History of Present Illness History of Present Illness: Neurology Consult for Matheus Regan PGY2 Reason for consult: r/o nerve compression This is a 56YM with PMH PE (off anticoagulation), end-stage COPD, and vertebral compression fracture s/p T8, 12 and L1 vertebroplasty who was admitted on for COPD exacerbation. Patient has had multiple admissions for COPD. Patient has known history of compression fractures which have been chronic in nature. He was evaluated by Dr. Pryor (spine surgeon) on 11/17/16 who recommended conservative management as well as evaluation for osteoporosis and bone metabolic work up. During this admission, patient had a CT of the thoracic spine which showed new/increasing compression deformity of T3,T4, and T7 as compared to previous study in October 2016 and s/p vertebroplasty of T8 and T12. CT of the lumbar spine showed severe compression deformity of L2 with mild spinal stenosis from retropulsion without change, mild increased compression deformity of L3, persistent deformity of L4-L5 and s/p vertebroplasty of L1. Patient does complain of back pain, but denies any recent trauma, numbness/ tingling, weakness, bowel/bladder incontinence or retention. He does complain of feeling SOB. I spoke with physical therapy who reports patient is able to walk but is limited due to de-conditioning and severe COPD. PMH: PE (off anticoagulation), end-stage COPD, and vertebral compression fracture PSH: Vertebroplasty T8,12, L1, cholecystectomy, tonsillectomy Home meds: As per JUN All: NKDA SH: Former very heavy smoker (quit 8mo ago), history of alcohol and IVDA but quit more than 30yrs ago. Review of Systems - Review of Systems All systems: reviewed and no additional remarkable complaints except Review of Systems: + Back pain, SOB, cough Past Patient History - Infectious Disease Hx of Infectious Diseases: None - Tetanus Immunizations Tetanus Immunization: Unknown - Past Social History Smoking Status: Former Smoker - CARDIAC Hx Cardiac Disorders: Yes Hx Cardia Arrhythmia: Yes (AFIB) Hx Pacemaker: No - PULMONARY Hx Respiratory Disorders: Yes (PE) Hx Chronic Obstructive Pulmonary Disease (COPD): Yes - NEUROLOGICAL Hx Neurological Disorder: No - HEENT Hx HEENT Problems: Yes (glasses) Other/Comment: tonsillectomy - RENAL Hx Chronic Kidney Disease: No - ENDOCRINE/METABOLIC Hx Endocrine Disorders: No - HEMATOLOGICAL/ONCOLOGICAL Hx Blood Disorders: Yes - INTEGUMENTARY Hx Dermatological Problems: No - MUSCULOSKELETAL/RHEUMATOLOGICAL Hx Musculoskeletal Disorders: Yes (KHYPOPLASTY) Hx Back Pain: Yes (compression fracture) Hx Falls: Yes - GASTROINTESTINAL Hx Gastrointestinal Disorders: No - GENITOURINARY/GYNECOLOGICAL Hx Genitourinary Disorders: No - PSYCHIATRIC Hx 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) Hx Substance Use: Yes (H/O SUBSTANCE ABUE/HEROINE) - SURGICAL HISTORY Hx Surgeries: Yes - ANESTHESIA Hx Anesthesia: Yes Hx Anesthesia Reactions: No Hx Malignant Hyperthermia: No Meds Allergies/Adverse Reactions: Allergies Allergy/AdvReac Type Severity Reaction Status Date / Time No Known Allergies Allergy Verified 01/14/17 18:27 - Medications Medications: Current Medications Acetaminophen (Tylenol 325mg Tab) 650 mg PO Q4H PRN PRN Reason: Fever >100.5 F Last Admin: 01/17/17 08:41 Dose: 650 mg Acetaminophen (Tylenol 325mg Tab) 650 mg PO Q4H PRN PRN Reason: Pain, Mild (1-3) Last Admin: 01/16/17 15:00 Dose: 650 mg Acetylcysteine (Acetylcysteine 20%) 3 ml INH BIDRESP [facility] Last Admin: 01/20/17 07:46 Dose: Not Given Albuterol/Ipratropium (Duoneb 3 Mg/0.5 Mg (3 Ml) Ud) 3 ml IH [id number] [facility] Last Admin: 01/20/17 13:36 Dose: 3 ml Atenolol (Tenormin) 25 mg PO BID [facility] Last Admin: 01/20/17 10:51 Dose: 25 mg Budesonide (Pulmicort Respules) 0.5 mg IH [id number] [facility] Last Admin: 01/20/17 07:47 Dose: Not Given Calcium/Vitamin D (Oscal-D 250 Mg-125 Units Tab) 1 tab PO DAILY [facility] Last Admin: 01/20/17 10:55 Dose: 1 tab Diltiazem HCl (Cardizem Cd) 180 mg PO DAILY [facility] Last Admin: 01/20/17 10:55 Dose: 180 mg Doxycycline Hyclate (Doryx) 100 mg PO Q12 [facility] PRN Reason: Protocol Last Admin: 01/20/17 10:51 Dose: 100 mg Enoxaparin Sodium (Lovenox) 30 mg SC DAILY [facility] PRN Reason: Protocol Last Admin: 01/20/17 10:51 Dose: 30 mg Lidocaine (Lidoderm) 2 ea TD HS [facility] Last Admin: 01/19/17 22:59 Dose: Not Given Methylprednisolone (Solu-Medrol) 20 mg IVP Q8 [facility] Last Admin: 01/20/17 13:09 Dose: 20 mg Morphine Sulfate (Morphine) 2 mg IVP Q6H PRN PRN Reason: Pain, severe (8-10) Last Admin: 01/20/17 10:44 Dose: 2 mg Ondansetron HCl (Zofran Inj) 4 mg IVP Q4H PRN PRN Reason: Nausea/Vomiting Pantoprazole Sodium (Protonix Ec Tab) 40 mg PO 0600 [facility] Last Admin: 01/20/17 06:21 Dose: 40 mg Pregabalin (Lyrica) 75 mg PO HS [facility] Roflumilast (Daliresp) 500 mcg PO DAILY [facility] Last Admin: 01/20/17 10:55 Dose: 500 mcg Tramadol HCl (Ultram) 50 mg PO Q6 PRN PRN Reason: Pain, moderate (4-7) Last Admin: 01/20/17 13:13 Dose: 50 mg Physical Exam - Constitutional Appears: No Acute Distress, Chronically Ill - Head Exam Head Exam: ATRAUMATIC, NORMAL INSPECTION, NORMOCEPHALIC - Eye Exam Eye Exam: Normal appearance, PERRL Pupil Exam: NORMAL ACCOMODATION, PERRL - ENT Exam ENT Exam: Mucous Membranes Moist - Respiratory Exam Respiratory Exam: Decreased Breath Sounds (bilaterally ), Clear to Auscultation Bilateral, NORMAL BREATHING PATTERN. absent: Rales, Rhonchi, Wheezes - Cardiovascular Exam Cardiovascular Exam: REGULAR RHYTHM, +S1, +S2. absent: Gallop, Rubs, Systolic Murmur - GI/Abdominal Exam GI & Abdominal Exam: Normal Bowel Sounds, Soft. absent: Mass, Rebound, Rigid, Tenderness - Extremities Exam Extremities exam: Positive for: normal inspection. Negative for: calf tenderness, pedal edema - Neurological Exam Neurological exam: Alert, CN II-XII Intact, Oriented x3 Additional comments: no focal neurological deficits - Psychiatric Exam Psychiatric exam: Normal Affect, Normal Mood - Skin Skin Exam: Dry, Intact, Normal Color, Warm Results - Vital Signs Recent Vital Signs: Last Vital Signs Temp 97.6 F 01/20/17 06:00 Pulse 82 01/20/17 10:55 Resp 28 H 01/20/17 06:00 BP 123/87 01/20/17 10:55 Pulse Ox 98 01/20/17 06:00 - Labs Result Diagrams: 01/19/17 06:23 01/19/17 06:23 Assessment & Plan - Assessment and Plan (Free Text) Assessment: This is a 56YM with PMH PE (off anticoagulation), end-stage COPD, and vertebral compression fracture s/p T8, 12 and L1 vertebroplasty who was admitted on for COPD exacerbation. CT of the lumbar spine showed severe compression deformity of L2 with mild spinal stenosis from retropulsion without change, mild increased compression deformity of L3, persistent deformity of L4-L5 and s/ p vertebroplasty of L1. This can be secondary to chronic steroid use from multiple admissions for COPD exacerbation versus osteoporosis. No neurological deficits noted at this time. Plan: - Felicia BENTLEY - Continue pain control (pain management was consulted) - Will consult neurosurgery (Dr. Pryor) for evaluation - IR consulted for possible kyphoplasty - Continue physical therapy Case seen, discussed and reviewed with attending, Dr. Riley. Matheus Aj PGY2 - Date & Time Date: 01/20/17 Time: 15:04
--- NOTE | 2017-01-20 16:08 | PN ---
DATE: 01/20/2017 SUBJECTIVE: The patient is in bed, in no acute distress. The patient was seen early this morning in room #368, bed #1. No fevers and no chills. No nausea. No vomiting. PHYSICAL EXAMINATION: VITAL SIGNS: Temperature is 98, blood pressure is 112/70, and respiratory rate of 16. HEENT: Unremarkable. NECK: Supple. LUNGS: Have decreased breath sounds. HEART EXAM: Normal S1 and S2. ABDOMINAL EXAMINATION: Soft, nontender. No rebound. No guarding. No masses. LABORATORY EXAMINATION: Reveals the patient to have white count of 18,800; hemoglobin of 12. Chemistries are noted. ASSESSMENT AND PLAN: A 56-year-old male with systemic inflammatory response syndrome; end-stage chronic obstructive lung disease; multiple thoracic and lumbar compression fractures, status post vertebroplasty; atrial fibrillation; coronary artery disease and currently on p.o. doxycycline, complete the therapy. The patient does have leucocytosis, which may be contributed by the patient's Solu-Medrol. Overall prognosis is quite poor for this end-stage chronic obstructive lung disease. Sin Milton MD
--- NOTE | 2017-01-20 21:05 | CON ---
DATE: HISTORY OF PRESENT ILLNESS: This is a 56-year-old male with past medical history of COPD and the patient is on oxygen mask. The patient also complains of severe lower back pain. The patient fell a few years ago and since then, has been complaining of low back pain. We were called to evaluate the patient. The patient is lying comfortably with oxygen mask. He is a 56-year-old with end-stage chronic obstructive lung disease, multiple thoracic and lumbar compression fractures with a vertebroplasty, atrial fibrillation and coronary artery disease. PAST MEDICAL HISTORY: Chronic low back pain with compression fracture; COPD; history of substance abuse, heroin in the past, and history of vertebral fractures. ALLERGIES: NO KNOWN DRUG ALLERGIES. SOCIAL HISTORY: Ex-smoker. PHYSICAL EXAMINATION: HEENT: Normocephalic and atraumatic. NECK: Supple. NEUROLOGIC: Awake, alert and oriented to self and place. No aphasia. Cranial nerves II to XII are tested. Pupils reactive. Spontaneous movement of all the extremities noted. No lengthening in the lower extremities. Deep tendon reflexes 1+. Both plantars downgoing. Sensory appears intact. Cerebellar and gait deferred. LABORATORY DATA: The patient had a CT of the thoracic spine which showed increasing compression deformity at T7, T3 and T4 vertebral bodies. The patient also had vertebroplasty of T8 and T12 vertebrae. The patient also had CAT scan of the lumbosacral spine which shows vertebroplasty at L1, a severe compression deformity of L2 and a persistent compression deformity of L4 and L5, so multiple compressions were noted in the lower back. IMPRESSION AND PLAN: Multiple compression fracture deformity and lower back pain. The patient will call Dr. Watts and Dr. Pryor, consult for further management. At present, the patient is comfortable. We will follow up with the neurosurgeon and Dr. Watts for pain management. Rishabh Riley MD
--- NOTE | 2017-01-21 00:21 | PN ---
PULMONARY PROGRESS NOTE DATE: 01/20/2017 REFERRING PHYSICIAN: Dr. Tomas. SUBJECTIVE: He is lying in the bed at 45 degrees, on supplemental oxygen, short of breath with minimal exertion. Has extensive spine and abdominal discomfort. No nausea. No vomiting. No diarrhea. No leg pain or leg swelling. OBJECTIVE: GENERAL: In no acute distress. VITAL SIGNS: Temperature is 98, heart rate 72, respiratory rate is 18, blood pressure 109/79, pulse ox 100% on nasal cannula. HEENT: Moist mucous membrane. Small oral cavity. NECK: Supple. No JVD. LUNGS: Have a poor airflow. HEART: S1 and S2. ABDOMEN: Soft and nontender. No organomegaly. EXTREMITIES: There is no edema. NEUROLOGIC: Awake and alert. Follows simple commands. MEDICATIONS: He is on Mucomyst 20% inhale twice a day, Cardizem CD 180 mg daily, Daliresp 500 mcg daily, doxycycline 100 mg twice a day, DuoNeb q.6 hours, Lidoderm patch to the affected area, Lovenox 30 mg subcutaneous daily, Lyrica 75 mg daily, morphine 2 mg q.6 hours p.r.n., calcium plus vitamin D one tab daily, Protonix 40 mg daily, Pulmicort inhale twice a day, Solu-Medrol 20 mg q.8 hours, Tenormin 25 mg twice a day, Tylenol p.r.n., Ultram 50 mg q.6 hour p.r.n., and Zofran p.r.n. basis. LABORATORY DATA: Reviewed. Microbiology, there is no growth. IMPRESSION AND PLAN: Respiratory failure with CO2 retention, requiring non-invasive ventilation; chronic obstructive lung disease; osteopenia; multiple vertebral fractures; history of kyphoplasty; chronic pain syndrome; and opiate dependant. Case discussed with Dr. Tomas in detail. Recommended to get neurology consult to pinpoint what distribution he has pain because there is a multilevel of compression fracture. If we can pinpoint the pain level, two tings could be done either repeat kyphoplasty to some of the area and/or also do the nerve block to cutdown his dependency on opiates, has a poor prognosis, end-stage lung disease. We will decrease Solu-Medrol to 20 q.12 hours, taper of steroids for the next couple of days to avoid further osteopenia. Continue supplement calcium and vitamin D. Thank you and we will follow with you. Winston Mendenhall MD
[2017-01-21] MEDS: Morphine 2 mg/ml ISec IVP PRN ×4 (01:08→22:17)
[2017-01-21] MEDS: Albuterol-Ipratrop 3 mg / 0.5 (3 ml) UD IH SCH ×4 (01:12→19:31)
[2017-01-21] MEDS: Pantoprazole 40 mg EC Tab PO SCH (06:34)
[2017-01-21 07:02] LABS: BILIRUBIN,DIRECT 0.4 mg/dL (0.0-0.4); BILIRUBIN,TOTAL 0.4 mg/dL (0.2-1.3)
[2017-01-21 07:32] LABS: ALB/GLOB RATIO 1.5 (1.1-1.8)
[2017-01-21] MEDS: Budesonide 0.5 mg/2 ml Inhal Susp UD IH SCH ×2 (07:32→19:31)
[2017-01-21] MEDS: Acetylcysteine 20% Inhal Soln (4ml) INH SCH ×2 (07:32→19:30)
--- NOTE | 2017-01-21 09:01 | CP.PCM.PN ---
Subjective - Date & Time of Evaluation Date of Evaluation: 01/21/17 Time of Evaluation: 08:57 - Subjective Subjective: reviewed all previous studies, examined patient, reviewed history He is very frail man on oxygen, appears in mild resp distress at rest He c/o back pain unchanged from prior no acute exacerbations, trauma or injuries to back Pt has essentially every vertebra in T and L spine compressed and fractured No real changes from most recent study to prior Does not ambulate at intermediate He dnies leg pain No tenderness to paplation in t and l spine st in legs good for general physical condition There is NO surgical procedure I can devise that would help him In addition given his poor medical condition he would be a horrible risk for any surgical proceedure Would reccomend calling pain managment and possible interventional radiology for opinions Objective - Vital Signs/Intake and Output Vital Signs (last 24 hours): Temp Pulse Resp BP Pulse Ox 97.8 F 71 22 117/81 97 01/21/17 06:00 01/21/17 06:00 01/21/17 06:00 01/21/17 06:00 01/21/17 06:00 Intake and Output: 01/21/17 01/21/17 06:59 18:59 Intake Total 120 Output Total 550 Balance -430 - Medications Medications: Current Medications Acetaminophen (Tylenol 325mg Tab) 650 mg PO Q4H PRN PRN Reason: Fever >100.5 F Last Admin: 01/17/17 08:41 Dose: 650 mg Acetaminophen (Tylenol 325mg Tab) 650 mg PO Q4H PRN PRN Reason: Pain, Mild (1-3) Last Admin: 01/16/17 15:00 Dose: 650 mg Acetylcysteine (Acetylcysteine 20%) 3 ml INH BIDRESP [facility] Last Admin: 01/21/17 07:32 Dose: Not Given Albuterol/Ipratropium (Duoneb 3 Mg/0.5 Mg (3 Ml) Ud) 3 ml IH [id number] [facility] Last Admin: 01/21/17 07:32 Dose: Not Given Atenolol (Tenormin) 25 mg PO BID ERIC Last Admin: 01/20/17 18:17 Dose: 25 mg Budesonide (Pulmicort Respules) 0.5 mg IH [id number] [facility] Last Admin: 01/21/17 07:32 Dose: Not Given Calcium/Vitamin D (Oscal-D 250 Mg-125 Units Tab) 1 tab PO DAILY [facility] Last Admin: 01/20/17 10:55 Dose: 1 tab Diltiazem HCl (Cardizem Cd) 180 mg PO DAILY [facility] Last Admin: 01/20/17 10:55 Dose: 180 mg Doxycycline Hyclate (Doryx) 100 mg PO Q12 [facility] PRN Reason: Protocol Last Admin: 01/20/17 21:37 Dose: 100 mg Enoxaparin Sodium (Lovenox) 30 mg SC DAILY [facility] PRN Reason: Protocol Last Admin: 01/20/17 10:51 Dose: 30 mg Lidocaine (Lidoderm) 2 ea TD HS [facility] Last Admin: 01/19/17 22:59 Dose: Not Given Methylprednisolone (Solu-Medrol) 20 mg IVP Q12 [facility] Morphine Sulfate (Morphine) 2 mg IVP Q6H PRN PRN Reason: Pain, severe (8-10) Last Admin: 01/21/17 01:08 Dose: 2 mg Ondansetron HCl (Zofran Inj) 4 mg IVP Q4H PRN PRN Reason: Nausea/Vomiting Pantoprazole Sodium (Protonix Ec Tab) 40 mg PO 0600 [facility] Last Admin: 01/21/17 06:34 Dose: 40 mg Pregabalin (Lyrica) 75 mg PO HS [facility] Last Admin: 01/20/17 21:37 Dose: 75 mg Roflumilast (Daliresp) 500 mcg PO DAILY [facility] Last Admin: 01/20/17 10:55 Dose: 500 mcg Tramadol HCl (Ultram) 50 mg PO Q6 PRN PRN Reason: Pain, moderate (4-7) Last Admin: 01/21/17 04:43 Dose: 50 mg - Labs Labs: 01/19/17 06:23 01/19/17 06:23
[2017-01-21] MEDS: Enoxaparin 30 mg Syringe SC SCH (09:21)
[2017-01-21] MEDS: Calcium-Vit D 250 mg-125 Units Tab UD PO SCH (09:22)
[2017-01-21] MEDS: diltiaZEM 180 mg/24 Hours CD Cap PO SCH (09:22)
[2017-01-21] MEDS: MethylPREDNISolone 40 mg Vial IVP SCH ×2 (09:23→21:28)
--- NOTE | 2017-01-21 09:35 | PN ---
DATE: 01/21/2017 REASON FOR CONSULTATION: Followup chronic obstructive pulmonary disease exacerbation and paroxysmal atrial fibrillation converted to normal sinus. SUBJECTIVE: Denies any chest pain. Denies any palpitation, but complained of shortness of breath at times and wheezing. PHYSICAL EXAMINATION GENERAL: Lying flat in the bed, not in apparent distress. VITAL SIGNS: Temperature is afebrile, heart rate is 71 and blood pressure 107/71. HEENT: PERRLA. Extraocular ocular muscles intact. NECK: Supple. No carotid bruits or thyromegaly. CHEST: Clear to auscultation. HEART: S1 and S2 regular. ABDOMEN: Soft. EXTREMITIES: Clubbing and cyanosis negative. LABORATORY DATA: Negative blood workup as follows: WBC of 18.8, hemoglobin of 12.4, hematocrit of 39.5, and platelet count of 172. Chemistry shows sodium of 140, potassium of 4.1, chloride of 90, carbon dioxide of 39, anion gap of 10, BUN of 32, and creatinine of 0.4. IMPRESSION: Paroxysmal atrial fibrillation converted to normal sinus and maintaining a normal sinus, acute exacerbation of chronic obstructive pulmonary disease, kyphosis, osteopenia, history of multiple vertebral fractures, cardiac catheterization on 11/29/2016 shows nonobstructive coronary artery disease, echocardiogram on 09/30/2016 shows normal left ventricular function, right ventricular systolic pressure 37, and trace tricuspid regurgitation. RECOMMENDATIONS: Aggressive medical treatment. No further cardiac workup is planned. Continue Cardizem CD 180 mg daily. Continue DVT prophylaxis. CVS status is stable. Continue aggressive treatment for COPD. Once COPD is under control, the patient can be discharge home. No further cardiac workup is planned at this time. The patient had cardiac catheterization on 11/29/[address] Jacobson because of abnormal stress test. Mild ostial left main disease is otherwise essentially normal. We will sign off and glad to follow up p.r.n. Thank you Dr. Tomas for providing us the opportunity in taking care of Shane Manuel. Winston Herring MD
--- NOTE | 2017-01-21 17:56 | CP.PCM.PN ---
Subjective - Date & Time of Evaluation Date of Evaluation: 01/21/17 Time of Evaluation: 10:45 - Subjective Subjective: Comfortable in bed, not in distress, no fevers. Objective - Vital Signs/Intake and Output Vital Signs (last 24 hours): Temp Pulse Resp BP Pulse Ox 97.8 F 71 22 117/81 97 01/21/17 06:00 01/21/17 06:00 01/21/17 06:00 01/21/17 06:00 01/21/17 06:00 Intake and Output: 01/21/17 01/21/17 06:59 18:59 Intake Total 120 Output Total 550 Balance -430 - Medications Medications: Current Medications Acetaminophen (Tylenol 325mg Tab) 650 mg PO Q4H PRN PRN Reason: Fever >100.5 F Last Admin: 01/17/17 08:41 Dose: 650 mg Acetaminophen (Tylenol 325mg Tab) 650 mg PO Q4H PRN PRN Reason: Pain, Mild (1-3) Last Admin: 01/16/17 15:00 Dose: 650 mg Acetylcysteine (Acetylcysteine 20%) 3 ml INH BIDRESP [facility] Last Admin: 01/21/17 07:32 Dose: Not Given Albuterol/Ipratropium (Duoneb 3 Mg/0.5 Mg (3 Ml) Ud) 3 ml IH [id number] ERIC Last Admin: 01/21/17 07:32 Dose: Not Given Atenolol (Tenormin) 25 mg PO BID ERIC Last Admin: 01/20/17 18:17 Dose: 25 mg Budesonide (Pulmicort Respules) 0.5 mg IH [id number] [facility] Last Admin: 01/21/17 07:32 Dose: Not Given Calcium/Vitamin D (Oscal-D 250 Mg-125 Units Tab) 1 tab PO DAILY [facility] Last Admin: 01/20/17 10:55 Dose: 1 tab Diltiazem HCl (Cardizem Cd) 180 mg PO DAILY [facility] Last Admin: 01/20/17 10:55 Dose: 180 mg Doxycycline Hyclate (Doryx) 100 mg PO Q12 [facility] PRN Reason: Protocol Last Admin: 01/20/17 21:37 Dose: 100 mg Enoxaparin Sodium (Lovenox) 30 mg SC DAILY [facility] PRN Reason: Protocol Last Admin: 01/20/17 10:51 Dose: 30 mg Lidocaine (Lidoderm) 2 ea TD HS [facility] Last Admin: 01/19/17 22:59 Dose: Not Given Methylprednisolone (Solu-Medrol) 20 mg IVP Q12 [facility] Morphine Sulfate (Morphine) 2 mg IVP Q6H PRN PRN Reason: Pain, severe (8-10) Last Admin: 01/21/17 01:08 Dose: 2 mg Ondansetron HCl (Zofran Inj) 4 mg IVP Q4H PRN PRN Reason: Nausea/Vomiting Pantoprazole Sodium (Protonix Ec Tab) 40 mg PO 0600 [facility] Last Admin: 01/21/17 06:34 Dose: 40 mg Pregabalin (Lyrica) 75 mg PO HS [facility] Last Admin: 01/20/17 21:37 Dose: 75 mg Roflumilast (Daliresp) 500 mcg PO DAILY [facility] Last Admin: 01/20/17 10:55 Dose: 500 mcg Tramadol HCl (Ultram) 50 mg PO Q6 PRN PRN Reason: Pain, moderate (4-7) Last Admin: 01/21/17 04:43 Dose: 50 mg - Labs Labs: 01/19/17 06:23 01/19/17 06:23 - Constitutional Appears: Non-toxic, No Acute Distress - Head Exam Head Exam: NORMAL INSPECTION - ENT Exam ENT Exam: Mucous Membranes Moist - Neck Exam Neck Exam: absent: Meningismus - Respiratory Exam Respiratory Exam: Decreased Breath Sounds - Cardiovascular Exam Cardiovascular Exam: +S1, +S2 - GI/Abdominal Exam GI & Abdominal Exam: Soft. 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
--- NOTE | 2017-01-22 00:40 | PN ---
PULMONARY PROGRESS NOTE DATE: 01/21/2017 REFERRING PHYSICIAN: Dr. Tomas. SUBJECTIVE: The patient is lying in the bed, head up 45 degrees. Continues to complain about vertebral back pain, short of breath with minimal exertion, use BiPAP at night-time and during the daytime as needed, some cough, no sputum production. No hemoptysis, hematemesis, or hematuria. No diarrhea. No leg pain or leg swelling reported. OBJECTIVE: GENERAL: In no acute distress. VITAL SIGNS: Temperature is 98, heart rate 74, respiratory rate is 24, blood pressure 119/80, pulse ox 99% on 3 L nasal cannula. HEENT: Moist mucous membranes. Small oral cavity. Crowded airway. NECK: Supple. No JVD. LUNGS: Poor airflow with wheezing. HEART: S1 and S2. ABDOMEN: Soft and nontender. No organomegaly. EXTREMITIES: There is no edema. NEUROLOGIC: Awake and alert. Follows simple commands. MEDICATIONS: Mucomyst 20% inhale twice a day, Cardizem CD 180 mg daily, Daliresp 500 mcg daily, doxycycline 100 mg twice a day, DuoNeb q. 6 hours, Lidoderm patch at affected area, Lovenox 30 mg subcu daily, Lyrica 75 mg at bedtime, morphine 2 mg IV q. 8 hours p.r.n., vitamin D and calcium 1 tablet daily, Protonix 40 mg daily, Pulmicort inhale twice a day, Solu-Medrol 20 mg q. 12 hours, Tenormin 25 mg twice a day, Tylenol p.r.n., Ultram 50 mg q. 6 hours p.r.n., Zofran p.r.n. basis. LABORATORY DATA: Shows no new lab is available since yesterday. IMPRESSION AND PLAN: Respiratory failure with CO2 retention, requiring non-invasive ventilation, chronic obstructive lung disease, osteopenia, multiple vertebral fracture, history of kyphoplasty, chronic pain syndrome, opiate dependent. The patient was seen by Neurology and referred to Neurosurgery and Pain Management. I think the patient needs comprehensive evaluation. Neuro cannot pinpoint what vertebrae is causing the pain. Neurosurgeon need to know if particular vertebra kyphoplasty can help the patient to decrease the pain and decrease opiates. Pulmonary point of view, if symptoms are worse because of pain, continue IV and inhaled bronchodilators. We will try to taper off steroids. Continue BiPAP while sleeping and p.r.n. Thank you and we will follow with you. Winston Mendenhall MD
[2017-01-22] MEDS: Albuterol-Ipratrop 3 mg / 0.5 (3 ml) UD IH SCH ×4 (01:22→20:32)
--- NOTE | 2017-01-22 03:39 | PN ---
DATE: 01/21/2017 SUBJECTIVE: This patient was seen and evaluated earlier today. The patient mainly complains of back pain. PHYSICAL EXAMINATION: VITAL SIGNS: Temperature is 97.8, pulse 71, respirations 22, blood pressure 117/81, O2 saturation is 97. HEENT: Atraumatic, anicteric. NECK: Supple. HEART: S1 and S2 heard. LUNGS: Bilateral air entry present. ABDOMEN: Soft. There is no tenderness. EXTREMITIES: No cyanosis. No clubbing. LABORATORY DATA: Hemoglobin 12.4, hematocrit 39.5, WBC count is increased to 18.8. This lab work done on 01/19/2017. We do not have any recent labs done today except chemistry. AST has gone up to 143 and ALT to 134. Hepatitis serology has been negative. The patient did have ultrasound scan of the abdomen done before,no gallstones ,normal CBD IMPRESSION: This 56-year-old patient with a history of chronic obstructive pulmonary disease,smoker, has a chronic back pain and also admitted with a compression fracture. The patient is on methylprednisolone. Gastroenterology consult for elevated liver function tests. The differential diagnosis should include drug-induced. The patient has been on doxycycline. On 12/25/2016, the patient's LFTs were normal. We will continue to closely monitor the patient. If the LFTs continue to go downward trend, we would recommend changing the doxycycline. Thank you very much for allowing us to participate in the care of the patient. Oriana Stock MD [facility]
[2017-01-22] MEDS: Morphine 2 mg/ml ISec IVP PRN ×3 (06:19→18:46)
[2017-01-22] MEDS: Pantoprazole 40 mg EC Tab PO SCH (06:20)
[2017-01-22] MEDS: Budesonide 0.5 mg/2 ml Inhal Susp UD IH SCH ×2 (08:19→20:32)
[2017-01-22] MEDS: Acetylcysteine 20% Inhal Soln (4ml) INH SCH ×2 (08:19→20:30)
[2017-01-22 08:23] LABS: ALB/GLOB RATIO 1.4 (1.1-1.8); BILIRUBIN,DIRECT 0.3 mg/dL (0.0-0.4); BILIRUBIN,TOTAL 0.5 mg/dL (0.2-1.3); TOTAL PROTEIN 4.8 g/dL (5.8-8.3)
[2017-01-22] MEDS ORDERED: MethylPREDNISolone 40 mg Vial IVP SCH (10:00)
[2017-01-22] MEDS: diltiaZEM 180 mg/24 Hours CD Cap PO SCH (10:24)
[2017-01-22] MEDS: Calcium-Vit D 250 mg-125 Units Tab UD PO SCH (10:24)
[2017-01-22] MEDS: Enoxaparin 30 mg Syringe SC SCH (10:26)
--- NOTE | 2017-01-22 14:55 | CP.PCM.PN ---
Subjective - Date & Time of Evaluation Date of Evaluation: 01/22/17 Time of Evaluation: 11:20 - Subjective Subjective: Comfortable in bed, not in distress. Objective - Vital Signs/Intake and Output Vital Signs (last 24 hours): Temp Pulse Resp BP Pulse Ox 98.7 F 70 24 119/80 99 01/21/17 16:46 01/22/17 01:22 01/21/17 16:46 01/21/17 18:14 01/21/17 16:46 Intake and Output: 01/22/17 01/22/17 06:59 18:59 Intake Total 100 Output Total 675 Balance -575 - Medications Medications: Current Medications Acetaminophen (Tylenol 325mg Tab) 650 mg PO Q4H PRN PRN Reason: Fever >100.5 F Last Admin: 01/17/17 08:41 Dose: 650 mg Acetaminophen (Tylenol 325mg Tab) 650 mg PO Q4H PRN PRN Reason: Pain, Mild (1-3) Last Admin: 01/16/17 15:00 Dose: 650 mg Acetylcysteine (Acetylcysteine 20%) 3 ml INH BIDRESP [facility] Last Admin: 01/21/17 19:30 Dose: 3 ml Albuterol/Ipratropium (Duoneb 3 Mg/0.5 Mg (3 Ml) Ud) 3 ml IH [id number] [facility] Last Admin: 01/22/17 01:22 Dose: Not Given Atenolol (Tenormin) 25 mg PO BID ERIC Last Admin: 01/21/17 18:14 Dose: 25 mg Budesonide (Pulmicort Respules) 0.5 mg IH [id number] [facility] Last Admin: 01/21/17 19:31 Dose: 0.5 mg Calcium/Vitamin D (Oscal-D 250 Mg-125 Units Tab) 1 tab PO DAILY [facility] Last Admin: 01/21/17 09:22 Dose: 1 tab Diltiazem HCl (Cardizem Cd) 180 mg PO DAILY [facility] Last Admin: 01/21/17 09:22 Dose: 180 mg Doxycycline Hyclate (Doryx) 100 mg PO Q12 [facility] PRN Reason: Protocol Last Admin: 01/21/17 21:27 Dose: 100 mg Enoxaparin Sodium (Lovenox) 30 mg SC DAILY [facility] PRN Reason: Protocol Last Admin: 01/21/17 09:21 Dose: 30 mg Lidocaine (Lidoderm) 2 ea TD HS [facility] Last Admin: 01/19/17 22:59 Dose: Not Given Methylprednisolone (Solu-Medrol) 20 mg IVP DAILY [facility] Morphine Sulfate (Morphine) 2 mg IVP Q6H PRN PRN Reason: Pain, severe (8-10) Last Admin: 01/22/17 06:19 Dose: 2 mg Ondansetron HCl (Zofran Inj) 4 mg IVP Q4H PRN PRN Reason: Nausea/Vomiting Pantoprazole Sodium (Protonix Ec Tab) 40 mg PO 0600 [facility] Last Admin: 01/22/17 06:20 Dose: 40 mg Pregabalin (Lyrica) 75 mg PO HS [facility] Last Admin: 01/21/17 21:27 Dose: 75 mg Roflumilast (Daliresp) 500 mcg PO DAILY [facility] Last Admin: 01/21/17 09:22 Dose: 500 mcg Tramadol HCl (Ultram) 50 mg PO Q6 PRN PRN Reason: Pain, moderate (4-7) Last Admin: 01/21/17 14:16 Dose: 50 mg - Labs Labs: 01/19/17 06:23 01/19/17 06:23 - Constitutional Appears: Non-toxic, No Acute Distress - Head Exam Head Exam: NORMAL INSPECTION - ENT Exam ENT Exam: Mucous Membranes Moist - Neck Exam Neck Exam: absent: Meningismus - Respiratory Exam Respiratory Exam: Decreased Breath Sounds - Cardiovascular Exam Cardiovascular Exam: +S1, +S2 - GI/Abdominal Exam GI & Abdominal Exam: Soft. 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
[2017-01-22] MEDS: Lidocaine 5% Patch TD SCH ×2 (20:17→23:19)
--- NOTE | 2017-01-22 20:44 | PN ---
PULMONARY PROGRESS NOTE DATE: 01/22/2017 REFERRING PHYSICIAN: Dr. Tomas. SUBJECTIVE: He is sitting up in the bed on non-invasive ventilation, short of breath. Has a spine pain. No nausea. No vomiting. No diarrhea. No leg pain or leg swelling. PHYSICAL EXAMINATION: GENERAL: In no acute distress. VITAL SIGNS: Temperature is 98, heart rate is 80, respiratory rate is 20, blood pressure 110/80 and pulse ox 100% on BiPAP. HEENT: Moist mucous membrane. NECK: Supple. No JVD. LUNGS: Has poor airflow. HEART: S1 and S2. ABDOMEN: Soft and nontender. No organomegaly. EXTREMITIES: No edema. NEUROLOGIC: Awake and alert. Follows simple commands. MEDICATIONS: He is on Mucomyst 20% inhaled twice a day, Cardizem CD 180 mg daily, Daliresp 500 mcg daily, albuterol nebulizer q.6 hours, Lidoderm patch on affected area, Lovenox 30 mg daily, Lyrica 75 mg at bedtime, morphine 2 mg q.6 hours p.r.n., calcium/vitamin D daily, Protonix 40 mg daily, Pulmicort inhaled twice a day, Solu-Medrol 20 mg IV daily, Tenormin 25 mg twice a day, Tylenol p.r.n., Ultram 50 mg q.6 hours p.r.n. and Zofran p.r.n. basis. LABORATORY DATA: Show AST 32, ALT 119, alk phos is 127, albumin is 2.7. Microbiology blood culture has been negative. IMPRESSION AND PLAN: Respiratory failure with CO2 retention, requiring non-invasive ventilation, chronic obstructive lung disease, osteopenia, multiple vertebral fracture, history of kyphoplasty, chronic pain syndrome, opiate dependent. Pulmonary point of view, he is doing okay. Continue non-invasive ventilation as needed basis. Discontinue Solu-Medrol. Place him on prednisone 10 mg daily, inhaled bronchodilator, supplement vitamin D and calcium. Careful with sedation. Thank you and we will follow with you. Winston Mendenhall MD
--- NOTE | 2017-01-22 23:06 | PN ---
SUBJECTIVE: This patient was seen and evaluated today. His main problem is still with breathing, he has been on BiPAP. PHYSICAL EXAMINATION: VITAL SIGNS: Temperature 98, blood pressure 110/70, respirations 20, O2 saturation is 100%. HEENT: Atraumatic, anicteric. NECK: Supple. LUNGS: Bilateral air entry present. Few rhonchi present. EXTREMITIES: No cyanosis. No clubbing. LABORATORY DATA: His AST is elevated to 119, ALT is 127, albumin 2.7. IMPRESSION: This 56-year-old patient with chronic obstructive pulmonary disease; advanced CO2 retention, on BiPAP; history of osteopenia; vertebral fracture;t. The patient has been on chronic obstructive pulmonary disease exacerbation, on doxycycline. PLAN: The patient is being followed by ID. Plan to discontinue doxycyline in am tomorrow. The patient has multiple compression fractures, history of coronary artery disease, atrial fibrillation, cachexia. He has elevated LFTs mainly transaminases, slightly showing the downward trend. The patient did have ultrasound scan of the abdomen done, showed no gallstones. CBD normal. Most likely cause to be consider these probably secondary to drug induced. Hepatic congestion should also be considered for differential diagnosis in view of severe COPD pulmonary hypertension with hepatic congestion should also be contributing factor. Recommend to follow up therapy. Thank you very much for allowing us to participate in the care of the patient. Oriana Stock MD [facility]
[2017-01-23] MEDS: Albuterol-Ipratrop 3 mg / 0.5 (3 ml) UD IH SCH ×4 (01:37→20:03)
[2017-01-23] MEDS: Pantoprazole 40 mg EC Tab PO SCH (06:19)
[2017-01-23] MEDS: Morphine 2 mg/ml ISec IVP PRN ×4 (06:20→23:26)
[2017-01-23 07:53] LABS: ALB/GLOB RATIO 1.4 (1.1-1.8); BILIRUBIN,DIRECT 0.3 mg/dL (0.0-0.4); BILIRUBIN,TOTAL 0.5 mg/dL (0.2-1.3); TOTAL PROTEIN 4.7 g/dL (5.8-8.3)
[2017-01-23] MEDS: Acetylcysteine 20% Inhal Soln (4ml) INH SCH ×2 (08:09→20:03)
[2017-01-23] MEDS: Budesonide 0.5 mg/2 ml Inhal Susp UD IH SCH ×2 (08:09→20:03)
[2017-01-23] MEDS: Calcium-Vit D 250 mg-125 Units Tab UD PO SCH (09:01)
[2017-01-23] MEDS: Enoxaparin 30 mg Syringe SC SCH (09:02)
[2017-01-23] MEDS: diltiaZEM 180 mg/24 Hours CD Cap PO SCH (09:02)
--- NOTE | 2017-01-23 16:51 | PN ---
DATE: 01/23/2017 PULMONARY PROGRESS NOTE REFERRING PHYSICIAN: Dr. Tomas. SUBJECTIVE: He is lying in the bed at 45 degree on non-invasive ventilation. Feels okay. Still have a spine pain. No nausea. No vomiting. No diarrhea, leg pain or leg swelling. OBJECTIVE: GENERAL: In no acute distress. VITAL SIGNS: Temperature is 98, heart rate is 75, respiratory rate is 22, blood pressure 110/75 and pulse ox 100% on BIPAP. HEENT: Moist mucous membrane. NECK: Supple. No JVD. LUNGS: Has poor airflow. HEART: S1 and S2. ABDOMEN: Soft and nontender. No organomegaly. EXTREMITIES: No edema. NEUROLOGIC: Sleepy, arousable. Follows simple commands. MEDICATIONS: He is on Mucomyst 20% inhaled twice a day, Cardizem CD 180 mg daily, Daliresp 500 mcg daily, DuoNeb q. 6 hours, also Lidoderm patch on affected area, Lovenox 30 mg daily, Lyrica 75 mg at bedtime, morphine 2 mg IV q. 4 hours p.r.n., calcium/vitamin D one tab daily, prednisone 10 mg daily, Protonix 40 mg daily, Pulmicort inhaled twice a day, Tenormin 25 mg twice a day, Tylenol p.r.n. basis, Ultram 50 mg q. 6 hours p.r.n., Zofran p.r.n. basis. LABORATORY DATA: Shows LFT today; AST 31, ALT 104, alk phos is 125, albumin is 2.7. Microbiology blood culture has been negative. IMPRESSION AND PLAN: Respiratory failure with CO2 retention, requiring non-invasive ventilation; chronic obstructive lung disease; osteopenia; multiple vertebral fracture; history of kyphoplasty; chronic pain syndrome; opiates dependent. Pulmonary point of view, steroids has been decreased to minimal. Continue inhaled bronchodilator, gastric prophylaxis, deep venous thrombosis prophylaxis, pain management. Overall, poor prognosis. Thank you and we will follow with you. Winston Mendenhall MD
--- NOTE | 2017-01-23 19:13 | PN ---
DATE: 01/23/2017 SUBJECTIVE: This patient was seen and evaluated earlier today. The patient denies any GI complaints. He has been tolerating the diet. The patient is on BiPAP. PHYSICAL EXAMINATION VITAL SIGNS: Temperature is 97.5, pulse 74, blood pressure 110/76. HEENT: Atraumatic and anicteric. NECK: Supple. HEART: S1 and S2 heard. LUNGS: Bilateral air entry present. Scattered rhonchi present. ABDOMEN: Soft. There is no mass palpable. No tenderness. EXTREMITIES: No edema. No cyanosis. NEUROLOGIC: Alert and oriented. LABORATORY DATA: Hemoglobin 12.4, hematocrit 39.5, WBC is 18.8, platelets 172, BUN 32, creatinine 1.4. The LFTs shows slightly downward trend the ALT has come down to 104 and alkaline phosphatase to 125. IMPRESSION AND PLAN: 1. Chronic obstructive pulmonary disease, the patient was on doxycycline, which was discontinued. 2. Most likely the LFT elevation is probably secondary to the medication and the patient has severe chronic obstructive pulmonary disease, pulmonary hypertension with secondary hepatic congestion, should also be additional contributing factor. We will continue to follow up the LFTs. The patient did have ultrasound scan done, which shows no stones and CBD was normal. Thank you very much for allowing us to participate in the care of the patient. Oriana Stock MD
[2017-01-23] MEDS: Lidocaine 5% Patch TD SCH (22:18)
--- NOTE | 2017-01-24 00:30 | PN ---
DATE: 01/20/2017 SUBJECTIVE: The patient was seen on 01/20/2017. The patient is complaining of chronic back pain. His breathing seems stable, improving. However, his significant back pain is a main problem. The patient was seen by neurologist, Dr. Long Riley. PHYSICAL EXAMINATION VITAL SIGNS: Temperature of 98.9, heart rate of 72, blood pressure of 109/79, respirations of 18, and saturating 100% on room air on 3 liters nasal cannula, used BiPAP at night. HEAD AND NECK: Normal. No JVD. LUNGS: Diminished breath sounds bilaterally. CARDIAC: First sound and second sound normal. ABDOMEN: Soft. EXTREMITIES: No edema. NEUROLOGICAL: The patient moves all extremities, but he is very cachectic looking, poor muscle mass in the lower and upper extremities with scaphoid chest. LABORATORY DATA: Noted for liver enzymes elevated; 143 ALT, alk phos is 134 and AST is normal. Troponin was negative. IMPRESSION AND PLAN: 1. Acute chronic obstructive pulmonary disease exacerbation, continue steroids, IV and inhalation. We will switch it to p.o. on discharge, planning to [facility] soon to [facility]. 2. Chronic back pain, seen by neurologist and neurosurgeon, awaiting for neurology for the management. We will continue the current medicine. Taking morphine sulfate for pain management. 3. Probably, the patient has osteoporosis, multiple compression fractures. I discussed with the patient in detail the need for bisphosphonates including Boniva or Fosamax p.o., and I discussed with him calcium, vitamin D, also Prolia may be considered. 4 The patient also need good nutrition. Increase physical therapy and increase activity. Continue current management. Followup clinically. PLAN: We will consider discharging the patient to [facility]. Elmo Tomas MD
--- NOTE | 2017-01-24 00:43 | PN ---
DATE: 01/23/2017 SUBJECTIVE: The patient complains of feeling weak, general weakness, cannot move as before. The patient otherwise has no worsening of his breathing. He has no chest pain. No other complaints. PHYSICAL EXAMINATION VITAL SIGNS: Temperature 97, heart rate 78, blood pressure 110/75, respiratory rate 24, saturating 100% on 3 L nasal cannula. HEAD AND NECK: Normal. No JVD. No thyromegaly. LUNGS: Diminished breath sounds bilaterally. CARDIAC: First sound and second sound normal. ABDOMEN: Soft, nontender. EXTREMITIES: No edema. NEUROLOGIC: General weakness. Nonfocal. LABORATORY DATA: His liver function tests mentioned here was normal. His alk phos is normal, ALT is 104, and AST is normal. MEDICATIONS: Current medications right now, he is getting Mucomyst, Cardizem, Daliresp, DuoNeb, Lidoderm, Lovenox, Lyrica, morphine sulfate IV, and he is getting prednisone, Protonix, Pulmicort, Tenormin, Tylenol, tramadol, and Zofran. ASSESSMENT AND PLAN: 1. Generalized weakness, probably multifactorial, steroids, lack of activity, chronic illnesses, multiple medical problems. We will encourage the patient to get physical therapy, also anabolic steroids like testosterone injections will be of some help for him. He needs to be managed as outpatient and get prostate checkup as outpatient before starting any testosterone injections. We will add multivitamins and we will follow up clinically. 2. Chronic obstructive pulmonary disease. Continue prednisone. Continue inhaled bronchodilators. We will follow up clinically. Continue BiPAP at night. 3. Chronic back pain, multiple spinal compression fractures, osteoporosis. Continue pain management. 4. Chronic arrhythmia. Continue Tenormin 25 mg and Cardizem. We will continue current treatment as outpatient. Continue current medications. We will follow up clinically. We will re-evaluate, we will discharge tomorrow or on Tuesday. Elmo Tomas MD
--- NOTE | 2017-01-24 01:07 | PN ---
DATE: 01/21/2017 SUBJECTIVE: The patient could not be discharged back to [facility] for technical and paperwork reason. Otherwise, the patient is stable. No new complaints. Currently stable on pain meds and medical treatments. PHYSICAL EXAMINATION On 01/21/2017 is as follows: VITAL SIGNS: Temperature 97.8, heart rate 71, blood pressure is 117/81, respirations 22 and saturating 97% on room air, he takes 3 liters nasal cannula. HEAD AND NECK: Normal. No JVD. CHEST: Diminished breath sounds bilaterally. No wheeze. CARDIAC: First and second sound normal. ABDOMEN: Soft, nontender. EXTREMITIES: No edema. NEUROLOGIC: The patient has decreased muscle mass and generalized weakness. IMPRESSION AND PLAN: 1. Acute on top of chronic respiratory failure, severe emphysema, BiPAP at night and steroids p.o. right now. We will continue current therapy. Continue inhaled bronchodilators and follow up with Dr. Abdirashid hernandez, chronic back pain, seen by Neurology, neurosurgeon, pain management evaluation, continue morphine sulfate. 2. Osteoporosis, multiple compression fractures. Continue current treatment. We will discharge him on Fosamax, calcium, vitamin D and should follow up as an outpatient. The patient also has generalized weakness, encouraged physical therapy. He is currently getting physical therapy and encouraged to do more physical therapy at [facility]. Elmo Tomas MD
[2017-01-24] MEDS: Albuterol-Ipratrop 3 mg / 0.5 (3 ml) UD IH SCH ×4 (01:43→20:10)
[2017-01-24] MEDS: Morphine 2 mg/ml ISec IVP PRN ×4 (05:38→23:45)
[2017-01-24] MEDS: Pantoprazole 40 mg EC Tab PO SCH (05:38)
[2017-01-24 07:25] LABS: ALB/GLOB RATIO 1.4 (1.1-1.8); BILIRUBIN,DIRECT 0.3 mg/dL (0.0-0.4); BILIRUBIN,TOTAL 0.4 mg/dL (0.2-1.3)
[2017-01-24] MEDS: Acetylcysteine 20% Inhal Soln (4ml) INH SCH ×2 (08:26→20:10)
[2017-01-24] MEDS: Budesonide 0.5 mg/2 ml Inhal Susp UD IH SCH ×3 (08:26→20:10)
[2017-01-24] MEDS: Calcium-Vit D 250 mg-125 Units Tab UD PO SCH (09:58)
[2017-01-24] MEDS: diltiaZEM 180 mg/24 Hours CD Cap PO SCH (09:58)
[2017-01-24] MEDS: Enoxaparin 30 mg Syringe SC SCH (10:00)
--- NOTE | 2017-01-24 12:09 | CP.PCM.PN ---
<Kori Mullins - Last Filed: 01/24/17 12:08> Subjective - Date & Time of Evaluation Date of Evaluation: 01/24/17 Time of Evaluation: 10:05 - Subjective Subjective: Seen and examined at the bedside earlier this morning, patient did report having bowel movement, denies nausea, vomiting or abdominal pain. He still gets periods of shortness of breath, no acute respiratory distress. Objective - Vital Signs/Intake and Output Vital Signs (last 24 hours): Temp Pulse Resp BP Pulse Ox 97.6 F 86 22 115/78 95 01/24/17 07:42 01/24/17 09:59 01/24/17 07:42 01/24/17 09:59 01/24/17 07:42 Intake and Output: 01/24/17 01/24/17 06:59 18:59 Intake Total 780 Output Total 900 Balance -120 - Medications Medications: Current Medications Acetaminophen (Tylenol 325mg Tab) 650 mg PO Q4H PRN PRN Reason: Fever >100.5 F Last Admin: 01/17/17 08:41 Dose: 650 mg Acetaminophen (Tylenol 325mg Tab) 650 mg PO Q4H PRN PRN Reason: Pain, Mild (1-3) Last Admin: 01/16/17 15:00 Dose: 650 mg Acetylcysteine (Acetylcysteine 20%) 3 ml INH BIDRESP [facility] Last Admin: 01/24/17 08:26 Dose: Not Given Albuterol/Ipratropium (Duoneb 3 Mg/0.5 Mg (3 Ml) Ud) 3 ml IH [id number] [facility] Last Admin: 01/24/17 10:54 Dose: 3 ml Atenolol (Tenormin) 25 mg PO BID [facility] Last Admin: 01/24/17 09:59 Dose: 25 mg Budesonide (Pulmicort Respules) 0.5 mg IH [id number] [facility] Last Admin: 01/24/17 10:54 Dose: 0.5 mg Calcium/Vitamin D (Oscal-D 250 Mg-125 Units Tab) 1 tab PO DAILY [facility] Last Admin: 01/24/17 09:58 Dose: 1 tab Diltiazem HCl (Cardizem Cd) 180 mg PO DAILY [facility] Last Admin: 01/24/17 09:58 Dose: 180 mg Enoxaparin Sodium (Lovenox) 30 mg SC DAILY [facility] PRN Reason: Protocol Last Admin: 01/24/17 10:00 Dose: 30 mg Lidocaine (Lidoderm) 2 ea TD HS [facility] Last Admin: 01/23/17 22:18 Dose: Not Given Morphine Sulfate (Morphine) 2 mg IVP Q6H PRN PRN Reason: Pain, severe (8-10) Last Admin: 01/24/17 11:53 Dose: 2 mg Ondansetron HCl (Zofran Inj) 4 mg IVP Q4H PRN PRN Reason: Nausea/Vomiting Pantoprazole Sodium (Protonix Ec Tab) 40 mg PO 0600 [facility] Last Admin: 01/24/17 05:38 Dose: 40 mg Prednisone (Prednisone Tab) 10 mg PO DAILY [facility] Last Admin: 01/24/17 09:58 Dose: 10 mg Pregabalin (Lyrica) 75 mg PO HS [facility] Last Admin: 01/23/17 22:17 Dose: 75 mg Roflumilast (Daliresp) 500 mcg PO DAILY [facility] Last Admin: 01/24/17 09:58 Dose: 500 mcg Tramadol HCl (Ultram) 50 mg PO Q6 PRN PRN Reason: Pain, moderate (4-7) Last Admin: 01/24/17 09:58 Dose: 50 mg - Labs Labs: 01/19/17 06:23 01/19/17 06:23 - Constitutional Appears: No Acute Distress, Cachectic - Head Exam Head Exam: NORMOCEPHALIC - Eye Exam Eye Exam: Normal appearance. absent: Scleral icterus - ENT Exam ENT Exam: Mucous Membranes Moist - Neck Exam Neck Exam: Normal Inspection - Respiratory Exam Respiratory Exam: Decreased Breath Sounds, Rhonchi, NORMAL BREATHING PATTERN. absent: Respiratory Distress - Cardiovascular Exam Cardiovascular Exam: +S1, +S2 - GI/Abdominal Exam GI & Abdominal Exam: Soft, Normal Bowel Sounds. absent: Guarding, Tenderness, Rebound - Neurological Exam Neurological Exam: Alert, Awake, Oriented x3 - Skin Skin Exam: Dry, Warm Assessment and Plan - Assessment and Plan (Free Text) Assessment: Assessment: Transaminitis, differentials to consider is medication induced, hepatic congestion, improving History of cholecystectomy, status post abdominal ultrasound, CBD 3.9 mm Diarrhea, rule out C. difficile, history of antibiotic use Paroxysmal atrial fibrillation, now sinus rhythm Exacerbation of COPD Chronic back pain with history of compression fractures Plan: Trend LFTs avoid hepatotoxic drugs Continued GI and DVT prophylaxis Diet as tolerated On Cardizem PO On Solu-Medrol Seen and discussed with Dr. Stock. <Oriana Stock V - Last Filed: 01/24/17 18:33> Objective - Vital Signs/Intake and Output Vital Signs (last 24 hours): Temp Pulse Resp BP Pulse Ox 97.6 F 64 22 125/75 95 01/24/17 07:42 01/24/17 17:36 01/24/17 07:42 01/24/17 17:36 01/24/17 07:42 Intake and Output: 01/24/17 01/24/17 06:59 18:59 Intake Total 780 600 Output Total 900 Balance -120 600 - Medications Medications: Current Medications Acetaminophen (Tylenol 325mg Tab) 650 mg PO Q4H PRN PRN Reason: Fever >100.5 F Last Admin: 01/17/17 08:41 Dose: 650 mg Acetaminophen (Tylenol 325mg Tab) 650 mg PO Q4H PRN PRN Reason: Pain, Mild (1-3) Last Admin: 01/16/17 15:00 Dose: 650 mg Acetylcysteine (Acetylcysteine 20%) 3 ml INH BIDRESP [facility] Last Admin: 01/24/17 08:26 Dose: Not Given Albuterol/Ipratropium (Duoneb 3 Mg/0.5 Mg (3 Ml) Ud) 3 ml IH [id number] [facility] Last Admin: 01/24/17 10:54 Dose: 3 ml Atenolol (Tenormin) 25 mg PO BID [facility] Last Admin: 01/24/17 17:36 Dose: 25 mg Budesonide (Pulmicort Respules) 0.5 mg IH [id number] [facility] Last Admin: 01/24/17 10:54 Dose: 0.5 mg Calcium/Vitamin D (Oscal-D 250 Mg-125 Units Tab) 1 tab PO DAILY [facility] Last Admin: 01/24/17 09:58 Dose: 1 tab Diltiazem HCl (Cardizem Cd) 180 mg PO DAILY [facility] Last Admin: 01/24/17 09:58 Dose: 180 mg Enoxaparin Sodium (Lovenox) 30 mg SC DAILY [facility] PRN Reason: Protocol Last Admin: 01/24/17 10:00 Dose: 30 mg Lidocaine (Lidoderm) 2 ea TD HS [facility] Last Admin: 01/23/17 22:18 Dose: Not Given Morphine Sulfate (Morphine) 2 mg IVP Q6H PRN PRN Reason: Pain, severe (8-10) Last Admin: 01/24/17 17:38 Dose: 2 mg Ondansetron HCl (Zofran Inj) 4 mg IVP Q4H PRN PRN Reason: Nausea/Vomiting Pantoprazole Sodium (Protonix Ec Tab) 40 mg PO 0600 [facility] Last Admin: 01/24/17 05:38 Dose: 40 mg Prednisone (Prednisone Tab) 10 mg PO DAILY [facility] Last Admin: 01/24/17 09:58 Dose: 10 mg Pregabalin (Lyrica) 75 mg PO HS [facility] Last Admin: 01/23/17 22:17 Dose: 75 mg Roflumilast (Daliresp) 500 mcg PO DAILY [facility] Last Admin: 01/24/17 09:58 Dose: 500 mcg Tramadol HCl (Ultram) 50 mg PO Q6 PRN PRN Reason: Pain, moderate (4-7) Last Admin: 01/24/17 09:58 Dose: 50 mg - Labs Labs: 01/19/17 06:23 01/19/17 06:23 Attending/Attestation - Attestation I have personally seen and examined this patient.: Yes I have fully participated in the care of the patient.: Yes I have reviewed all pertinent clinical information, including history, physical exam and plan: Yes Notes (Text): This is an addendum to GI progress report dictated by Kori Mullins APN.The patient was seen and examined earlier. Medical records, lab studies, imagings were reviewed. Last 24 hours events reviewed. Agreed with the above treatment plan as outlined in Kori Mullins APN's notes the with the addition of the following on examination abdomen soft. No tenderness Follow-up of LFT 01/24/17 18:31
--- NOTE | 2017-01-24 13:32 | PN ---
DATE: 01/24/2017 LOCATION: The patient is in room 370, bed 1. REASON FOR CONSULTATION: Followup shortness of breath, exacerbation of chronic obstructive pulmonary disease and paroxysmal atrial fibrillation converted to normal sinus. SUBJECTIVE: The patient still complaints at times shortness of breath. Denies any chest pain or palpitations. The patient presently lying flat in the bed. PHYSICAL EXAMINATION: VITAL SIGNS: Blood pressure 115/78, respirations 22, pulse 86, temperature 97.6. HEENT: Head is normocephalic. Eyes: Pupils normal. Conjunctivae normal. NECK: JVP low. Carotids equal. THORAX: AP diameter markedly decreased. LUNGS: Expiratory wheezing and prolonged respiration. CARDIOVASCULAR: S1 and S2. ABDOMEN: Soft, nontender. No organomegaly. EXTREMITIES: No clubbing, no cyanosis. LABORATORY DATA: Total bilirubin 0.4, AST 33, ALT 104, alkaline phosphatase 131, total protein 5.0, albumin 2.9. DIAGNOSES: 1. Paroxysmal atrial fibrillation, maintaining sinus rhythm. 2. Chronic obstructive pulmonary disease with excerebration. 3. Kyphosis. 4. Osteopenia. 5. History of multiple vertebral fractures. The patient's cardiac catheterization on 11/29/2016 showed nonobstructive coronary artery disease. Echo on 09/30/2016 showed normal left ventricle function, right ventricular systolic pressure of 37, trace tricuspid regurgitation. PLAN: The patient is on Cardizem CD 180 mg p.o. daily, DuoNeb nebulizer therapy, Lovenox 30 mg subQ daily, prednisone 10 mg daily, Protonix 40 daily, atenolol 25 mg b.i.d. We will continue current therapy. We will follow. Winston Larson MD
--- NOTE | 2017-01-24 16:00 | CP.PCM.PN ---
Subjective - Date & Time of Evaluation Date of Evaluation: 01/24/17 Time of Evaluation: 10:25 - Subjective Subjective: On BiPAP, no fevers. Objective - Vital Signs/Intake and Output Vital Signs (last 24 hours): Temp Pulse Resp BP Pulse Ox 97.6 F 86 22 115/78 95 01/24/17 07:42 01/24/17 07:42 01/24/17 07:42 01/24/17 07:42 01/24/17 07:42 Intake and Output: 01/24/17 01/24/17 06:59 18:59 Intake Total 780 Output Total 900 Balance -120 - Medications Medications: Current Medications Acetaminophen (Tylenol 325mg Tab) 650 mg PO Q4H PRN PRN Reason: Fever >100.5 F Last Admin: 01/17/17 08:41 Dose: 650 mg Acetaminophen (Tylenol 325mg Tab) 650 mg PO Q4H PRN PRN Reason: Pain, Mild (1-3) Last Admin: 01/16/17 15:00 Dose: 650 mg Acetylcysteine (Acetylcysteine 20%) 3 ml INH BIDRESP [facility] Last Admin: 01/24/17 08:26 Dose: Not Given Albuterol/Ipratropium (Duoneb 3 Mg/0.5 Mg (3 Ml) Ud) 3 ml IH [id number] [facility] Last Admin: 01/24/17 08:26 Dose: Not Given Atenolol (Tenormin) 25 mg PO BID [facility] Last Admin: 01/23/17 17:16 Dose: Not Given Budesonide (Pulmicort Respules) 0.5 mg IH [id number] [facility] Last Admin: 01/24/17 08:26 Dose: Not Given Calcium/Vitamin D (Oscal-D 250 Mg-125 Units Tab) 1 tab PO DAILY [facility] Last Admin: 01/23/17 09:01 Dose: 1 tab Diltiazem HCl (Cardizem Cd) 180 mg PO DAILY [facility] Last Admin: 01/23/17 09:02 Dose: 180 mg Enoxaparin Sodium (Lovenox) 30 mg SC DAILY [facility] PRN Reason: Protocol Last Admin: 01/23/17 09:02 Dose: 30 mg Lidocaine (Lidoderm) 2 ea TD HS [facility] Last Admin: 01/23/17 22:18 Dose: Not Given Morphine Sulfate (Morphine) 2 mg IVP Q6H PRN PRN Reason: Pain, severe (8-10) Last Admin: 01/24/17 05:38 Dose: 2 mg Ondansetron HCl (Zofran Inj) 4 mg IVP Q4H PRN PRN Reason: Nausea/Vomiting Pantoprazole Sodium (Protonix Ec Tab) 40 mg PO 0600 [facility] Last Admin: 01/24/17 05:38 Dose: 40 mg Prednisone (Prednisone Tab) 10 mg PO DAILY [facility] Last Admin: 01/23/17 09:01 Dose: 10 mg Pregabalin (Lyrica) 75 mg PO HS [facility] Last Admin: 01/23/17 22:17 Dose: 75 mg Roflumilast (Daliresp) 500 mcg PO DAILY [facility] Last Admin: 01/23/17 09:01 Dose: 500 mcg Tramadol HCl (Ultram) 50 mg PO Q6 PRN PRN Reason: Pain, moderate (4-7) Last Admin: 01/24/17 04:32 Dose: 50 mg - Labs Labs: 01/19/17 06:23 01/19/17 06:23 - Constitutional Appears: Non-toxic, No Acute Distress - Head Exam Head Exam: NORMAL INSPECTION - Neck Exam Neck Exam: absent: Meningismus - Respiratory Exam Respiratory Exam: Decreased Breath Sounds - Cardiovascular Exam Cardiovascular Exam: +S1, +S2 - GI/Abdominal Exam GI & Abdominal Exam: Soft. absent: Tenderness Assessment and Plan - Assessment and Plan (Free Text) Plan: Assessment Systemic Inflammatory response Syndrome, probably due to COPD exacerbation in a patient with end-stage COPD, no evidence of pneumonia on CXR multiple thoracic and lumbar compression fractures, S/P vertebroplasty T8-T12, L1 atrial fibrillation CAD cachexia with BMI 17 Plan S/P Doxycycline Pulmonary is also following for COPD noted CT thoracic and lumbar spine showing the old and new compression fractures Overall prognosis is poor will continue to monitor clinically off antibiotics
--- NOTE | 2017-01-24 20:50 | PN ---
PULMONARY PROGRESS NOTE DATE: 01/24/2017 REFERRING PHYSICIAN: Dr. Tomas. SUBJECTIVE: He is lying in the bed at 45 degrees, on noninvasive ventilation, very weak. Still has a spine pain. No nausea. No vomiting. No diarrhea. No leg pain or leg swelling. PHYSICAL EXAMINATION: GENERAL: No acute distress. VITAL SIGNS: Temperature is 98, heart rate is 64, respiratory rate is 20, blood pressure 125/75 and pulse ox 96% on BIPAP with 3 L nasal cannula. HEENT: Moist mucous membrane. NECK: Supple. No JVD. LUNGS: Has poor airflow with prolonged expiratory phase. HEART: S1 and S2. ABDOMEN: Soft and nontender. No organomegaly. EXTREMITIES: There is no edema. NEUROLOGIC: Awake and alert. Follows simple commands. MEDICATIONS: He is on Mucomyst which was not given today, Cardizem CD 180 mg daily, Daliresp 500 mcg daily, DuoNeb q. 6 hours, Lidoderm patch daily, Lovenox 30 mg daily, Lyrica 75 mg at bedtime, morphine 2 mg q. 6 hours p.r.n., calcium plus vitamin D daily, prednisone 10 mg daily, Protonix 40 mg daily, Pulmicort inhaled twice a day, Tenormin 25 mg twice a day, Tylenol p.r.n. basis, Ultram 50 mg p.o. q. 6 hours p.r.n. and Zofran p.r.n. basis. LABORATORY DATA: Reviewed and noted. Total bilirubin is 0.4, AST is 33, ALT 104, alkaline phosphatase is 131 and albumin is 2.9. Microbiology; blood culture has been negative. IMPRESSION AND PLAN: Respiratory failure with CO2 retention requiring noninvasive ventilation, chronic obstructive lung disease, osteopenia, multiple vertebral fractures, history of kyphoplasty, chronic pain syndrome and opioid dependence. Pulmonary point of view, continue bicarbonate as needed basis. Titrate FiO2 to pulse ox 90. Continue p.o. and inhaled bronchodilators. Continue supplement calcium and vitamin D. He is taking deep venous thrombosis prophylaxis. Will benefit from rehabilitation. Thank you and we will follow with you. Winston Mendenhall MD [facility] # [id number]
[2017-01-24] MEDS: Lidocaine 5% Patch TD SCH (22:00)
[2017-01-25] MEDS: Albuterol-Ipratrop 3 mg / 0.5 (3 ml) UD IH SCH ×4 (02:40→13:18)
[2017-01-25] MEDS: Pantoprazole 40 mg EC Tab PO SCH (06:30)
[2017-01-25] MEDS: Acetylcysteine 20% Inhal Soln (4ml) INH SCH (07:43)
[2017-01-25] MEDS: Budesonide 0.5 mg/2 ml Inhal Susp UD IH SCH (07:45)
[2017-01-25 08:12] VITALS: RESP 22; TEMP 97.6
[2017-01-25 09:35] VITALS: BP 107/76; PULSE 100; O2SAT 99
[2017-01-25] MEDS: Calcium-Vit D 250 mg-125 Units Tab UD PO SCH (09:36)
[2017-01-25] MEDS: Enoxaparin 30 mg Syringe SC SCH (09:36)
[2017-01-25] MEDS: diltiaZEM 180 mg/24 Hours CD Cap PO SCH (09:36)
[2017-01-25 11:20] LABS: ALB/GLOB RATIO 1.3 (1.1-1.8); ALKALINE PHOSPHATASE 133 U/L (38-126); ALT/SGPT 82 U/L (7-56); AST/SGOT 28 U/L (17-59); BILIRUBIN,TOTAL 0.4 mg/dL (0.2-1.3); BLOOD UREA NITROGEN 28 mg/dL (7-21); CALCIUM 8.5 mg/dL (8.4-10.5); CHLORIDE 94 mmol/L (98-107); GFR AFRICAN-AMERICAN > 60; GLUCOSE,RANDOM 181 mg/dL (70-110); SODIUM 139 mmol/L (132-148); TOTAL PROTEIN 4.8 g/dL (5.8-8.3)
[2017-01-25 11:32] LABS: CARBON DIOXIDE 41 mmol/L (21-33)
--- NOTE | 2017-01-25 12:50 | CP.PCM.PN ---
Subjective - Date & Time of Evaluation Date of Evaluation: 01/25/17 Time of Evaluation: 10:00 - Subjective Subjective: Seen and examined at the bedside earlier this morning, the chart was reviewed. Denies nausea, vomiting, or abdominal pain. reports last BM was 2 days ago, reports poor appetite, no respiratory distress. Objective - Vital Signs/Intake and Output Vital Signs (last 24 hours): Temp Pulse Resp BP Pulse Ox 97.6 F 100 H 22 107/76 99 01/25/17 08:11 01/25/17 09:35 01/25/17 09:35 01/25/17 09:35 01/25/17 09:35 Intake and Output: 01/25/17 01/25/17 06:59 18:59 Intake Total 480 Output Total 1000 500 Balance -1000 -20 - Medications Medications: Current Medications Acetaminophen (Tylenol 325mg Tab) 650 mg PO Q4H PRN PRN Reason: Fever >100.5 F Last Admin: 01/17/17 08:41 Dose: 650 mg Acetaminophen (Tylenol 325mg Tab) 650 mg PO Q4H PRN PRN Reason: Pain, Mild (1-3) Last Admin: 01/16/17 15:00 Dose: 650 mg Acetylcysteine (Acetylcysteine 20%) 3 ml INH BIDRESP [facility] Last Admin: 01/25/17 07:43 Dose: 3 ml Albuterol/Ipratropium (Duoneb 3 Mg/0.5 Mg (3 Ml) Ud) 3 ml IH [id number] [facility] Last Admin: 01/25/17 12:10 Dose: 3 ml Alendronate Sodium (Fosamax) 70 mg PO Q7D@0600 [facility] Atenolol (Tenormin) 25 mg PO BID [facility] Last Admin: 01/25/17 09:41 Dose: Not Given Budesonide (Pulmicort Respules) 0.5 mg IH [id number] [facility] Last Admin: 01/25/17 07:45 Dose: 0.5 mg Calcium/Vitamin D (Oscal-D 250 Mg-125 Units Tab) 1 tab PO DAILY [facility] Last Admin: 01/25/17 09:36 Dose: 1 tab Diltiazem HCl (Cardizem Cd) 180 mg PO DAILY [facility] Last Admin: 01/25/17 09:36 Dose: Not Given Enoxaparin Sodium (Lovenox) 30 mg SC DAILY [facility] PRN Reason: Protocol Last Admin: 01/25/17 09:36 Dose: 30 mg Lidocaine (Lidoderm) 2 ea TD HS [facility] Last Admin: 01/24/17 22:00 Dose: Not Given Morphine Sulfate (Morphine) 2 mg IVP Q6H PRN PRN Reason: Pain, severe (8-10) Last Admin: 01/24/17 23:45 Dose: 2 mg Ondansetron HCl (Zofran Inj) 4 mg IVP Q4H PRN PRN Reason: Nausea/Vomiting Pantoprazole Sodium (Protonix Ec Tab) 40 mg PO 0600 [facility] Last Admin: 01/25/17 06:30 Dose: Not Given Prednisone (Prednisone Tab) 10 mg PO DAILY [facility] Last Admin: 01/25/17 09:37 Dose: 10 mg Pregabalin (Lyrica) 75 mg PO HS [facility] Last Admin: 01/24/17 23:47 Dose: 75 mg Roflumilast (Daliresp) 500 mcg PO DAILY [facility] Last Admin: 01/25/17 09:36 Dose: 500 mcg Tramadol HCl (Ultram) 50 mg PO Q6 PRN PRN Reason: Pain, moderate (4-7) Last Admin: 01/25/17 03:42 Dose: 50 mg - Labs Labs: 01/19/17 06:23 01/25/17 10:55 - Constitutional Appears: No Acute Distress - Eye Exam Eye Exam: Normal appearance. absent: Scleral icterus - ENT Exam ENT Exam: Mucous Membranes Moist - Neck Exam Neck Exam: Normal Inspection - Respiratory Exam Respiratory Exam: Decreased Breath Sounds, Rhonchi. absent: Respiratory Distress - Cardiovascular Exam Cardiovascular Exam: +S1, +S2 - GI/Abdominal Exam GI & Abdominal Exam: Soft, Normal Bowel Sounds. absent: Guarding, Tenderness, Rebound - Neurological Exam Neurological Exam: Alert, Awake, Oriented x3 Assessment and Plan - Assessment and Plan (Free Text) Assessment: Assessment: Transaminitis, differentials to consider is medication induced, hepatic congestion, improving History of cholecystectomy, status post abdominal ultrasound, CBD 3.9 mm Diarrhea, rule out C. difficile, history of antibiotic use Paroxysmal atrial fibrillation, now sinus rhythm Exacerbation of COPD Chronic back pain with history of compression fractures Plan: Trend LFTs avoid hepatotoxic drugs Continued GI and DVT prophylaxis Diet as tolerated On Cardizem PO On Solu-Medrol Start MiraLAX daily, hold for loose stools Seen and discussed with Dr. Stock.
[2017-01-25] MEDS ORDERED: POLYETHYLENE GLYCOL 3350 17 GM/Dose PACKET PO SCH (13:00)
[2017-01-25] MEDS: Morphine 2 mg/ml ISec IVP PRN (13:12)
--- NOTE | 2017-01-25 14:17 | PN ---
DATE: 01/24/2017 SUBJECTIVE: The patient is seen on BiPAP. He complained of generalized weakness. Otherwise, no nausea, no vomiting, no diarrhea. The patient has no fever. PHYSICAL EXAMINATION: VITAL SIGNS: As follows; temperature 98.6, heart rate 64, blood pressure 125/75, respirations 20, saturation 96%. He use BiPAP, 30% FiO2. HEAD AND NECK: Normal. No JVD. No thyromegaly. CHEST: Diminished breath sounds bilaterally. CARDIAC: First sound and second sound normal. ABDOMEN: Soft, nontender. EXTREMITIES: No edema. NEUROLOGIC: The patient moves all extremities, but he does have generalized weakness. The patient seems muscle mass is low, which has been there for a couple of years. LABORATORY DATA: No labs for today. We will order lab in the morning including CBC and comprehensive metabolic panel. His liver function test; ALT 104, alk phos 131. IMPRESSION AND PLAN: 1. Acute chronic obstructive pulmonary disease exacerbation. Continue inhaled and p.o. bronchodilators. Currently on prednisone. Continue DuoNeb. Continue Brovana and Pulmicort. The patient also had severe emphysema. History of smoking, just like 40 years of smoking when he was a child and more than a pack a day through years. 2. Cardiac arrhythmia, currently stable. Continue Cardizem. Continue metoprolol and atenolol 25 mg b.i.d. Heart rate is stable. 3. Severe spine pain with multiple compression fractures, probably osteoporosis related. Continue Os-Joss, vitamin D. The patient was advised will be on Brovana or Fosamax weekly. We will consider outpatient Endocrine consult to evaluate for metabolic bone disease. 4. Generalized weakness. Again, the patient may need anabolic hormone to increase his muscle mass and we will follow up as an outpatient with testosterone injection every two weeks would be good option for him. Check his PSA and we will follow up on that. Continue current treatment. The patient will be going to alf and we will discuss with psychiatric social worker working on that. Elmo Tomas MD
--- NOTE | 2017-01-25 15:42 | PN ---
DATE: 01/25/2017 SUBJECTIVE: The patient is in bed in no acute distress. PHYSICAL EXAMINATION: VITAL SIGNS: Temperature is 97, blood pressure is 107/70, respiratory rate of 18, heart rate of 100. HEENT: Unremarkable. NECK: Supple. LUNGS: Decreased breath sounds. HEART: Normal S1, S2. ABDOMEN: Soft and nontender. LABORATORY EXAMINATION: Reveals a white count of 18,800; hemoglobin of 12 and chemistries reveals a BUN of 28 and creatinine of 0.4. Procalcitonin is 0.08. Serology is noted and microbiology is reviewed. Negative blood cultures after 5 days and review of orders. The patient is on prednisone, off of antibiotics. ASSESSMENT AND PLAN: This is a 56-year-old male with systemic inflammatory response syndrome, chronic obstructive pulmonary disease exacerbation , and the patient with end-stage chronic obstructive pulmonary disease, no evidence of pneumonia on chest x-ray, multiple thoracic and lumbar compression fracture, status post vertebroplasty, atrial fibrillation, coronary artery disease, cachexia with a BMI of 17. Currently off of antibiotics, afebrile, however, the patient is at overall in poor condition and he certainly appears much older than stated age. Prognosis is poor. He is at high risk of developing nosocomial infections. Sin Milton MD
--- NOTE | 2017-01-25 20:53 | PN ---
DATE: 01/25/2017 REASON FOR CONSULTATION: Shortness of breath, exacerbation of COPD, paroxysmal atrial fibrillation, the patient is in normal sinus. SUBJECTIVE: Still complains of very short of breath, trying to breathe, but feels short of breath and wheezing. OBJECTIVE: GENERAL: Lying on the bed with 30-degree head up. VITAL SIGNS: Temperature afebrile, heart rate 100, blood pressure 106/76. HEENT: PERRLA. Extraocular muscles are intact. NECK: Supple. No carotid bruits. No thyromegaly. HEART: S1 and S2 regular. CHEST: Clear to auscultation. ABDOMEN: Soft. EXTREMITIES: Clubbing and cyanosis negative. LABORATORY DATA: Blood workup as follows: WBC , hemoglobin 12.4, hematocrit 39.5, and platelet count 172. Chemistry shows sodium 140, potassium 4.0, carbon dioxide 39, anion gap of 10, BUN of 32, and creatinine 0.4. IMPRESSION: Acute exacerbation of chronic obstructive pulmonary disease, paroxysmal atrial fibrillation converted to normal sinus, kyphosis, osteopenia, multiple fractured vertebra, history of cardiac catheterization on 11/29/2013, nonobstructive coronary artery disease and last echocardiogram on 09/30/2013 has a normal left ventricular function and right ventricular systolic pressure of 37, trace tricuspid regurgitation. RECOMMENDATIONS: No aggressive cardiac workup is planned. Continue aggressive treatment for COPD. No further cardiac workup as mentioned and planned. Continue Cardizem CD. Continue DVT prophylaxis. We will follow with you. Thank you Dr. Tomas for providing us the opportunity in taking care of your patient, Shane Manuel. Winston Herring MD
--- NOTE | 2017-01-27 06:23 | DS ---
CHIEF COMPLAINT: Severe COPD, smoker for more than 40 years. He is 56-year-old male. He has been smoking since childhood. HISTORY OF PRESENT ILLNESS: The patient has been on a vent and BiPAP machine on and off, especially more at night. He also on inhaled bronchodilators and has been stable pulmonary glass, p.o. prednisone, seen by pulmonary Dr. Mendenhall. He does have chronic back pain, multiple disk and multiple compression fractures and chronic back pain. The patient was given morphine to be continued p.o. He was given also cardiac medications for his cardiac arrhythmia, seen by cardiology Dr. Lawson and Dr. Herring. He is on diltiazem ER 120 mg p.o. daily and also seen by neurologist Dr. Long Riley, neurosurgeon Dr. Amaya. Neurosurgeon there is no option for surgery in this high risk patient. Also seen by Dr. Karlo Morales for interventional kyphoplasty. He did have the previous one, which did not help his pain. Pain management consult with Dr. Elmo Watts was ordered, but no epidural injection was done. The patient otherwise is stable. We will maintain his pain medications. We will give him medication to increase his bone strength including calcium, vitamin D, and Fosamax, need to do follow up with an endocrine consult for his bone metabolic disorder, pulmonary consult for COPD. At this time, we will discharge the patient on prednisone, continue inhaled bronchodilators, continue diltiazem, continue Fosamax, calcium, vitamin D, and pain medications, morphine sulfate. The patient would be seen in the care home and also continue Flexeril 10 mg t.i.d. He is stable on discharge. PHYSICAL EXAMINATION: VITAL SIGNS: Heart rate is 90, blood pressure 107/76, it went up higher too and his respiratory rate is 22 saturating 99% and temperature 97.6. DISCHARGE DIAGNOSES: 1. Acute chronic obstructive pulmonary disease exacerbations. 2. Severe emphysema. 3. Obstructive sleep apnea. 4. Severe osteoporosis with multiple compression fractures. 5. Chronic back pain. 6. Cardiac arrhythmia. 7. Supraventricular tachycardia. 8. Muscle wasting, recommend testosterone injection. ASSESSMENT AND PLAN: Discussed with the patient in detail. The patient need to be follow up as outpatient with his primary and with other specialists including rim technician for his muscle strengths, bone strengths, and also continue his prednisone, has been prescribed by Dr. Mendenhall. Continue follow up. If in respiratory distress, the patient is advised to come back to the emergency room. Continue pain medications, continue morphine sulfate. Continue BiPAP machine. Elmo Tomas MD
== END 2017-01-25 16:19 | DRG 541 ==
LOC: ED 10:26 → ERH 14:30 → 2RNO 17:35 → OBSVTOIN 01-16 23:53 → 2RNO 01-17 09:30 → 3RNO 01-17 13:29
PROVIDERS: ADMIT Internal Medicine; ATTEND Internal Medicine
PROC: 5A09557 Assistance with Respiratory Ventilation, Greater than 96 Consecutive Hours, Continuous Positive Airway Pressure (ICD-10-PCS; principal; 2017-01-14)
DX: J44.1 Chronic obstructive pulmonary disease with (acute) exacerbation (principal); R65.10 Systemic inflammatory response syndrome (SIRS) of non-infectious origin without acute organ dysfunction; J96.20 Acute and chronic respiratory failure, unspecified whether with hypoxia or hypercapnia; R64 Cachexia; M80.88XA Other osteoporosis with current pathological fracture, vertebra(e), initial encounter for fracture; I36.1 Nonrheumatic tricuspid (valve) insufficiency; I47.1 Supraventricular tachycardia; I27.29 Other secondary pulmonary hypertension; K76.1 Chronic passive congestion of liver; I48.0 Paroxysmal atrial fibrillation; I25.10 Atherosclerotic heart disease of native coronary artery without angina pectoris; M40.209 Unspecified kyphosis, site unspecified; G89.4 Chronic pain syndrome; D64.9 Anemia, unspecified; Z68.1 Body mass index [BMI] 19.9 or less, adult; R19.7 Diarrhea, unspecified; Z79.891 Long term (current) use of opiate analgesic; Z79.52 Long term (current) use of systemic steroids; Z87.891 Personal history of nicotine dependence